=== PATIENT | male | born 1945 | race Caucasian/White ===

== ENCOUNTER → 2017-09-25 17:45 | Inpatient (IN) | END | disposition home or self-care (01) | DRG 640 ==

== ENCOUNTER 2017-10-02 17:15 | Emergency (ER) | END 2017-10-02 20:09 | disposition left against medical advice (07) ==

== ENCOUNTER 2017-10-18 05:31 | Emergency (ER) | END 2017-10-18 07:44 | disposition home or self-care (01) ==

== ENCOUNTER 2017-11-28 15:01 | Inpatient (IN) | END 2018-01-04 16:00 | disposition home health service (06) | DRG 981 ==

== ENCOUNTER 2018-03-07 10:22 | Inpatient (IN) | payer OTHER ==
[~2018-03-07] VITALS: Ht 162.6 cm; Wt 69.3 kg
[2018-03-07] VITALS (7 sets, daily range): BP systolic 152–183; BP diastolic 76–79; PULSE 56–70; RESP 18; Ht 162.6 cm; Wt 69.3 kg
[~2018-03-07 10:22] MED LIST: APIX5TAB PO; ATOR20TA65 PO; CALC500T11 PO; CARV12.579 PO; FOLI-49 PO; HYDR-3672 PO; Insulin Glargine SC; LOSA50TA14 PO; NIFE90TA PO; NOVO3I SC
[2018-03-07] MEDS ORDERED: ONDANSETRON 4 MG INJ IV STA ×2 (11:32→15:35)
--- NOTE | 2018-03-07 12:18 | ERD ---
ER Documentation Chief Complaint Chief Complaint VOMITING,PALPITATIONS,SOB.LLEG PAIN HPI This is a 73-year-old male with a past medical history of hypertension, hyperlipidemia, diabetes, CHF, atrial fibrillation, hypothyroidism, end-stage renal disease status post right chest tunneled dialysis catheter on dialysis Monday//Monday, who is presenting with epigastric pain, nausea with a few episodes of nonbilious nonbloody vomiting, exacerbated by eating. The patient has had these symptoms for several days now. Despite this, he been able to finish his dialysis sessions, most recently yesterday. The patient does also endorse a few episodes of loose watery brown nonbloody diarrhea, and he feels generally unwell. He has not had any fever or chills. He denies any black or bloody or tarry stools. The patient reports oliguria related to his kidney disease. He denies any dysuria. The patient also endorses chronic right hip pain. The patient reports having had hip surgery several months ago, and he has had pain since then. He is due to follow-up with his orthopedic doctor. He does not endorse any new pain. He does not endorse any left lower extremity swelling. He does not endorse any recent trauma or injury. The patient also endorses intermittent palpitations with shortness of breath. He does not endorse chest pain or pleuritic pain. The patient has had no headache or vision changes. The patient does not endorse neck or back pain. The patient denies lightheadedness or dizziness. The patient has had no focal deficits. The patient has had no weakness or numbness or tingling to the face or extremities. ROS All systems reviewed and are negative except as per history of present illness. Medications Home Meds Active Scripts Insulin Aspart* (Novolog Insulin Pen*) 100 Unit/Ml Soln, 5 UNIT SC WITH MEALS for 30 Days, #1 BOX 2 Refills Prov:WALLY GOODMAN 01/04/18 [Insulin Glargine] 100 UNITS/ML SOLN No Conflict Check, 20 UNITS SC QAM for 30 Days, #1 BOX 2 Refills Prov:WALLY GOODMAN 01/04/18 Nifedipine (Procardia Xl) 90 Mg Tab.er.24, 90 MG PO DAILY for 30 Days, #30 TAB 1 Refill Prov:WALLY GOODMAN 01/01/18 Carvedilol* (Carvedilol*) 12.5 Mg Tablet, 12.5 MG PO BID for 30 Days, #60 TAB 1 Refill Prov:WALLY GOODMAN J 01/01/18 Atorvastatin Calcium (Atorvastatin Calcium) 20 Mg Tablet, 20 MG PO HS for 30 Days, #30 TAB 1 Refill Prov:WALLY GOODMAN J 01/01/18 Apixaban* (Eliquis*) 5 Mg Tablet, 5 MG PO BID for 30 Days, #60 TAB 1 Refill Prov:WALLY GOODMAN J 01/01/18 Folic Acid* (Folic Acid*) 1 Mg Tablet, 1 MG PO DAILY for 30 Days, #30 TAB 1 Refill Prov:WALLY GOODMAN J 01/01/18 Hydralazine Hcl* (Hydralazine Hcl*) 50 Mg Tab, 50 MG PO Q8 for 30 Days, #90 TAB 1 Refill Prov:WALLY GOODMAN J 01/01/18 Reported Medications Meloxicam* (Mobic*) 15 Mg Tablet, 15 MG PO DAILY, #30 TAB 03/07/18 Hydrocodone/Acetaminophen ([place] 5-325 Tablet) 1 Each Tablet, 1 EACH PO Q6H, TAB 03/07/18 Discontinued Scripts Calcium Carbonate ([place]-500) 500 Mg Tablet, 500 MG PO DAILY for 30 Days, #30 TAB 1 Refill Prov:WALLY GOODMAN J 01/01/18 Losartan Potassium* (Losartan Potassium*) 50 Mg Tablet, 50 MG PO DAILY for 30 Days, #30 TAB 1 Refill Prov:WALLY GOODMAN J 01/01/18 Allergies Allergies: Coded Allergies: No Known Allergy (Unverified , 03/07/18) PMhx/Soc History of Surgery: Yes (R hip replacement. ) Anesthesia Reaction: No Hx Neurological Disorder: No Hx Respiratory Disorders: No Hx Cardiac Disorders: Yes (Hypertension, atrial fibrillation, hyperlipidemia, heart failure, diabetes) Hx Psychiatric Problems: No Hx Miscellaneous Medical Probl: Yes (ESRD on HD, hypothyroidism, anemia) Hx Alcohol Use: No Hx Substance Use: No Hx Tobacco Use: No Smoking Status: Never smoker FmHx Family History: diabetes Physical Exam Vitals Vital Signs Date Temp Pulse Resp B/P (MAP) Pulse Ox O2 O2 Flow FiO2 Time Delivery Rate 03/07/18 68 19 180/76 100 Room Air 14:27 (110) 03/07/18 98.1 56 16 148/64 100 Room Air 11:50 (92) 03/07/18 98.3 64 18 148/65 99 10:25 (92) Physical Exam Const: No apparent distress, well-developed, well-nourished Head: Normocephalic, Atraumatic Eyes: Normal Conjunctiva. Extraocular movements intact. Pupils equal, round and reactive to light ENT: Normal External Ears, Nose and Mouth. Neck: Full range of motion. No meningismus. Resp: Clear to auscultation bilaterally, No wheezes, rales or rhonchi Cardio: Regular rhythm. Bradycardia. No murmurs, rubs or gallops Chest: Right chest tunneled dialysis catheter with no erythema or induration or purulence or fluctuance around the site. Abd: Soft, non tender, non distended. Normal bowel sounds Skin: No petechiae or rashes. Right hip surgical site is clean with a healed surgical scar, no erythema or induration or purulence or fluctuance. Back: No midline tenderness. No CVA tenderness Ext: No cyanosis, or edema. Limited range of motion to the right hip sec ondary to pain, chronic in nature. Neur: Awake and alert, oriented 4. Cranial nerves intact. No facial droop. Normal strength, sensation and coordination. Psych: Normal Mood and Affect Result Diagram: 03/07/18 1148 03/07/18 1148 Results 24 hrs Laboratory Tests Test 03/07/18 11:48 03/07/18 13:10 White Blood Count 8.7 10^3/ul Red Blood Count 4.42 10^6/ul Hemoglobin 13.5 g/dl Hematocrit 41.3 % Mean Corpuscular Volume 93.4 fl Mean Corpuscular Hemoglobin 30.5 pg Mean Corpuscular Hemoglobin Concent 32.7 g/dl Red Cell Distribution Width 14.4 % Platelet Count 180 10^3/UL Mean Platelet Volume 10.0 fl Immature Granulocytes % 0.300 % Neutrophils % 71.3 % Lymphocytes % 12.9 % Monocytes % 9.0 % Eosinophils % 5.8 % Basophils % 0.7 % Nucleated Red Blood Cells % 0.0 /100WBC Immature Granulocytes # 0.030 10^3/ul Neutrophils # 6.2 10^3/ul Lymphocytes # 1.1 10^3/ul Monocytes # 0.8 10^3/ul Eosinophils # 0.5 10^3/ul Basophils # 0.1 10^3/ul Nucleated Red Blood Cells # 0.0 10^3/ul Sodium Level 136 mmol/L Potassium Level 5.9 mmol/L Chloride Level 91 mmol/L Carbon Dioxide Level 28 mmol/L Anion Gap 17 Blood Urea Nitrogen 45 mg/dl Creatinine 6.61 mg/dl Est Glomerular Filtrat Rate mL/min mL/min Glucose Level 79 mg/dl Calcium Level 8.8 mg/dl Total Bilirubin 0.0 mg/dl Direct Bilirubin 0.00 mg/dl Indirect Bilirubin 0.0 mg/dl Aspartate Amino Transf (AST/SGOT) 40 IU/L Alanine Aminotransferase (ALT/SGPT) 47 IU/L Alkaline Phosphatase 231 IU/L Troponin I < 0.012 ng/ml Total Protein 7.6 g/dl Albumin 4.5 g/dl Globulin 3.10 g/dl Albumin/Globulin Ratio 1.45 Lipase 88 U/L Urine Color YELLOW Urine Clarity CLEAR Urine pH 9.0 Urine Specific [place] 1.013 Urine Ketones NEGATIVE mg/dL Urine Nitrite NEGATIVE mg/dL Urine Bilirubin NEGATIVE mg/dL Urine Urobilinogen NEGATIVE mg/dL Urine Leukocyte Esterase NEGATIVE [place]/ul Urine Microscopic RBC 6 /HPF Urine Microscopic WBC 4 /HPF Urine Hemoglobin NEGATIVE mg/dL Urine Glucose 2+ mg/dL Urine Total Protein 3+ mg/dl Current Medications Medications Dose Sig/Dario Start Time Status Last (Trade) Ordered Route PRN Stop Time Admin Dose Reason Admin Ondansetron 4 mg ONCE STAT 03/07/18 DC 03/07/18 HCl (Zofran IV 11:32 11:46 Inj) 03/07/18 11:33 Morphine 4 mg ONCE STAT 03/07/18 DC 03/07/18 Sulfate IV 15:35 15:41 (morphine) 03/07/18 15:39 Ondansetron 4 mg ONCE STAT 03/07/18 DC 03/07/18 HCl (Zofran IV 15:35 15:41 Inj) 03/07/18 15:39 Procedures/MDM MDM The patient's presentation warrants further investigation. Previous medical records, if available, were reviewed. LABS The patient's laboratory testing was obtained and reviewed. No emergent treatment was required unless described below. CBC: No E/o of systemic infection or thrombocytopenia. Mild normocytic anemia, improved from baseline, nonemergent CMP: No E/o severe acidosis or alkalosis or diabetic ketoacidosis. Elevated alkaline phosphatase, potentially reactive. Elevated BUN and creatinine in line with his end-stage renal disease. Hyperkalemia, does not require emergent treatment. Lipase: No E/o pancreatitis Troponin: No E/o acute ischemia Urine: Patient was not able to provide. EKG EKG read by me: Rate/Rhythm: Sinus bradycardia at 57 bpm with an unusual P wave morphology, concerning for possible ectopic atrial bradycardia Intervals: Normal. Incomplete right bundle branch block [place]: Normal Impression: No evidence of acute ischemia or arrhythmia IMAGING Imaging and Radiology interpretation reviewed. CXR FINDINGS: The lungs are clear. There is a tunneled right internal jugular vein dialysis catheter with the tip in the lower superior vena cava. The heart is enlarged. There is calcification in the aorta consistent with atherosclerosis. There is no pleural effusion. There is no pneumothorax. IMPRESSION: Dialysis catheter in satisfactory position. Clear lungs. Cardiomegaly and atherosclerosis. Otherwise unremarkable chest radiograph. Electronically viewed and signed by .Buddy Luu MD, on 03/07/2018 13:37 TREATMENT/DISPOSITION The patient presents primarily for epigastric abdominal pain with nausea, vomiting and diarrhea. This could be related to gastritis or GERD or PUD. The patient was provided treatment for these symptoms. This could also be related to gastroenteritis. That said, the patient does have chronic metabolic derangements associated with his end-stage renal disease. The patient also has hyperkalemia, which is concerning. Also of note, the patient is slightly bradycardic. His EKG shows abnormal P wave morphology, concerning for possible ectopic atrial bradycardia. The patient's troponin is negative, but an anginal equivalent is certainly possible with his current symptoms. Given the overall presentation, I do feel that the patient would benefit from inpatient evaluation and management as needed. There is no evidence of acute ischemia on the EKG. The patient's potassium is elevated but still less than 6.5 and there are no peaked T waves on the EKG. I do not feel the patient requires emergent treatment for his hyperkalemia in the emergency department, but he will require nephrology consultation in the hospital for dialysis tomorrow. The patient's chest xray does not reveal pneumonia or pneumothorax or pleural effusions or pulmonary edema. She does not have a widened mediastinum and does not have signs or symptoms concerning for thoracic aortic aneurysm or dissection. The patient does not have pneumomediastinum or signs concerning for esophageal tear or rupture. The patient has no clinical or radiographic signs of pericardial effusion or tamponade. The patient does not have pneumoperitoneum and I have decreased suspicion of viscus perforation as possible referred pain. The patient does not have a history of heart failure and I have low suspicion for this. The patient does not have a diagnosis of COPD and is not wheezing today. The patient is not tachypneic or hypoxic. The patient is breathing comfortably and without pleuritic pain. The patient is not on hormonal therapy. The patient has no history of clotting or bleeding disorders. The patient has no calf tenderness. The patient has had no hemoptysis. I have decreased suspicion for PE. The patient's troponin and EKG are reassuring. I have low suspicion for acute coronary syndrome. The patient presents with abdominal pain. The patient does not have any ev idence of peritonitis. The patient does not have clinical symptoms concerning for mesenteric ischemia or ischemic colitis. The patient does not have right upper quadrant tenderness, and I have low reis spicion for gallstones, cholecystitis or biliary colic. The patient does not have left upper quadrant tenderness. I have low suspicion for pancreatitis. The patient does not have any right lower quadrant tenderness, or periumbilical tenderness. I have low suspicion for appendicitis. The patient does not have suprapubic tenderness. I have decreased suspicion for cystitis. The patient does not have any left lower quadrant tenderness, and I have low suspicion for diverticulosis or diverticulitis. The patient does not have any flank tenderness. The patient does not have gross hematuria. I have decreased suspicion for nephrolithiasis or renal colic. The patient does not have any palpable pulsatile mass or severe abdominal pain radiating to the back. I have low suspicion for aortic aneurysm, dissection or rupture. Lastly, the patient endorses ambulatory dysfunction related to chronic right hip pain. The patient had a recent total hip arthroplasty several months ago and he has had pain since then. There is no evidence of soft tissue infection. I have low suspicion for a septic joint. The patient's symptoms are chronic and unchanged today. I do not feel that further workup for this is warranted in the emergency department. The patient was given a dose of morphine for pain control. At this time, I feel that the patient requires admission for further evaluation and management. The patient will be admitted to Panel in accordance with the patient's insurance. The patient was accepted by Dr. Carlisle at 4:10 PM on January 05, 2019. Disclaimer: Inadvertent spelling and grammatical errors are likely due to EHR/dictation software use and do not reflect on the overall quality of patient care. Note that the electronic time recorded on this note does not necessarily reflect the actual time of the patient encounter. Departure Diagnosis: Primary Impression: Epigastric pain Additional Impressions: Nausea & vomiting Vomiting type: unspecified Vomiting Intractability: non-intractable Qualified Codes: R11.2 - Nausea with vomiting, unspecified Diarrhea Diarrhea type: unspecified type Qualified Codes: R19.7 - Diarrhea, unspecified Palpitations Bradycardia Shortness of breath Hyperkalemia End stage renal disease Elevated alkaline phosphatase level Normocytic anemia Multiple complaints Chronic right hip pain Ambulatory dysfunction Condition: CLARE Pimentel MD Mar 07, 2018 12:18
[2018-03-07] MEDS ORDERED: MELO15TA30 PO (14:51)
[2018-03-07] MEDS ORDERED: HYDR-4011 PO (14:51)
[2018-03-07] MEDS ORDERED: morphine 4 MG/ML VIAL IV STA (15:35)
[2018-03-07] MEDS ORDERED: LIDOCAINE/MYLANTA 40 ML BTL PO STA (16:25)
[2018-03-07] MEDS ORDERED: FAMOTIDINE 20 MG TAB PO STA (16:25)
[2018-03-07] MEDS ORDERED: BELLADONNA/PHENOBARBITAL TAB PO STA (16:25)
[2018-03-07] MEDS ORDERED: ACETAMINOPHEN 325 MG TAB PO PRN (17:00)
[2018-03-07] MEDS ORDERED: ONDANSETRON 4 MG INJ IV PRN (17:00)
[2018-03-07] MEDS ORDERED: NACL 0.9% 3 ML SYG IV SCH ×2 (17:30)
--- NOTE | 2018-03-07 17:32 | HP ---
Date/Time of Note Date/Time of Note DATE: 03/07/18 TIME: 17:18 Assessment/Plan VTE Prophylaxis Pharmacological prophylaxis: heparin Lines/Catheters IV Catheter Type (from Nrsg): Saline Lock Assessment/Plan Hospital Course 73 yo male with h/o ESRD on HD, DMII, A Fib, OA s/p R EMILY 3 mo ago presents with ongoing hip pain, also having nasuea and vomiting Hip/knee pain: - Has been present since surgery. Will obtain XR hip and knee - Pain control N/V: - Sypmtomatic care. unlikely bacterial infection. benign abdominal exam ESRD: - HD per Dr javier Regalado Fib: - stable Result Diagram: 03/07/18 1148 03/07/18 1148 Results 24hrs Laboratory Tests Test 03/07/18 11:48 03/07/18 13:10 White Blood Count 8.7 Red Blood Count 4.42 #L Hemoglobin 13.5 #L Hematocrit 41.3 #L Mean Corpuscular Volume 93.4 Mean Corpuscular Hemoglobin 30.5 Mean Corpuscular Hemoglobin Concent 32.7 Red Cell Distribution Width 14.4 Platelet Count 180 # Mean Platelet Volume 10.0 Immature Granulocytes % 0.300 Neutrophils % 71.3 Lymphocytes % 12.9 L Monocytes % 9.0 Eosinophils % 5.8 Basophils % 0.7 Nucleated Red Blood Cells % 0.0 Immature Granulocytes # 0.030 Neutrophils # 6.2 Lymphocytes # 1.1 Monocytes # 0.8 Eosinophils # 0.5 Basophils # 0.1 Nucleated Red Blood Cells # 0.0 Sodium Level 136 Potassium Level 5.9 H Chloride Level 91 L Carbon Dioxide Level 28 Anion Gap 17 H Blood Urea Nitrogen 45 H Creatinine 6.61 H Est Glomerular Filtrat Rate mL/min Glucose Level 79 Calcium Level 8.8 Total Bilirubin 0.0 L Direct Bilirubin 0.00 Indirect Bilirubin 0.0 Aspartate Amino Transf (AST/SGOT) 40 Alanine Aminotransferase (ALT/SGPT) 47 Alkaline Phosphatase 231 H Troponin I < 0.012 Total Protein 7.6 Albumin 4.5 Globulin 3.10 Albumin/Globulin Ratio 1.45 Lipase 88 Urine Color YELLOW Urine Clarity CLEAR Urine pH 9.0 Urine Specific [place] 1.013 Urine Ketones NEGATIVE Urine Nitrite NEGATIVE Urine Bilirubin NEGATIVE Urine Urobilinogen NEGATIVE Urine Leukocyte Esterase NEGATIVE Urine Microscopic RBC 6 H Urine Microscopic WBC 4 Urine Hemoglobin NEGATIVE Urine Glucose 2+ H Urine Total Protein 3+ H HPI/ROS Admit Date/Time Admit Date/Time Mar 07, 2018 at 16:36 Hx of Present Illness 73 yo male with ESRD on HD, DMII, hypertension, OA s/p EMILY who presents with R hip pain and vomiting Had hip replaced 3 mo ago. Has had pain in R hip and knee since that time. has been seen by Dr Thomason his orthopedist and there have been no identified complications of surgery He presents for evaluation of pain Also complaints of nausea and vomiting with mild abdominal pain. No diarrhea. No fevers/chills. Received pain injection in ED and symptoms now resolved PMH/Family/Social Past Medical History Medical History: renal disease Medications Current Medications Ondansetron HCl (Zofran Inj) 4 mg ER BRIDGE PRN IV nausea; Start 03/07/18 at 17:00; Stop 03/08/18 at 16:59 Acetaminophen (Tylenol Tab) 650 mg ER BRIDGE PRN PO pain; Start 03/07/18 at 17:00; Stop 03/08/18 at 16:59 Coded Allergies: No Known Allergy (Unverified , 03/07/18) Past Surgical History EMILY Past Surgical Hx: other Family History Significant Family History: no pertinent family hx Social History Alcohol Use: none Smoking Status: Never smoker Drug Use: none Exam/Review of Systems Vital Signs Vitals Vital Signs Date Temp Pulse Resp B/P (MAP) Pulse Ox O2 O2 Flow FiO2 Time Delivery Rate 03/07/18 69 18 152/60 99 Room Air 16:58 (90) 03/07/18 98.1 11:50 Exam Exam Well appearing no distress Aox3 RRR Clear b/l Permacath in chest Abdomen soft nt nd RLE with normal appearing hip s/p arthroplasty No edema BRUNO ALAN MD Mar 07, 2018 17:32
[2018-03-07] MEDS: INSULIN ASPART [NOVOLOG] 3 ML PEN SC SCH ×3 (18:00→20:06)
[2018-03-07] MEDS ORDERED: GLUCAGON 1 MG INJ IM PRN (18:00)
[2018-03-07] MEDS ORDERED: DEXTROSE 50% 50 ML SYRINGE IV PRN ×2 (18:00)
[2018-03-07] MEDS ORDERED: GLUCOSE GEL 15 GRAM TUBE PO PRN ×2 (18:00)
[2018-03-07] MEDS ORDERED: GLUCOSE GEL 15 GRAM TUBE BUCCAL PRN (18:00)
--- NOTE | 2018-03-07 18:31 | NUR ---
pt transfer from er at 1730 with pt, pt nonenglish speaking, mauritian only pt alert and oriented, bp elevated, pt had c\o right hip pain, med prior to transfer in er at this time declines pain med bs checked, and diet ordered for pt
[2018-03-07] MEDS: HYDROCODONE/APAP (5/325) TAB PO PRN (20:00)
[2018-03-07] MEDS: INSULIN GLARGINE [LANTus] (100 UNITS/ML) SYG SC SCH (20:05)
--- NOTE | 2018-03-07 20:55 | CONS ---
Date/Time of Note Date/Time of Note DATE: 03/07/18 TIME: 20:55 Assessment/Plan Assessment/Plan Assessment/Plan 1. acute hyperkalemia 2. ESRD on HD TTS schedule at [facility] [place] 3. right hip pain 4. H/o HTN 5/ H/o HL 6. h/o atrial fibrillation Plan: Seen in ED< S/p Treatment for hyperkalemia in ED, Kayexalate given, Bp stable in ED Admissin to floor will plan for HD tomorrow first in AM pt follows at [facility] for scheduled HD on TTS Thanks for consultaiton, I will continue to follow up Result Diagram: 03/07/18 1148 03/07/18 1148 Results 24hrs Laboratory Tests Test 03/07/18 11:48 03/07/18 13:10 03/07/18 18:03 03/07/18 19:51 White Blood Count 8.7 Red Blood Count 4.42 #L Hemoglobin 13.5 #L Hematocrit 41.3 #L Mean Corpuscular 93.4 Volume Mean Corpuscular 30.5 Hemoglobin Mean Corpuscular 32.7 Hemoglobin Concent Red Cell 14.4 Distribution Width Platelet Count 180 # Mean Platelet Volume 10.0 Immature 0.300 Granulocytes % Neutrophils % 71.3 Lymphocytes % 12.9 L Monocytes % 9.0 Eosinophils % 5.8 Basophils % 0.7 Nucleated Red Blood 0.0 Cells % Immature 0.030 Granulocytes # Neutrophils # 6.2 Lymphocytes # 1.1 Monocytes # 0.8 Eosinophils # 0.5 Basophils # 0.1 Nucleated Red Blood 0.0 Cells # Sodium Level 136 Potassium Level 5.9 H Chloride Level 91 L Carbon Dioxide Level 28 Anion Gap 17 H Blood Urea Nitrogen 45 H Creatinine 6.61 H Est Glomerular Filtrat Rate mL/min Glucose Level 79 Calcium Level 8.8 Total Bilirubin 0.0 L Direct Bilirubin 0.00 Indirect Bilirubin 0.0 Aspartate Amino 40 Transf (AST/SGOT) Alanine 47 Aminotransferase (AL T/SGPT) Alkaline Phosphatase 231 H Troponin I < 0.012 Total Protein 7.6 Albumin 4.5 Globulin 3.10 Albumin/Globulin 1.45 Ratio Lipase 88 Urine Color YELLOW Urine Clarity CLEAR Urine pH 9.0 Urine Specific 1.013 [place] Urine Ketones NEGATIVE Urine Nitrite NEGATIVE Urine Bilirubin NEGATIVE Urine Urobilinogen NEGATIVE Urine Leukocyte NEGATIVE Esterase Urine Microscopic 6 H RBC Urine Microscopic 4 WBC Urine Hemoglobin NEGATIVE Urine Glucose 2+ H Urine Total Protein 3+ H Bedside Glucose 86 131 Consultation Date/Type/Reason Admit Date/Time Mar 07, 2018 at 16:36 Date of Consultation: Mar 07, 2018 Type of Consult NEPHROLOGY Reason for Consultation ESRD on HD with bradycardia, Hyperkalemia, Hypotension Requesting Provider: BRUNO ALAN MD Hx of Present Illness 73 yo male with h/o ESRD on HD, DMII, A Fib, OA s/p R EMILY 3 mo ago presents with ongoing hip pain, also having nasuea and vomiting- pt had his last HD yesteday, he was noted ot have hyperkalemia with K 5.9- pt follows at [facility] [place] for scheduled HD on TTS.Renal has been consulted for acute hyperkalemia and need of HD. Constitutional: no complaints Eyes: no complaints ENT: no complaints Respiratory: no complaints Cardiovascular: lightheadedness Gastrointestinal: decreased appetite, nausea, vomiting Genitourinary: no complaints Musculoskeletal: no complaints Skin: no complaints Neurologic: no complaints Endocrine: no complaints Lymphatic: no complaints Psychological: no complaints Immunologic: no complaints Past Medical History Medical History: hypertension, renal disease, other (ESRD on HD, Atrial fibrillation ) Medications Current Medications Carvedilol (Coreg) 12.5 mg BID PO Last administered on 03/07/18at 20:06; Admin Dose 12.5 MG; Start 03/07/18 at 21:00 Hydralazine HCl (Apresoline) 50 mg Q8 PO ; Start 03/07/18 at 22:00 IV Flush (NS 3 ml) 3 ml PER PROTOCOL IV ; Start 03/07/18 at 17:30 Acetaminophen/ Hydrocodone Bitart (Cornell (5/325)) 2 tab Q6H PRN PO PAIN LEVEL 6-10; Start 03/07/18 at 17:30 Heparin Sodium (Porcine) (Heparin (5000 Units/1ml)) 5,000 unit Q12 SC ; Start 03/07/18 at 21:00 Insulin Glargine (Lantus) 10 units DAILY@2000 SC Last administered on 03/07/18at 20:05; Admin Dose 10 UNITS; Start 03/07/18 at 20:00 Insulin Aspart (Novolog Insulin Pen) 3 unit WITH MEALS SC ; Start 03/07/18 at 18:00 Insulin Aspart (Novolog Insulin Pen) NOVOLOG *MILD* ALGORITHM WITH MEALS BEDTIME SC ; Start 03/07/18 at 18:00 IV Flush (NS 3 ml) 3 ml PER PROTOCOL IV ; Start 03/07/18 at 17:30 Miscellaneous Information 1 ea NOTE XX ; Start 03/07/18 at 18:00 Glucose (Glutose) 15 gm Q15M PRN PO DECREASED GLUCOSE; Start 03/07/18 at 18:00 Glucose (Glutose) 22.5 gm Q15M PRN PO DECREASED GLUCOSE; Start 03/07/18 at 18:00 Dextrose (D50w Syringe) 25 ml Q15M PRN IV DECREASED GLUCOSE; Start 03/07/18 at 18:00 Dextrose (D50w Syringe) 50 ml Q15M PRN IV DECREASED GLUCOSE; Start 03/07/18 at 18:00 Glucagon (Glucagen) 1 mg Q15M PRN IM DECREASED GLUCOSE; Start 03/07/18 at 18:00 Glucose (Glutose) 15 gm Q15M PRN BUCCAL DECREASED GLUCOSE; Start 03/07/18 at 18:00 Allergies: Coded Allergies: No Known Allergy (Unverified , 03/07/18) Past Surgical History Past Surgical Hx: other (R THR , H/o permacath placemen t) Family History Significant Family History: no pertinent family hx Social History Alcohol Use: none Smoking Status: Never smoker Drug Use: none Exam/Review of Systems Vital Signs Vitals Vital Signs Date Temp Pulse Resp B/P (MAP) Pulse Ox O2 O2 Flow FiO2 Time Delivery Rate 03/07/18 62 20:00 03/07/18 98.8 18 183/78 98 19:34 (113) 03/07/18 Room Air 18:20 Exam Constitutional: alert Head: normocephalic Eyes: nl conjunctiva ENMT: nl external ears & nose Neck: supple, non-tender Respiratory: crackles/rales, diminished breath sounds Cardiovascular: regular rate and rhythm, nl pulses Gastrointestinal: soft, non-tender Musculoskeletal: muscle weakness, range of motion (limited due to hip pain ), spine non-tender, swelling Extremities: normal pulses Neurological: TRIM MASTER OPERATOR II-XII intact, nl mental status, nl speech, nl strength Skin: nl turgor Lymph: nl lymph nodes Medications Medications Current Medications Carvedilol (Coreg) 12.5 mg BID PO Last administered on 03/07/18at 20:06; Admin Dose 12.5 MG; Start 03/07/18 at 21:00 Hydralazine HCl (Apresoline) 50 mg Q8 PO ; Start 03/07/18 at 22:00 IV Flush (NS 3 ml) 3 ml PER PROTOCOL IV ; Start 03/07/18 at 17:30 Acetaminophen/ Hydrocodone Bitart (Cornell (5/325)) 2 tab Q6H PRN PO PAIN LEVEL 6-10; Start 03/07/18 at 17:30 Heparin Sodium (Porcine) (Heparin (5000 Units/1ml)) 5,000 unit Q12 SC ; Start 03/07/18 at 21:00 Insulin Glargine (Lantus) 10 units DAILY@2000 SC Last administered on 03/07/18at 20:05; Admin Dose 10 UNITS; Start 03/07/18 at 20:00 Insulin Aspart (Novolog Insulin Pen) 3 unit WITH MEALS SC ; Start 03/07/18 at 18:00 Insulin Aspart (Novolog Insulin Pen) NOVOLOG *MILD* ALGORITHM WITH MEALS BEDTIME SC ; Start 03/07/18 at 18:00 IV Flush (NS 3 ml) 3 ml PER PROTOCOL IV ; Start 03/07/18 at 17:30 Miscellaneous Information 1 ea NOTE XX ; Start 03/07/18 at 18:00 Glucose (Glutose) 15 gm Q15M PRN PO DECREASED GLUCOSE; Start 03/07/18 at 18:00 Glucose (Glutose) 22.5 gm Q15M PRN PO DECREASED GLUCOSE; Start 03/07/18 at 18:00 Dextrose (D50w Syringe) 25 ml Q15M PRN IV DECREASED GLUCOSE; Start 03/07/18 at 18:00 Dextrose (D50w Syringe) 50 ml Q15M PRN IV DECREASED GLUCOSE; Start 03/07/18 at 18:00 Glucagon (Glucagen) 1 mg Q15M PRN IM DECREASED GLUCOSE; Start 03/07/18 at 18:00 Glucose (Glutose) 15 gm Q15M PRN BUCCAL DECREASED GLUCOSE; Start 03/07/18 at 18:00 LILLY QUILES MD Mar 07, 2018 20:55
[2018-03-07] MEDS ORDERED: SODIUM CHLORIDE 0.9% 1L BAG IV PRN (21:00)
[2018-03-07] MEDS ORDERED: ALBUMIN HUMAN 25% 50 ML IV PRN (21:00)
[2018-03-07] MEDS ORDERED: HEPARIN 1000 UNITS/ML 10 ML INJ CATHETER SCH (21:00)
[2018-03-07] MEDS: HEPARIN 5,000 UNIT/1 ML VIAL SC SCH (21:33)
--- NOTE | 2018-03-07 21:33 | NUR ---
Nurse Note Dialysis confirmation # for 03/08: [id number] Consent signed by at bedside, request from patient.
[2018-03-07] MEDS ORDERED: morphine SULFATE/PF (2 MG/2 ML) SYG IV PRN (22:00)
[2018-03-07] MEDS ORDERED: traZODone 50 MG TAB PO ONE (22:00)
[2018-03-07] MEDS: morphine 4 MG/ML VIAL IV PRN (22:35)
[2018-03-07] MEDS: hydrALAzine 20 MG INJ IV PRN (23:30)
[2018-03-08] VITALS (26 sets, daily range): BP systolic 119–192; BP diastolic 60–81; PULSE 49–90; RESP 16–20
[2018-03-08] MEDS: morphine 4 MG/ML VIAL IV PRN ×2 (05:21→14:30)
[2018-03-08] MEDS ORDERED: ALBUTEROL/IPRATROPIUM (NEB) 3 ML AMP HHN ONE (06:52)
[2018-03-08] MEDS ORDERED: INSULIN ASPART [NOVOLOG] 3 ML PEN SC ONE (07:00)
[2018-03-08] MEDS ORDERED: CALCIUM GLUCONATE 10% 1 GM in DEXTROSE 5% 100 ML IVPB ONE (07:00)
--- NOTE | 2018-03-08 07:42 | NUR ---
E[facility] Pt AM labs show potassium of 7.1 Dr Ferguson notified. Order for 10 units novolog and half amp D50. Pt BG checked-75. Dr Ferguson notified of BG, order changed to 50ml D50 along with novolog. Order carried out. Dr Ferguson also ordered nebulizer and calcium gluconate. Orders placed. This RN called [facility] to inquire about time of HD treatment today d/t high K, [facility] rep unsure of time, states will call back with time for HD today. Above notes endorsed to oncoming RNJeremy.
[2018-03-08] MEDS: INSULIN ASPART [NOVOLOG] 3 ML PEN SC SCH ×7 (08:00→21:37)
[2018-03-08] MEDS: HEPARIN 5,000 UNIT/1 ML VIAL SC SCH ×2 (08:28→21:36)
--- NOTE | 2018-03-08 10:00 | NUR ---
Patient currently undergoing HD. Calcium gluconate ordered for this patient. Per Dr. Carlisle, ordered to not administer unless ordered by road roller engineer. Order DC'd.
[2018-03-08] MEDS ORDERED: HEPARIN 1000 UNITS/ML 10 ML INJ CATHETER SCH (11:30)
--- NOTE | 2018-03-08 11:47 | CONS ---
Assessment/Plan Assessment/Plan Assessment/Plan (Daily) 1. acute hyperkalemia with K 7.1 2[place] [facility] [place] pain 4. H/o HTN 5/ H/o HL 6. h/o atrial fibrillation Plan: K 7.1- will do Hd today with 1 K bath, post HD K improved to 4.7 pt follows at [facility] for scheduled HD on TTS- after today next HD will be on Monday will continue to follow up Consultation Date/Type/Reason Admit Date/Time Mar 07, 2018 at 16:36 Initial Consult Date 03/07/18 Type of Consult NEPHROLOGY Requesting Provider: BRUNO ALAN MD Date/Time of Note DATE: 03/08/18 TIME: 11:47 24 HR Interval Summary Free Text/Dictation K was 7.1- s/p HD today with 1 k Bath, follow up K 4.7, BP stable Exam/Review of Systems Vital Signs Vitals Vital Signs Date Temp Pulse Resp B/P (MAP) Pulse Ox O2 O2 Flow FiO2 Time Delivery Rate 03/08/18 66 11:25 03/08/18 97.9 19 155/68 95 11:12 (97) 03/08/18 Room Air 10:20 Intake and Output 03/07/18 03/07/18 03/08/18 1515:00 23:00 07:00 IntakeIntake Total 300 ml BalanceBalance 300 ml Exam Constitutional: alert, awake, no acute distress Respiratory: crackles/rales, diminished breath sounds Cardiovascular: regular rate and rhythm, nl pulses Gastrointestinal: soft, non-tender Musculoskeletal: muscle weakness, range of motion (limited due to hip pain ), spine non-tender, swelling Extremities: normal pulses Neurological: IT INFRASTRUCTURE ARCHITECT II-XII intact, nl mental status, nl speech, nl strength Results Result Diagram: 03/08/18 0509 03/08/18 0509 Results 24hrs Laboratory Tests Test 03/07/18 11:48 03/07/18 13:10 03/07/18 18:03 03/07/18 19:51 White Blood Count 8.7 Red Blood Count 4.42 #L Hemoglobin 13.5 #L Hematocrit 41.3 #L Mean Corpuscular 93.4 Volume Mean Corpuscular 30.5 Hemoglobin Mean Corpuscular 32.7 Hemoglobin Concent Red Cell 14.4 Distribution Width Platelet Count 180 # Mean Platelet Volume 10.0 Immature 0.300 Granulocytes % Neutrophils % 71.3 Lymphocytes % 12.9 L Monocytes % 9.0 Eosinophils % 5.8 Basophils % 0.7 Nucleated Red Blood 0.0 Cells % Immature 0.030 Granulocytes # Neutrophils # 6.2 Lymphocytes # 1.1 Monocytes # 0.8 Eosinophils # 0.5 Basophils # 0.1 Nucleated Red Blood 0.0 Cells # Sodium Level 136 Potassium Level 5.9 H Chloride Level 91 L Carbon Dioxide Level 28 Anion Gap 17 H Blood Urea Nitrogen 45 H Creatinine 6.61 H Est Glomerular Filtrat Rate mL/min Glucose Level 79 Calcium Level 8.8 Total Bilirubin 0.0 L Direct Bilirubin 0.00 Indirect Bilirubin 0.0 Aspartate Amino 40 Transf (AST/SGOT) Alanine 47 Aminotransferase (AL T/SGPT) Alkaline Phosphatase 231 H Troponin I < 0.012 Total Protein 7.6 Albumin 4.5 Globulin 3.10 Albumin/Globulin 1.45 Ratio Lipase 88 Urine Color YELLOW Urine Clarity CLEAR Urine pH 9.0 Urine Specific 1.013 [place] Urine Ketones NEGATIVE Urine Nitrite NEGATIVE Urine Bilirubin NEGATIVE Urine Urobilinogen NEGATIVE Urine Leukocyte NEGATIVE Esterase Urine Microscopic 6 H RBC Urine Microscopic 4 WBC Urine Hemoglobin NEGATIVE Urine Glucose 2+ H Urine Total Protein 3+ H Bedside Glucose 86 131 Test 03/08/18 05:09 03/08/18 06:57 03/08/18 08:08 White Blood Count 8.0 Red Blood Count 3.69 L Hemoglobin 11.0 L Hematocrit 34.6 L Mean Corpuscular 93.8 Volume Mean Corpuscular 29.8 Hemoglobin Mean Corpuscular 31.8 L Hemoglobin Concent Red Cell 14.7 H Distribution Width Platelet Count 166 Mean Platelet Volume 11.2 H Immature 0.200 Granulocytes % Neutrophils % 59.4 Lymphocytes % 20.9 Monocytes % 11.0 Eosinophils % 7.4 H Basophils % 1.1 Nucleated Red Blood 0.0 Cells % Immature 0.020 Granulocytes # Neutrophils # 4.8 Lymphocytes # 1.7 Monocytes # 0.9 Eosinophils # 0.6 H Basophils # 0.1 Nucleated Red Blood 0.0 Cells # Sodium Level 136 Potassium Level 7.1 *H Chloride Level 93 L Carbon Dioxide Level 26 Anion Gap 17 H Blood Urea Nitrogen 55 H Creatinine 8.17 H Est Glomerular Filtrat Rate mL/min Glucose Level 87 Hemoglobin A1c 5.4 Calcium Level 8.6 Total Bilirubin 0.0 L Direct Bilirubin 0.00 Indirect Bilirubin 0.0 Aspartate Amino 21 Transf (AST/SGOT) Alanine 28 Aminotransferase (AL T/SGPT) Alkaline Phosphatase 182 H Total Protein 6.2 # Albumin 3.8 Globulin 2.40 Albumin/Globulin 1.58 Ratio Hepatitis B Surface NEGATIVE Antigen Bedside Glucose 75 129 LILLY QUILES MD Mar 08, 2018 11:47
--- NOTE | 2018-03-08 12:28 | DS ---
Date/Time of Note Date/Time of Note DATE: 03/08/18 TIME: 12:27 Discharge Summary Admission/Discharge Info Admit Date/Time Mar 07, 2018 at 16:36 Discharge Date/Time Discharge Diagnosis ESRD Patient Condition: Stable Hx of Present Illness 73 yo male with ESRD on HD, DMII, hypertension, OA s/p EMILY who presents with R hip pain and vomiting Had hip replaced 3 mo ago. Has had pain in R hip and knee since that time. has been seen by Dr Thomason his orthopedist and there have been no identified complications of surgery He presents for evaluation of pain Also complaints of nausea and vomiting with mild abdominal pain. No diarrhea. No fevers/chills. Received pain injection in ED and symptoms now resolved Hospital Course 73 yo male with h/o ESRD on HD, DMII, A Fib, OA s/p R EMILY 3 mo ago presents with ongoing hip pain, also having nasuea and vomiting Nausea and vomiting resolved spontaneously XR of hip and knee were taken which were without acute pathology He underwent scheduled HD per Dr Segura Discharged to further care as an outpatient Home Meds Active Scripts Insulin Aspart* (Novolog Insulin Pen*) 100 Unit/Ml Soln, 5 UNIT SC WITH MEALS for 30 Days, #1 BOX 2 Refills Prov:WALLY GOODMAN 01/04/18 [Insulin Glargine] 100 UNITS/ML SOLN No Conflict Check, 20 UNITS SC QAM for 30 Days, #1 BOX 2 Refills Prov:WALLY GOODMAN 01/04/18 Nifedipine (Procardia Xl) 90 Mg Tab.er.24, 90 MG PO DAILY for 30 Days, #30 TAB 1 Refill Prov:WALLY GOODMAN 01/01/18 Carvedilol* (Carvedilol*) 12.5 Mg Tablet, 12.5 MG PO BID for 30 Days, #60 TAB 1 Refill Prov:WALLY GOODMAN 01/01/18 Atorvastatin Calcium (Atorvastatin Calcium) 20 Mg Tablet, 20 MG PO HS for 30 Days, #30 TAB 1 Refill Prov:WALLY GOODMAN 01/01/18 Apixaban* (Eliquis*) 5 Mg Tablet, 5 MG PO BID for 30 Days, #60 TAB 1 Refill Prov:WALLY GOODMAN 01/01/18 Folic Acid* (Folic Acid*) 1 Mg Tablet, 1 MG PO DAILY for 30 Days, #30 TAB 1 Refill Prov:WALLY GOODMAN 01/01/18 Hydralazine Hcl* (Hydralazine Hcl*) 50 Mg Tab, 50 MG PO Q8 for 30 Days, #90 TAB 1 Refill Prov:WALLY GOODMAN 01/01/18 Reported Medications Meloxicam* (Mobic*) 15 Mg Tablet, 15 MG PO DAILY, #30 TAB 03/07/18 Hydrocodone/Acetaminophen (Rogers 5-325 Tablet) 1 Each Tablet, 1 EACH PO Q6H, TAB 03/07/18 Discontinued Scripts Calcium Carbonate (Oysco-500) 500 Mg Tablet, 500 MG PO DAILY for 30 Days, #30 TAB 1 Refill Prov:WALLY GOODMAN 01/01/18 Losartan Potassium* (Losartan Potassium*) 50 Mg Tablet, 50 MG PO DAILY for 30 Days, #30 TAB 1 Refill Prov:WALLY GOODMAN 01/01/18 Primary Care Provider Not On Staff Doctor Pending Labs Laboratory Tests Test 03/07/18 13:10 03/07/18 18:03 03/07/18 19:51 03/08/18 05:09 Urine Color YELLOW (YELLOW) Urine Clarity CLEAR (CLEAR) Urine pH 9.0 (5.0-9.0) Urine Specific 1.013 (1.003-1. Rice 030) Urine Ketones NEGATIVE mg/dL (NEGATIVE ) Urine Nitrite NEGATIVE mg/dL (NEGATIVE ) Urine NEGATIVE Bilirubin mg/dL (NEGATIVE ) Urine NEGATIVE Urobilinogen mg/dL (NEGATIVE ) Urine Leukocyte NEGATIVE Linus/ul Esterase Urine 6 /HPF (0-5) Microscopic RBC Urine 4 /HPF (0-5) Microscopic WBC Urine NEGATIVE Hemoglobin mg/dL (NEGATIVE ) Urine Glucose 2+ mg/dL (NEGATIVE ) Urine Total 3+ Protein mg/dl (NEGATIVE ) Bedside 86 131 Glucose mg/dL (70-220) mg/dL (70-220) White Blood 8.0 Count 10^3/ul (4.8-1 0.8) Red Blood 3.69 Count 10^6/ul (4.70- 6.10) Hemoglobin 11.0 g/dl (14.0-18. 0) Hematocrit 34.6 % (42.0-52.0) Mean 93.8 Corpuscular fl (82.0-101.0 Volume ) Mean 29.8 Corpuscular pg (29.0-33.0) Hemoglobin Mean 31.8 Corpuscular g/dl (32.0-37. Hemoglobin Conc 0) ent Red Cell 14.7 Distribution % (11.5-14.5) Width Platelet Count 166 10^3/UL (140-4 15) Mean Platelet 11.2 Volume fl (7.4-10.4) Immature 0.200 Granulocytes % % (0.001-0.429 ) Neutrophils % 59.4 % (39.0-77.0) Lymphocytes % 20.9 % (15.0-51.0) Monocytes % 11.0 % (0.0-11.0) Eosinophils % 7.4 % (0.0-7.0) Basophils % 1.1 % (0.0-2.0) Nucleated Red 0.0 Blood Cells % /100WBC (0.0-0 .0) Immature 0.020 Granulocytes # 10^3/ul (0.0-0 .031) Neutrophils # 4.8 10^3/ul (1.6-7 .5) Lymphocytes # 1.7 10^3/ul (0.8-2 .9) Monocytes # 0.9 10^3/ul (0.3-0 .9) Eosinophils # 0.6 10^3/ul (0.0-0 .5) Basophils # 0.1 10^3/ul (0.0-0 .1) Nucleated Red 0.0 Blood Cells # 10^3/ul (0.0-0 .0) Sodium Level 136 mmol/L (135-14 4) Potassium 7.1 Level mmol/L (3.5-5. 1) Chloride Level 93 mmol/L (97-110 ) Carbon Dioxide 26 Level mmol/L (21-31) Anion Gap 17 (5-13) Blood Urea 55 Nitrogen mg/dl (7-20) Creatinine 8.17 mg/dl (0.61-1. 24) Est Glomerular mL/min (>60) Filtrat Rate mL/min Glucose Level 87 mg/dl (70-220) Hemoglobin A1c 5.4 % (0-5.9) Calcium Level 8.6 mg/dl (8.4-10. 2) Total 0.0 Bilirubin mg/dl (0.2-1.3 ) Direct 0.00 Bilirubin mg/dl (0.00-0. 20) Indirect 0.0 Bilirubin mg/dl (0-1.1) Aspartate Amino 21 Transf (AST/SGO IU/L (15-46) T) Alanine 28 Aminotransferas IU/L (13-69) e (ALT/SGPT) Alkaline 182 Phosphatase IU/L (42-121) Total Protein 6.2 g/dl (6.1-8.1) Albumin 3.8 g/dl (3.3-4.9) Globulin 2.40 g/dl (1.3-3.2) Albumin/Globuli 1.58 n Ratio Hepatitis B NEGATIVE (NEGA Surface TIVE) Antigen Test 03/08/18 06:57 03/08/18 08:08 Bedside 75 129 Glucose mg/dL (70-220) mg/dL (70-220) BRUNO ALAN MD Mar 08, 2018 12:28
[2018-03-08] MEDS: hydrALAzine 20 MG INJ IV PRN (15:41)
--- NOTE | 2018-03-08 15:43 | NUR ---
1425: Patient's BP 195/84. patient Scheduled 50 mg hydralazine given
--- NOTE | 2018-03-08 15:44 | NUR ---
1430: patient complained of headache /10. 1 mg of morphine IV given. 1530: BP 192/81, HR 75, O2 SAT 95% on room air. AAOx4. Notified Dr. Carlisle, per , may hold discharge. 1540: 10 mg IV hydralazine PRN given. will reassess
[2018-03-08] MEDS: HYDROCODONE/APAP (5/325) TAB PO PRN (18:05)
--- NOTE | 2018-03-08 18:15 | NUR ---
patient's BP 172/74, still has headache 8/10 on right side. Gave patient PRN Bethany for pain. Notified Dr. Carlisle again. MD came to bedside. Per MD, ordered to give 2 mg of morphine IV x1. Will carry out orders and continue to monitor.
[2018-03-08] MEDS ORDERED: morphine 4 MG/ML VIAL IV STA (18:18)
--- NOTE | 2018-03-08 18:37 | NUR ---
The patient refused the 2 mg of morphine at this time, stating he wants to sleep and see if [place] helps him. Stated he wants to wait before the morphine. aware.
[2018-03-08] MEDS: INSULIN GLARGINE [LANTus] (100 UNITS/ML) SYG SC SCH (21:53)
[2018-03-09] VITALS (15 sets, daily range): BP systolic 146–201; BP diastolic 65–86; PULSE 51–70; RESP 18–19
[2018-03-09] MEDS: hydrALAzine 20 MG INJ IV PRN ×2 (00:01→08:08)
[2018-03-09] MEDS: HYDROCODONE/APAP (5/325) TAB PO PRN (00:02)
--- NOTE | 2018-03-09 06:10 | NUR ---
PT REMAIN IN STABLE CONDITION OVERNIGHT. NO SIGN OF ACUTE DISTRESS NOTED. BLOOD PRESSURE TRENDING DOWN. D/C PLAN IN EFFECT. AT BEDSIDE. WILL ENDORSE TO DAY SHIFT FOR CONTINUITY OF CARE.
[2018-03-09] MEDS: INSULIN ASPART [NOVOLOG] 3 ML PEN SC SCH ×7 (07:43→20:42)
[2018-03-09] MEDS: HEPARIN 5,000 UNIT/1 ML VIAL SC SCH ×2 (08:46→20:47)
--- NOTE | 2018-03-09 09:11 | NUR ---
BP this am 195/86. Patient denied pain and was calmly laying in bed. Scheduled 12.5 mg coreg and 10 mg PRN hydralazine IV given at approximately 0810. Notified Dr. Carlisle. Per , reassess BP in 1 hour and if elevated give 0.1 mg clonidine PO x1. BP reassessed at 0910, BP 201/82. Will administer clonidine and reassess.
--- NOTE | 2018-03-09 09:22 | CONS ---
Assessment/Plan Assessment/Plan Assessment/Plan (Daily) 1. acute hyperkalemia with K 7.1- now resolved 2. [place] [facility] [place] pain 4. H/o HTN 5/ H/o HL 6. h/o atrial fibrillation 7. accelerated HTN Plan: Hyperkalemia resolved, BP saab sbeen running high, will icnrease coreg to 25 mg BID, Add niedipine 60mg PO BID and Hydralazine 100mg pO TID will paln for HD on monday if pt stays here pt follows at [facility] [place] for scheduled HD on TTS will continue to follow up Consultation Date/Type/Reason Admit Date/Time Mar 07, 2018 at 16:36 Initial Consult Date 03/07/18 Type of Consult NEPHROLOGY Requesting Provider: BRUNO ALAN MD Date/Time of Note DATE: 03/09/18 TIME: 09:21 24 HR Interval Summary Free Text/Dictation pt alert, no SOB< BP runing very high Exam/Review of Systems Exam Vitals Vital Signs Date Temp Pulse Resp B/P (MAP) Pulse Ox O2 O2 Flow FiO2 Time Delivery Rate 03/09/18 99.2 70 19 195/86 97 07:18 (122) 03/08/18 Room Air 12:12 Intake and Output 03/08/18 03/08/18 03/09/18 1515:00 23:00 07:00 IntakeIntake Total 400 ml 450 ml OutputOutput Total 2400 ml BalanceBalance -2400 ml 400 ml 450 ml PHYSICAL EXAM: Constitutional: alert, awake, no acute distress Respiratory: crackles/rales, diminished breath sounds Cardiovascular: regular rate and rhythm, nl pulses Gastrointestinal: soft, non-tender Musculoskeletal: muscle weakness, range of motion (limited due to hip pain ), spine non-tender, swelling Extremities: normal pulses Neurological: SHUTTLE CAR OPERATOR II-XII intact, nl mental status, nl speech, nl strength Results Result Diagram: 03/08/18 0509 03/08/18 1411 Results 24hrs Laboratory Tests Test 03/08/18 13:06 03/08/18 14:11 03/08/18 17:25 03/08/18 21:29 Bedside Glucose 72 161 221 H Sodium Level 136 Potassium Level 4.7 # Chloride Level 96 L Carbon Dioxide Level 26 Anion Gap 14 H Blood Urea Nitrogen 22 #H Creatinine 3.90 #H Est Glomerular Filtrat Rate mL/min Glucose Level 110 Calcium Level 8.6 Test 03/09/18 04:40 03/09/18 07:42 Bedside Glucose 74 80 LILLY QUILES MD Mar 09, 2018 09:22
--- NOTE | 2018-03-09 09:22 | PDOCDIS ---
Discharge Instructions DIAGNOSIS Discharge Diagnosis ESRD CONDITION [id number] Patient Condition: [id number] Stable FOLLOW UP/APPOINTMENTS Follow-up Plan Continue dialysis treatments as regularly scheduled Make an appointment to see Dr Thomason (orthopedic surgeon) if you continue to have pain in your hip and knee BRUNO ALAN MD Mar 09, 2018 09:22
[2018-03-09] MEDS ORDERED: NIFEdipine (XL) 60 MG TAB PO STA (10:29)
--- NOTE | 2018-03-09 10:42 | NUR ---
Blood pressure reassessed s/p 0.1 mg of clonidine. BP 201/84. Dr. Segura came at the bedside, ordered 60 mg Procardia x1 PO now stat. Per MD, patient may be discharged if SBP <160. Medication given. Will continue to monitor.
--- NOTE | 2018-03-09 13:17 | PN ---
Date/Time of Note Date/Time of Note DATE: 03/09/18 TIME: 13:17 Assessment/Plan VTE Prophylaxis Risk score (from Nsg)>0 risk: 8 SCD applied (from Nsg): Yes Pharmacological prophylaxis: heparin Lines/Catheters IV Catheter Type (from Nrsg): Peripheral IV Assessment/Plan Hospital Course 73 yo male with h/o ESRD on HD, DMII, A Fib, OA s/p R EMILY 3 mo ago presents with ongoing hip pain, also having nasuea and vomiting Nausea and vomiting resolved spontaneously XR of hip and knee were taken which were without acute pathology He underwent scheduled HD per Dr Segura Discharged to further care as an outpatient Result Diagram: 03/08/18 0509 03/08/18 1411 Results 24hrs Laboratory Tests Test 03/08/18 14:11 03/08/18 17:25 03/08/18 21:29 03/09/18 04:40 Sodium Level 136 Potassium Level 4.7 # Chloride Level 96 L Carbon Dioxide Level 26 Anion Gap 14 H Blood Urea Nitrogen 22 #H Creatinine 3.90 #H Est Glomerular Filtrat Rate mL/min Glucose Level 110 Calcium Level 8.6 Bedside Glucose 161 221 H 74 Test 03/09/18 07:42 03/09/18 11:44 Bedside Glucose 80 245 H Subjective 24 Hr Interval Summary Free Text/Dictation Patient stayed in house overnight as had headache and BP elevation. Resolved today. Ready for Dc Exam/Review of Systems Exam Vitals Vital Signs Date Temp Pulse Resp B/P (MAP) Pulse Ox O2 O2 Flow FiO2 Time Delivery Rate 03/09/18 146/65 11:50 (92) 03/09/18 98.2 58 19 96 11:31 03/08/18 Room Air 12:12 Intake and Output 03/08/18 03/08/18 03/09/18 1515:00 23:00 07:00 IntakeIntake Total 400 ml 450 ml OutputOutput Total 2400 ml BalanceBalance -2400 ml 400 ml 450 ml Results Results 24hrs Laboratory Tests Test 03/08/18 14:11 03/08/18 17:25 03/08/18 21:29 03/09/18 04:40 Sodium Level 136 Potassium Level 4.7 # Chloride Level 96 L Carbon Dioxide Level 26 Anion Gap 14 H Blood Urea Nitrogen 22 #H Creatinine 3.90 #H Est Glomerular Filtrat Rate mL/min Glucose Level 110 Calcium Level 8.6 Bedside Glucose 161 221 H 74 Test 03/09/18 07:42 03/09/18 11:44 Bedside Glucose 80 245 H BRUNO ALAN MD Mar 09, 2018 13:17
--- NOTE | 2018-03-09 15:13 | NUR ---
1330 - BP 188/81, scheduled 50 mg hydralazine given. Notified Dr. Segura as requested by . MD stated to have another RN to verify BP. 1340 - Charge Nurse Hai checked BP. L arm 166/77, R arm 190/82. Called back Dr. Segura. Per MD, instructed to confirm with family of any other home medications that patient is on. Spoke to family and patient, medication reconciliation is accurate. However, patient has stopped Losartan 50 mg as he was instructed by his dialysis clinic, pt stated he had "chest pain and inflammation". Called back to Dr Segura and informed. ordered hydralazine PO to be increased to 100 mg TID and first dose given now. Also ordered to switch Procardia from 60 mg daily to 60 mg PO BID. Per MD, if patient BP stable by evening, patient may be DC home.
--- NOTE | 2018-03-09 15:51 | NUR ---
PT NOTE Received MD orders for PT evaluation. Charts reviewed. Attempted to evaluate pt in pm. Assessed pt's BP at 202/89. Unsafe to evaluate patient at this time. Communicated with RN. Will follow up tomorrow.
--- NOTE | 2018-03-09 19:30 | NUR ---
EOSS Patient had active discharge order, however, BP was still not under control (see previous notes). At approximately 1740, patient's vitals were stable. BP 138/65, HR 52, temp 98.7, O2 sat 94%. Informed the patient he will be being discharged. The patient stated he does not feel ready to go home yet, stating he felt weak and cold. Patient and his who was at the bedside insisted to stay the night and asked to go home after dialysis tomorrow. Notified Dr. Carlisle, who is aware and stated patient may stay overnight. Patient now has new orders for HD tomorrow. Report given and endorsed to arrange HD to [facility].
[2018-03-09] MEDS: NIFEdipine (XL) 30 MG TAB PO SCH (20:40)
[2018-03-09] MEDS ORDERED: NIFEdipine (XL) 60 MG TAB PO SCH (21:00)
[2018-03-09] MEDS: INSULIN GLARGINE [LANTus] (100 UNITS/ML) SYG SC SCH (21:24)
[2018-03-10] VITALS (20 sets, daily range): BP systolic 123–164; BP diastolic 57–78; PULSE 49–61; RESP 19–20
--- NOTE | 2018-03-10 07:01 | NUR ---
Pt a/a/ox4, VS stable , afebrile. denied pain. No distress or sob noted. at bedside through out shift. Continue monitor.
--- NOTE | 2018-03-10 07:27 | NUR ---
[facility] was called for HD today with confirmation [id number]
[2018-03-10] MEDS: INSULIN ASPART [NOVOLOG] 3 ML PEN SC SCH ×4 (08:00→13:09)
[2018-03-10] MEDS: NIFEdipine (XL) 30 MG TAB PO SCH (08:38)
[2018-03-10] MEDS: HEPARIN 5,000 UNIT/1 ML VIAL SC SCH (08:51)
[2018-03-10] MEDS ORDERED: NIFEdipine (XL) 60 MG TAB PO SCH (09:00)
--- NOTE | 2018-03-10 11:45 | NUR ---
PT Evaluation attempted, however pt currently on dialysis (//mon). Will re-attempt PT later today as PT schedule allows.
--- NOTE | 2018-03-10 13:38 | CONS ---
Assessment/Plan Assessment/Plan Assessment/Plan (Daily) 1. acute hyperkalemia with K 7.1- now resolved 2. ESRD on HD TTS schedule at [facility] 3. right hip pain 4. H/o HTN 5/ H/o HL 6. h/o atrial fibrillation 7. accelerated HTN Plan: Hyperkalemia resolved, BP saab sbeen running high, will icnrease coreg to 25 mg BID, Add niedipine 60mg PO BID and Hydralazine 100mg pO TID plan for HD today, ok to d/c after HD today [place] [facility] [place] will continue to follow up Consultation Date/Type/Reason Admit Date/Time Mar 07, 2018 at 16:36 Initial Consult Date 03/07/18 Type of Consult NEPHROLOGY Requesting Provider: BRUNO ALAN MD Date/Time of Note DATE: 03/10/18 TIME: 13:38 Exam/Review of Systems Exam Vitals Vital Signs Date Temp Pulse Resp B/P (MAP) Pulse Ox O2 O2 Flow FiO2 Time Delivery Rate 03/10/18 61 12:55 03/10/18 98.2 19 151/75 98 11:30 (100) 03/10/18 Room Air 09:40 Intake and Output 03/09/18 03/09/18 03/10/18 1414:59 22:59 06:59 IntakeIntake Total 500 ml BalanceBalance 500 ml Results Result Diagram: 03/08/18 0509 03/08/18 1411 Results 24hrs Laboratory Tests Test 03/09/18 17:14 03/09/18 20:38 03/10/18 08:01 03/10/18 08:44 Bedside Glucose 146 144 73 116 Test 03/10/18 11:26 03/10/18 13:03 Bedside Glucose 105 96 Medications Medication Current Medications Acetaminophen/ Hydrocodone Bitart ([place] (5/325)) 2 tab Q6H PRN PO PAIN LEVEL 6-10 Last administered on 03/09/18at 00:02; Admin Dose 2 TAB; Start 03/07/18 at 17:30 Heparin Sodium (Porcine) (Heparin (5000 Units/1ml)) 5,000 unit Q12 SC Last administered on 03/10/18at 08:51; Admin Dose 5,000 UNIT; Start 03/07/18 at 21:00 Insulin Glargine (Lantus) 10 units DAILY@2000 SC Last administered on 03/09/18at 21:24; Admin Dose 10 UNITS; Start 03/07/18 at 20:00 Insulin Aspart (Novolog Insulin Pen) 3 unit WITH MEALS SC Last administered on 03/10/18at 13:09; Admin Dose 3 UNIT; Start 03/07/18 at 18:00 Insulin Aspart (Novolog Insulin Pen) NOVOLOG *MILD* ALGORITHM WITH MEALS BEDTIME SC Last administered on 03/09/18at 11:54; Admin Dose 3 UNIT; Start 03/07/18 at 18:00 IV Flush (NS 3 ml) 3 ml PER PROTOCOL IV ; Start 03/07/18 at 17:30 Miscellaneous Information 1 ea NOTE XX ; Start 03/07/18 at 18:00 Glucose (Glutose) 15 gm Q15M PRN PO DECREASED GLUCOSE; Start 03/07/18 at 18:00 Glucose (Glutose) 22.5 gm Q15M PRN PO DECREASED GLUCOSE; Start 03/07/18 at 18:00 Dextrose (D50w Syringe) 25 ml Q15M PRN IV DECREASED GLUCOSE; Start 03/07/18 at 18:00 Dextrose (D50w Syringe) 50 ml Q15M PRN IV DECREASED GLUCOSE Last administered on 03/08/18at 07:06; Admin Dose 50 ML; Start 03/07/18 at 18:00 Glucagon (Glucagen) 1 mg Q15M PRN IM DECREASED GLUCOSE; Start 03/07/18 at 18:00 Glucose (Glutose) 15 gm Q15M PRN BUCCAL DECREASED GLUCOSE; Start 03/07/18 at 18:00 Albumin Human 50 ml @ 100 mls/hr WITH DIALYSIS PRN IV SBP < 90 DURING DIALYSIS; Start 03/07/18 at 21:00 Sodium Chloride (NS) -To prime the dialy... DIRECTED FOR HD PRN IV HD; Start 03/07/18 at 21:00 Hydralazine HCl (Apresoline) 10 mg Q4H PRN IV ELEVATED BLOOD PRESSURE Last administered on 03/09/18at 08:08; Admin Dose 10 MG; Start 03/07/18 at 22:00 Morphine Sulfate (morphine) 1 mg Q4H PRN IV SEVERE PAIN LEVEL 7-10 Last administered on 03/08/18at 14:30; Admin Dose 1 MG; Start 03/07/18 at 22:30 Heparin Sodium (Porcine) (Heparin (1000 Units/ml)) 4,500 unit AFTER DIALYSIS CATHETER Last administered on 03/10/18at 12:58; Admin Dose 4,500 UNIT; Start 03/08/18 at 11:30 Hydralazine HCl (Apresoline) 100 mg TID PO Last administered on 03/10/18 13:06; Admin Dose 100 MG; Start 03/09/18 at 15:30 Carvedilol (Coreg) 12.5 mg BID PO Last administered on 03/10/18at 08:39; Admin Dose 12.5 MG; Start 03/09/18 at 21:00 Nifedipine (Procardia Xl) 30 mg BID PO Last administered on 03/10/18at 08:38; Admin Dose 30 MG; Start 03/09/18 at 21:00 LILLY QUILES MD Mar 10, 2018 13:38
--- NOTE | 2018-03-10 13:50 | NUR ---
PT Evaluation Therapy day number 1 Evaluation Start Time 13:50 Evaluation End Time 14:50 Evaluation Total Time 60 min Subjective Current complaint of pain Pain Scale NUMERIC Pain Intensity 8 (0-10) Patient Stated Goal for Pain Relief 0 (0-10) Pain Level Comment pain in the L eye, 5/10 chronic pain in R hip Pre Treatment Vital Signs Stable Yes Supine to Sit Minimum Assist Transfer Sit to Stand Ability Contact Guard Assist Bed Mobility Sit to Supine Supervised Bed Transfer Ability Contact Guard Assist Chair Transfer Ability Contact Guard Assist Additional Mobility Comments with chair armrest for transfers Gait Assist Levels Contact Guard Assist Assistive Devices Front Wheel Walker Ambulation Distance 8 feet Additional Gait Comments 8'x3 Weight Bearing Assessment Label Right Lower Extremity Weight Bearing Status Weight Bearing as Kayden Static Sitting Balance Good Dynamic Sitting Balance Good Standing Static Balance Fair plus Dynamic Standing Balance Fair plus Safety Judgement Good Activity Tolerance Fair Post Treatment Pain Intensity 8 0-10 Total Minutes 60 Total Units 4 PT Technical Record Comment 73 yo male presents with epigastric pain, nausea, vomiting, palpitations with SOB, chronic R hip pain. Was found to have acute hyperkalemia. Hip x ray shows chronic fragmentation of R greater trochanter, (-) acute and intact hardware. Knee xray (-). PMHx: HTN, hyperlipidemia, DM, CHF, atrial fibrillation, hypothyroidism, end-stage renal disease status post right chest tunneled dialysis catheter on dialysis Monday//Monday Surgery Hx: R hip hemiarthroplasty 3 mos ago. Precautions: monitor BP PLOF: Per pt's daughter, pt lives in a 2 story home with no steps to enter, pt stays on the 1st floor. Pt lives with his and adult children who are available day and night to assist. Pt has been been WC bound since a fall 9 months ago, and reports bedrest since R hip surgery 3 months ago. Pt Maryjane bed mobility and transfer to . FWW and WC available at home. Prior to 9 months ago, pt I with all mobility. S: Pt found supine in bed with family at bedside, pt is agreeable to PT. RN cleared pt for activity. Pt's daughter translated throughout treatment (GERMAN). O: PT evaluation complete, pt assisted back to bed with call light nearby, bed alarm on, all needs met. No reports of increased pain, dizziness, nausea with activity. Pt c/o pain in his L eye and chronic pain in his R hip. BP at start of treatment: 153/73, BP after ambulation 147/66, HR 57 and O2 sat of 96%. Pt's daughter does not report receiving hip precautions after surgery; hip precautions were reviewed. Pt performed all mobility with Maryjane-CGA, able to ambulate 8'x3 CGA with FWW and VCs to maintain upright posture, slower steps. Pt demonstrated short step length, reciprocal gait, mild-mod BUE support, with fair+ balance and no LOB. Pt's family encouraged to assist pt with ambulation with FWW at home. RN informed of pt response to activity. A: Pt demonstrates fair mobility, balance, strength and coordination throughout, with good tolerance for activity considering dialysis this am and extended bedrest. Pt is limited by pain, reduced strength and endurance secondary to extended bedrest following hip surgery. However pt has good potential for improvement and is motivated to participate in PT. Pt would benefit from continued skilled inpatient PT to improve strength, endurance, independence and tolerance for OOB activities. P: Continue POC 5x/week. Pt would benefit from HHPT when medically cleared by . No DME needed at this time.
[2018-03-10] MEDS ORDERED: morphine LIQ (10 MG/5 ML) CUP PO PRN (14:30)
[2018-03-10] MEDS ORDERED: ONDA4TAB13 PO (15:04)
[2018-03-10] MEDS ORDERED: APIX2.5T PO (15:04)
--- NOTE | 2018-03-10 15:04 | DS ---
Date/Time of Note Date/Time of Note DATE: 03/10/18 TIME: 15:04 Discharge Summary Admission/Discharge Info Admit Date/Time Mar 07, 2018 at 16:36 Discharge Date/Time Discharge Diagnosis ESRD Patient Condition: Stable Hx of Present Illness 73 yo male with ESRD on HD, DMII, hypertension, OA s/p EMILY who presents with R hip pain and vomiting Had hip replaced 3 mo ago. Has had pain in R hip and knee since that time. has been seen by Dr Thomason his orthopedist and there have been no identified complications of surgery He presents for evaluation of pain Also complaints of nausea and vomiting with mild abdominal pain. No diarrhea. No fevers/chills. Received pain injection in ED and symptoms now resolved Hospital Course 73 yo male with h/o ESRD on HD, DMII, A Fib, OA s/p R EMILY 3 mo ago presents with ongoing hip pain, also having nasuea and vomiting Nausea and vomiting resolved spontaneously XR of hip and knee were taken which were without acute pathology He underwent scheduled HD per Dr Segura Discharged to further care as an outpatient Home Meds Active Scripts Apixaban* (Eliquis*) 2.5 Mg Tablet, 2.5 MG PO BID for 60 Days, #120 TAB Prov:BRUNO ALAN MD 03/10/18 Ondansetron Hcl* (Zofran*) 4 Mg Tab, 4 MG PO Q4H PRN for NAUSEA AND OR VOMITING, #30 TAB Prov:BRUNO ALAN MD 03/10/18 Insulin Aspart* (Novolog Insulin Pen*) 100 Unit/Ml Soln, 5 UNIT SC WITH MEALS for 30 Days, #1 BOX 2 Refills Prov:WALLY GOODMAN 01/04/18 [Insulin Glargine] 100 UNITS/ML SOLN No Conflict Check, 20 UNITS SC QAM for 30 D ays, #1 BOX 2 Refills Prov:WALLY GOODMAN 01/04/18 Nifedipine (Procardia Xl) 90 Mg Tab.er.24, 90 MG PO DAILY for 30 Days, #30 TAB 1 Refill Prov:WALLY GOODMAN 01/01/18 Carvedilol* (Carvedilol*) 12.5 Mg Tablet, 12.5 MG PO BID for 30 Days, #60 TAB 1 Refill Prov:WALLY GOODMAN 01/01/18 Atorvastatin Calcium (Atorvastatin Calcium) 20 Mg Tablet, 20 MG PO HS for 30 Days, #30 TAB 1 Refill Prov:WALLY GOODMAN J 01/01/18 Folic Acid* (Folic Acid*) 1 Mg Tablet, 1 MG PO DAILY for 30 Days, #30 TAB 1 Refill Prov:MAXINEWALLY Elizondo 01/01/18 Hydralazine Hcl* (Hydralazine Hcl*) 50 Mg Tab, 50 MG PO Q8 for 30 Days, #90 TAB 1 Refill Prov:MAXINEWALLY Elizondo 01/01/18 Reported Medications Meloxicam* (Mobic*) 15 Mg Tablet, 15 MG PO DAILY, #30 TAB 03/07/18 Hydrocodone/Acetaminophen ([place] 5-325 Tablet) 1 Each Tablet, 1 EACH PO Q6H, TAB 03/07/18 Discontinued Scripts Apixaban* (Eliquis*) 5 Mg Tablet, 5 MG PO BID for 30 Days, #60 TAB 1 Refill Prov:WALLY GOODMAN 01/01/18 Calcium Carbonate ([place]-500) 500 Mg Tablet, 500 MG PO DAILY for 30 Days, #30 TAB 1 Refill Prov:MAXINEWALLY 01/01/18 Losartan Potassium* (Losartan Potassium*) 50 Mg Tablet, 50 MG PO DAILY for 30 Days, #30 TAB 1 Refill Prov:MAXINEWALLY Elizondo 01/01/18 Follow-up Plan Continue dialysis treatments as regularly scheduled Make an appointment to see Dr Thomason (orthopedic surgeon) if you continue to have pain in your hip and knee Primary Care Provider Not On Staff Doctor Pending Labs Laboratory Tests Test 03/09/18 17:14 03/09/18 20:38 03/10/18 08:01 03/10/18 08:44 Bedside 146 144 73 116 Glucose mg/dL (70-220) mg/dL (70-220) mg/dL (70-220) mg/dL (70-220) Test 03/10/18 11:26 03/10/18 13:03 Bedside 105 96 Glucose mg/dL (70-220) mg/dL (70-220) BRUNO ALAN MD Mar 10, 2018 15:04
--- NOTE | 2018-03-10 15:04 | NUR ---
S/P Hemodialysis with 2 L output, VSS, afebrile. Seen by Dr. Carlisle with discharge to home order post dialysis. DC home instructions provided to pt, family at bedside. F/U with PCP in a week and orthopedic in 1-2 weeks. Condition stable. DC'd home accompanied by family.
== END 2018-03-10 15:05 | disposition home or self-care (01) | DRG 640 ==
LOC: E/R 10:22 → 6WM 16:36
PROVIDERS: ADMIT Internal Medicine; ATTEND Internal Medicine
PROC: 5A1D70Z Performance of Urinary Filtration, Intermittent, Less than 6 Hours Per Day (ICD-10-PCS; 2018-03-07)
PROC: 5A1D70Z Performance of Urinary Filtration, Intermittent, Less than 6 Hours Per Day (ICD-10-PCS; principal; 2018-03-09)
DX: E87.5 Hyperkalemia (principal); N18.6 End stage renal disease; I13.2 Hypertensive heart and chronic kidney disease with heart failure and with stage 5 chronic kidney disease, or end stage renal disease; E11.22 Type 2 diabetes mellitus with diabetic chronic kidney disease; I48.2 Chronic atrial fibrillation; I50.9 Heart failure, unspecified; R00.1 Bradycardia, unspecified; E78.5 Hyperlipidemia, unspecified; E03.9 Hypothyroidism, unspecified; G89.29 Other chronic pain; M25.551 Pain in right hip; Z96.641 Presence of right artificial hip joint; R11.2 Nausea with vomiting, unspecified; Z99.2 Dependence on renal dialysis; Z79.4 Long term (current) use of insulin; Z79.01 Long term (current) use of anticoagulants
CPT/HCPCS: 36415; 71045; 73510; 73562; 80048; 80053; 81001; 82962; 83036; 83690; 84484; 85025; 87340; 90935; 93005; 96374; 96375; 96376; 97162; J0360; J0610; J1644; J1815; J2270; J2405

== ENCOUNTER 2018-08-14 05:23 | Inpatient (IN) | payer OTHER ==
[~2018-08-14] VITALS: Ht 172.7 cm; Wt 74.6 kg
[2018-08-14] VITALS (18 sets, daily range): BP systolic 150–215; BP diastolic 62–110; PULSE 56–73; RESP 12–18; Ht 172.7 cm; Wt 74.6 kg
[~2018-08-14 05:23] MED LIST changes: +APIX2.5T PO; -APIX5TAB PO; -CALC500T11 PO; +HYDR-4011 PO; -LOSA50TA14 PO; +MELO15TA30 PO; +ONDA4TAB13 PO
[2018-08-14] MEDS ORDERED: INSULIN REGULAR, HUMAN 100 UNIT/1 ML 3ML VIAL IVP STA (06:50)
[2018-08-14] MEDS ORDERED: NA BICARBONATE 8.4% 50 ML SYG IV STA (06:50)
[2018-08-14] MEDS ORDERED: SODIUM POLYSTYRENE 15 GM KIT (POWDER + SORBITOL) PO STA (06:50)
[2018-08-14] MEDS ORDERED: CALCIUM GLUCONATE 10% 2 GM in DEXTROSE 5% 100 ML IVPB ONE (07:00)
[2018-08-14] MEDS ORDERED: DEXTROSE 50% 50 ML SYRINGE IV PRN ×3 (07:00→16:30)
--- NOTE | 2018-08-14 07:08 | ERD ---
ER Documentation Chief Complaint Chief Complaint C/O WORSENING SOB SINCE LAST NIGHT, SENT FOR DIALYSIS FROM DIALYSIS CENTER HPI Translation services were utilized during this patient's encounter Language: Azeri Source: Video 73-year-old gentleman history of end-stage renal disease on dialysis Monday, , Monday. Last dialysis was Monday, 3 days ago. Patient states that he has a generalized feeling of doom. The patient states that he feels a little short of breath. He went to dialysis this morning but they did not have an appointment until 1 PM. The patient arrives in the emergency room around 5:30 AM. They told him to come to the emergency room for further evaluation and possible emergent dialysis. Patient denies any chest pain or fevers or chills or cough. Only mild shortness of breath. He denies any headache. No vision changes. ROS All systems reviewed and are negative except as per history of present illness. Medications Home Meds Active Scripts Apixaban* (Eliquis*) 2.5 Mg Tablet, 2.5 MG PO BID for 60 Days, #120 TAB Prov:BRUNO ALAN MD 03/10/18 Ondansetron Hcl* (Zofran*) 4 Mg Tab, 4 MG PO Q4H PRN for NAUSEA AND OR VOMITING, #30 TAB Prov:BRUNO ALAN MD 03/10/18 Insulin Aspart* (Novolog Insulin Pen*) 100 Unit/Ml Soln, 5 UNIT SC WITH MEALS for 30 Days, #1 BOX 2 Refills Prov:WALLY GOODMAN 01/04/18 [Insulin Glargine] 100 UNITS/ML SOLN No Conflict Check, 20 UNITS SC QAM for 30 Days, #1 BOX 2 Refills Prov:WALLY GOODMAN 01/04/18 Nifedipine (Procardia Xl) 90 Mg Tab.er.24, 90 MG PO DAILY for 30 Days, #30 TAB 1 Refill Prov:WALLY GOODMAN 01/01/18 Carvedilol* (Carvedilol*) 12.5 Mg Tablet, 12.5 MG PO BID for 30 Days, #60 TAB 1 Refill Prov:WALLY GOODMAN 01/01/18 Atorvastatin Calcium (Atorvastatin Calcium) 20 Mg Tablet, 20 MG PO HS for 30 Days, #30 TAB 1 Refill Prov:WALLY GOODMAN 01/01/18 Folic Acid* (Folic Acid*) 1 Mg Tablet, 1 MG PO DAILY for 30 Days, #30 TAB 1 R efill Prov:WALLY GOODMAN 01/01/18 Hydralazine Hcl* (Hydralazine Hcl*) 50 Mg Tab, 50 MG PO Q8 for 30 Days, #90 TAB 1 Refill Prov:WALLY GOODMAN 01/01/18 Reported Medications Meloxicam* (Mobic*) 15 Mg Tablet, 15 MG PO DAILY, #30 TAB 03/07/18 Hydrocodone/Acetaminophen ([place] 5-325 Tablet) 1 Each Tablet, 1 EACH PO Q6H, TAB 03/07/18 Allergies Allergies: Coded Allergies: No Known Allergy (Unverified , 03/07/18) PMhx/Soc History of Surgery: Yes Anesthesia Reaction: No Hx Neurological Disorder: No Hx Respiratory Disorders: Yes Hx Cardiac Disorders: Yes (HTN, HYPERLIPIDEMIA, CHF) Hx Psychiatric Problems: No Hx Miscellaneous Medical Probl: Yes (atrial fibrillation, hypothyroidism, ESRD) Hx Alcohol Use: No Hx Substance Use: No Hx Tobacco Use: No Smoking Status: Never smoker FmHx Family History: No diabetes Physical Exam Vitals Vital Signs Date Temp Pulse Resp B/P (MAP) Pulse Ox O2 O2 Flow FiO2 Time Delivery Rate 08/14/18 98.2 70 12 155/66 100 Room Air 07:00 (95) 08/14/18 98.4 81 16 139/70 97 Room Air 06:25 (93) 08/14/18 97.3 49 21 124/64 95 05:28 (84) Physical Exam General: Well developed, well nourished, no acute distress Head: Normocephalic, atraumatic Eyes: Pupils equally reactive, EOM intact ENT: Moist mucous membranes Neck: Supple, no lymphadenopathy Respiratory: Scant rales at the bases but no distress Cardiovascular: irregular bradycardia, no murmurs, rubs, or gallops Abdominal: Soft, non-tender, non-distended, no peritoneal signs : Deferred MSK: No edema, no unilateral swelling, 5/5 strength Neurologic: Alert and oriented, moving all extremities, normal speech, no focal weakness, no cerebellar signs Skin: No rash, right chest tunneled Vas-Cath in good position Psych: Normal mood Result Diagram: 08/14/18 0541 08/14/18 0541 Results 24 hrs Laboratory Tests Test 08/14/18 05:41 08/14/18 06:59 08/14/18 08:04 White Blood Count 11.4 10^3/ul Red Blood Count 4.58 10^6/ul Hemoglobin 14.1 g/dl Hematocrit 42.2 % Mean Corpuscular Volume 92.1 fl Mean Corpuscular Hemoglobin 30.8 pg Mean Corpuscular Hemoglobin Concent 33.4 g/dl Red Cell Distribution Width 14.9 % Platelet Count 132 10^3/UL Mean Platelet Volume 11.9 fl Immature Granulocytes % 0.400 % Neutrophils % 78.5 % Lymphocytes % 13.8 % Monocytes % 4.6 % Eosinophils % 2.0 % Basophils % 0.7 % Nucleated Red Blood Cells % 0.0 /100WBC Immature Granulocytes # 0.040 10^3/ul Neutrophils # 9.0 10^3/ul Lymphocytes # 1.6 10^3/ul Monocytes # 0.5 10^3/ul Eosinophils # 0.2 10^3/ul Basophils # 0.1 10^3/ul Nucleated Red Blood Cells # 0.0 10^3/ul Sodium Level 139 mmol/L Potassium Level 8.0 mmol/L Chloride Level 96 mmol/L Carbon Dioxide Level 27 mmol/L Anion Gap 16 Blood Urea Nitrogen 95 mg/dl Creatinine 9.45 mg/dl Est Glomerular Filtrat Rate mL/min mL/min Glucose Level 212 mg/dl Calcium Level 9.0 mg/dl Troponin I < 0.012 ng/ml Bedside Glucose 182 mg/dL 220 mg/dL Current Medications Medications Dose Sig/Dario Start Time Status Last (Trade) Ordered Route PRN Stop Time Admin Dose Reason Admin Calcium 120 ml @ ONCE ONCE 08/14/18 08/14/18 Gluconate 2 60 mls/hr IVPB 07:00 08/14/18 07:06 gm/Dextrose 08:59 Sodium 30 gm ONCE STAT 08/14/18 DC 08/14/18 Polystyrene PO 06:50 08/14/18 07:06 Sulfonate 06:53 (Kayexelate 15 Gm Kit (Powder+Sorbi jeanne)) Sodium 50 ml ONCE STAT 08/14/18 DC 08/14/18 Bicarbonate IV 06:50 08/14/18 07:00 (Na Bicarb 06:53 8.4% Syg) Insulin 10 unit ONCE STAT 08/14/18 DC 08/14/18 Human IVP 06:50 08/14/18 07:05 Regular 06:53 (Humulin R) Dextrose ONCE PRN 08/14/18 08/14/18 (D50w IV DECREASED 07:00 07:02 Syringe) GLUCOSE Heparin 4,000 unit AFTER 08/14/18 Sodium DIALYSIS 08:00 (Porcine) CATHETER (Heparin (1000 Units/ml)) Albumin 100 ml @ WITH 08/14/18 Human 100 mls/hr DIALYSIS 08:00 PRN IV SBP <90 DURING DIALYSIS Sodium -To prime DIRECTED 08/14/18 Chloride the dialy... FOR HD PRN 08:00 (NS) IV HD Procedures/MDM EKG, MONITORS, & DIAGNOSTIC IMAGING: EKG: I reviewed and interpreted a 12-lead EKG. Rhythm: Bradycardia ST Changes: No contiguous ST segment elevations T waves: No contiguous T wave inversions Impression: Irregular bradycardia in a bigeminy type fashion Chest x-ray: I reviewed and interpreted a 1 view of the chest Mediastinum: No enlargement Cardiac silhouette: No cardiomegaly Airspace: Clear lung mccain bilaterally without evidence of pneumothorax Bones: No evidence of fracture LAB INTERPRETATION: I reviewed the laboratory testing and it shows hyperkalemia MEDICAL DECISION MAKING: The patient presents with a generalized sense of doom, due for his dialysis today. The patient has an irregular bradycardia on his EKG and rhythm monitor raising the concern for possible hyperkalemia. Patient exhibits no signs or symptoms concerning for volume overload or impending respiratory failure. The patient will need a work-up including to rule out acute coronary syndrome. Likely requiring dialysis today. ER COURSE: * The patient was placed in the room and placed on the monitor. His potassium resulted at 8. The patient was given hyperkalemia cocktail including 2 A of calcium gluconate to stabilize the myocardium. He was then given Kayexalate, insulin, bicarbonate. He makes no urine. Emergent phone call was placed to Dr. Diomedes Segura to arrange for emergent dialysis. * Patient remains him dynamically stable. Despite his bradycardia he has a normal blood pressure. Continue to monitor closely. * Dr. Diomedes Segura and I spoke just before 8 AM. He is arranging emergent dialysis in the emergency room setting. * Patient's bigeminy has resolved but remains bradycardic. Hemodynamically stable. Pads placed on the patient * dialysis nurse in route At 8:15 AM CONSULTATION: Nephrology: Dr. Diomedes Segura paged around 6:57am DISPOSITION PLAN: ICU Accepting care team and consultations: I discussed the current laboratory data, diagnostic imaging and emergency care provided. Admitting team: Dr. Greenberg Admitting team indication: Insurance directed Critical Care Note: Total time: 40 minutes Indication/Organ System Threat: Hyperkalemia I spent the above amount of critical care time with the patient, not including billable procedures. This included chart review, consultations, repeat bedside evaluations, and titration of appropriate medications to prevent cardiopulmonary or respiratory collapse. Departure Diagnosis: Primary Impression: Acute hyperkalemia Additional Impressions: End stage renal disease on dialysis Bradycardia Condition: Serious LESLYE JOHNSON MD Aug 14, 2018 07:08
[2018-08-14] MEDS ORDERED: HEPARIN 1000 UNITS/ML 10 ML INJ CATHETER SCH (08:00)
[2018-08-14] MEDS ORDERED: ALBUMIN HUMAN 25% 100 ML IV PRN (08:00)
[2018-08-14] MEDS ORDERED: SODIUM CHLORIDE 0.9% 1L BAG IV PRN (08:00)
--- NOTE | 2018-08-14 08:02 | CONS ---
Assessment/Plan Assessment/Plan Assessment/Plan (Daily) 1. Acute hyperkalemia 2. acute Fluid overload 3. ESRD on HD 4. h/o HTN 5. h/o HL 6. H/o atrial fibrillation 7 . h/o CHF Plan: Plan for emergent HD with 2 K bath, will plan for another HD tomorrow Continue other Home meds will follow up . Thanks for consultation Consultation Date/Type/Reason Admit Date/Time 08/14/2018 Date of Consultation: Aug 14, 2018 Type of Consult NEPHROLOGY Reason for Consultation Acute hyperkalemia, Cardiac arrythmia, ESRD on HD Requesting Provider: LESLYE JOHNSON MD Date/Time of Note DATE: 08/14/18 TIME: 08:01 Hx of Present Illness 73-year-old male with history of end-stage renal disease on dialysis, Monday and Monday, diabetes, hypertension, OA status post EMILY. Patient was at dialysis center earlier today when he complained of shortness of breath was told to go to the ER. In pt had a K 8.0 on admission , CXR showed no acute findins, Renal has been consulted for emegent HD need due to acute hyperkalemia. no chest pain, no palpitation no SOB, no nausea no vomiting, no abdominal pain Constitutional: no complaints Eyes: no complaints ENT: no complaints Respiratory: shortness of breath Cardiovascular: no complaints Gastrointestinal: no complaints Genitourinary: no complaints Musculoskeletal: no complaints Skin: no complaints Neurologic: no complaints Endocrine: no complaints Lymphatic: no complaints Psychological: no complaints Immunologic: no complaints Past Medical History Medical History: high cholesterol, hypertension, other (ESRd on HD ) Home Meds Reported Medications Hydralazine Hcl* (Hydralazine Hcl*) 50 Mg Tab, 50 MG PO TID, #90 TAB LAST FILLED 03/0308/14/18 Apixaban* (Eliquis*) 5 Mg Tablet, 5 MG PO BID, TAB PT ISNT COMPLIANT LAST FILLED 03-03 FOR 30 DAYS PT STILL HAS PILLS IN BOTTLE 08/14/18 Atorvastatin Calcium* (Atorvastatin Calcium*) 20 Mg Tablet, 20 MG PO QHS, #30 TAB 08/14/18 Carvedilol* (Carvedilol*) 12.5 Mg Tablet, 12.5 MG PO BID, #60 TAB 08/14/18 Nifedipine* (Nifedipine ER*) 90 Mg Tablet.sa, 90 MG PO DAILY, TAB.SA 08/14/18 Folic Acid* (Folic Acid*) 1 Mg Tablet, 1 MG PO DAILY, TAB 08/14/18 Insulin Lispro (Humalog Kwikpen U-100) 100 Unit/1 Ml Insuln.pen, 7 UNIT SQ AC A, EA ADMELOG 08/14/18 Discontinued Reported Medications Apixaban* (Eliquis*) 2.5 Mg Tablet, 2.5 MG PO BID, TAB PT ISNT COMPLIANT 08/14/18 Calcium Acetate* (Calcium Acetate*) 667 Mg Capsule, 667 MG PO WITH MEALS, #30 CAP 08/14/18 Insulin Glargine,Hum.rec.anlog (Basaglar Kwikpen U-100) 100 Unit/1 Ml Insuln.pen, 10 UNIT SC QHS, EA 08/14/18 Gabapentin* (Gabapentin*) 300 Mg Capsule, 300 MG PO QHS, #60 CAP 08/14/18 Megestrol Acetate* (Megestrol Acetate*) 400 Mg/10 Ml Susp, 400 MG PO DAILY, ML 08/14/18 Meloxicam* (Mobic*) 15 Mg Tablet, 15 MG PO DAILY, #30 TAB 03/07/18 Hydrocodone/Acetaminophen ([place] 5-325 Tablet) 1 Each Tablet, 1 EACH PO Q6H, TAB 03/07/18 Discontinued Scripts Apixaban* (Eliquis*) 2.5 Mg Tablet, 2.5 MG PO BID for 60 Days, #120 TAB Prov:BRUNO ALAN MD 03/10/18 Ondansetron Hcl* (Zofran*) 4 Mg Tab, 4 MG PO Q4H PRN for NAUSEA AND OR VOMITING, #30 TAB Prov:BRUNO ALAN MD 03/10/18 Insulin Aspart* (Novolog Insulin Pen*) 100 Unit/Ml Soln, 5 UNIT SC WITH MEALS for 30 Days, #1 BOX 2 Refills Prov:WALLY GOODMAN 01/04/18 [Insulin Glargine] 100 UNITS/ML SOLN No Conflict Check, 20 UNITS SC QAM for 30 Days, #1 BOX 2 Refills Prov:WALLY GOODMAN 01/04/18 Nifedipine (Procardia Xl) 90 Mg Tab.er.24, 90 MG PO DAILY for 30 Days, #30 TAB 1 Refill Prov:WALLY GOODMAN 01/01/18 Carvedilol* (Carvedilol*) 12.5 Mg Tablet, 12.5 MG PO BID for 30 Days, #60 TAB 1 Refill Prov:WALLY GOODMAN 01/01/18 Atorvastatin Calcium (Atorvastatin Calcium) 20 Mg Tablet, 20 MG PO HS for 30 Days, #30 TAB 1 Refill Prov:WALLY GOODMAN 01/01/18 Folic Acid* (Folic Acid*) 1 Mg Tablet, 1 MG PO DAILY for 30 Days, #30 TAB 1 Refill Prov:WALLY GOODMAN 01/01/18 Hydralazine Hcl* (Hydralazine Hcl*) 50 Mg Tab, 50 MG PO Q8 for 30 Days, #90 TAB 1 Refill Prov:WALLY GOODMAN 01/01/18 Medications Current Medications Calcium Gluconate 2 gm/Dextrose 120 ml @ 60 mls/hr ONCE ONCE IVPB Last administered on 08/14/18at 07:06; Admin Dose 60 MLS/HR; Start 08/14/18 at 07:00; Stop 08/14/18 at 08:59 Dextrose (D50w Syringe) ONCE PRN IV DECREASED GLUCOSE Last administered on 08/14/18at 07:02; Admin Dose 50 ML; Start 08/14/18 at 07:00 Allergies: Coded Allergies: No Known Allergy (Unverified , 08/14/18) Past Surgical History Past Surgical Hx: other (Dialysis catheter, Hip arthroplasty ) Family History Significant Family History: no pertinent family hx Social History Alcohol Use: none Smoking Status: Never smoker Drug Use: none Exam/Review of Systems Exam Vitals Vital Signs Date Temp Pulse Resp B/P (MAP) Pulse Ox O2 O2 Flow FiO2 Time Delivery Rate 08/14/18 98.2 70 12 155/66 100 Room Air 07:00 (95) Constitutional: alert, distress Psych: no complaints Head: normocephalic Eyes: nl conjunctiva ENMT: nl external ears & nose Neck: supple, non-tender Respiratory: clear to auscultation, diminished breath sounds Cardiovascular: regular rate and rhythm Gastrointestinal: soft, non-tender Musculoskeletal: nl extremities to inspection Extremities: normal pulses 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, nl mental status, nl speech, nl strength Skin: nl turgor Lymph: nl lymph nodes Results Result Diagram: 08/14/18 0541 08/14/18 0541 Results 24hrs Laboratory Tests Test 08/14/18 05:41 08/14/18 06:59 White Blood Count 11.4 #H Red Blood Count 4.58 #L Hemoglobin 14.1 # Hematocrit 42.2 # Mean Corpuscular Volume 92.1 Mean Corpuscular Hemoglobin 30.8 Mean Corpuscular Hemoglobin Concent 33.4 Red Cell Distribution Width 14.9 H Platelet Count 132 #L Mean Platelet Volume 11.9 H Immature Granulocytes % 0.400 Neutrophils % 78.5 H Lymphocytes % 13.8 L Monocytes % 4.6 Eosinophils % 2.0 Basophils % 0.7 Nucleated Red Blood Cells % 0.0 Immature Granulocytes # 0.040 H Neutrophils # 9.0 H Lymphocytes # 1.6 Monocytes # 0.5 Eosinophils # 0.2 Basophils # 0.1 Nucleated Red Blood Cells # 0.0 Sodium Level 139 Potassium Level 8.0 *H Chloride Level 96 L Carbon Dioxide Level 27 Anion Gap 16 H Blood Urea Nitrogen 95 H Creatinine 9.45 H Est Glomerular Filtrat Rate mL/min Glucose Level 212 Calcium Level 9.0 Troponin I < 0.012 Bedside Glucose 182 Medications Medication Current Medications Calcium Gluconate 2 gm/Dextrose 120 ml @ 60 mls/hr ONCE ONCE IVPB Last administered on 08/14/18at 07:06; Admin Dose 60 MLS/HR; Start 08/14/18 at 07:00; Stop 08/14/18 at 08:59 Dextrose (D50w Syringe) ONCE PRN IV DECREASED GLUCOSE Last administered on 08/14/18at 07:02; Admin Dose 50 ML; Start 08/14/18 at 07:00 LILLY QUILES MD Aug 14, 2018 08:02
[2018-08-14] MEDS ORDERED: INSU100I12 SQ (08:51)
[2018-08-14] MEDS ORDERED: MEG40/1 PO (08:52)
[2018-08-14] MEDS ORDERED: GABA300C16 PO (08:53)
[2018-08-14] MEDS ORDERED: INSU100I33 SC (08:54)
[2018-08-14] MEDS ORDERED: FOLI-49 PO (08:55)
[2018-08-14] MEDS ORDERED: NIFE90TA21 PO (08:56)
[2018-08-14] MEDS ORDERED: CARV12.579 PO (08:56)
[2018-08-14] MEDS ORDERED: ATOR20TA38 PO (08:57)
[2018-08-14] MEDS ORDERED: CALC667C PO (08:58)
[2018-08-14] MEDS ORDERED: APIX2.5T PO (09:00)
[2018-08-14] MEDS ORDERED: APIX5TAB PO (10:06)
[2018-08-14] MEDS ORDERED: HYDR-3672 PO (10:07)
[2018-08-14] MEDS: HEPARIN 1000 UNITS/ML 10 ML INJ CATHETER SCH (12:07)
--- NOTE | 2018-08-14 16:07 | HP ---
Date/Time of Note Date/Time of Note DATE: 08/14/18 TIME: 16:03 Assessment/Plan VTE Prophylaxis Pharmacological prophylaxis: heparin Lines/Catheters IV Catheter Type (from Nrs): [place] Assessment/Plan Hospital Course 1. Acute respiratory distress likely secondary to volume overload Patient is status post dialysis with 3 L removed 2. Leukocytosis-likely reactive Monitor 3. End-stage renal disease Dialysis per renal 4. Diabetes Continue insulin regimen Prophylaxis: Heparin Result Diagram: 08/14/18 0541 08/14/18 1501 Results 24hrs Laboratory Tests Test 08/14/18 05:41 08/14/18 06:00 08/14/18 06:59 08/14/18 08:04 White Blood Count 11.4 #H Red Blood Count 4.58 #L Hemoglobin 14.1 # Hematocrit 42.2 # Mean Corpuscular Volume 92.1 Mean Corpuscular 30.8 Hemoglobin Mean Corpuscular 33.4 Hemoglobin Concent Red Cell Distribution 14.9 H Width Platelet Count 132 #L Mean Platelet Volume 11.9 H Immature Granulocytes % 0.400 Neutrophils % 78.5 H Lymphocytes % 13.8 L Monocytes % 4.6 Eosinophils % 2.0 Basophils % 0.7 Nucleated Red Blood 0.0 Cells % Immature Granulocytes # 0.040 H Neutrophils # 9.0 H Lymphocytes # 1.6 Monocytes # 0.5 Eosinophils # 0.2 Basophils # 0.1 Nucleated Red Blood 0.0 Cells # Sodium Level 139 Potassium Level 8.0 *H Chloride Level 96 L Carbon Dioxide Level 27 Anion Gap 16 H Blood Urea Nitrogen 95 H Creatinine 9.45 H Est Glomerular Filtrat Rate mL/min Glucose Level 212 Calcium Level 9.0 Troponin I < 0.012 Hepatitis B Surface NEGATIVE Antigen Bedside Glucose 182 220 Test 08/14/18 13:45 08/14/18 14:01 08/14/18 15:01 Sodium Level 140 140 Potassium Level 5.0 # 5.2 H Chloride Level 98 97 Carbon Dioxide Level 31 29 Anion Gap 11 14 H Blood Urea Nitrogen 41 #H 41 H Creatinine 5.16 #H 5.25 H Est Glomerular Filtrat Rate mL/min Glucose Level 115 # 114 Calcium Level 9.4 9.4 Bedside Glucose 105 HPI/ROS Admit Date/Time Admit Date/Time 08/14/2018 Hx of Present Illness Patient is a 3-year-old male with history of end-stage renal disease on dialysis, Monday and Monday, diabetes, hypertension, OH status post EMILY. Patient was at dialysis center earlier today when he complained of shortness of breath was told to go to the ER. In ER chest x-ray showed no significant findings, nephrology was consulted and dialysis has been performed received 3 L removed. Patient currently states that he is feeling better and shortness of breath has improved. Patient has no other complaints at this time and denies chest pain. ROS Constitutional: no complaints, improved Eyes: no complaints ENT: no complaints Respiratory: no complaints Cardiovascular: no complaints Gastrointestinal: no complaints Genitourinary: no complaints Musculoskeletal: no complaints Skin: no complaints Neurologic: no complaints Endocrine: no complaints Lymphatic: no complaints Psychological: no complaints, nl mood/affect Immunologic: no complaints PMH/Family/Social Past Medical History As per HPI Medications Current Medications Dextrose (D50w Syringe) ONCE PRN IV DECREASED GLUCOSE Last administered on 08/14/18at 07:02; Admin Dose 50 ML; Start 08/14/18 at 07:00 Albumin Human 100 ml @ 100 mls/hr WITH DIALYSIS PRN IV SBP <90 DURING DIALYSIS; Start 08/14/18 at 08:00 Sodium Chloride (NS) -To prime the dialy... DIRECTED FOR HD PRN IV HD; Start 08/14/18 at 08:00 Heparin Sodium (Porcine) (Heparin (1000 Units/ml)) 4,500 unit AFTER DIALYSIS CATHETER Last administered on 08/14/18at 12:07; Admin Dose 4,500 UNIT; Start 08/14/18 at 10:00 Coded Allergies: No Known Allergy (Unverified , 08/14/18) Past Surgical History Past Surgical Hx: other Family History Significant Family History: no pertinent family hx Social History Alcohol Use: rarely Smoking Status: Never smoker Drug Use: none Exam/Review of Systems Vital Signs Vitals Vital Signs Date Temp Pulse Resp B/P (MAP) Pulse Ox O2 O2 Flow FiO2 Time Delivery Rate 08/14/18 69 16 176/89 100 Nasal 2.0 13:00 (118) Cannula 08/14/18 98.2 07:00 Exam Constitutional: alert, oriented Respiratory: clear to auscultation Cardiovascular: regular rate and rhythm Gastrointestinal: soft; No distended Musculoskeletal: nl extremities to inspection LEONA ARNOLD Aug 14, 2018 16:07
[2018-08-14] MEDS ORDERED: GLUCOSE GEL 15 GRAM TUBE PO PRN ×2 (16:30)
[2018-08-14] MEDS ORDERED: GLUCOSE GEL 15 GRAM TUBE BUCCAL PRN (16:30)
[2018-08-14] MEDS ORDERED: NACL 0.9% 3 ML SYG IV SCH (16:30)
[2018-08-14] MEDS ORDERED: GLUCAGON 1 MG INJ IM PRN (16:30)
[2018-08-14] MEDS ORDERED: ACETAMINOPHEN 325 MG TAB PO PRN (16:30)
[2018-08-14] MEDS ORDERED: DOCUSATE SODIUM 100 MG CAP PO PRN (16:30)
[2018-08-14] MEDS ORDERED: ONDANSETRON 4 MG INJ IV PRN (16:30)
[2018-08-14] MEDS ORDERED: HYDROCODONE/APAP (5/325) TAB PO PRN (16:30)
[2018-08-14] MEDS ORDERED: ZOLPIDEM 5 MG TAB PO PRN (16:30)
[2018-08-14] MEDS: INSULIN ASPART [NOVOLOG] 3 ML PEN SC SCH ×2 (18:00→20:48)
[2018-08-14] MEDS: hydrALAzine 20 MG INJ IV PRN (18:48)
[2018-08-14] MEDS: APIXABAN 5 MG TABLET PO SCH (20:38)
[2018-08-14] MEDS: morphine 2 MG INJ IV PRN (20:52)
[2018-08-14] MEDS ORDERED: HEPARIN 5,000 UNIT/1 ML VIAL SC SCH (21:00)
[2018-08-14] MEDS ORDERED: ATORVASTATIN 20 MG TAB PO SCH (21:00)
[2018-08-14] MEDS ORDERED: APIXABAN 5 MG TABLET PO SCH (21:00)
[2018-08-15] VITALS (19 sets, daily range): BP systolic 117–200; BP diastolic 57–86; PULSE 20–86; RESP 18–20
[2018-08-15] MEDS: hydrALAzine 20 MG INJ IV PRN (00:54)
[2018-08-15] MEDS ORDERED: GABAPENTIN 300 MG CAP PO SCH (01:25)
[2018-08-15] MEDS ORDERED: ACCU-CHEK XX SCH (02:00)
[2018-08-15] MEDS: morphine 2 MG INJ IV PRN (02:18)
[2018-08-15] MEDS ORDERED: hydrALAzine 20 MG INJ IV ONE (04:30)
[2018-08-15] MEDS: INSULIN ASPART [NOVOLOG] 3 ML PEN SC SCH ×2 (07:55→12:16)
[2018-08-15] MEDS ORDERED: INSULIN GLARGINE [LANTus] (100 UNITS/ML) SYG SC SCH (08:00)
[2018-08-15] MEDS ORDERED: NIFEdipine (XL) 90 MG TAB PO SCH (09:00)
[2018-08-15] MEDS ORDERED: FOLIC ACID 1 MG TAB PO SCH (09:00)
[2018-08-15] MEDS: HEPARIN 1000 UNITS/ML 10 ML INJ CATHETER SCH (11:13)
--- NOTE | 2018-08-15 11:23 | CONS ---
Assessment/Plan Assessment/Plan Assessment/Plan (Daily) 1. Acute hyperkalemia 2. acute Fluid overload 3. ESRD on HD 4. h/o HTN 5. h/o HL 6. H/o atrial fibrillation 7 . h/o CHF Plan: HD today then we will conitnue HD on TTS Continue other Home meds will follow up . Thanks for consultation Consultation Date/Type/Reason Admit Date/Time Aug 14, 2018 at 07:46 Initial Consult Date 08/14/18 Type of Consult NEPHROLOGY Requesting Provider: LESLYE JOHNSON MD Date/Time of Note DATE: 08/15/18 TIME: 11:23 Exam/Review of Systems Exam Vitals Vital Signs Date Temp Pulse Resp B/P (MAP) Pulse Ox O2 O2 Flow FiO2 Time Delivery Rate 08/15/18 99.1 57 20 184/78 94 08:20 (113) 08/15/18 Room Air 08:00 08/14/18 2.0 15:00 Intake and Output 08/14/18 08/14/18 08/15/18 1515:00 23:00 07:00 IntakeIntake Total 120 ml OutputOutput Total 3600 ml BalanceBalance -3480 ml Results Result Diagram: 08/15/18 0542 08/15/18 0542 Results 24hrs Laboratory Tests Test 08/14/18 13:45 08/14/18 14:01 08/14/18 15:01 08/14/18 18:47 Sodium Level 140 140 Potassium Level 5.0 # 5.2 H Chloride Level 98 97 Carbon Dioxide Level 31 29 Anion Gap 11 14 H Blood Urea Nitrogen 41 #H 41 H Creatinine 5.16 #H 5.25 H Est Glomerular Filtrat Rate mL/min Glucose Level 115 # 114 Calcium Level 9.4 9.4 Bedside Glucose 105 198 Test 08/14/18 20:42 08/15/18 02:09 08/15/18 05:42 08/15/18 08:42 Bedside Glucose 219 165 125 White Blood Count 10.1 Red Blood Count 4.53 L Hemoglobin 14.0 Hematocrit 41.0 L Mean Corpuscular Volume 90.5 Mean Corpuscular 30.9 Hemoglobin Mean Corpuscular 34.1 Hemoglobin Concent Red Cell Distribution 14.7 H Width Platelet Count 135 L Mean Platelet Volume 11.4 H Immature Granulocytes % 0.200 Neutrophils % 73.1 Lymphocytes % 15.8 Monocytes % 6.3 Eosinophils % 3.7 Basophils % 0.9 Nucleated Red Blood 0.0 Cells % Immature Granulocytes # 0.020 Neutrophils # 7.4 Lymphocytes # 1.6 Monocytes # 0.6 Eosinophils # 0.4 Basophils # 0.1 Nucleated Red Blood 0.0 Cells # Sodium Level 139 Potassium Level 6.9 *H Chloride Level 98 Carbon Dioxide Level 29 Anion Gap 12 Blood Urea Nitrogen 64 H Creatinine 7.26 #H Est Glomerular Filtrat Rate mL/min Glucose Level 163 Hemoglobin A1c 6.3 H Calcium Level 8.9 Phosphorus Level 5.5 H Magnesium Level 2.2 Medications Medication Current Medications Dextrose (D50w Syringe) ONCE PRN IV DECREASED GLUCOSE Last administered on 08/14/18at 07:02; Admin Dose 50 ML; Start 08/14/18 at 07:00 Albumin Human 100 ml @ 100 mls/hr WITH DIALYSIS PRN IV SBP <90 DURING DIALYSIS; Start 08/14/18 at 08:00 Sodium Chloride (NS) -To prime the dialy... DIRECTED FOR HD PRN IV HD; Start 08/14/18 at 08:00 Heparin Sodium (Porcine) (Heparin (1000 Units/ml)) 4,500 unit AFTER DIALYSIS CATHETER Last administered on 08/15/18at 11:13; Admin Dose 4,500 UNIT; Start 08/14/18 at 10:00 IV Flush (NS 3 ml) 3 ml PER PROTOCOL IV ; Start 08/14/18 at 16:30 Ondansetron HCl (Zofran Inj) 4 mg Q6H PRN IV NAUSEA/VOMITING; Start 08/14/18 at 16:30 Acetaminophen (Tylenol Tab) 650 mg Q6H PRN PO .PAIN 1-3 OR TEMP; Start 08/14/18 at 16:30 Acetaminophen/ Hydrocodone Bitart ([place] (5/325)) 1 tab Q6H PRN PO .MOD PAIN 4- 6; Start 08/14/18 at 16:30 Morphine Sulfate (morphine) 2 mg Q4H PRN IV .SEVERE PAIN 7-10 Last administered on 08/15/18at 02:18; Admin Dose 2 MG; Start 08/14/18 at 16:30 Docusate Sodium (Colace) 100 mg Q12H PRN PO .CONSTIPATION; Start 08/14/18 at 16:30 Zolpidem Tartrate (Ambien) 5 mg QHS PRN PO .INSOMNIA; Start 08/14/18 at 16:30 Atorvastatin Calcium (Lipitor) 20 mg QHS PO Last administered on 08/14/18at 20:37; Admin Dose 20 MG; Start 08/14/18 at 21:00 Carvedilol (Coreg) 12.5 mg BID PO Last administered on 08/14/18at 20:39; Admin Dose 12.5 MG; Start 08/14/18 at 21:00 Folic Acid (Folic Acid) 1 mg DAILY PO ; Start 08/15/18 at 09:00 Hydralazine HCl (Apresoline) 50 mg TID PO Last administered on 08/14/18at 20:37; Admin Dose 50 MG; Start 08/14/18 at 21:00 Nifedipine (Procardia Xl) 90 mg DAILY PO ; Start 08/15/18 at 09:00 Diagnostic Test (Pha) (Accu-Chek) 1 ea 02 XX Last administered on 08/15/18at 02:11; Admin Dose 1 EA; Start 08/15/18 at 02:00 Insulin Glargine (Lantus) 8 units DAILY@0800 SC Last administered on 08/15/18at 08:47; Admin Dose 8 UNITS; Start 08/15/18 at 08:00 Insulin Aspart (Novolog Insulin Pen) NOVOLOG *MILD* ALGORITHM WITH MEALS BEDTIME SC Last administered on 08/14/18at 20:48; Admin Dose 2 UNIT; Start 08/14/18 at 18:00 Miscellaneous Information 1 ea NOTE XX ; Start 08/14/18 at 16:30 Glucose (Glutose) 15 gm Q15M PRN PO DECREASED GLUCOSE; Start 08/14/18 at 16:30 Glucose (Glutose) 22.5 gm Q15M PRN PO DECREASED GLUCOSE; Start 08/14/18 at 16:30 Dextrose (D50w Syringe) 25 ml Q15M PRN IV DECREASED GLUCOSE; Start 08/14/18 at 16:30 Dextrose (D50w Syringe) 50 ml Q15M PRN IV DECREASED GLUCOSE; Start 08/14/18 at 16:30 Glucagon (Glucagen) 1 mg Q15M PRN IM DECREASED GLUCOSE; Start 08/14/18 at 16:30 Glucose (Glutose) 15 gm Q15M PRN BUCCAL DECREASED GLUCOSE; Start 08/14/18 at 16:30 Apixaban (Eliquis) 2.5 mg BID PO Last administered on 08/14/18at 20:38; Admin Dose 2.5 MG; Start 08/14/18 at 21:00 Hydralazine HCl (Apresoline) 10 mg Q4H PRN IV SBP >170 Last administered on 08/15/18at 00:54; Admin Dose 10 MG; Start 08/14/18 at 19:00 Gabapentin (Neurontin) 300 mg HS PO Last administered on 08/15/18at 02:06; Admin Dose 300 MG; Start 08/15/18 at 01:25 LILLY QUILES MD Aug 15, 2018 11:23
[2018-08-15] MEDS: APIXABAN 5 MG TABLET PO SCH (12:08)
--- NOTE | 2018-08-15 14:59 | PDOCDIS ---
Discharge Instructions CONDITION [id number] Patient Condition: [id number] Good HOME CARE INSTRUCTIONS: [id number] Special Diet: [id number] Renal ACTIVITY: [id number] Activity Restrictions: [id number] No Restrictions FOLLOW UP/APPOINTMENTS Follow-up Plan FOLLOW UP WITH YOUR PRIMARY CARE PHYSICIAN IN 1-2 WEEKS, follow-up with your dialysis center as scheduled LEONA ARNOLD Aug 15, 2018 14:59
--- NOTE | 2018-08-15 19:27 | DS ---
Date/Time of Note Date/Time of Note DATE: 08/15/18 TIME: 19:24 Discharge Summary Admission/Discharge Info Admit Date/Time Aug 14, 2018 at 07:46 Discharge Date/Time Aug 15, 2018 at 17:06 Discharge Diagnosis 1. Acute respiratory distress likely secondary to volume overload-resolved Patient is status post dialysis 2. Leukocytosis-reactive Resolved 3. End-stage renal disease Continue outpatient dialysis 4. Diabetes Continue home insulin regimen Patient Condition: Good Hospital Course Patient is a 73-year-old male with history of end-stage renal disease on dialysis, Monday and Monday, diabetes, hypertension, [place] status post EMILY. Patient was at dialysis center when he complained of shortness of breath was told to go to the ER. In ER chest x-ray showed no significant findings, nephrology was consulted and dialysis was performed the patient's shortness of breath did resolve. Patient did receive dialysis once again for hyperkalemia which did resolve. Patient was stable for DC, on the day of discharge patient's vitals, labs and physical exam are stable. Home Meds Reported Medications Hydralazine Hcl* (Hydralazine Hcl*) 50 Mg Tab, 50 MG PO TID, #90 TAB LAST FILLED 03/0308/14/18 Apixaban* (Eliquis*) 5 Mg Tablet, 5 MG PO BID, TAB PT ISNT COMPLIANT LAST FILLED 03-03 FOR 30 DAYS PT STILL HAS PILLS IN BOTTLE 08/14/18 Atorvastatin Calcium* (Atorvastatin Calcium*) 20 Mg Tablet, 20 MG PO QHS, #30 TAB 08/14/18 Carvedilol* (Carvedilol*) 12.5 Mg Tablet, 12.5 MG PO BID, #60 TAB 08/14/18 Nifedipine* (Nifedipine ER*) 90 Mg Tablet.sa, 90 MG PO DAILY, TAB.SA 08/14/18 Folic Acid* (Folic Acid*) 1 Mg Tablet, 1 MG PO DAILY, TAB 08/14/18 Insulin Lispro (Humalog Kwikpen U-100) 100 Unit/1 Ml Insuln.pen, 7 UNIT SQ AC A, EA ADMELOG 08/14/18 Discontinued Reported Medications Apixaban* (Eliquis*) 2.5 Mg Tablet, 2.5 MG PO BID, TAB PT ISNT COMPLIANT 08/14/18 Calcium Acetate* (Calcium Acetate*) 667 Mg Capsule, 667 MG PO WITH MEALS, #30 CAP 08/14/18 Insulin Glargine,Hum.rec.anlog (Basaglar Kwikpen U-100) 100 Unit/1 Ml Insuln.pen, 10 UNIT SC QHS, EA 08/14/18 Gabapentin* (Gabapentin*) 300 Mg Capsule, 300 MG PO QHS, #60 CAP 08/14/18 Megestrol Acetate* (Megestrol Acetate*) 400 Mg/10 Ml Susp, 400 MG PO DAILY, ML 08/14/18 Meloxicam* (Mobic*) 15 Mg Tablet, 15 MG PO DAILY, #30 TAB 03/07/18 Hydrocodone/Acetaminophen ([place] 5-325 Tablet) 1 Each Tablet, 1 EACH PO Q6H, TAB 03/07/18 Discontinued Scripts Apixaban* (Eliquis*) 2.5 Mg Tablet, 2.5 MG PO BID for 60 Days, #120 TAB Prov:BRUNO ALAN MD 03/10/18 Ondansetron Hcl* (Zofran*) 4 Mg Tab, 4 MG PO Q4H PRN for NAUSEA AND OR VOMITING, #30 TAB Prov:BRUNO ALAN MD 03/10/18 Insulin Aspart* (Novolog Insulin Pen*) 100 Unit/Ml Soln, 5 UNIT SC WITH MEALS for 30 Days, #1 BOX 2 Refills Prov:WALLY GOODMAN 01/04/18 [Insulin Glargine] 100 UNITS/ML SOLN No Conflict Check, 20 UNITS SC QAM for 30 Days, #1 BOX 2 Refills Prov:WALLY GOODMAN 01/04/18 Nifedipine (Procardia Xl) 90 Mg Tab.er.24, 90 MG PO DAILY for 30 Days, #30 TAB 1 Refill Prov:WALLY GOODMAN 01/01/18 Carvedilol* (Carvedilol*) 12.5 Mg Tablet, 12.5 MG PO BID for 30 Days, #60 TAB 1 Refill Prov:WALLY GOODMAN 01/01/18 Atorvastatin Calcium (Atorvastatin Calcium) 20 Mg Tablet, 20 MG PO HS for 30 Days, #30 TAB 1 Refill Prov:WALLY GOODMAN 01/01/18 Folic Acid* (Folic Acid*) 1 Mg Tablet, 1 MG PO DAILY for 30 Days, #30 TAB 1 Refill Prov:WALLY GOODMAN 01/01/18 Hydralazine Hcl* (Hydralazine Hcl*) 50 Mg Tab, 50 MG PO Q8 for 30 Days, #90 TAB 1 Refill Prov:WALLY GOODMAN 01/01/18 Follow-up Plan FOLLOW UP WITH YOUR PRIMARY CARE PHYSICIAN IN 1-2 WEEKS, follow-up with your dialysis center as scheduled Primary Care Provider Jefe Millan MD Time spent on discharge: > 30 minutes LEONA ARNOLD Aug 15, 2018 19:26
== END 2018-08-15 17:06 | disposition home or self-care (01) | DRG 682 ==
LOC: E/R 05:23 → TEL 07:46 → UNDOADMIN 09:38 → ICU 09:38
PROVIDERS: ADMIT Internal Medicine; ATTEND Internal Medicine
PROC: 5A1D70Z Performance of Urinary Filtration, Intermittent, Less than 6 Hours Per Day (ICD-10-PCS; principal; 2018-08-14)
DX: I12.0 Hypertensive chronic kidney disease with stage 5 chronic kidney disease or end stage renal disease (principal); N18.6 End stage renal disease; E11.22 Type 2 diabetes mellitus with diabetic chronic kidney disease; Z99.2 Dependence on renal dialysis; D72.829 Elevated white blood cell count, unspecified; E87.5 Hyperkalemia
CPT/HCPCS: 36415; 71045; 80048; 82962; 83036; 83735; 84100; 84484; 85025; 87340; 90935; 93005; 96365; 96375; J0360; J0610; J1644; J1815; J2270

== ENCOUNTER 2018-08-22 07:06 | Day surgery (SDC) | payer OTHER ==
[2018-08-22] VITALS (7 sets, daily range): BP systolic 164–216; BP diastolic 54–89; PULSE 54–65; RESP 18–20; Ht 156.2 cm; Wt 71.7 kg
[~2018-08-22] VITALS: Ht 156.2 cm; Wt 71.7 kg
[~2018-08-22 07:06] MED LIST changes: -APIX2.5T PO; +APIX5TAB PO; +ATOR20TA38 PO; -ATOR20TA65 PO; -HYDR-4011 PO; +INSU100I12 SQ; -Insulin Glargine SC; -MELO15TA30 PO; -NIFE90TA PO; +NIFE90TA21 PO; -NOVO3I SC; -ONDA4TAB13 PO
[2018-08-22] MEDS ORDERED: LIDOCAINE 1% (MDV) 20 ML INJ ONE (09:00)
[2018-08-22] MEDS ORDERED: HEPARIN 1000 UNITS/NS (A-LINE) 1,000 ML ONE (09:00)
[2018-08-22] MEDS ORDERED: IODIXANOL LOCM 100 ML BTL ONE (09:01)
[2018-08-22] MEDS ORDERED: DIAZEPAM 5 MG TAB PO ONE (09:30)
[2018-08-22] MEDS ORDERED: FAMOTIDINE 20 MG TAB PO ONE (09:30)
[2018-08-22] MEDS ORDERED: DIPHENHYDRAMINE 50 MG CAP PO ONE (09:30)
[2018-08-22] MEDS ORDERED: NIFEdipine (XL) 60 MG TAB PO STA (09:53)
[2018-08-22] MEDS ORDERED: SOD CHLORIDE 0.45% 1,000 ML IV SCH (10:00)
[2018-08-22] MEDS ORDERED: NA POLYST SULFON 15 GM/60 ML BTL PO STA (11:31)
--- NOTE | 2018-08-22 16:32 | RADRPT ---
Vent Rate: 63 bpm RR Interval: 948 msec [place] Interval: 161 msec QRS Duration: 128 msec QT Interval: 468 msec QTC Interval: 481 msec P-R-T [place]: 44 - -105 - 39 degrees Sinus rhythm...normal P axis, V-rate 50- 99 RBBB and LAFB...QRSd >120mS, axis(-40,240) Electronically Signed By: Travis Olivera
== END 2018-08-22 14:55 | disposition home or self-care (01) ==
LOC: SDS 07:06
PROVIDERS: ATTEND Internal Medicine
DX: R94.39 Abnormal result of other cardiovascular function study (principal); Z53.09 Procedure and treatment not carried out because of other contraindication; I10 Essential (primary) hypertension
CPT/HCPCS: 71045; 80053; 80061; 82962; 85025; 85610; 85730; 93005; J1644; Q9967; Z7610

== ENCOUNTER 2018-08-31 06:57 | Day surgery (SDC) | payer OTHER ==
[~2018-08-31] VITALS: Ht 160 cm; Wt 71.5 kg
[2018-08-31] MEDS ORDERED: DIAZEPAM 5 MG TAB PO ONE ×2 (07:00→07:30)
[2018-08-31] MEDS ORDERED: SOD CHLORIDE 0.45% 1,000 ML IV SCH ×2 (07:00→07:30)
[2018-08-31] MEDS ORDERED: FAMOTIDINE 20 MG TAB PO ONE ×2 (07:00→07:30)
[2018-08-31] MEDS ORDERED: DIPHENHYDRAMINE 50 MG CAP PO ONE ×2 (07:00→07:30)
[2018-08-31 07:42] VITALS: Ht 160 cm; Wt 71.5 kg
[2018-08-31 07:47] VITALS: BP 135/73; PULSE 56; RESP 16
[2018-08-31] MEDS ORDERED: GABA300C PO (07:59)
[2018-08-31] MEDS ORDERED: CALC667C PO (07:59)
[2018-08-31] MEDS ORDERED: NA POLYST SULFON 15 GM/60 ML BTL PO STA (09:47)
--- NOTE | 2018-09-01 15:59 | RADRPT ---
Vent Rate: 56 bpm RR Interval: 1076 msec RI Interval: 122 msec QRS Duration: 128 msec QT Interval: 467 msec QTC Interval: 450 msec P-R-T [place]: -80 - -131 - 60 degrees Sinus or ectopic atrial rhythm...P axis (-45,135) Right bundle branch block...QRSd>120, terminal axis(90,270) Electronically Signed By: Brandyn Patel
== END 2018-08-31 10:31 | disposition home or self-care (01) ==
LOC: SDS 06:57
PROVIDERS: ATTEND Internal Medicine
DX: R94.39 Abnormal result of other cardiovascular function study (principal); Z53.8 Procedure and treatment not carried out for other reasons; I10 Essential (primary) hypertension
CPT/HCPCS: 71045; 80053; 80061; 82962; 85025; 85610; 85730; 93005; Z7610

== ENCOUNTER 2018-08-31 10:43 | Emergency (ER) | payer OTHER ==
[~2018-08-31] VITALS: Ht 157.5 cm; Wt 63.6 kg
[~2018-08-31 10:43] MED LIST changes: +CALC667C PO; +GABA300C PO
[2018-08-31 10:49] VITALS: Ht 157.5 cm; Wt 63.6 kg
[2018-08-31] MEDS ORDERED: SOD CHLORIDE 0.9% 500 ML IV ONE (11:00)
[2018-08-31] MEDS ORDERED: SODIUM POLYSTYRENE 15 GM KIT (POWDER + SORBITOL) PO STA (11:11)
[2018-08-31] MEDS ORDERED: INSULIN REGULAR, HUMAN 100 UNIT/1 ML 3ML VIAL IVP STA (11:11)
[2018-08-31] MEDS ORDERED: ALBUTEROL 0.5% (NEB) 2.5 MG/0.5 ML AMP INH STA (11:11)
[2018-08-31] MEDS ORDERED: CA CHLORIDE 10% 10 ML SYRINGE IV STA (11:11)
[2018-08-31] MEDS ORDERED: NA BICARBONATE 8.4% 50 ML SYG IV STA (11:11)
[2018-08-31] MEDS ORDERED: DEXTROSE 50% 50 ML SYRINGE IV PRN (11:30)
[2018-08-31] MEDS ORDERED: NA POLYST SULFON 15 GM/60 ML BTL PO ONE (12:00)
[2018-08-31 12:37] VITALS: BP 141/64; PULSE 70; RESP 18
--- NOTE | 2018-08-31 13:21 | ERD ---
ER Documentation Chief Complaint Chief Complaint same day surgery case postponed elevated potassium. pt denies symptoms HPI This is a 73-year-old male with a past medical history of hypertension, diabetes, heart failure, end-stage renal disease on dialysis Monday//Monday who is presenting for hyperkalemia. The patient was scheduled to have an outpatient heart catheterization today, but his blood work was checked and his potassium was found to be elevated at 6.6. His catheterization was canceled and the patient was transferred down here for further assessment. Prior to transfer, the patient's small business banking officer, Dr. Segura, was called. He had ordered Kayexalate to be given to the patient, but it was not completed prior to transfer to the emergency department. The patient feels generally fatigued, but this is chronic for him. He feels that his baseline at this time. The patient does not endorse any alleviating or exacerbating factors. The patient denies feeling sick recently. The patient denies fever or chills. The patient has had no headache or vision changes. The patient does not endorse neck or back pain. The patient denies lightheadedness or dizziness. The patient has had no chest pain or trouble breathing. The patient denies nausea or vomiting. The patient denies abdominal pain. The patient denies changes to bowel movements or urination. The patient has had no focal deficits. The patient has had no weakness or numbness or tingling to the face or extremities. ROS All systems reviewed and are negative except as per history of present illness. Medications Home Meds Reported Medications Calcium Acetate* (Calcium Acetate*) 667 Mg Capsule, 1334 MG PO WITH MEALS, #60 CAP 08/31/18 Gabapentin* (Neurontin*) 300 Mg Capsule, 300 MG PO DAILY, #60 CAP 08/31/18 Hydralazine Hcl* (Hydralazine Hcl*) 50 Mg Tab, 50 MG PO BID, #90 TAB LAST FILLED 03/0308/14/18 Apixaban* (Eliquis*) 5 Mg Tablet, 2.5 MG PO BID, TAB PT ISNT COMPLIANT LAST FILLED 03-03 FOR 30 DAYS PT STILL HAS PILLS IN BOTTLE 08/14/18 Atorvastatin Calcium* (Atorvastatin Calcium*) 20 Mg Tablet, 20 MG PO QHS, #30 TAB 08/14/18 Carvedilol* (Carvedilol*) 12.5 Mg Tablet, 6.25 MG PO BID, #60 TAB 08/14/18 Nifedipine* (Nifedipine ER*) 90 Mg Tablet.sa, 90 MG PO BID, TAB.SA 08/14/18 Folic Acid* (Folic Acid*) 1 Mg Tablet, 1 MG PO DAILY, TAB 08/14/18 Insulin Lispro (Humalog Kwikpen U-100) 100 Unit/1 Ml Insuln.pen, 7 UNIT SQ AC A, EA ADMELOG 08/14/18 Allergies Allergies: Coded Allergies: No Known Allergy (Unverified , 08/31/18) PMhx/Soc History of Surgery: Yes (I&D BUTT ULCER,R. PERMACATH. L. EYE SX, ) Anesthesia Reaction: No Hx Neurological Disorder: Yes (NEUROPATHY) Hx Respiratory Disorders: No Hx Cardiac Disorders: Yes (Hypertension, hyperlipidemia, diabetes) Hx Psychiatric Problems: No Hx Miscellaneous Medical Probl: Yes (End-stage renal disease) Hx Alcohol Use: No Hx Substance Use: No Hx Tobacco Use: No Smoking Status: Never smoker FmHx Family History: diabetes Physical Exam Vitals Vital Signs Date Temp Pulse Resp B/P (MAP) Pulse Ox O2 O2 Flow FiO2 Time Delivery Rate 08/31/18 70 18 141/64 96 Room Air 12:37 (89) 08/31/18 64 18 99 21 11:32 08/31/18 99.2 59 16 144/63 97 10:49 (90) Physical Exam Const: No apparent distress, well-developed, well-nourished Head: Normocephalic, Atraumatic Eyes: Normal Conjunctiva. Extraocular movements intact. Pupils equal, round and reactive to light ENT: Normal External Ears, Nose. Dry mucous membranes. Neck: Full range of motion. No meningismus. Resp: Clear to auscultation bilaterally, No wheezes, rales or rhonchi Cardio: Regular rate and rhythm. No murmurs, rubs or gallops Chest: Right chest tunneled dialysis catheter present. Abd: Soft, non tender, non distended. Normal bowel sounds Skin: No petechiae or rashes Back: No midline tenderness. No CVA tenderness Ext: No cyanosis, or edema Neur: Awake and alert, oriented 4. Cranial nerves intact. No facial droop. Normal strength, sensation and coordination. Psych: Normal Mood and Affect Result Diagram: 08/31/18 1102 08/31/18 1102 Results 24 hrs Laboratory Tests Test 08/31/18 11:02 08/31/18 11:29 White Blood Count 10.9 10^3/ul Red Blood Count 4.27 10^6/ul Hemoglobin 13.0 g/dl Hematocrit 39.3 % Mean Corpuscular Volume 92.0 fl Mean Corpuscular Hemoglobin 30.4 pg Mean Corpuscular Hemoglobin Concent 33.1 g/dl Red Cell Distribution Width 13.4 % Platelet Count 112 10^3/UL Mean Platelet Volume 11.7 fl Immature Granulocytes % 0.300 % Neutrophils % 68.4 % Lymphocytes % 18.6 % Monocytes % 5.0 % Eosinophils % 7.0 % Basophils % 0.7 % Nucleated Red Blood Cells % 0.0 /100WBC Immature Granulocytes # 0.030 10^3/ul Neutrophils # 7.4 10^3/ul Lymphocytes # 2.0 10^3/ul Monocytes # 0.5 10^3/ul Eosinophils # 0.8 10^3/ul Basophils # 0.1 10^3/ul Nucleated Red Blood Cells # 0.0 10^3/ul Sodium Level 141 mmol/L Potassium Level 5.9 mmol/L Chloride Level 99 mmol/L Carbon Dioxide Level 30 mmol/L Anion Gap 12 Blood Urea Nitrogen 57 mg/dl Creatinine 7.38 mg/dl Est Glomerular Filtrat Rate mL/min mL/min Glucose Level 179 mg/dl Calcium Level 9.4 mg/dl Bedside Glucose 189 mg/dL Current Medications Medications Dose Sig/Dario Start Time Status Last (Trade) Ordered Route PRN Stop Time Admin Dose Reason Admin Sodium 500 ml @ Q1H ONCE 08/31/18 DC 08/31/18 Chloride 500 mls/hr IV 11:00 11:28 08/31/18 11:59 Sodium 30 gm ONCE STAT 08/31/18 Cancel Polystyrene PO 11:11 Sulfonate 08/31/18 11:12 (Kayexelate 15 Gm Kit (Powder+Sorbi jeanne)) Albuterol 15 mg ONCE STAT 08/31/18 DC 08/31/18 (Proventil INH 11:11 11:31 0.5% (Neb)) 08/31/18 11:12 Sodium 50 ml ONCE STAT 08/31/18 DC 08/31/18 Bicarbonate IV 11:11 11:30 (Na Bicarb 08/31/18 11:12 8.4% Syg) Calcium 1,000 mg ONCE STAT 08/31/18 DC 08/31/18 Chloride IV 11:11 11:28 (Ca Chloride 08/31/18 11:12 10% Syg) Insulin 10 unit ONCE STAT 08/31/18 DC 08/31/18 Human IVP 11:11 11:32 Regular 08/31/18 11:12 (Humulin R) Dextrose ONCE PRN 08/31/18 08/31/18 (D50w IV DECREASED 11:30 11:32 Syringe) GLUCOSE Sodium 30 gm ONCE ONCE 08/31/18 DC 08/31/18 Polystyrene PO 12:00 12:35 Sulfonate 08/31/18 12:01 (Kayexalate) Procedures/MDM MDM The patient's presentation warrants further investigation. Previous medical records, if available, were reviewed. LABS The patient's laboratory testing was obtained and reviewed. No emergent treatm ent was required unless described below. CBC: No E/o systemic infection or severe anemia or thrombocytopenia Chemistry: Elevated BUN and creatinine in line with his known end-stage renal disease. Mild hyperkalemia that can be treated but it is not emergent. No E/o severe acidosis or alkalosis or renal failure or liver disease or diabetic ketoacidosis EKG EKG read by me: Rate/Rhythm: Regular rate and rhythm at a rate of 72 bpm Intervals: Normal OK interval and QTc. Wide QRS in the setting of a right bundle branch block [place]: Indeterminate Impression: No evidence of acute ischemia or arrhythmia TREATMENT/DISPOSITION The patient was treated for hyperkalemia with IV insulin and dextrose as needed, IV sodium bicarbonate, IV calcium, albuterol nebulized, and Kayexalate orally. The patient's exam remained reassuring. I do not feel the patient requires admission for hyperkalemia. I discussed the case with the patient's small business banking officer, Dr. Segura, who recommended that the patient get an extra session of dialysis today and then can resume his normal schedule tomorrow. He called t he patient's dialysis center and schedule the appointment for 3:45 PM. I discussed the findings with the patient and his family who expressed understanding and will drive the patient to the center. DISCHARGE Upon reevaluation of the patient, symptoms have improved. No emergent diagnoses were identified. At this time, I feel that the patient stable for discharge. The patient was instructed to follow-up with a primary care physician in 1-3 days. The patient will be given strict precautions with which to return to the emergency department. Prescriptions: None The patient's blood pressure was elevated at greater than 120/80 while in the emergency department. The patient was otherwise stable with no evidence of hypertensive urgency or emergency. The patient does not require admission for blood pressure control. I have discussed with the patient the risks of hypertension. I have instructed the patient to return to the ER for any new or worsening symptoms including chest pain, shortness of breath, headache, blurred vision, confusion, nausea, vomiting or LOC. I have advised the patient to follow up with the primary care physician for outpatient monitoring and treatment for hypertension in 1-3 days. Disclaimer: Inadvertent spelling and grammatical errors are likely due to EHR/di ctation software use and do not reflect on the overall quality of patient care. Note that the electronic time recorded on this note does not necessarily reflect the actual time of the patient encounter. Departure Diagnosis: Primary Impression: Hyperkalemia Additional Impressions: Encounter for laboratory test End stage renal disease Normocytic anemia Fatigue Fatigue type: unspecified Qualified Codes: R53.83 - Other fatigue Condition: Stable Patient Instructions: Chronic Renal Failure, Generalized Weakness, Hyperkalemia Additional Instructions: Thank you for for coming to [facility] for your care today. Please ask your nurse or provider if you have questions about your care today and do not leave until all your questions have been answered. Please use any medications given as directed and follow-up with your doctor (or the doctor you were referred to) in the next 1-3 days. If you do not have a primary care doctor you may follow up at the [facility] or [facility] (listed below). You may also use motrin and tylenol as needed for fever and/or pain unless i nstructed otherwise by your provider or nurse. Indications for more urgent follow-up have been discussed, but you may return to the Emergency Department at ANY time for any worrisome or worsening symptoms. If you have abdominal pain, please know that no test or exam you received is perfect and you should follow up within 8 hours for continued pain. If you had any imaging studies today, such as an X-Ray or CT Scan, these studies will be reviewed later by a radiologist. You will be called if there are important findings that were not identified today, so make sure the contact information you provided at registration is correct. If you received any narcotic pain control medicine today, such as Vicodin, Morphine or Dilaudid, your coordination and judgment may be affected for a number of hours. Please do not drive or operate heavy machinery, and you may want someone to assist you at home. If you were given a prescription for narcotic medication, be aware that it is very addictive- use sparingly and only if necessary. PLEASE SEEK FURTHER EVALUATION AND MANAGEMENT AT YOUR DOCTORS OFFICE WITHIN THE NEXT 1-3 DAYS. IT IS YOUR RESPONSIBILITY TO MAKE AN APPOINTMENT FOR FOLOW-UP CARE. IF YOU HAVE A PRIMARY DOCTOR, PLEASE CALL THEIR OFFICE TO SCHEDULE AN APPOINTMENT FOR FOLLOW UP. IF YOU DO NOT HAVE A PRIMARY DOCTOR YOU CAN CALL OUR PHYSICIAN REFERRAL HOTLINE AT IF YOU CAN NOT AFFORD TO SEE A PHYSICIAN YOU CAN CHOSE FROM THE FOLLOWING CRITICAL ACCESS HOSPITAL CLINICS: [facility] [address] [facility] [facility]. [facility] [address] [facility] [address] [facility] [facility] [address] [facility] [facility] [address] [facility]. [facility] [address] [facility]. [facility]. [address] CLARE MARTINEZ MD Aug 31, 2018 13:21
== END 2018-08-31 16:10 | disposition home or self-care (01) ==
LOC: E/R 10:43
DX: E87.5 Hyperkalemia (principal); D64.9 Anemia, unspecified; R53.83 Other fatigue; I13.2 Hypertensive heart and chronic kidney disease with heart failure and with stage 5 chronic kidney disease, or end stage renal disease; I50.9 Heart failure, unspecified; N18.6 End stage renal disease; E11.22 Type 2 diabetes mellitus with diabetic chronic kidney disease; Z99.2 Dependence on renal dialysis; Z79.4 Long term (current) use of insulin; Z79.01 Long term (current) use of anticoagulants
CPT/HCPCS: 80048; 82962; 85025; 93005; 94664; 96374; 96375; J1815; J7040; Z7502; Z7610

== ENCOUNTER 2018-09-18 09:17 | Inpatient (IN) | payer OTHER ==
[2018-09-17 17:58] VITALS: BMI 27.5
[~2018-09-18] VITALS: Ht 156.2 cm; Wt 72.6 kg
[2018-09-18] VITALS (15 sets, daily range): BP systolic 129–166; BP diastolic 51–133; PULSE 66–98; RESP 10–20; Ht 156.2 cm; Wt 72.6 kg
[~2018-09-18 09:17] MED LIST changes: +ASPI-1044 PO; +CLOP75TA28 PO; +HYDR-3601 PO; +INSU100I33 SC; +NIFE90TA PO
[2018-09-18] MEDS ORDERED: SOD CHLORIDE 0.45% 1,000 ML IV SCH (11:30)
[2018-09-18] MEDS ORDERED: FAMOTIDINE 20 MG TAB PO ONE (11:30)
[2018-09-18] MEDS ORDERED: DIPHENHYDRAMINE 50 MG CAP PO ONE (11:30)
[2018-09-18] MEDS ORDERED: DIAZEPAM 5 MG TAB PO ONE (11:30)
[2018-09-18] MEDS ORDERED: IODIXANOL LOCM 100 ML BTL ONE (12:10)
[2018-09-18] MEDS ORDERED: LIDOCAINE 1% (MDV) 20 ML INJ ONE (12:10)
[2018-09-18] MEDS ORDERED: FENTAnyl 50 MCG/ML VIAL ONE (12:10)
[2018-09-18] MEDS ORDERED: HEPARIN 1000 UNITS/ML 10 ML INJ ONE (12:10)
[2018-09-18] MEDS ORDERED: MIDAZOLAM 1 MG/ML 2 ML INJ ONE (12:11)
[2018-09-18] MEDS ORDERED: VERAPAMIL 5 MG INJ ONE (12:11)
[2018-09-18] MEDS ORDERED: NITROGLYCERIN (IC) 100 MCG/ML INJ ONE (12:11)
[2018-09-18] MEDS ORDERED: SOD CHLORIDE 0.9% 500 ML ONE (13:58)
[2018-09-18] MEDS ORDERED: ASPIRIN 325 MG TAB ONE (14:03)
[2018-09-18] MEDS ORDERED: CLOPIDOGREL 300 MG TAB ONE (14:03)
[2018-09-18] MEDS ORDERED: ATROPINE 1 MG/10 ML SYRINGE ONE (14:03)
[2018-09-18] MEDS ORDERED: DOPamine-D5W 1.6 MG/ML 250 ML ONE (14:03)
[2018-09-18] MEDS ORDERED: SOD CHLORIDE 0.9% 1,000 ML IV SCH (14:38)
--- NOTE | 2018-09-18 14:48 | SIPON ---
Date/Time of Note Date/Time of Note DATE: 09/18/18 TIME: 14:45 Operative Report Preoperative Diagnosis 1.Chest pain 2.cardiac arrest 2.abnl MPI Postoperative Diagnosis 1.obstructive cad s/p stent x 1 to LCX 2.Development of CHB with ventricular escape in 30's Operation/Procedure Performed 1.LHC 2.PTCA/stent x 1 to LCX 3.Transvenous temporary pacing wire Surgeon see signature line speech pathologist assistant 1.Min Anesthesia: moderate sedation Estimated blood loss: minimal Transfusion Required none Specimen none Grafts/Implants none Complications none SNOW BECKER Sep 18, 2018 14:48
[2018-09-18] MEDS ORDERED: OXYCODONE/ACETAMINOPHEN (5/325) TAB PO PRN (15:00)
[2018-09-18] MEDS ORDERED: ONDANSETRON 4 MG INJ IV PRN (15:00)
[2018-09-18] MEDS ORDERED: AL HYDROX/MG HYDROX/SIMETH 30 ML CUP PO PRN (15:00)
[2018-09-18] MEDS ORDERED: ACETAMINOPHEN 325 MG TAB PO PRN (15:00)
--- NOTE | 2018-09-18 15:07 | RADRPT ---
Vent Rate: 71 bpm RR Interval: 852 msec [place] Interval: 108 msec QRS Duration: 132 msec QT Interval: 481 msec QTC Interval: 521 msec P-R-T [place]: -67 - -79 - 57 degrees Sinus rhythm Right bundle branch block...QRSd>120, terminal axis(90,270) Electronically Signed By: Saravanan Chavez
--- NOTE | 2018-09-18 15:09 | RADRPT ---
Vent Rate: 33 bpm RR Interval: 1816 msec [place] Interval: [id number] msec QRS Duration: 132 msec QT Interval: 572 msec QTC Interval: 424 msec P-R-T [place]: -6 - -42 - 96 degrees AV block, complete (third degree)...V-rate< 50, AV dissociation Ventricular premature complex...V complex w/ short R-R interval Right bundle branch block...QRSd>120, terminal axis(90,270) Abnrm T, consider ischemia, anterolateral lds...T <-0.20mV, I aVL V2-V6 Electronically Signed By: Saravanan Chavez
[2018-09-18] MEDS ORDERED: hydrALAzine 20 MG INJ IV PRN (16:00)
--- NOTE | 2018-09-18 16:07 | HP ---
Date/Time of Note Date/Time of Note DATE: 09/18/18 TIME: 16:07 Assessment/Plan VTE Prophylaxis Pharmacological prophylaxis: NA/contraindicated Pharm contraindication: other Lines/Catheters IV Catheter Type [facility]from [facility]): TRANSVENOUS Assessment/Plan Hospital Course 73-year-old male with type II DM, HTN, A. fib, hyperlipidemia, hypothyroidism, and ESRD with abnormal stress test brought in for elective LHC w/ PTCA/stent to LCx who went into complete heart block with placement of a transvenous pacing wire, who is being admitted to inpatient intensive care unit for further management. 1. Abnormal stress test, CAD. Status post PTCA and stent to left circumflex. Continue dual antiplatelet therapy. Continue statins. 2. Complete heart block. Status post transvenous pacemaker placement. Avoid AV mikayla blocking agents. Continue intensive care unit monitoring. EP to evaluate the patient. 3. Hypertension. Resume antihypertensives. Avoid AV mikayla blocking agents. 4. Diabetes mellitus type 2. Start the patient on sliding scale insulin and basal insulin. Hemoglobin A1c to evaluate the blood glucose control over the past few weeks. 5. ESRD on hemodialysis. [employer] consult. Needs HD because of IV dye use during left heart catheterization. 6. Dyslipidemia. Continue statins. 7. Anemia chronic disease. Monitor H&H closely. 8. History of hypothyroidism. Obtain thyroid panel. 9. History of atrial fibrillation. Currently in sinus rhythm. Plan: The patient will be admitted to inpatient intensive care unit floor. The patient will be started on a low-cholesterol, renal, carbohydrate controlled diet. The patient will be started on DVT prophylaxis and gastrointestinal prophylaxis. The patient will remain a full code. Activities will be bedrest. The rest of the patient's management will be based on the clinical course, inputs from consultants, and the results of diagnostic studies. Based on the patient's clinical presentation, he most probably requires at least 2 midnights' stay for further management and evaluation of his clinical presentation. The patient was seen in collaboration with Dr. Huston. Result Diagram: 09/18/18 1008 09/18/18 1008 Results 24hrs Laboratory Tests Test 09/18/18 10:07 09/18/18 10:08 Bedside Glucose 214 White Blood Count 9.1 Red Blood Count 3.85 L Hemoglobin 11.7 L Hematocrit 34.5 L Mean Corpuscular Volume 89.6 Mean Corpuscular Hemoglobin 30.4 Mean Corpuscular Hemoglobin Concent 33.9 Red Cell Distribution Width 13.2 Platelet Count 128 L Mean Platelet Volume 10.5 H Immature Granulocytes % 0.400 Neutrophils % 73.7 Lymphocytes % 12.4 L Monocytes % 8.0 Eosinophils % 4.8 Basophils % 0.7 Nucleated Red Blood Cells % 0.0 Immature Granulocytes # 0.040 H Neutrophils # 6.7 Lymphocytes # 1.1 Monocytes # 0.7 Eosinophils # 0.4 Basophils # 0.1 Nucleated Red Blood Cells # 0.0 Prothrombin Time 12.8 Prothrombin Time Ratio 1.0 INR International Normalized Ratio 0.95 Activated Partial Thromboplast Time 28.1 Sodium Level 141 Potassium Level 4.4 Chloride Level 98 Carbon Dioxide Level 32 H Anion Gap 11 Blood Urea Nitrogen 33 H Creatinine 4.79 H Est Glomerular Filtrat Rate mL/min Glucose Level 222 H Calcium Level 9.2 Triglycerides Level 264 H Cholesterol Level 132 LDL Cholesterol, Calculated 42 HDL Cholesterol 37 Cholesterol/HDL Ratio 3.5 HPI/ROS Admit Date/Time Admit Date/Time Sep 18, 2018 at 14:44 Hx of Present Illness This is a 73-year-old male with past medical history of diabetes mellitus type 2, hypertension, atrial fibrillation, hyperlipidemia, hypothyroidism, and ESRD on hemodialysis Monday//Monday. The patient had an abnormal cardiac stress test. The patient also has a history of cardiac arrest. The patient was brought to [facility] for elective left heart catheterization. The patient underwent a left heart catheterization with placement of a stent to left circumflex. During the procedure, the patient developed a complete heart block with ventricular escape in the 30s. Therefore, the patient had a transvenous pacemaker inserted. The patient was transferred to intensive care unit following the procedure for close monitoring. At the time of initial evaluation, the patient was somnolent. The patient was waking up to call. He denied any chest pain. He was in sinus rhythm on the monitor. ROS Constitutional: no complaints Eyes: no complaints ENT: no complaints Respiratory: no complaints Cardiovascular: chest pain Gastrointestinal: no complaints Genitourinary: no complaints Musculoskeletal: no complaints Skin: no complaints Neurologic: no complaints Endocrine: no complaints Lymphatic: no complaints Psychological: no complaints Immunologic: no complaints PMH/Family/Social Past Medical History 1. Diabetes mellitus type 2. 2. Hypertension. 3. Atrial fibrillation. 4. Hyperlipidemia. 5. Hypothyroidism. 6. End-stage renal disease on hemodialysis Monday//Monday. 7. Osteoarthritis. Medications Current Medications Sodium Chloride 1,000 ml @ 0 mls/hr Q0M IV ; Start 09/18/18 at 11:30 Aspirin (Halfprin) 81 mg DAILY PO ; Start 09/19/18 at 09:00 Clopidogrel Bisulfate (plaVIX) 75 mg DAILY PO ; Start 09/19/18 at 09:00 Acetaminophen (Tylenol Tab) 650 mg Q4H PRN PO PAIN; Start 09/18/18 at 15:00 Oxycodone/ Acetaminophen (Percocet (5/ 325)) 1 tab Q4H PRN PO PAIN; Start 09/18/18 at 15:00 Al Hydrox/Mg Hydrox/Simethicone (Mag-Al Plus) 30 ml Q4H PRN PO GASTROINTESTINAL UPSET; Start 09/18/18 at 15:00 Ondansetron HCl (Zofran Inj) 4 mg Q4H PRN IV NAUSEA AND/OR VOMITING; Start 09/18/18 at 15:00 Hydralazine HCl (Apresoline) 50 mg BID PO ; Start 09/18/18 at 21:00 Nifedipine (Procardia Xl) 90 mg BID PO ; Start 09/18/18 at 21:00 Hydralazine HCl (Apresoline) 10 mg Q4H PRN IV SBP>170; Start 09/18/18 at 16:00 Coded Allergies: No Known Allergy (Unverified , 09/17/18) Past Surgical History 1. Right total hip arthroplasty. Past Surgical Hx: other Family History Significant Family History: no pertinent family hx Social History Alcohol Use: none Smoking Status: Never smoker Drug Use: none Exam/Review of Systems Vital Signs Vitals Vital Signs Date Temp Pulse Resp B/P (MAP) Pulse Ox O2 O2 Flow FiO2 Time Delivery Rate 09/18/18 74 15 154/69 98 Room Air 15:45 (97) 09/18/18 98.5 15:00 Exam Exam General: Adequately build 73 year-old male lying in bed in no apparent distress. HEENT: Normocephalic, atraumatic. Eyes: Anicteric sclerae, conjunctivae clear. ENT: Nasal septum midline, oral mucosa moist. Neck supple, no JVD noticed. Respiratory: Bilaterally diminished breath sounds. No use of accessory muscles of respiration. No adventitious breath sounds. Cardiovascular: S1, S2 heard. Regular rate and rhythm. Abdomen: Soft, nontender, and nondistended. Bowel sounds positive in all 4 quadrants. Genitourinary: Deferred. Extremities: No cyanosis, no clubbing, no edema. Peripheral pulses palpable. Neurologic: The patient is awake, alert, and oriented to place and person. Skin: Normal skin turgor. No skin rashes. Additional Comments CXR IMPRESSION: No acute cardiopulmonary disease. Stable mild atherosclerotic aortic calcification Right chest Perma-Cath JOSE ABAD NP Sep 18, 2018 16:07
[2018-09-18] MEDS ORDERED: GLUCOSE GEL 15 GRAM TUBE PO PRN ×2 (16:30)
[2018-09-18] MEDS ORDERED: GLUCOSE GEL 15 GRAM TUBE BUCCAL PRN (16:30)
[2018-09-18] MEDS ORDERED: GLUCAGON 1 MG INJ IM PRN (16:30)
[2018-09-18] MEDS ORDERED: DEXTROSE 50% 50 ML SYRINGE IV PRN ×2 (16:30)
[2018-09-18] MEDS: INSULIN ASPART [NOVOLOG] 3 ML PEN SC SCH ×2 (17:37→20:43)
--- NOTE | 2018-09-18 18:35 | CARRPT ---
DATE OF PROCEDURE: 09/18/2018 TYPE OF PROCEDURES: 1. Left heart catheterization. 2. Coronary angiography. 3. Percutaneous transluminal coronary angioplasty with placement of drug-eluting stent x1 to circumf hallie, 3.5 x 16 mm. 4. Measurement of left ventricular end diastolic pressure. 5. Placement of transvenous temporary pacing wire through right femoral venous approach. 6. Moderate conscious sedation. ATTENDING PHYSICIAN: Snow Olivera MD REFERRING PHYSICIAN: Dr. Millan. INDICATION: Cardiac arrest during the surgery with positive stress test for anterior and inferior is chemia. TYPE OF ANESTHESIA: Conscious local. BRIEF HISTORY: Mr. Turner is a 73-year-old male with history of hypertension, dyslipidemia, end-stag e renal disease on hemodialysis, recurrent bouts of hyperkalemia, who had suffered a cardiac arrest d uring a surgery when he had blood loss and was medically managed and was discharged to outpatient [facility] with cardiac stress test for anterior and inferior ischemia and has been brought to the [facility] now as third time in order to undergo left heart catheterization with the first 2 being canceled due to patient having hyperkalemia after having hemodialysis today for. DESCRIPTION OF PROCEDURE: After informed consent was obtained, the patient was brought to the [facility] cardiac catheterization lab where his right radial area was prepped and draped in usual sterile fashion. A 2% lidocaine was infiltrated to his right radial area in order to achie ve adequate anesthesia. Using modified Seldinger technique, the right radial artery was cannulated a nd a 6-Romanian arterial sheath JL3.5 catheter was used to cannulate the left main coronary ostium. Wi contrast injection, multiple views of the left coronary system were obtained. A JL3.5 was removed a guidewire and a JR4 was used to cannulate the right coronary arterial ostium. With contrast injec tion, multiple views the right coronary arterial system were obtained. JL4 was removed over guidewir e and a 6-Romanian pigtail was passed down the ascending artery and placed in LV. LVEDP was measured a nd then pulled back across the aortic valve to assess for significant gradient, which there was not a nd removed. Subsequently at this time, we moved into an interventional procedure. The patient had A CLS 3 guide used to cannulate the left main coronary ostium. A 0.014 balanced guidewire was passed d istal to the lesion in the circumflex and it was pretreated with a 3.0 x 12 mm balloon inflated to 12 to 14 atmospheres. This was removed and lesion has been stented with a drug-eluting stent 3.5 x 16 mm deployed at 14 atmospheres, post-dilated with the stent delivery system up to 16 atmospheres. Hiro nt delivery system was removed. . Followup angiogram was obtained revealing excellent result deploy ment of stent, CHANDRIKA flow throughout the vessel, no signs of complication including perforation or dis section. Subsequently at this time, the patient's interventional guide and guidewires were removed a nd attention was returned to the patient's right coronary artery and the JR was introduced into the p atient's body and was just coming down to the aortic root when the patient had a change in rhythm and went into complete heart block with a rate in the 30s. As the patient's guide was not been used to cannulate the right coronary to ostium, this was subsequently removed. The patient's blood pressure remained stable. The patient underwent a 12-lead EKG confirming complete heart block with a junction al escape. Subsequently given this involvement, it was decided not to intervene upon the patient's r ight coronary artery lesions as the patient may develop some instability due to low heart rate and in stead catheter was removed. Using modified Seldinger technique again the right femoral venous access and through this placed a balloon tipped pacing wire into the right atrium and was able to confer th e capture down to 0.25 milliamps and therefore was set at a rate of 60 with an output of 5 with a sta ble heart rate and blood pressure. This was sutured in place. This completed the procedure. There were no noted complications. FINDINGS: Coronary angiography: Left main is 5 mm, no significant focal stenosis. Circumflex proxi sabine is a 3.5 mm vessel and has a 90% stenosis in its proximal portion. There are 2 proximal branch ing obtuse marginals with the more superior branch being a sub 2 mm vessel and has an ostial 60% sten osis and the mid branch being approximately 2 mm having mid body 50% stenosis and then there is a dis jes branching obtuse marginal sub 2 mm vessel with no significant focal stenoses. Continuation AV gr oove is free from significant focal stenoses. There is a distal branching obtuse marginal, 2.5 mm wi th a mid body 20% to 30% stenosis. LAD proximally is a 3.5 mm vessel and in its mid portion just at the bifurcation with a diagonal and there is approximately 40% stenosis. Remainder of the LAD therea fter is free from significant focal stenoses and goes around the apex. There are 3 proximal branchin g diagonals, all approximately 2 mm with the middle one having 30% to 40% stenosis. The right mallory ry artery proximally is a 3.5 mm vessel and in its midportion has a stenosis up to approximately 30% to 40%. It is dominant vessel and therefore gives off a PDA which is 2.5 mm vessel and in its midpor tion has a very tight 90% to 95% stenosis. Posterolateral branch is a 2 mm vessel and in its midport ion has a 70% stenosis. Measurement of LVEDP 14 to 16. No significant aortic stenosis by gradient. Placement of temporary transvenous pacing catheter. This was placed to a femoral approach. It was p laced in the inferior portion of patient's right ventricle and capture was obtained down to 0.25 mill iamps, was set at a rate of 60 with an output of 5. TOTAL FLUOROSCOPY TIME: 14.4 minutes. TOTAL CONTRAST: 30 mL. IMPRESSION: 1. Two-vessel obstructive coronary artery disease involving high-grade lesions in the patient's circ umflex as well as lesions status post successful PTCA and stent placement as well as a high-grade les ion in the patient's PDA and a smaller posterolateral branch with the PDA and posterolateral branch n ot intervened upon due to development of heart block. 2. High normal left heart filling pressures. 3. No significant aortic stenosis by gradient. 4. Complete heart block, status post placement of successful temporary transvenous pacing wire from a femoral approach. RECOMMENDATIONS: In light of procedure findings at this time, we would: 1. Maintain patient on aspirin 81 mg 1 tab p.o. daily indefinitely after being loaded with 325 post- stent in the company laborer and Plavix 75 mg 1 tab p.o. daily after being loaded with 600 mg p.o. x1 in the company laborer. 2. Maximal medical management. 3. Aggressive risk factor reduction. 4. The patient will be counseled by electrophysiology colleagues for consideration for placement of permanent pacemaker due to development of heart block. 5. The patient will undergo 2D echo analysis and cardiac enzyme analysis. Dictated By: SNOW FLORES/ROBERTO Conf#: [id number] DID#: [id number] CC: SNOW KOHLI MD;*End*
--- NOTE | 2018-09-18 19:16 | CONS ---
Assessment/Plan Assessment/Plan Assessment/Plan (Daily) 1. Complete heart block- s/p Transcutaneous pacer in place 2. Obstructive CAD s/p PCI and EDWIN To Circumflex by Dr. Olivera on 09/18/18 3. ESRD on HD MWF 4. H/o HTN 5. h/o HL 6. Anemia of ESRD 7. H/o Atrial fibrillation Plan: Seen in recovery Room, pt is getting admitted to ICU plan for HD tomorrow first in AM,- pt regular schedule is MWF, he follows at [facility] Pt has transcutenous pacer in place, will need Permanent pacemaker, Dr. Milton mason has been consulted on the case Conitnue HOme BP meds, IV hydralazine prn Thanks for consultation , I will continue to follow up Consultation Date/Type/Reason Admit Date/Time Sep 18, 2018 at 14:44 Date of Consultation: Sep 18, 2018 Type of Consult NEPHROLOGY Reason for Consultation ESRD on HD with third degree heart block, HTN Requesting Provider: JOSE ABAD NP Date/Time of Note DATE: 09/18/18 TIME: 19:16 Hx of Present Illness 73-year-old male with a v type II DM, HTN, A. fib, hyperlipidemia, hypothyroidism, and ESRD with abnormal stress test and brought in for elective LHC w/ PTCA/stent to LCx who went into complete heart block with placement of a transvenous pacing wire, who is being admitted to inpatient intensive care unit for further management. pt is ESRD on HD MWF schedule at [facility]. REnal has been consulted for HD need pt K was normal today, BP stable Constitutional: no complaints Eyes: no complaints ENT: no complaints Respiratory: no complaints Cardiovascular: chest pain Gastrointestinal: no complaints Genitourinary: no complaints Musculoskeletal: no complaints Skin: no complaints Neurologic: no complaints Endocrine: no complaints Lymphatic: no complaints Psychological: no complaints Immunologic: no complaints Past Medical History Medical History: high cholesterol, hypertension, other (ESRD on HD MWF ) Home Meds Reported Medications Calcium Acetate* (Calcium Acetate*) 667 Mg Capsule, 1334 MG PO WITH MEALS, #60 CAP 08/31/18 Gabapentin* (Neurontin*) 300 Mg Capsule, 300 MG PO DAILY, #60 CAP 08/31/18 Hydralazine Hcl* (Hydralazine Hcl*) 50 Mg Tab, 50 MG PO BID, #90 TAB LAST FILLED 03/0308/14/18 Apixaban* (Eliquis*) 5 Mg Tablet, 2.5 MG PO BID, TAB PT ISNT COMPLIANT LAST FILLED 03-03 FOR 30 DAYS PT STILL HAS PILLS IN BOTTLE 08/14/18 Atorvastatin Calcium* (Atorvastatin Calcium*) 20 Mg Tablet, 20 MG PO QHS, #30 TAB 08/14/18 Carvedilol* (Carvedilol*) 12.5 Mg Tablet, 6.25 MG PO BID, #60 TAB 08/14/18 Nifedipine* (Nifedipine ER*) 90 Mg Tablet.sa, 90 MG PO BID, TAB.SA 08/14/18 Folic Acid* (Folic Acid*) 1 Mg Tablet, 1 MG PO DAILY, TAB 08/14/18 Insulin Lispro (Humalog Kwikpen U-100) 100 Unit/1 Ml Insuln.pen, 7 UNIT SQ AC A, EA ADMELOG 08/14/18 Medications Current Medications Sodium Chloride 1,000 ml @ 0 mls/hr Q0M IV Last administered on 09/18/18at 16:45; Admin Dose 10 MLS/HR; Start 09/18/18 at 11:30 Aspirin (Halfprin) 81 mg DAILY PO ; Start 09/19/18 at 09:00 Clopidogrel Bisulfate (plaVIX) 75 mg DAILY PO ; Start 09/19/18 at 09:00 Acetaminophen (Tylenol Tab) 650 mg Q4H PRN PO PAIN; Start 09/18/18 at 15:00 Oxycodone/ Acetaminophen (Percocet (5/ 325)) 1 tab Q4H PRN PO PAIN; Start 09/18/18 at 15:00 Al Hydrox/Mg Hydrox/Simethicone (Mag-Al Plus) 30 ml Q4H PRN PO GASTROINTESTINAL UPSET; Start 09/18/18 at 15:00 Ondansetron HCl (Zofran Inj) 4 mg Q4H PRN IV NAUSEA AND/OR VOMITING; Start 09/18/18 at 15:00 Hydralazine HCl (Apresoline) 50 mg BID PO ; Start 09/18/18 at 21:00 Nifedipine (Procardia Xl) 90 mg BID PO ; Start 09/18/18 at 21:00 Hydralazine HCl (Apresoline) 10 mg Q4H PRN IV SBP>170; Start 09/18/18 at 16:00 Insulin Glargine (Lantus) 11 units DAILY@2000 SC ; Start 09/18/18 at 20:00 Insulin Aspart (Novolog Insulin Pen) NOVOLOG *MILD* ALGORITHM WITH MEALS BEDTIME SC Last administered on 09/18/18at 17:37; Admin Dose 1 UNIT; Start 09/18/18 at 17:35 Miscellaneous Information 1 ea NOTE XX ; Start 09/18/18 at 16:30 Glucose (Glutose) 15 gm Q15M PRN PO DECREASED GLUCOSE; Start 09/18/18 at 16:30 Glucose (Glutose) 22.5 gm Q15M PRN PO DECREASED GLUCOSE; Start 09/18/18 at 16:30 Dextrose (D50w Syringe) 25 ml Q15M PRN IV DECREASED GLUCOSE; Start 09/18/18 at 16:30 Dextrose (D50w Syringe) 50 ml Q15M PRN IV DECREASED GLUCOSE; Start 09/18/18 at 16:30 Glucagon (Glucagen) 1 mg Q15M PRN IM DECREASED GLUCOSE; Start 09/18/18 at 16:30 Glucose (Glutose) 15 gm Q15M PRN BUCCAL DECREASED GLUCOSE; Start 09/18/18 at 16:30 Allergies: Coded Allergies: No Known Allergy (Unverified , 09/17/18) Past Surgical History Past Surgical Hx: other (Permacath placement ) Family History Significant Family History: no pertinent family hx Social History Alcohol Use: none Smoking Status: Never smoker Drug Use: none Exam/Review of Systems Exam Vitals Vital Signs Date Temp Pulse Resp B/P (MAP) Pulse Ox O2 O2 Flow FiO2 Time Delivery Rate 09/18/18 69 15 139/117 100 Room Air 18:00 (124) 09/18/18 98.5 15:00 Constitutional: alert Psych: no complaints Head: normocephalic Eyes: nl conjunctiva ENMT: nl external ears & nose Neck: supple, non-tender Respiratory: clear to auscultation Cardiovascular: regular rate and rhythm, nl pulses Gastrointestinal: soft, non-tender Musculoskeletal: nl extremities to inspection Neurological: CORRECTIVE THERAPIST II-XII intact, nl mental status, nl speech, nl strength Lymph: nl lymph nodes Results Result Diagram: 09/18/18 1008 09/18/18 1008 Results 24hrs Laboratory Tests Test 09/18/18 10:07 09/18/18 10:08 09/18/18 17:33 Bedside Glucose 214 154 White Blood Count 9.1 Red Blood Count 3.85 L Hemoglobin 11.7 L Hematocrit 34.5 L Mean Corpuscular Volume 89.6 Mean Corpuscular Hemoglobin 30.4 Mean Corpuscular Hemoglobin Concent 33.9 Red Cell Distribution Width 13.2 Platelet Count 128 L Mean Platelet Volume 10.5 H Immature Granulocytes % 0.400 Neutrophils % 73.7 Lymphocytes % 12.4 L Monocytes % 8.0 Eosinophils % 4.8 Basophils % 0.7 Nucleated Red Blood Cells % 0.0 Immature Granulocytes # 0.040 H Neutrophils # 6.7 Lymphocytes # 1.1 Monocytes # 0.7 Eosinophils # 0.4 Basophils # 0.1 Nucleated Red Blood Cells # 0.0 Prothrombin Time 12.8 Prothrombin Time Ratio 1.0 INR International Normalized Ratio 0.95 Activated Partial Thromboplast Time 28.1 Sodium Level 141 Potassium Level 4.4 Chloride Level 98 Carbon Dioxide Level 32 H Anion Gap 11 Blood Urea Nitrogen 33 H Creatinine 4.79 H Est Glomerular Filtrat Rate mL/min Glucose Level 222 H Hemoglobin A1c 8.1 H Calcium Level 9.2 Triglycerides Level 264 H Cholesterol Level 132 LDL Cholesterol, Calculated 42 HDL Cholesterol 37 Cholesterol/HDL Ratio 3.5 Medications Medication Current Medications Sodium Chloride 1,000 ml @ 0 mls/hr Q0M IV Last administered on 09/18/18at 16:45; Admin Dose 10 MLS/HR; Start 09/18/18 at 11:30 Aspirin (Halfprin) 81 mg DAILY PO ; Start 09/19/18 at 09:00 Clopidogrel Bisulfate (plaVIX) 75 mg DAILY PO ; Start 09/19/18 at 09:00 Acetaminophen (Tylenol Tab) 650 mg Q4H PRN PO PAIN; Start 09/18/18 at 15:00 Oxycodone/ Acetaminophen (Percocet (5/ 325)) 1 tab Q4H PRN PO PAIN; Start 09/18/18 at 15:00 Al Hydrox/Mg Hydrox/Simethicone (Mag-Al Plus) 30 ml Q4H PRN PO GASTROINTESTINAL UPSET; Start 09/18/18 at 15:00 Ondansetron HCl (Zofran Inj) 4 mg Q4H PRN IV NAUSEA AND/OR VOMITING; Start 09/18/18 at 15:00 Hydralazine HCl (Apresoline) 50 mg BID PO ; Start 09/18/18 at 21:00 Nifedipine (Procardia Xl) 90 mg BID PO ; Start 09/18/18 at 21:00 Hydralazine HCl (Apresoline) 10 mg Q4H PRN IV SBP>170; Start 09/18/18 at 16:00 Insulin Glargine (Lantus) 11 units DAILY@2000 SC ; Start 09/18/18 at 20:00 Insulin Aspart (Novolog Insulin Pen) NOVOLOG *MILD* ALGORITHM WITH MEALS BEDTIME SC Last administered on 09/18/18at 17:37; Admin Dose 1 UNIT; Start 09/18/18 at 17:35 Miscellaneous Information 1 ea NOTE XX ; Start 09/18/18 at 16:30 Glucose (Glutose) 15 gm Q15M PRN PO DECREASED GLUCOSE; Start 09/18/18 at 16:30 Glucose (Glutose) 22.5 gm Q15M PRN PO DECREASED GLUCOSE; Start 09/18/18 at 16:30 Dextrose (D50w Syringe) 25 ml Q15M PRN IV DECREASED GLUCOSE; Start 09/18/18 at 16:30 Dextrose (D50w Syringe) 50 ml Q15M PRN IV DECREASED GLUCOSE; Start 09/18/18 at 16:30 Glucagon (Glucagen) 1 mg Q15M PRN IM DECREASED GLUCOSE; Start 09/18/18 at 16:30 Glucose (Glutose) 15 gm Q15M PRN BUCCAL DECREASED GLUCOSE; Start 09/18/18 at 16:30 LILLY QUILSE MD Sep 18, 2018 19:16
[2018-09-18] MEDS ORDERED: SODIUM CHLORIDE 0.9% 1L BAG IV PRN (19:30)
[2018-09-18] MEDS ORDERED: ALBUMIN HUMAN 25% 100 ML IV PRN (19:30)
[2018-09-18] MEDS ORDERED: HEPARIN 1000 UNITS/ML 10 ML INJ CATHETER SCH (19:30)
[2018-09-18] MEDS: NIFEdipine (XL) 90 MG TAB PO SCH (20:39)
[2018-09-18] MEDS: INSULIN GLARGINE [LANTus] (100 UNITS/ML) SYG SC SCH (20:41)
[2018-09-19] VITALS (37 sets, daily range): BP systolic 82–167; BP diastolic 49–90; PULSE 68–86; RESP 10–27
[2018-09-19] MEDS: INSULIN ASPART [NOVOLOG] 3 ML PEN SC SCH ×4 (07:40→20:13)
[2018-09-19] MEDS: CLOPIDOGREL 75 MG TAB PO SCH (08:20)
[2018-09-19] MEDS: ASPIRIN (EC) 81 MG TAB PO SCH (08:21)
[2018-09-19] MEDS: NIFEdipine (XL) 90 MG TAB PO SCH ×2 (08:21→20:11)
--- NOTE | 2018-09-19 08:37 | PN ---
Date/Time of Note Date/Time of Note DATE: 09/19/18 TIME: 08:33 Assessment/Plan VTE Prophylaxis Risk score (from Ns)>0 risk: 10 SCD applied (from Ns): Yes Pharmacological prophylaxis: NA/contraindicated Pharm contraindication: other Lines/Catheters IV Catheter Type (from Nrsg): TRANSVENOUS Urinary Cath still in place: No Assessment/Plan Hospital Course SUBJECTIVE: Denies any chest pain. OBJECTIVE: Physical Exam General: Adequately build 73 year-old male lying in bed in no apparent distress. HEENT: Normocephalic, atraumatic. Eyes: Anicteric sclerae, conjunctivae clear. ENT: Nasal septum midline, oral mucosa moist. Neck supple, no JVD noticed. Respiratory: Bilaterally diminished breath sounds. No use of accessory muscles of respiration. No adventitious breath sounds. Cardiovascular: S1, S2 heard. Regular rate and rhythm. Abdomen: Soft, nontender, and nondistended. Bowel sounds positive in all 4 quadrants. Genitourinary: Deferred. Extremities: No cyanosis, no clubbing, no edema. Peripheral pulses palpable. Neurologic: The patient is awake, alert, and oriented to place and person. Skin: Normal skin turgor. No skin rashes. Labs & Vitals per chart ASSESSMENT & PLAN 73-year-old male with type II DM, HTN, A. fib, hyperlipidemia, hypothyroidism, and ESRD with abnormal stress test brought in for elective LHC w/ PTCA/stent to LCx who went into complete heart block with placement of a transvenous pacing w rudi, who was admitted to inpatient intensive care unit for further management. 1. Abnormal stress test, CAD. Status post PTCA and stent to left circumflex. Continue dual antiplatelet therapy. Continue statins. 2. Complete heart block. Status post transvenous pacemaker placement. Avoid AV mikayla blocking agents. Continue intensive care unit monitoring. EP to evaluate the patient. 3. Hypertension. Continue antihypertensives. Avoid AV mikayla blocking agents. 4. Diabetes mellitus type 2. Continue the patient on sliding scale insulin and basal insulin. Hemoglobin A1c 8.1. 5. ESRD on hemodialysis. Nephrology following. S/P HD after LHC. 6. Dyslipidemia. Continue statins. 7. Anemia chronic disease. Monitor H&H closely. 8. History of hypothyroidism. Thyroid panel within normal limits. 9. Fluids, electrolytes, and nutrition. Carbohydrate controlled, low-cholesterol, renal diet. 10. DVT prophylaxis. Resuming factor Xa inhibitors will be deferred to cardiology. 11. Plan. Continue dual antiplatelet therapy. Continue cardiology recommendations. The patient was seen in collaboration with Dr. Huston. Critical care time: 35 minutes. Result Diagram: 09/19/18 0435 09/19/18 0435 Results 24hrs Laboratory Tests Test 09/18/18 10:07 09/18/18 10:08 09/18/18 17:33 09/18/18 18:38 Bedside Glucose 214 154 White Blood Count 9.1 Red Blood Count 3.85 L Hemoglobin 11.7 L Hematocrit 34.5 L Mean Corpuscular Volume 89.6 Mean Corpuscular 30.4 Hemoglobin Mean Corpuscular 33.9 Hemoglobin Concent Red Cell Distribution 13.2 Width Platelet Count 128 L Mean Platelet Volume 10.5 H Immature Granulocytes % 0.400 Neutrophils % 73.7 Lymphocytes % 12.4 L Monocytes % 8.0 Eosinophils % 4.8 Basophils % 0.7 Nucleated Red Blood 0.0 Cells % Immature Granulocytes # 0.040 H Neutrophils # 6.7 Lymphocytes # 1.1 Monocytes # 0.7 Eosinophils # 0.4 Basophils # 0.1 Nucleated Red Blood 0.0 Cells # Prothrombin Time 12.8 Prothrombin Time Ratio 1.0 INR International 0.95 Normalized Ratio Activated 28.1 Partial Thromboplast Time Sodium Level 141 Potassium Level 4.4 Chloride Level 98 Carbon Dioxide Level 32 H Anion Gap 11 Blood Urea Nitrogen 33 H Creatinine 4.79 H Est Glomerular Filtrat Rate mL/min Glucose Level 222 H Hemoglobin A1c 8.1 H Calcium Level 9.2 Triglycerides Level 264 H Cholesterol Level 132 LDL Cholesterol, 42 Calculated HDL Cholesterol 37 Cholesterol/HDL Ratio 3.5 Troponin I 0.126 *H Test 09/18/18 20:39 09/19/18 04:35 09/19/18 06:59 09/19/18 07:38 Bedside Glucose 253 H 146 White Blood Count 9.2 Red Blood Count 3.53 L Hemoglobin 10.7 L Hematocrit 32.1 L Mean Corpuscular Volume 90.9 Mean Corpuscular 30.3 Hemoglobin Mean Corpuscular 33.3 Hemoglobin Concent Red Cell Distribution 13.1 Width Platelet Count 121 L Mean Platelet Volume 11.2 H Immature Granulocytes % 0.300 Neutrophils % 70.1 Lymphocytes % 16.7 Monocytes % 7.1 Eosinophils % 5.0 Basophils % 0.8 Nucleated Red Blood 0.0 Cells % Immature Granulocytes # 0.030 Neutrophils # 6.4 Lymphocytes # 1.5 Monocytes # 0.7 Eosinophils # 0.5 Basophils # 0.1 Nucleated Red Blood 0.0 Cells # Sodium Level 142 Potassium Level 5.0 Chloride Level 98 Carbon Dioxide Level 31 Anion Gap 13 Blood Urea Nitrogen 48 #H Creatinine 6.92 #H Est Glomerular Filtrat Rate mL/min Glucose Level 110 # Calcium Level 9.2 Phosphorus Level 4.6 Magnesium Level 2.2 Thyroid Stimulating 2.630 Hormone (TSH) Free Thyroxine 1.33 Troponin I 1.420 *H Exam/Review of Systems Exam Vitals Vital Signs Date Temp Pulse Resp B/P (MAP) Pulse Ox O2 O2 Flow FiO2 Time Delivery Rate 09/19/18 75 12 97/71 (80) 98 Room Air 08:00 09/19/18 98.7 07:00 Intake and Output 09/18/18 09/18/18 09/19/18 1515:00 23:00 07:00 IntakeIntake Total 20 ml 0 ml BalanceBalance 20 ml 0 ml Results Results 24hrs Laboratory Tests Test 09/18/18 10:07 09/18/18 10:08 09/18/18 17:33 09/18/18 18:38 Bedside Glucose 214 154 White Blood Count 9.1 Red Blood Count 3.85 L Hemoglobin 11.7 L Hematocrit 34.5 L Mean Corpuscular Volume 89.6 Mean Corpuscular 30.4 Hemoglobin Mean Corpuscular 33.9 Hemoglobin Concent Red Cell Distribution 13.2 Width Platelet Count 128 L Mean Platelet Volume 10.5 H Immature Granulocytes % 0.400 Neutrophils % 73.7 Lymphocytes % 12.4 L Monocytes % 8.0 Eosinophils % 4.8 Basophils % 0.7 Nucleated Red Blood 0.0 Cells % Immature Granulocytes # 0.040 H Neutrophils # 6.7 Lymphocytes # 1.1 Monocytes # 0.7 Eosinophils # 0.4 Basophils # 0.1 Nucleated Red Blood 0.0 Cells # Prothrombin Time 12.8 Prothrombin Time Ratio 1.0 INR International 0.95 Normalized Ratio Activated 28.1 Partial Thromboplast Time Sodium Level 141 Potassium Level 4.4 Chloride Level 98 Carbon Dioxide Level 32 H Anion Gap 11 Blood Urea Nitrogen 33 H Creatinine 4.79 H Est Glomerular Filtrat Rate mL/min Glucose Level 222 H Hemoglobin A1c 8.1 H Calcium Level 9.2 Triglycerides Level 264 H Cholesterol Level 132 LDL Cholesterol, 42 Calculated HDL Cholesterol 37 Cholesterol/HDL Ratio 3.5 Troponin I 0.126 *H Test 09/18/18 20:39 09/19/18 04:35 09/19/18 06:59 09/19/18 07:38 Bedside Glucose 253 H 146 White Blood Count 9.2 Red Blood Count 3.53 L Hemoglobin 10.7 L Hematocrit 32.1 L Mean Corpuscular Volume 90.9 Mean Corpuscular 30.3 Hemoglobin Mean Corpuscular 33.3 Hemoglobin Concent Red Cell Distribution 13.1 Width Platelet Count 121 L Mean Platelet Volume 11.2 H Immature Granulocytes % 0.300 Neutrophils % 70.1 Lymphocytes % 16.7 Monocytes % 7.1 Eosinophils % 5.0 Basophils % 0.8 Nucleated Red Blood 0.0 Cells % Immature Granulocytes # 0.030 Neutrophils # 6.4 Lymphocytes # 1.5 Monocytes # 0.7 Eosinophils # 0.5 Basophils # 0.1 Nucleated Red Blood 0.0 Cells # Sodium Level 142 Potassium Level 5.0 Chloride Level 98 Carbon Dioxide Level 31 Anion Gap 13 Blood Urea Nitrogen 48 #H Creatinine 6.92 #H Est Glomerular Filtrat Rate mL/min Glucose Level 110 # Calcium Level 9.2 Phosphorus Level 4.6 Magnesium Level 2.2 Thyroid Stimulating 2.630 Hormone (TSH) Free Thyroxine 1.33 Troponin I 1.420 *H Medications Medication Current Medications Sodium Chloride 1,000 ml @ 0 mls/hr Q0M IV Last administered on 09/18/18at 16:45; Admin Dose 10 MLS/HR; Start 09/18/18 at 11:30 Aspirin (Halfprin) 81 mg DAILY PO Last administered on 09/19/18at 08:21; Admin Dose 81 MG; Start 09/19/18 at 09:00 Clopidogrel Bisulfate (plaVIX) 75 mg DAILY PO Last administered on 09/19/18at 08:20; Admin Dose 75 MG; Start 09/19/18 at 09:00 Acetaminophen (Tylenol Tab) 650 mg Q4H PRN PO PAIN; Start 09/18/18 at 15:00 Oxycodone/ Acetaminophen (Percocet (5/ 325)) 1 tab Q4H PRN PO PAIN; Start 09/18/18 at 15:00 Al Hydrox/Mg Hydrox/Simethicone (Mag-Al Plus) 30 ml Q4H PRN PO GASTROINTESTINAL UPSET; Start 09/18/18 at 15:00 Ondansetron HCl (Zofran Inj) 4 mg Q4H PRN IV NAUSEA AND/OR VOMITING; Start 09/18/18 at 15:00 Hydralazine HCl (Apresoline) 50 mg BID PO Last administered on 09/18/18at 20:40; Admin Dose 50 MG; Start 09/18/18 at 21:00 Nifedipine (Procardia Xl) 90 mg BID PO Last administered on 09/19/18at 08:21; Admin Dose 90 MG; Start 09/18/18 at 21:00 Hydralazine HCl (Apresoline) 10 mg Q4H PRN IV SBP>170; Start 09/18/18 at 16:00 Insulin Glargine (Lantus) 11 units DAILY@2000 SC Last administered on 09/18/18at 20:41; Admin Dose 11 UNITS; Start 09/18/18 at 20:00 Insulin Aspart (Novolog Insulin Pen) NOVOLOG *MILD* ALGORITHM WITH MEALS BEDTIME SC Last administered on 09/19/18at 07:40; Admin Dose 1 UNIT; Start 09/18/18 at 17:35 Miscellaneous Information 1 ea NOTE XX ; Start 09/18/18 at 16:30 Glucose (Glutose) 15 gm Q15M PRN PO DECREASED GLUCOSE; Start 09/18/18 at 16:30 Glucose (Glutose) 22.5 gm Q15M PRN PO DECREASED GLUCOSE; Start 09/18/18 at 16:30 Dextrose (D50w Syringe) 25 ml Q15M PRN IV DECREASED GLUCOSE; Start 09/18/18 at 16:30 Dextrose (D50w Syringe) 50 ml Q15M PRN IV DECREASED GLUCOSE; Start 09/18/18 at 16:30 Glucagon (Glucagen) 1 mg Q15M PRN IM DECREASED GLUCOSE; Start 09/18/18 at 16:30 Glucose (Glutose) 15 gm Q15M PRN BUCCAL DECREASED GLUCOSE; Start 09/18/18 at 16:30 Heparin Sodium (Porcine) (Heparin (1000 Units/ml)) 4,000 unit AFTER DIALYSIS CATHETER ; Start 09/18/18 at 19:30 Albumin Human 100 ml @ 100 mls/hr WITH DIALYSIS PRN IV SBP <90 DURING DIALYSIS; Start 09/18/18 at 19:30 Sodium Chloride (NS) -To prime the dialy... DIRECTED FOR HD PRN IV HD; Start 09/18/18 at 19:30 JOSE ABAD NP Sep 19, 2018 08:37
[2018-09-19] MEDS: FAMOTIDINE 20 MG TAB PO SCH (09:00)
--- NOTE | 2018-09-19 11:20 | CONS ---
Assessment/Plan Assessment/Plan Hospital Course (Demo Recall) IMP: 1.POD#1 s/p stent x 1 to LCX for high grade stenosis 2.CHB requiring placement of temp paciine-currently resolved 3.HTN 4.ESRD on HD 5. Positive troponin-after stenting in setting of esrd. No chest pain Recc: -ICU -maintain temp pacing wire in place on demand setting 60/5 ma output -Continue asa/plavix/statin -contineu baseline antihypertensives -for PPM tomorrow -trend cardiac enzymes Consultation Date/Type/Reason Admit Date/Time Sep 18, 2018 at 14:44 Initial Consult Date 09/18/18 Type of Consult Cardiology Reason for Consultation s/p stent to LCX/heart block Requesting Provider: JOSE ABAD NP Date/Time of Note DATE: 09/19/18 TIME: 11:12 Exam/Review of Systems Vital Signs Vitals Vital Signs Date Temp Pulse Resp B/P (MAP) Pulse Ox O2 O2 Flow FiO2 Time Delivery Rate 09/19/18 74 13 138/60 98 Room Air 10:00 (86) 09/19/18 98.7 07:00 Intake and Output 09/18/18 09/18/18 09/19/18 1515:00 23:00 07:00 IntakeIntake Total 20 ml 0 ml BalanceBalance 20 ml 0 ml Exam Exam Review of Systems: CONSTITUTIONAL: No fevers, chills. PULMONARY: No sob CARDIOVASCULAR: No chest pain/palpitations GASTROINTESTINAL: No nausea/vomiting. GENITOURINARY: No hematuria/dysuria. MUSCULOSKELETAL: No myagias/arthalgias. PSYCHIATRIC: The patient denies depression. NEUROLOGIC: No weakness Constitutional: alert Psych: no complaints Head: normocephalic ENMT: mucosa pink and moist Neck: supple, jvd (9 cm water) Respiratory: diminished breath sounds (at bases/B) Cardiovascular: regular rate and rhythm Gastrointestinal: soft, non-tender Musculoskeletal: muscle weakness (mild generalized) Extremities: edema (no focal deficits) Labs Result Diagram: 09/19/18 0435 09/19/18 0435 Results 24hrs Laboratory Tests Test 09/18/18 17:33 09/18/18 18:38 09/18/18 20:39 09/19/18 04:35 Bedside Glucose 154 253 H Troponin I 0.126 *H White Blood Count 9.2 Red Blood Count 3.53 L Hemoglobin 10.7 L Hematocrit 32.1 L Mean Corpuscular Volume 90.9 Mean Corpuscular 30.3 Hemoglobin Mean Corpuscular 33.3 Hemoglobin Concent Red Cell Distribution 13.1 Width Platelet Count 121 L Mean Platelet Volume 11.2 H Immature Granulocytes % 0.300 Neutrophils % 70.1 Lymphocytes % 16.7 Monocytes % 7.1 Eosinophils % 5.0 Basophils % 0.8 Nucleated Red Blood 0.0 Cells % Immature Granulocytes # 0.030 Neutrophils # 6.4 Lymphocytes # 1.5 Monocytes # 0.7 Eosinophils # 0.5 Basophils # 0.1 Nucleated Red Blood 0.0 Cells # Sodium Level 142 Potassium Level 5.0 Chloride Level 98 Carbon Dioxide Level 31 Anion Gap 13 Blood Urea Nitrogen 48 #H Creatinine 6.92 #H Est Glomerular Filtrat Rate mL/min Glucose Level 110 # Calcium Level 9.2 Phosphorus Level 4.6 Magnesium Level 2.2 Thyroid Stimulating 2.630 Hormone (TSH) Free Thyroxine 1.33 Test 09/19/18 06:59 09/19/18 07:38 09/19/18 11:04 Troponin I 1.420 *H Bedside Glucose 146 191 Medications Medications Current Medications Sodium Chloride 1,000 ml @ 0 mls/hr Q0M IV Last administered on 09/18/18at 16:45; Admin Dose 10 MLS/HR; Start 09/18/18 at 11:30 Aspirin (Halfprin) 81 mg DAILY PO Last administered on 09/19/18at 08:21; Admin Dose 81 MG; Start 09/19/18 at 09:00 Clopidogrel Bisulfate (plaVIX) 75 mg DAILY PO Last administered on 09/19/18at 08:20; Admin Dose 75 MG; Start 09/19/18 at 09:00 Acetaminophen (Tylenol Tab) 650 mg Q4H PRN PO PAIN; Start 09/18/18 at 15:00 Oxycodone/ Acetaminophen (Percocet (5/ 325)) 1 tab Q4H PRN PO PAIN; Start 09/18/18 at 15:00 Al Hydrox/Mg Hydrox/Simethicone (Mag-Al Plus) 30 ml Q4H PRN PO GASTROINTESTINAL UPSET; Start 09/18/18 at 15:00 Ondansetron HCl (Zofran Inj) 4 mg Q4H PRN IV NAUSEA AND/OR VOMITING; Start 09/18/18 at 15:00 Hydralazine HCl (Apresoline) 50 mg BID PO Last administered on 09/18/18at 20:40; Admin Dose 50 MG; Start 09/18/18 at 21:00 Nifedipine (Procardia Xl) 90 mg BID PO Last administered on 09/19/18at 08:21; Admin Dose 90 MG; Start 09/18/18 at 21:00 Hydralazine HCl (Apresoline) 10 mg Q4H PRN IV SBP>170; Start 09/18/18 at 16:00 Insulin Glargine (Lantus) 11 units DAILY@2000 SC Last administered on 09/18/18at 20:41; Admin Dose 11 UNITS; Start 09/18/18 at 20:00 Insulin Aspart (Novolog Insulin Pen) NOVOLOG *MILD* ALGORITHM WITH MEALS BEDTIME SC Last administered on 09/19/18at 11:06; Admin Dose 2 UNIT; Start 09/18/18 at 17:35 Miscellaneous Information 1 ea NOTE XX ; Start 09/18/18 at 16:30 Glucose (Glutose) 15 gm Q15M PRN PO DECREASED GLUCOSE; Start 09/18/18 at 16:30 Glucose (Glutose) 22.5 gm Q15M PRN PO DECREASED GLUCOSE; Start 09/18/18 at 16:30 Dextrose (D50w Syringe) 25 ml Q15M PRN IV DECREASED GLUCOSE; Start 09/18/18 at 16:30 Dextrose (D50w Syringe) 50 ml Q15M PRN IV DECREASED GLUCOSE; Start 09/18/18 at 16:30 Glucagon (Glucagen) 1 mg Q15M PRN IM DECREASED GLUCOSE; Start 09/18/18 at 16:30 Glucose (Glutose) 15 gm Q15M PRN BUCCAL DECREASED GLUCOSE; Start 09/18/18 at 16:30 Heparin Sodium (Porcine) (Heparin (1000 Units/ml)) 4,000 unit AFTER DIALYSIS CATHETER ; Start 09/18/18 at 19:30 Albumin Human 100 ml @ 100 mls/hr WITH DIALYSIS PRN IV SBP <90 DURING DIALYSIS; Start 09/18/18 at 19:30 Sodium Chloride (NS) -To prime the dialy... DIRECTED FOR HD PRN IV HD; Start 09/18/18 at 19:30 Famotidine (Pepcid) 20 mg DAILY PO ; Start 09/19/18 at 09:00 SNOW BECKER Sep 19, 2018 11:20
--- NOTE | 2018-09-19 12:07 | CONS ---
Assessment/Plan Assessment/Plan Assessment/Plan (Daily) 1. Complete heart block- s/p Transcutaneous pacer in place 2. Obstructive CAD s/p PCI and EDWIN To Circumflex by Dr. Olivera on 09/18/18 3. ESRD on HD MWF 4. H/o HTN 5. h/o HL 6. Anemia of ESRD 7. H/o Atrial fibrillation Plan: s/p HD today 3 L removed, EP consulted for permanent pacemaker placement pt regular schedule is MWF, he follows at [facility] , HD ordered for Monday morning Conitnue HOme BP meds, IV hydralazine prn will follow up Consultation Date/Type/Reason Admit Date/Time Sep 18, 2018 at 14:44 Initial Consult Date 09/18/18 Type of Consult NEPHROLOGY Requesting Provider: JOSE ABAD NP Date/Time of Note DATE: 09/19/18 TIME: 12:06 Exam/Review of Systems Exam Vitals Vital Signs Date Temp Pulse Resp B/P (MAP) Pulse Ox O2 O2 Flow FiO2 Time Delivery Rate 09/19/18 79 11:40 09/19/18 12 122/59 98 Room Air 11:00 (80) 09/19/18 98.7 07:00 Intake and Output 09/18/18 09/18/18 09/19/18 1515:00 23:00 07:00 IntakeIntake Total 20 ml 0 ml BalanceBalance 20 ml 0 ml Exam Constitutional: alert Neck: supple, non-tender Respiratory: clear to auscultation, transcutaenous pacer pads on , + right chest permacath in place Cardiovascular: regular rate and rhythm, nl pulses Gastrointestinal: soft, non-tender Musculoskeletal: nl extremities to inspection Neurological: non focal Lymph: nl lymph nodes Results Result Diagram: 09/19/18 0435 09/19/18 0435 Results 24hrs Laboratory Tests Test 09/18/18 17:33 09/18/18 18:38 09/18/18 20:39 09/19/18 04:35 Bedside Glucose 154 253 H Troponin I 0.126 *H White Blood Count 9.2 Red Blood Count 3.53 L Hemoglobin 10.7 L Hematocrit 32.1 L Mean Corpuscular Volume 90.9 Mean Corpuscular 30.3 Hemoglobin Mean Corpuscular 33.3 Hemoglobin Concent Red Cell Distribution 13.1 Width Platelet Count 121 L Mean Platelet Volume 11.2 H Immature Granulocytes % 0.300 Neutrophils % 70.1 Lymphocytes % 16.7 Monocytes % 7.1 Eosinophils % 5.0 Basophils % 0.8 Nucleated Red Blood 0.0 Cells % Immature Granulocytes # 0.030 Neutrophils # 6.4 Lymphocytes # 1.5 Monocytes # 0.7 Eosinophils # 0.5 Basophils # 0.1 Nucleated Red Blood 0.0 Cells # Sodium Level 142 Potassium Level 5.0 Chloride Level 98 Carbon Dioxide Level 31 Anion Gap 13 Blood Urea Nitrogen 48 #H Creatinine 6.92 #H Est Glomerular Filtrat Rate mL/min Glucose Level 110 # Calcium Level 9.2 Phosphorus Level 4.6 Magnesium Level 2.2 Thyroid Stimulating 2.630 Hormone (TSH) Free Thyroxine 1.33 Test 09/19/18 06:59 09/19/18 07:38 09/19/18 11:04 Troponin I 1.420 *H Bedside Glucose 146 191 Medications Medication Current Medications Sodium Chloride 1,000 ml @ 0 mls/hr Q0M IV Last administered on 09/18/18at 16:45; Admin Dose 10 MLS/HR; Start 09/18/18 at 11:30 Aspirin (Halfprin) 81 mg DAILY PO Last administered on 09/19/18at 08:21; Admin Dose 81 MG; Start 09/19/18 at 09:00 Clopidogrel Bisulfate (plaVIX) 75 mg DAILY PO Last administered on 09/19/18at 08:20; Admin Dose 75 MG; Start 09/19/18 at 09:00 Acetaminophen (Tylenol Tab) 650 mg Q4H PRN PO PAIN; Start 09/18/18 at 15:00 Oxycodone/ Acetaminophen (Percocet (5/ 325)) 1 tab Q4H PRN PO PAIN; Start 09/18/18 at 15:00 Al Hydrox/Mg Hydrox/Simethicone (Mag-Al Plus) 30 ml Q4H PRN PO GASTROINTESTINAL UPSET; Start 09/18/18 at 15:00 Ondansetron HCl (Zofran Inj) 4 mg Q4H PRN IV NAUSEA AND/OR VOMITING; Start 09/18/18 at 15:00 Hydralazine HCl (Apresoline) 50 mg BID PO Last administered on 09/18/18at 20:40; Admin Dose 50 MG; Start 09/18/18 at 21:00 Nifedipine (Procardia Xl) 90 mg BID PO Last administered on 09/19/18at 08:21; Admin Dose 90 MG; Start 09/18/18 at 21:00 Hydralazine HCl (Apresoline) 10 mg Q4H PRN IV SBP>170; Start 09/18/18 at 16:00 Insulin Glargine (Lantus) 11 units DAILY@2000 SC Last administered on 09/18/18at 20:41; Admin Dose 11 UNITS; Start 09/18/18 at 20:00 Insulin Aspart (Novolog Insulin Pen) NOVOLOG *MILD* ALGORITHM WITH MEALS BEDTIME SC Last administered on 09/19/18at 11:06; Admin Dose 2 UNIT; Start 09/18/18 at 17:35 Miscellaneous Information 1 ea NOTE XX ; Start 09/18/18 at 16:30 Glucose (Glutose) 15 gm Q15M PRN PO DECREASED GLUCOSE; Start 09/18/18 at 16:30 Glucose (Glutose) 22.5 gm Q15M PRN PO DECREASED GLUCOSE; Start 09/18/18 at 16:30 Dextrose (D50w Syringe) 25 ml Q15M PRN IV DECREASED GLUCOSE; Start 09/18/18 at 16:30 Dextrose (D50w Syringe) 50 ml Q15M PRN IV DECREASED GLUCOSE; Start 09/18/18 at 16:30 Glucagon (Glucagen) 1 mg Q15M PRN IM DECREASED GLUCOSE; Start 09/18/18 at 16:30 Glucose (Glutose) 15 gm Q15M PRN BUCCAL DECREASED GLUCOSE; Start 09/18/18 at 16:30 Heparin Sodium (Porcine) (Heparin (1000 Units/ml)) 4,000 unit AFTER DIALYSIS CATHETER ; Start 09/18/18 at 19:30 Albumin Human 100 ml @ 100 mls/hr WITH DIALYSIS PRN IV SBP <90 DURING DIALYSIS; Start 09/18/18 at 19:30 Sodium Chloride (NS) -To prime the dialy... DIRECTED FOR HD PRN IV HD; Start 09/18/18 at 19:30 Famotidine (Pepcid) 20 mg DAILY PO ; Start 09/19/18 at 09:00 Atorvastatin Calcium (Lipitor) 20 mg HS PO ; Start 09/19/18 at 21:00 Cefazolin Sodium 50 ml @ 100 mls/hr OC IVPB ; Start 09/20/18 at 07:00; Stop 09/20/18 at 12:00 LILLY QUILES MD Sep 19, 2018 12:06
--- NOTE | 2018-09-19 12:20 | RADRPT ---
Vent Rate: 68 bpm RR Interval: 880 msec VT Interval: 126 msec QRS Duration: 133 msec QT Interval: 475 msec QTC Interval: 506 msec P-R-T [place]: -83 - 109 - 44 degrees Ectopic atrial rhythm...abnormal P axis, normal rate RBBB and LPFB...QRSd >120mS, axis(90,210) Electronically Signed By: Saravanan Chavez
[2018-09-19] MEDS: HEPARIN 1000 UNITS/ML 10 ML INJ CATHETER SCH (13:49)
--- NOTE | 2018-09-19 15:06 | RADRPT ---
Echocardiogram Report Patient Name: VARSHA MIRANDAPatient ID: [id number] : 1945 (73y 8m)Study Date: 09/19/2018 7:51:34 AM Gender: MAccession #: [id number] Tech: Sea Liu [facility] Location: 115 Ref.Physician: SNOW OLIVERA Height(Cm): BSA: Weight(Kg): Quality: AdequateOrder Physician: SNOW OLIVERA Account #: Procedures: Echocardiographic Report: Transthoracic echocardiogram with complete 2D, M-Mode, and doppler examination. Indications: Coronary Artery Disease. Measurements: 2D/M Mode Doppler Measurement Value Normal Range Measurement Value Normal Range LVIDd 2D 4.0 [ 4.2 - 5.8 ] cm AV Peak Leopoldo 1.4 [ 100.0 - 170.0 ] cm/sec LVIDs 2D 2.1 [ 2.5 - 4.0 ] cm AV Peak PG 8.0 [ 2.0 - 9.0 ] mmHg LVPWd 2D 1.1 [ 0.6 - 1.0 ] cm LVOT Peak Leopoldo 1.3 [ 70.0 - 110.0 ] cm/sec IVSd 2D 1.2 [ 0.6 - 1.0 ] cm LVOT Peak PG 7.0 [ 2.0 - 6.0 ] mmHg AoR Diam 2D 3.3 [ 2.6 - 3.4 ] cm MV E Peak Leopoldo 0.8 [ 60.0 - 130.0 ] cm/sec EDV 2D 70.0 [ 62.0 - 150.0 ] ml MV A Peak Leopoldo 1.0 [ 100.0 - 120.0 ] cm/sec ESV 2D 14.9 [ 21.0 - 61.0 ] ml MV E/A 0.8 [ 0.8 - 1.5 ] ratio EF 2D 78.7 [ 52.0 - 72.0 ] percent MV Decel Time 197 [ 104 - 258 ] msec LA Dimen 2D 3.6 [ 3.0 - 4.0 ] cm Lat E` Leopoldo 0.1 [ 10.0 - 15.0 ] cm/sec Lateral E/E` 12.7 [ 1.0 - 2.0 ] ratio Med E` Leopoldo 0.1 cm/sec MV E/A 0.8 [ 0.8 - 1.5 ] ratio TR Peak Leopoldo 2.5 [ 100.0 - 280.0 ] cm/sec TR Peak PG 25.0 mmHg RVSP 28.0 [ 10.0 - 36.0 ] mmHg RA Pressure 3.0 mmHg Findings: Left Ventricle: Normal left ventricular systolic function. Normal left ventricular cavity size. Mild concentric left ventricular hypertrophy. Ejection fraction is visually estimated at 60 %. Tissue Doppler/Mitral Doppler indices are consistent with impaired relaxation (Stage I diastolic dysfunction). Right Ventricle: Normal right ventricular size. Normal right ventricular systolic function. Left Atrium: The left atrium is normal in size. Right Atrium: The right atrium is normal in size. Mitral Valve: Normal appearance and function of the mitral valve with trace physiologic regurgitation. Aortic Valve: No significant aortic stenosis or insufficiency. Aortic cusps appear mildly calcified. Tricuspid Valve: Normal appearance of the tricuspid valve. The estimated Peak RVSP is 28 mmHg. There is trace tricuspid regurgitation. Pulmonic Valve: Normal pulmonic valve appearance. Pericardium: Normal pericardium with no significant pericardial effusion. Aorta: Normal aortic root. IVC: Normal size and normal respiratory collapse consistent with normal right atrial pressure. Conclusions: Normal left ventricular systolic function. Normal left ventricular cavity size. Mild concentric left ventricular hypertrophy. Ejection fraction is visually estimated at 60 %. Tissue Doppler/Mitral Doppler indices are consistent with impaired relaxation (Stage I diastolic dysfunction). Normal appearance and function of the mitral valve with trace physiologic regurgitation. Normal appearance of the tricuspid valve. The estimated Peak RVSP is 28 mmHg. There is trace tricuspid regurgitation. Electronically Signed By: Snow Olivera 2018-09-19 15:05:48 PDT
[2018-09-19] MEDS: DIPHENHYDRAMINE 50 MG INJ IV PRN (17:32)
[2018-09-19] MEDS: morphine 2 MG INJ IV PRN (18:42)
[2018-09-19] MEDS: ATORVASTATIN 20 MG TAB PO SCH (20:11)
[2018-09-19] MEDS: INSULIN GLARGINE [LANTus] (100 UNITS/ML) SYG SC SCH (20:15)
[2018-09-20] VITALS (23 sets, daily range): BP systolic 124–171; BP diastolic 51–104; PULSE 78–95; RESP 8–26
[2018-09-20] MEDS: DIPHENHYDRAMINE 50 MG INJ IV PRN (00:08)
[2018-09-20] MEDS ORDERED: LORAZEPAM 2 MG INJ IV PRN (02:30)
[2018-09-20] MEDS ORDERED: CEFAZOLIN 1 GM/50 ML (PMX) 50 ML IVPB SCH (07:00)
[2018-09-20] MEDS: INSULIN ASPART [NOVOLOG] 3 ML PEN SC SCH ×4 (07:31→21:00)
[2018-09-20] MEDS: CLOPIDOGREL 75 MG TAB PO SCH (08:13)
[2018-09-20] MEDS: ASPIRIN (EC) 81 MG TAB PO SCH (08:13)
[2018-09-20] MEDS: FAMOTIDINE 20 MG TAB PO SCH (08:13)
[2018-09-20] MEDS: NIFEdipine (XL) 90 MG TAB PO SCH ×3 (08:13→23:30)
--- NOTE | 2018-09-20 09:13 | CONS ---
Consultation Date/Type/Reason Admit Date/Time Sep 18, 2018 at 14:44 Type of Consult Cardiology Date/Time of Note DATE: 09/20/18 TIME: 09:11 Hx of Present Illness Pt brought for pacer placement - he is very confused, not at baseline - I think best to relay vs reconsider procedure given ESRD and anticipated access difficulty - will monitor pt and if needed, consider pacer next week vs conservative f/up. Full note dictated - I spoke with Dr. Olivera - he agrees. Past Medical History Home Meds Reported Medications Calcium Acetate* (Calcium Acetate*) 667 Mg Capsule, 1334 MG PO WITH MEALS, #60 CAP 08/31/18 Gabapentin* (Neurontin*) 300 Mg Capsule, 300 MG PO DAILY, #60 CAP 08/31/18 Hydralazine Hcl* (Hydralazine Hcl*) 50 Mg Tab, 50 MG PO BID, #90 TAB LAST FILLED 03/0308/14/18 Apixaban* (Eliquis*) 5 Mg Tablet, 2.5 MG PO BID, TAB PT ISNT COMPLIANT LAST FILLED 03-03 FOR 30 DAYS PT STILL HAS PILLS IN BOTTLE 08/14/18 Atorvastatin Calcium* (Atorvastatin Calcium*) 20 Mg Tablet, 20 MG PO QHS, #30 TAB 08/14/18 Carvedilol* (Carvedilol*) 12.5 Mg Tablet, 6.25 MG PO BID, #60 TAB 08/14/18 Nifedipine* (Nifedipine ER*) 90 Mg Tablet.sa, 90 MG PO BID, TAB.SA 08/14/18 Folic Acid* (Folic Acid*) 1 Mg Tablet, 1 MG PO DAILY, TAB 08/14/18 Insulin Lispro (Humalog Kwikpen U-100) 100 Unit/1 Ml Insuln.pen, 7 UNIT SQ AC A, EA ADMELOG 08/14/18 Medications Current Medications Sodium Chloride 1,000 ml @ 0 mls/hr Q0M IV Last administered on 09/18/18at 16:45; Admin Dose 10 MLS/HR; Start 09/18/18 at 11:30 Aspirin (Halfprin) 81 mg DAILY PO Last administered on 09/20/18at 08:13; Admin Dose 81 MG; Start 09/19/18 at 09:00 Clopidogrel Bisulfate (plaVIX) 75 mg DAILY PO Last administered on 09/20/18at 08:13; Admin Dose 75 MG; Start 09/19/18 at 09:00 Acetaminophen (Tylenol Tab) 650 mg Q4H PRN PO PAIN; Start 09/18/18 at 15:00 Oxycodone/ Acetaminophen (Percocet (5/ 325)) 1 tab Q4H PRN PO PAIN Last administered on 09/19/18 15:19; Admin Dose 1 TAB; Start 09/18/18 at 15:00 Al Hydrox/Mg Hydrox/Simethicone (Mag-Al Plus) 30 ml Q4H PRN PO GASTROINTESTINAL UPSET; Start 09/18/18 at 15:00 Ondansetron HCl (Zofran Inj) 4 mg Q4H PRN IV NAUSEA AND/OR VOMITING; Start 09/18/18 at 15:00 Hydralazine HCl (Apresoline) 50 mg BID PO Last administered on 09/20/18 08:13; Admin Dose 50 MG; Start 09/18/18 at 21:00 Nifedipine (Procardia Xl) 90 mg BID PO Last administered on 09/20/18 08:13; Admin Dose 90 MG; Start 09/18/18 at 21:00 Hydralazine HCl (Apresoline) 10 mg Q4H PRN IV SBP>170; Start 09/18/18 at 16:00 Insulin Glargine (Lantus) 11 units DAILY@2000 SC Last administered on 09/19/18at 20:15; Admin Dose 11 UNITS; Start 09/18/18 at 20:00 Insulin Aspart (Novolog Insulin Pen) NOVOLOG *MILD* ALGORITHM WITH MEALS BEDTIME SC Last administered on 09/19/18at 17:05; Admin Dose 3 UNIT; Start 09/18/18 at 17:35 Miscellaneous Information 1 ea NOTE XX ; Start 09/18/18 at 16:30 Glucose (Glutose) 15 gm Q15M PRN PO DECREASED GLUCOSE; Start 09/18/18 at 16:30 Glucose (Glutose) 22.5 gm Q15M PRN PO DECREASED GLUCOSE; Start 09/18/18 at 16:30 Dextrose (D50w Syringe) 25 ml Q15M PRN IV DECREASED GLUCOSE; Start 09/18/18 at 16:30 Dextrose (D50w Syringe) 50 ml Q15M PRN IV DECREASED GLUCOSE; Start 09/18/18 at 16:30 Glucagon (Glucagen) 1 mg Q15M PRN IM DECREASED GLUCOSE; Start 09/18/18 at 16:30 Glucose (Glutose) 15 gm Q15M PRN BUCCAL DECREASED GLUCOSE; Start 09/18/18 at 16:30 Albumin Human 100 ml @ 100 mls/hr WITH DIALYSIS PRN IV SBP <90 DURING DIALYSIS; Start 09/18/18 at 19:30 Sodium Chloride (NS) -To prime the dialy... DIRECTED FOR HD PRN IV HD; Start 09/18/18 at 19:30 Famotidine (Pepcid) 20 mg DAILY PO Last administered on 09/20/18 08:13; Admin Dose 20 MG; Start 09/19/18 at 09:00 Atorvastatin Calcium (Lipitor) 20 mg HS PO Last administered on 09/19/18at 20:11; Admin Dose 20 MG; Start 09/19/18 at 21:00 Cefazolin Sodium 50 ml @ 100 mls/hr OC IVPB Last administered on 09/20/18 06:18; Admin Dose 100 MLS/HR; Start 09/20/18 at 07:00; Stop 09/20/18 at 12:00 Heparin Sodium (Porcine) (Heparin (1000 Units/ml)) 4,500 unit AFTER DIALYSIS CATHETER Last administered on 09/19/18 13:49; Admin Dose 4,500 UNIT; Start 09/19/18 at 12:30 Morphine Sulfate (morphine) 2 mg Q6H PRN IV SEVERE PAIN LEVEL 7-10 Last adminis tered on 09/19/18 18:42; Admin Dose 2 MG; Start 09/19/18 at 17:30 Diphenhydramine HCl (Benadryl) 25 mg Q6H PRN IV itchiness Last administered on 09/20/18 00:08; Admin Dose 25 MG; Start 09/19/18 at 17:30 Lorazepam (Ativan) 1 mg Q4 PRN IV AGITATION Last administered on 09/20/18 02:22; Admin Dose 1 MG; Start 09/20/18 at 02:30 Allergies: Coded Allergies: No Known Allergy (Unverified , 09/17/18) Past Surgical History Past Surgical Hx: other (Permacath placement ) Social History Alcohol Use: none Smoking Status: Never smoker Drug Use: none Exam/Review of Systems Vital Signs Vitals Vital Signs Date Temp Pulse Resp B/P (MAP) Pulse Ox O2 O2 Flow FiO2 Time Delivery Rate 09/20/18 91 15 162/83 100 Room Air 08:00 (109) 09/20/18 99.8 07:00 Intake and Output 09/19/18 09/19/18 09/20/18 1515:00 23:00 07:00 IntakeIntake Total 100 ml 200 ml 0 ml OutputOutput Total 3400 ml BalanceBalance -3300 ml 200 ml 0 ml Labs Result Diagram: 09/20/18 0437 09/20/18 0437 Results 24hrs Laboratory Tests Test 09/19/18 11:04 09/19/18 11:41 09/19/18 17:04 09/19/18 18:02 Bedside Glucose 191 224 H Creatine Kinase 180 168 Creatine Kinase Index 2.2 1.8 Creatinine Kinase MB 4.02 H 3.10 H (Mass) Troponin I 1.340 *H 1.350 *H Test 09/19/18 20:13 09/20/18 04:37 09/20/18 07:31 Bedside Glucose 159 138 White Blood Count 10.1 Red Blood Count 3.72 L Hemoglobin 11.2 L Hematocrit 33.5 L Mean Corpuscular Volume 90.1 Mean Corpuscular 30.1 Hemoglobin Mean Corpuscular 33.4 Hemoglobin Concent Red Cell Distribution 13.1 Width Platelet Count 125 L Mean Platelet Volume 11.6 H Immature Granulocytes % 0.200 Neutrophils % 69.0 Lymphocytes % 15.5 Monocytes % 7.9 Eosinophils % 6.8 Basophils % 0.6 Nucleated Red Blood 0.0 Cells % Immature Granulocytes # 0.020 Neutrophils # 7.0 Lymphocytes # 1.6 Monocytes # 0.8 Eosinophils # 0.7 H Basophils # 0.1 Nucleated Red Blood 0.0 Cells # Sodium Level 140 Potassium Level 4.5 Chloride Level 99 Carbon Dioxide Level 31 Anion Gap 10 Blood Urea Nitrogen 36 #H Creatinine 5.80 H Est Glomerular Filtrat Rate mL/min Glucose Level 145 Calcium Level 9.7 Phosphorus Level 4.9 Magnesium Level 2.0 Medications Medications Current Medications Sodium Chloride 1,000 ml @ 0 mls/hr Q0M IV Last administered on 09/18/18at 16:45; Admin Dose 10 MLS/HR; Start 09/18/18 at 11:30 Aspirin (Halfprin) 81 mg DAILY PO Last administered on 09/20/18 08:13; Admin Dose 81 MG; Start 09/19/18 at 09:00 Clopidogrel Bisulfate (plaVIX) 75 mg DAILY PO Last administered on 09/20/18 08:13; Admin Dose 75 MG; Start 09/19/18 at 09:00 Acetaminophen (Tylenol Tab) 650 mg Q4H PRN PO PAIN; Start 09/18/18 at 15:00 Oxycodone/ Acetaminophen (Percocet (5/ 325)) 1 tab Q4H PRN PO PAIN Last administered on 09/19/18 15:19; Admin Dose 1 TAB; Start 09/18/18 at 15:00 Al Hydrox/Mg Hydrox/Simethicone (Mag-Al Plus) 30 ml Q4H PRN PO GASTROINTESTINAL UPSET; Start 09/18/18 at 15:00 Ondansetron HCl (Zofran Inj) 4 mg Q4H PRN IV NAUSEA AND/OR VOMITING; Start 09/18/18 at 15:00 Hydralazine HCl (Apresoline) 50 mg BID PO Last administered on 09/20/18 08:13; Admin Dose 50 MG; Start 09/18/18 at 21:00 Nifedipine (Procardia Xl) 90 mg BID PO Last administered on 09/20/18 08:13; Admin Dose 90 MG; Start 09/18/18 at 21:00 Hydralazine HCl (Apresoline) 10 mg Q4H PRN IV SBP>170; Start 09/18/18 at 16:00 Insulin Glargine (Lantus) 11 units DAILY@2000 SC Last administered on 09/19/18at 20:15; Admin Dose 11 UNITS; Start 09/18/18 at 20:00 Insulin Aspart (Novolog Insulin Pen) NOVOLOG *MILD* ALGORITHM WITH MEALS BEDTIME SC Last administered on 09/19/18 17:05; Admin Dose 3 UNIT; Start 09/18/18 at 17:35 Miscellaneous Information 1 ea NOTE XX ; Start 09/18/18 at 16:30 Glucose (Glutose) 15 gm Q15M PRN PO DECREASED GLUCOSE; Start 09/18/18 at 16:30 Glucose (Glutose) 22.5 gm Q15M PRN PO DECREASED GLUCOSE; Start 09/18/18 at 16:30 Dextrose (D50w Syringe) 25 ml Q15M PRN IV DECREASED GLUCOSE; Start 09/18/18 at 16:30 Dextrose (D50w Syringe) 50 ml Q15M PRN IV DECREASED GLUCOSE; Start 09/18/18 at 16:30 Glucagon (Glucagen) 1 mg Q15M PRN IM DECREASED GLUCOSE; Start 09/18/18 at 16:30 Glucose (Glutose) 15 gm Q15M PRN BUCCAL DECREASED GLUCOSE; Start 09/18/18 at 16:30 Albumin Human 100 ml @ 100 mls/hr WITH DIALYSIS PRN IV SBP <90 DURING DIALYSIS; Start 09/18/18 at 19:30 Sodium Chloride (NS) -To prime the dialy... DIRECTED FOR HD PRN IV HD; Start 09/18/18 at 19:30 Famotidine (Pepcid) 20 mg DAILY PO Last administered on 09/20/18 08:13; Admin Dose 20 MG; Start 09/19/18 at 09:00 Atorvastatin Calcium (Lipitor) 20 mg HS PO Last administered on 09/19/18at 20:11; Admin Dose 20 MG; Start 09/19/18 at 21:00 Cefazolin Sodium 50 ml @ 100 mls/hr OC IVPB Last administered on 09/20/18 06:18; Admin Dose 100 MLS/HR; Start 09/20/18 at 07:00; Stop 09/20/18 at 12:00 Heparin Sodium (Porcine) (Heparin (1000 Units/ml)) 4,500 unit AFTER DIALYSIS CATHETER Last administered on 09/19/18 13:49; Admin Dose 4,500 UNIT; Start 09/19/18 at 12:30 Morphine Sulfate (morphine) 2 mg Q6H PRN IV SEVERE PAIN LEVEL 7-10 Last administered on 09/19/18 18:42; Admin Dose 2 MG; Start 09/19/18 at 17:30 Diphenhydramine HCl (Benadryl) 25 mg Q6H PRN IV itchiness Last administered on 09/20/18 00:08; Admin Dose 25 MG; Start 09/19/18 at 17:30 Lorazepam (Ativan) 1 mg Q4 PRN IV AGITATION Last administered on 09/20/18 02:22; Admin Dose 1 MG; Start 09/20/18 at 02:30 PRESTON CONTRERAS MD Sep 20, 2018 09:13
--- NOTE | 2018-09-20 09:45 | CONS ---
DATE OF ADMISSION: 09/18/2018 DATE OF CONSULTATION: 09/20/2018 TYPE OF CONSULTATION: Pulmonary. REFERRING PHYSICIAN: Dr. Olivera. REASON FOR EVALUATION: Complete heart block during stent placement. HISTORY OF PRESENT ILLNESS: Mr. Turner is a 73-year-old gentleman with history of dyslipidemia, hist ory of coronary artery disease, endstage renal disease on hemodialysis, who comes to the hospital now for evaluation of coronary artery disease. Patient had a stent placement with Dr. Olivera 2 days ag o and during the procedure, he went into complete heart block. I have been asked by Dr. Olivera to s ee the patient for pacemaker placement. Patient came into the lab systems analyst for preprocedure, where I met him. Patient is very confused and not at baseline. I spoke with his and asked her if patient is usually confused like this and the said that he is not confused. Usually he is very clear, a lert and oriented. The patient has not been paced overnight, his heart rate is in 90s, now in sinus. I do not believe the procedure to be an emergency. It is my recommendation at this point to hold o ff on the procedure while the source of confusion is being evaluated. PAST MEDICAL HISTORY: Hypertension, dyslipidemia, history of endstage renal disease, hemodialysis, h istory of hypertension, history of complete heart block. ALLERGIES: NO KNOWN DRUG ALLERGIES. SOCIAL HISTORY: The patient does not smoke, does not drink. Has history of drug use this in the pas t. MEDICATIONS: Chart reviewed. There are no AV mikayla agents now. REVIEW OF SYSTEMS: He is not able to provide because of the confusion. PHYSICAL EXAMINATION: VITAL SIGNS: Temperature is 98.9, heart rate 91, blood pressure 162/83. GENERAL: He is a well-nourished gentleman in no acute distress, alert x0, not aware of his condition . Agitated. HEAD: Normocephalic, atraumatic. Eyes anicteric. NECK: Supple. JVD 6-7 cm. No lymphadenopathy. HEART: Regular with soft I/ murmur. PMI is minimally displaced. There is no S3, S4. ABDOMEN: Distended, bowel sounds are present. There is no hepatosplenomegaly. GENITOURINARY: No changes. EXTREMITIES: Show cyanosis. Trace edema. ECG: Reviewed by me now is in sinus rhythm. LABORATORY DATA: White blood cell count 10.8, hemoglobin 8.2, platelets 125. INR is 1.0. Sodium 14 0, potassium 4.4 with a BUN 36, creatinine 5.8, troponin peaked at 1.35. ASSESSMENT AND PLAN: 1. Complete heart block. The patient with complete heart block during procedure. I have been asked to see him for pacemaker by Dr. Olivera. I think it is a reasonable thing to do. However, the jennifer ent is currently very confused and not at baseline. He has not been bradycardic overnight. He did n ot require any pacing. I think it would be my recommendation for now to hold off on the procedure as subjecting the patient to another procedure with anesthesia can compromise his mental status even fu rther. I will discuss the case with Dr. Olivera, but it is my strong recommendation to reconsider ti gissel of the case. 2. Hypertension. Continue to adjust medications as needed. 3. Endstage renal disease. The patient is on hemodialysis now. Defer to primary team for monitorin g. 4. Anemia. Hemoglobin is fairly stable now. I would like to thank Dr. Olivera for referring this patient for my evaluation. Dictated By: PRESTON CONTRERAS MD ML/NTS Conf#: [id number] DID#: [id number] CC: SNOW OLIVERA MD; SNOW KOHLI MD;*End*
--- NOTE | 2018-09-20 10:15 | CONS ---
Assessment/Plan Assessment/Plan Hospital Course (Demo Recall) IMP: 1.POD#2 s/p stent x 1 to LCX for high grade stenosis 2.CHB requiring placement of temp paciine-currently resolved. Patient self d/c'd temp pacing wire this am when confused 3.HTN 4.ESRD on HD 5. Positive troponin-after stenting in setting of esrd. No chest pain. NO sig uptrend. only slow downtrend in the setting of ESRD Recc: -ICU -patient agitated and consfused this am and self d/c'd temp pacing wire. PPM cancelled due to patient agitation and confusion. Rescheduled for later date per EP when patient has improved MS -Continue asa/plavix/statin -continue baseline antihypertensives with slight increase to improve BP control -Follow rhythm closely for any recurrent bradycardia/heart block -trend cardiac enzymes -W/U etiology of confusion Consultation Date/Type/Reason Admit Date/Time Sep 18, 2018 at 14:44 Initial Consult Date 09/18/18 Type of Consult Cardiology Reason for Consultation cad, heart block Requesting Provider: JOSE ABAD NP Date/Time of Note DATE: 09/20/18 TIME: 10:09 Exam/Review of Systems Vital Signs Vitals Vital Signs Date Temp Pulse Resp B/P (MAP) Pulse Ox O2 O2 Flow FiO2 Time Delivery Rate 09/20/18 88 19 161/81 100 Room Air 10:00 (107) 09/20/18 99.8 07:00 Intake and Output 09/19/18 09/19/18 09/20/18 1515:00 23:00 07:00 IntakeIntake Total 100 ml 200 ml 50 ml OutputOutput Total 3400 ml BalanceBalance -3300 ml 200 ml 50 ml Exam Exam Review of Systems: CONSTITUTIONAL: No fevers, chills. PULMONARY: No sob CARDIOVASCULAR: No chest pain/palpitations GASTROINTESTINAL: No nausea/vomiting. GENITOURINARY: No hematuria/dysuria. MUSCULOSKELETAL: No myagias/arthalgias. PSYCHIATRIC: The patient denies depression. NEUROLOGIC: encephalopathic Constitutional: alert Psych: confusion Head: normocephalic ENMT: mucosa pink and moist Neck: supple, jvd (9 cm water) Respiratory: clear to auscultation Cardiovascular: regular rate and rhythm Gastrointestinal: soft, non-tender Musculoskeletal: muscle weakness (mild generalized) Extremities: edema (none) Neurological: other (No focal deficits) Labs Result Diagram: 09/20/187 09/20/187 Results 24hrs Laboratory Tests Test 09/19/18 11:04 09/19/18 11:41 09/19/18 17:04 09/19/18 18:02 Bedside Glucose 191 224 H Creatine Kinase 180 168 Creatine Kinase Index 2.2 1.8 Creatinine Kinase MB 4.02 H 3.10 H (Mass) Troponin I 1.340 *H 1.350 *H Test 09/19/18 20:13 09/20/18 04:37 09/20/18 07:31 Bedside Glucose 159 138 White Blood Count 10.1 Red Blood Count 3.72 L Hemoglobin 11.2 L Hematocrit 33.5 L Mean Corpuscular Volume 90.1 Mean Corpuscular 30.1 Hemoglobin Mean Corpuscular 33.4 Hemoglobin Concent Red Cell Distribution 13.1 Width Platelet Count 125 L Mean Platelet Volume 11.6 H Immature Granulocytes % 0.200 Neutrophils % 69.0 Lymphocytes % 15.5 Monocytes % 7.9 Eosinophils % 6.8 Basophils % 0.6 Nucleated Red Blood 0.0 Cells % Immature Granulocytes # 0.020 Neutrophils # 7.0 Lymphocytes # 1.6 Monocytes # 0.8 Eosinophils # 0.7 H Basophils # 0.1 Nucleated Red Blood 0.0 Cells # Sodium Level 140 Potassium Level 4.5 Chloride Level 99 Carbon Dioxide Level 31 Anion Gap 10 Blood Urea Nitrogen 36 #H Creatinine 5.80 H Est Glomerular Filtrat Rate mL/min Glucose Level 145 Calcium Level 9.7 Phosphorus Level 4.9 Magnesium Level 2.0 Medications Medications Current Medications Sodium Chloride 1,000 ml @ 0 mls/hr Q0M IV Last administered on 09/18/18at 16:45; Admin Dose 10 MLS/HR; Start 09/18/18 at 11:30 Aspirin (Halfprin) 81 mg DAILY PO Last administered on 09/20/18at 08:13; Admin Dose 81 MG; Start 09/19/18 at 09:00 Clopidogrel Bisulfate (plaVIX) 75 mg DAILY PO Last administered on 09/20/18at 08:13; Admin Dose 75 MG; Start 09/19/18 at 09:00 Acetaminophen (Tylenol Tab) 650 mg Q4H PRN PO PAIN; Start 09/18/18 at 15:00 Oxycodone/ Acetaminophen (Percocet (5/ 325)) 1 tab Q4H PRN PO PAIN Last administered on 09/19/18at 15:19; Admin Dose 1 TAB; Start 09/18/18 at 15:00 Al Hydrox/Mg Hydrox/Simethicone (Mag-Al Plus) 30 ml Q4H PRN PO GASTROINTESTINAL UPSET; Start 09/18/18 at 15:00 Ondansetron HCl (Zofran Inj) 4 mg Q4H PRN IV NAUSEA AND/OR VOMITING; Start 09/18/18 at 15:00 Hydralazine HCl (Apresoline) 50 mg BID PO Last administered on 09/20/18at 08:13; Admin Dose 50 MG; Start 09/18/18 at 21:00 Nifedipine (Procardia Xl) 90 mg BID PO Last administered on 09/20/18at 08:13; Admin Dose 90 MG; Start 09/18/18 at 21:00 Hydralazine HCl (Apresoline) 10 mg Q4H PRN IV SBP>170; Start 09/18/18 at 16:00 Insulin Glargine (Lantus) 11 units DAILY@2000 SC Last administered on 09/19/18at 20:15; Admin Dose 11 UNITS; Start 09/18/18 at 20:00 Insulin Aspart (Novolog Insulin Pen) NOVOLOG *MILD* ALGORITHM WITH MEALS BEDTIME SC Last administered on 09/19/18at 17:05; Admin Dose 3 UNIT; Start 09/18/18 at 17:35 Miscellaneous Information 1 ea NOTE XX ; Start 09/18/18 at 16:30 Glucose (Glutose) 15 gm Q15M PRN PO DECREASED GLUCOSE; Start 09/18/18 at 16:30 Glucose (Glutose) 22.5 gm Q15M PRN PO DECREASED GLUCOSE; Start 09/18/18 at 16:30 Dextrose (D50w Syringe) 25 ml Q15M PRN IV DECREASED GLUCOSE; Start 09/18/18 at 16:30 Dextrose (D50w Syringe) 50 ml Q15M PRN IV DECREASED GLUCOSE; Start 09/18/18 at 16:30 Glucagon (Glucagen) 1 mg Q15M PRN IM DECREASED GLUCOSE; Start 09/18/18 at 16:30 Glucose (Glutose) 15 gm Q15M PRN BUCCAL DECREASED GLUCOSE; Start 09/18/18 at 16:30 Albumin Human 100 ml @ 100 mls/hr WITH DIALYSIS PRN IV SBP <90 DURING DIALYSIS; Start 09/18/18 at 19:30 Sodium Chloride (NS) -To prime the dialy... DIRECTED FOR HD PRN IV HD; Start 09/18/18 at 19:30 Famotidine (Pepcid) 20 mg DAILY PO Last administered on 09/20/18 08:13; Admin Dose 20 MG; Start 09/19/18 at 09:00 Atorvastatin Calcium (Lipitor) 20 mg HS PO Last administered on 09/19/18 20:11; Admin Dose 20 MG; Start 09/19/18 at 21:00 Cefazolin Sodium 50 ml @ 100 mls/hr OC IVPB Last administered on 09/20/18 06:18; Admin Dose 100 MLS/HR; Start 09/20/18 at 07:00; Stop 09/20/18 at 12:00 Heparin Sodium (Porcine) (Heparin (1000 Units/ml)) 4,500 unit AFTER DIALYSIS CATHETER Last administered on 09/19/18at 13:49; Admin Dose 4,500 UNIT; Start 09/19/18 at 12:30 Morphine Sulfate (morphine) 2 mg Q6H PRN IV SEVERE PAIN LEVEL 7-10 Last administered on 09/19/18 18:42; Admin Dose 2 MG; Start 09/19/18 at 17:30 Diphenhydramine HCl (Benadryl) 25 mg Q6H PRN IV itchiness Last administered on 09/20/18 00:08; Admin Dose 25 MG; Start 09/19/18 at 17:30 Lorazepam (Ativan) 1 mg Q4 PRN IV AGITATION Last administered on 09/20/18 02:22; Admin Dose 1 MG; Start 09/20/18 at 02:30 SNOW BECKER Sep 20, 2018 10:15
--- NOTE | 2018-09-20 11:06 | CONS ---
Assessment/Plan Assessment/Plan Assessment/Plan (Daily) 1. Complete heart block- s/p Transcutaneous pacer in place 2. Obstructive CAD s/p PCI and EDWIN To Circumflex by Dr. Olivera on 09/18/18 3. ESRD on HD MWF 4. H/o HTN 5. h/o HL 6. Anemia of ESRD 7. H/o Atrial fibrillation 8. agitation confusion ,possibly delirium acute Plan: s/p HD yesterday 3 L removed patient agitated and consfused this am and self d/c'd temp pacing wire. PPM cancelled due to patient agitation and confusion. Rescheduled for later date per EP when patient has improved MS- pt received morphine and ativan overnight for agitation pt regular schedule is [facility], he follows at [facility] [place] , HD ordered for Monday morning [facility] Home BP meds, IV hydralazine prn will follow up Consultation Date/Type/Reason Admit Date/Time Sep 18, 2018 at 14:44 Initial Consult Date 09/18/18 Type of Consult NEPHROLOGY Requesting Provider: JOSE ABAD NP Date/Time of Note DATE: 09/20/18 TIME: 11:04 24 HR Interval Summary Free Text/Dictation s/p HD yesterday 3 L removed patient agitated and consfused this am and self d/c'd temp pacing wire. PPM cancelled due to patient agitation and confusion. Rescheduled for later date per EP when patient has improved MS- pt received morphine and ativan overnight for agitation Exam/Review of Systems Exam Vitals Vital Signs Date Temp Pulse Resp B/P (MAP) Pulse Ox O2 O2 Flow FiO2 Time Delivery Rate 09/20/18 88 19 161/81 100 Room Air 10:00 (107) 09/20/18 99.8 07:00 Intake and Output 09/19/18 09/19/18 09/20/18 1515:00 23:00 07:00 IntakeIntake Total 100 ml 200 ml 50 ml OutputOutput Total 3400 ml BalanceBalance -3300 ml 200 ml 50 ml Exam Constitutional: agitated, confused, Neck: supple, non-tender Respiratory: clear to auscultation, transcutaenous pacer pads on , + right chest permacath in place Cardiovascular: regular rate and rhythm, nl pulses Gastrointestinal: soft, non-tender Musculoskeletal: nl extremities to inspection Neurological: non focal Lymph: nl lymph nodes Results Result Diagram: 09/20/18 0437 09/20/18 0437 Results 24hrs Laboratory Tests Test 09/19/18 11:41 09/19/18 17:04 09/19/18 18:02 09/19/18 20:13 Creatine Kinase 180 168 Creatine Kinase Index 2.2 1.8 Creatinine Kinase MB 4.02 H 3.10 H (Mass) Troponin I 1.340 *H 1.350 *H Bedside Glucose 224 H 159 Test 09/20/18 04:37 09/20/18 07:31 09/20/18 09:49 White Blood Count 10.1 Red Blood Count 3.72 L Hemoglobin 11.2 L Hematocrit 33.5 L Mean Corpuscular Volume 90.1 Mean Corpuscular 30.1 Hemoglobin Mean Corpuscular 33.4 Hemoglobin Concent Red Cell Distribution 13.1 Width Platelet Count 125 L Mean Platelet Volume 11.6 H Immature Granulocytes % 0.200 Neutrophils % 69.0 Lymphocytes % 15.5 Monocytes % 7.9 Eosinophils % 6.8 Basophils % 0.6 Nucleated Red Blood 0.0 Cells % Immature Granulocytes # 0.020 Neutrophils # 7.0 Lymphocytes # 1.6 Monocytes # 0.8 Eosinophils # 0.7 H Basophils # 0.1 Nucleated Red Blood 0.0 Cells # Sodium Level 140 Potassium Level 4.5 Chloride Level 99 Carbon Dioxide Level 31 Anion Gap 10 Blood Urea Nitrogen 36 #H Creatinine 5.80 H Est Glomerular Filtrat Rate mL/min Glucose Level 145 Calcium Level 9.7 Phosphorus Level 4.9 Magnesium Level 2.0 Bedside Glucose 138 Prothrombin Time 13.4 Prothrombin Time Ratio 1.0 INR International 1.01 Normalized Ratio Medications Medication Current Medications Sodium Chloride 1,000 ml @ 0 mls/hr Q0M IV Last administered on 09/18/18at 16:45; Admin Dose 10 MLS/HR; Start 09/18/18 at 11:30 Aspirin (Halfprin) 81 mg DAILY PO Last administered on 09/20/18at 08:13; Admin Dose 81 MG; Start 09/19/18 at 09:00 Clopidogrel Bisulfate (plaVIX) 75 mg DAILY PO Last administered on 09/20/18at 08:13; Admin Dose 75 MG; Start 09/19/18 at 09:00 Acetaminophen (Tylenol Tab) 650 mg Q4H PRN PO PAIN; Start 09/18/18 at 15:00 Oxycodone/ Acetaminophen (Percocet (5/ 325)) 1 tab Q4H PRN PO PAIN Last administered on 09/19/18at 15:19; Admin Dose 1 TAB; Start 09/18/18 at 15:00 Al Hydrox/Mg Hydrox/Simethicone (Mag-Al Plus) 30 ml Q4H PRN PO GASTROINTESTINAL UPSET; Start 09/18/18 at 15:00 Ondansetron HCl (Zofran Inj) 4 mg Q4H PRN IV NAUSEA AND/OR VOMITING; Start 09/18/18 at 15:00 Nifedipine (Procardia Xl) 90 mg BID PO Last administered on 09/20/18at 08:13; Admin Dose 90 MG; Start 09/18/18 at 21:00 Hydralazine HCl (Apresoline) 10 mg Q4H PRN IV SBP>170; Start 09/18/18 at 16:00 Insulin Glargine (Lantus) 11 units DAILY@2000 SC Last administered on 09/19/18at 20:15; Admin Dose 11 UNITS; Start 09/18/18 at 20:00 Insulin Aspart (Novolog Insulin Pen) NOVOLOG *MILD* ALGORITHM WITH MEALS BEDTIME SC Last administered on 09/19/18at 17:05; Admin Dose 3 UNIT; Start 09/18/18 at 17:35 Miscellaneous Information 1 ea NOTE XX ; Start 09/18/18 at 16:30 Glucose (Glutose) 15 gm Q15M PRN PO DECREASED GLUCOSE; Start 09/18/18 at 16:30 Glucose (Glutose) 22.5 gm Q15M PRN PO DECREASED GLUCOSE; Start 09/18/18 at 16:30 Dextrose (D50w Syringe) 25 ml Q15M PRN IV DECREASED GLUCOSE; Start 09/18/18 at 16:30 Dextrose (D50w Syringe) 50 ml Q15M PRN IV DECREASED GLUCOSE; Start 09/18/18 at 16:30 Glucagon (Glucagen) 1 mg Q15M PRN IM DECREASED GLUCOSE; Start 09/18/18 at 16:30 Glucose (Glutose) 15 gm Q15M PRN BUCCAL DECREASED GLUCOSE; Start 09/18/18 at 16:30 Albumin Human 100 ml @ 100 mls/hr WITH DIALYSIS PRN IV SBP <90 DURING DIALYSIS; Start 09/18/18 at 19:30 Sodium Chloride (NS) -To prime the dialy... DIRECTED FOR HD PRN IV HD; Start 09/18/18 at 19:30 Famotidine (Pepcid) 20 mg DAILY PO Last administered on 09/20/18 08:13; Admin Dose 20 MG; Start 09/19/18 at 09:00 Atorvastatin Calcium (Lipitor) 20 mg HS PO Last administered on 09/19/18 20:11; Admin Dose 20 MG; Start 09/19/18 at 21:00 Cefazolin Sodium 50 ml @ 100 mls/hr OC IVPB Last administered on 09/20/18 06:18; Admin Dose 100 MLS/HR; Start 09/20/18 at 07:00; Stop 09/20/18 at 12:00 Heparin Sodium (Porcine) (Heparin (1000 Units/ml)) 4,500 unit AFTER DIALYSIS CATHETER Last administered on 09/19/18 13:49; Admin Dose 4,500 UNIT; Start 09/19/18 at 12:30 Morphine Sulfate (morphine) 2 mg Q6H PRN IV SEVERE PAIN LEVEL 7-10 Last administered on 09/19/18 18:42; Admin Dose 2 MG; Start 09/19/18 at 17:30 Diphenhydramine HCl (Benadryl) 25 mg Q6H PRN IV itchiness Last administered on 09/20/18 00:08; Admin Dose 25 MG; Start 09/19/18 at 17:30 Lorazepam (Ativan) 1 mg Q4 PRN IV AGITATION Last administered on 09/20/18 02:22; Admin Dose 1 MG; Start 09/20/18 at 02:30 Hydralazine HCl (Apresoline) 50 mg TID PO ; Start 09/20/18 at 13:00 LILLY QUILES MD Sep 20, 2018 11:05
--- NOTE | 2018-09-20 11:13 | PN ---
Date/Time of Note Date/Time of Note DATE: 09/20/18 TIME: 11:10 Assessment/Plan VTE Prophylaxis Risk score (from Ns)>0 risk: 10 SCD applied (from Ns): Yes Pharmacological prophylaxis: NA/contraindicated Pharm contraindication: other Lines/Catheters IV Catheter Type (from [facility]): PERMA CATH Urinary Cath still in place: No Assessment/Plan Hospital Course SUBJECTIVE: The patient remains confused and is on bilateral soft wrist restraints. The patient pulled out his right femoral transvenous pacer line last night. The patient was taken to the EP lab today for PPM insertion. However, this PPM insertion was aborted because the patient was confused. OBJECTIVE: Physical Exam General: Adequately build 73 year-old male lying in bed in no apparent distress. HEENT: Normocephalic, atraumatic. Eyes: Anicteric sclerae, conjunctivae clear. ENT: Nasal septum midline, oral mucosa moist. Neck supple, no JVD noticed. Respiratory: Bilaterally diminished breath sounds. No use of accessory muscles of respiration. No adventitious breath sounds. Cardiovascular: S1, S2 heard. Regular rate and rhythm. Abdomen: Soft, nontender, and nondistended. Bowel sounds positive in all 4 quadrants. Genitourinary: Deferred. Extremities: No cyanosis, no clubbing, no edema. Peripheral pulses palpable. Neurologic: The patient is awake. Confused. Skin: Normal skin turgor. No skin rashes. Labs & Vitals per chart ASSESSMENT & PLAN 73-year-old male with type II DM, HTN, A. fib, hyperlipidemia, hypothyroidism, and ESRD with abnormal stress test brought in for elective LHC w/ PTCA/stent to LCx who went into complete heart block with placement of a transvenous pacing wire, who was admitted to inpatient intensive care unit for further management. 1. Abnormal stress test, CAD. Status post PTCA and stent to left circumflex. Continue dual antiplatelet therapy. Continue statins. 2. Complete heart block. Status post transvenous pacemaker placement (pulled out by the patient). Avoid AV mikayla blocking agents. Continue intensive care unit monitoring. PPM insertion aborted because of episode of confusion. 3. Hypertension. Continue antihypertensives. Avoid AV mikayla blocking agents. 4. Diabetes mellitus type 2. Continue the patient on sliding scale insulin and basal insulin. Hemoglobin A1c 8.1. 5. ESRD on hemodialysis. Nephrology following. S/P HD after [facility]. 6. Dyslipidemia. Continue statins. 7. Anemia chronic disease. Monitor H&H closely. 8. History of hypothyroidism. Thyroid panel within normal limits. 9. Acute encephalopathy. Etiology unclear. Possibly toxic metabolic in origin. 9. Fluids, electrolytes, and nutrition. Carbohydrate controlled, low-cholesterol, renal diet. 10. DVT prophylaxis. Resuming factor Xa inhibitors will be deferred to cardiology. 11. Plan. Continue dual antiplatelet therapy. Continue cardiology recommendations. The patient was seen in collaboration with Dr. Huston. Critical care time: 35 minutes. Result Diagram: 09/20/187 09/20/18 0437 Results 24hrs Laboratory Tests Test 09/19/18 11:41 09/19/18 17:04 09/19/18 18:02 09/19/18 20:13 Creatine Kinase 180 168 Creatine Kinase Index 2.2 1.8 Creatinine Kinase MB 4.02 H 3.10 H (Mass) Troponin I 1.340 *H 1.350 *H Bedside Glucose 224 H 159 Test 09/20/18 04:37 09/20/18 07:31 09/20/18 09:49 White Blood Count 10.1 Red Blood Count 3.72 L Hemoglobin 11.2 L Hematocrit 33.5 L Mean Corpuscular Volume 90.1 Mean Corpuscular 30.1 Hemoglobin Mean Corpuscular 33.4 Hemoglobin Concent Red Cell Distribution 13.1 Width Platelet Count 125 L Mean Platelet Volume 11.6 H Immature Granulocytes % 0.200 Neutrophils % 69.0 Lymphocytes % 15.5 Monocytes % 7.9 Eosinophils % 6.8 Basophils % 0.6 Nucleated Red Blood 0.0 Cells % Immature Granulocytes # 0.020 Neutrophils # 7.0 Lymphocytes # 1.6 Monocytes # 0.8 Eosinophils # 0.7 H Basophils # 0.1 Nucleated Red Blood 0.0 Cells # Sodium Level 140 Potassium Level 4.5 Chloride Level 99 Carbon Dioxide Level 31 Anion Gap 10 Blood Urea Nitrogen 36 #H Creatinine 5.80 H Est Glomerular Filtrat Rate mL/min Glucose Level 145 Calcium Level 9.7 Phosphorus Level 4.9 Magnesium Level 2.0 Bedside Glucose 138 Prothrombin Time 13.4 Prothrombin Time Ratio 1.0 INR International 1.01 Normalized Ratio Exam/Review of Systems Exam Vitals Vital Signs Date Temp Pulse Resp B/P (MAP) Pulse Ox O2 O2 Flow FiO2 Time Delivery Rate 09/20/18 88 19 161/81 100 Room Air 10:00 (107) 09/20/18 99.8 07:00 Intake and Output 09/19/18 09/19/18 09/20/18 1515:00 23:00 07:00 IntakeIntake Total 100 ml 200 ml 50 ml OutputOutput Total 3400 ml BalanceBalance -3300 ml 200 ml 50 ml Results Results 24hrs Laboratory Tests Test 09/19/18 11:41 09/19/18 17:04 09/19/18 18:02 09/19/18 20:13 Creatine Kinase 180 168 Creatine Kinase Index 2.2 1.8 Creatinine Kinase MB 4.02 H 3.10 H (Mass) Troponin I 1.340 *H 1.350 *H Bedside Glucose 224 H 159 Test 09/20/18 04:37 09/20/18 07:31 09/20/18 09:49 White Blood Count 10.1 Red Blood Count 3.72 L Hemoglobin 11.2 L Hematocrit 33.5 L Mean Corpuscular Volume 90.1 Mean Corpuscular 30.1 Hemoglobin Mean Corpuscular 33.4 Hemoglobin Concent Red Cell Distribution 13.1 Width Platelet Count 125 L Mean Platelet Volume 11.6 H Immature Granulocytes % 0.200 Neutrophils % 69.0 Lymphocytes % 15.5 Monocytes % 7.9 Eosinophils % 6.8 Basophils % 0.6 Nucleated Red Blood 0.0 Cells % Immature Granulocytes # 0.020 Neutrophils # 7.0 Lymphocytes # 1.6 Monocytes # 0.8 Eosinophils # 0.7 H Basophils # 0.1 Nucleated Red Blood 0.0 Cells # Sodium Level 140 Potassium Level 4.5 Chloride Level 99 Carbon Dioxide Level 31 Anion Gap 10 Blood Urea Nitrogen 36 #H Creatinine 5.80 H Est Glomerular Filtrat Rate mL/min Glucose Level 145 Calcium Level 9.7 Phosphorus Level 4.9 Magnesium Level 2.0 Bedside Glucose 138 Prothrombin Time 13.4 Prothrombin Time Ratio 1.0 INR International 1.01 Normalized Ratio Medications Medication Current Medications Sodium Chloride 1,000 ml @ 0 mls/hr Q0M IV Last administered on 09/18/18at 16:45; Admin Dose 10 MLS/HR; Start 09/18/18 at 11:30 Aspirin (Halfprin) 81 mg DAILY PO Last administered on 09/20/18at 08:13; Admin Dose 81 MG; Start 09/19/18 at 09:00 Clopidogrel Bisulfate (plaVIX) 75 mg DAILY PO Last administered on 09/20/18at 08:13; Admin Dose 75 MG; Start 09/19/18 at 09:00 Acetaminophen (Tylenol Tab) 650 mg Q4H PRN PO PAIN; Start 09/18/18 at 15:00 Oxycodone/ Acetaminophen (Percocet (5/ 325)) 1 tab Q4H PRN PO PAIN Last administered on 09/19/18at 15:19; Admin Dose 1 TAB; Start 09/18/18 at 15:00 Al Hydrox/Mg Hydrox/Simethicone (Mag-Al Plus) 30 ml Q4H PRN PO GASTROINTESTINAL UPSET; Start 09/18/18 at 15:00 Ondansetron HCl (Zofran Inj) 4 mg Q4H PRN IV NAUSEA AND/OR VOMITING; Start 09/18/18 at 15:00 Nifedipine (Procardia Xl) 90 mg BID PO Last administered on 09/20/18at 08:13; Admin Dose 90 MG; Start 09/18/18 at 21:00 Hydralazine HCl (Apresoline) 10 mg Q4H PRN IV SBP>170; Start 09/18/18 at 16:00 Insulin Glargine (Lantus) 11 units DAILY@2000 SC Last administered on 09/19/18at 20:15; Admin Dose 11 UNITS; Start 09/18/18 at 20:00 Insulin Aspart (Novolog Insulin Pen) NOVOLOG *MILD* ALGORITHM WITH MEALS BEDTIME SC Last administered on 09/19/18at 17:05; Admin Dose 3 UNIT; Start 09/18/18 at 17:35 Miscellaneous Information 1 ea NOTE XX ; Start 09/18/18 at 16:30 Glucose (Glutose) 15 gm Q15M PRN PO DECREASED GLUCOSE; Start 09/18/18 at 16:30 Glucose (Glutose) 22.5 gm Q15M PRN PO DECREASED GLUCOSE; Start 09/18/18 at 16:30 Dextrose (D50w Syringe) 25 ml Q15M PRN IV DECREASED GLUCOSE; Start 09/18/18 at 16:30 Dextrose (D50w Syringe) 50 ml Q15M PRN IV DECREASED GLUCOSE; Start 09/18/18 at 16:30 Glucagon (Glucagen) 1 mg Q15M PRN IM DECREASED GLUCOSE; Start 09/18/18 at 16:30 Glucose (Glutose) 15 gm Q15M PRN BUCCAL DECREASED GLUCOSE; Start 09/18/18 at 16:30 Albumin Human 100 ml @ 100 mls/hr WITH DIALYSIS PRN IV SBP <90 DURING DIALYSIS; Start 09/18/18 at 19:30 Sodium Chloride (NS) -To prime the dialy... DIRECTED FOR HD PRN IV HD; Start 09/18/18 at 19:30 Famotidine (Pepcid) 20 mg DAILY PO Last administered on 09/20/18 08:13; Admin Dose 20 MG; Start 09/19/18 at 09:00 Atorvastatin Calcium (Lipitor) 20 mg HS PO Last administered on 09/19/18at 20:11; Admin Dose 20 MG; Start 09/19/18 at 21:00 Cefazolin Sodium 50 ml @ 100 mls/hr OC IVPB Last administered on 09/20/18 06:18; Admin Dose 100 MLS/HR; Start 09/20/18 at 07:00; Stop 09/20/18 at 12:00 Heparin Sodium (Porcine) (Heparin (1000 Units/ml)) 4,500 unit AFTER DIALYSIS CATHETER Last administered on 09/19/18 13:49; Admin Dose 4,500 UNIT; Start 09/19/18 at 12:30 Morphine Sulfate (morphine) 2 mg Q6H PRN IV SEVERE PAIN LEVEL 7-10 Last administered on 09/19/18 18:42; Admin Dose 2 MG; Start 09/19/18 at 17:30 Diphenhydramine HCl (Benadryl) 25 mg Q6H PRN IV itchiness Last administered on 09/20/18at 00:08; Admin Dose 25 MG; Start 09/19/18 at 17:30 Lorazepam (Ativan) 1 mg Q4 PRN IV AGITATION Last administered on 09/20/18 02:22; Admin Dose 1 MG; Start 09/20/18 at 02:30 Hydralazine HCl (Apresoline) 50 mg TID PO ; Start 09/20/18 at 13:00 JOSE ABAD NP Sep 20, 2018 11:13
--- NOTE | 2018-09-20 11:17 | RADRPT ---
Vent Rate: 93 bpm RR Interval: 652 msec IN Interval: 149 msec QRS Duration: 127 msec QT Interval: 426 msec QTC Interval: 528 msec P-R-T [place]: 37 - -141 - 33 degrees Sinus rhythm...normal P axis, V-rate 50- 99 Atrial premature complex...SV complex w/ short R-R interval Right bundle branch block...QRSd>120, terminal axis(90,270) Electronically Signed By: Saravanan Chavez
[2018-09-20] MEDS: ATORVASTATIN 20 MG TAB PO SCH ×2 (21:00→23:29)
[2018-09-20] MEDS: INSULIN GLARGINE [LANTus] (100 UNITS/ML) SYG SC SCH (21:11)
[2018-09-21] VITALS (33 sets, daily range): BP systolic 97–158; BP diastolic 62–113; PULSE 77–106; RESP 11–25
[2018-09-21] MEDS: morphine 2 MG INJ IV PRN (06:55)
[2018-09-21] MEDS: INSULIN ASPART [NOVOLOG] 3 ML PEN SC SCH ×4 (08:32→20:43)
--- NOTE | 2018-09-21 08:40 | PN ---
Date/Time of Note Date/Time of Note DATE: 09/21/18 TIME: 08:39 Assessment/Plan VTE Prophylaxis Risk score (from Ns)>0 risk: 10 SCD applied (from Ns): Yes Pharmacological prophylaxis: NA/contraindicated Pharm contraindication: other Lines/Catheters IV Catheter Type (from [facility] Perma cath Urinary Cath still in place: No Assessment/Plan Hospital Course SUBJECTIVE: The patient is off restraints. No more confused. OBJECTIVE: Physical Exam General: Adequately build 73 year-old male lying in bed in no apparent distress. HEENT: Normocephalic, atraumatic. Eyes: Anicteric sclerae, conjunctivae clear. ENT: Nasal septum midline, oral mucosa moist. Neck supple, no JVD noticed. Respiratory: Bilaterally diminished breath sounds. No use of accessory muscles of respiration. No adventitious breath sounds. Cardiovascular: S1, S2 heard. Regular rate and rhythm. Abdomen: Soft, nontender, and nondistended. Bowel sounds positive in all 4 quadrants. Genitourinary: Deferred. Extremities: No cyanosis, no clubbing, no edema. Peripheral pulses palpable. Neurologic: The patient is awake. Confused. Skin: Normal skin turgor. No skin rashes. Labs & Vitals per chart ASSESSMENT & PLAN 73-year-old male with type II DM, HTN, A. fib, hyperlipidemia, hypothyroidism, and ESRD with abnormal stress test brought in for elective LHC w/ PTCA/stent to LCx who went into complete heart block with placement of a transvenous pacing wire, who was admitted to inpatient intensive care unit for further management. 1. Abnormal stress test, CAD. Status post PTCA and stent to left circumflex. Continue dual antiplatelet therapy. Continue statins. 2. Complete heart block. Status post transvenous pacemaker placement (pulled out by the patient). Avoid AV mikayla blocking agents. Continue intensive care unit monitoring. PPM insertion aborted because of episode of confusion. 3. Hypertension. Continue antihypertensives. Avoid AV mikayla blocking agents. 4. Diabetes mellitus type 2. Continue the patient on sliding scale insulin and basal insulin. Hemoglobin A1c 8.1. 5. ESRD on hemodialysis. Nephrology following. S/P HD after LHC. 6. Dyslipidemia. Continue statins. 7. Anemia chronic disease. Monitor H&H closely. 8. History of hypothyroidism. Thyroid panel within normal limits. 9. Acute encephalopathy. Etiology unclear. Possibly toxic metabolic in origin. 9. Fluids, electrolytes, and nutrition. Carbohydrate controlled, low-cholesterol, renal diet. 10. DVT prophylaxis. Resuming factor Xa inhibitors will be deferred to cardiology. 11. Plan. Continue dual antiplatelet therapy. Continue cardiology recommendations. The patient was seen in collaboration with Dr. Huston. Critical care time: 35 minutes. Result Diagram: 09/21/18 0427 09/21/18 0427 Results 24hrs Laboratory Tests Test 09/20/18 09:49 09/20/18 11:02 09/20/18 16:53 09/20/18 21:06 Prothrombin Time 13.4 Prothrombin Time Ratio 1.0 INR International 1.01 Normalized Ratio Bedside Glucose 192 182 137 Test 09/21/18 04:27 09/21/18 08:17 White Blood Count 9.6 Red Blood Count 3.70 L Hemoglobin 11.1 L Hematocrit 33.1 L Mean Corpuscular Volume 89.5 Mean Corpuscular 30.0 Hemoglobin Mean Corpuscular 33.5 Hemoglobin Concent Red Cell Distribution 13.2 Width Platelet Count 123 L Mean Platelet Volume 11.3 H Immature Granulocytes % 0.400 Neutrophils % 71.4 Lymphocytes % 13.8 L Monocytes % 7.1 Eosinophils % 6.7 Basophils % 0.6 Nucleated Red Blood 0.0 Cells % Immature Granulocytes # 0.040 H Neutrophils # 6.8 Lymphocytes # 1.3 Monocytes # 0.7 Eosinophils # 0.6 H Basophils # 0.1 Nucleated Red Blood 0.0 Cells # Sodium Level 137 Potassium Level 5.2 H Chloride Level 99 Carbon Dioxide Level 28 Anion Gap 10 Blood Urea Nitrogen 55 H Creatinine 7.97 #H Est Glomerular Filtrat Rate mL/min Glucose Level 142 Calcium Level 9.3 Phosphorus Level 6.0 H Magnesium Level 2.1 Bedside Glucose 208 Exam/Review of Systems Exam Vitals Vital Signs Date Temp Pulse Resp B/P (MAP) Pulse Ox O2 O2 Flow FiO2 Time Delivery Rate 09/21/18 77 13 142/67 95 07:00 (92) 09/21/18 Room Air 06:00 09/21/18 98.2 04:00 Intake and Output 09/20/18 09/20/18 09/21/18 1515:00 23:00 07:00 IntakeIntake Total 0 ml 0 ml 120 ml BalanceBalance 0 ml 0 ml 120 ml Results Results 24hrs Laboratory Tests Test 09/20/18 09:49 09/20/18 11:02 09/20/18 16:53 09/20/18 21:06 Prothrombin Time 13.4 Prothrombin Time Ratio 1.0 INR International 1.01 Normalized Ratio Bedside Glucose 192 182 137 Test 09/21/18 04:27 09/21/18 08:17 White Blood Count 9.6 Red Blood Count 3.70 L Hemoglobin 11.1 L Hematocrit 33.1 L Mean Corpuscular Volume 89.5 Mean Corpuscular 30.0 Hemoglobin Mean Corpuscular 33.5 Hemoglobin Concent Red Cell Distribution 13.2 Width Platelet Count 123 L Mean Platelet Volume 11.3 H Immature Granulocytes % 0.400 Neutrophils % 71.4 Lymphocytes % 13.8 L Monocytes % 7.1 Eosinophils % 6.7 Basophils % 0.6 Nucleated Red Blood 0.0 Cells % Immature Granulocytes # 0.040 H Neutrophils # 6.8 Lymphocytes # 1.3 Monocytes # 0.7 Eosinophils # 0.6 H Basophils # 0.1 Nucleated Red Blood 0.0 Cells # Sodium Level 137 Potassium Level 5.2 H Chloride Level 99 Carbon Dioxide Level 28 Anion Gap 10 Blood Urea Nitrogen 55 H Creatinine 7.97 #H Est Glomerular Filtrat Rate mL/min Glucose Level 142 Calcium Level 9.3 Phosphorus Level 6.0 H Magnesium Level 2.1 Bedside Glucose 208 Medications Medication Current Medications Sodium Chloride 1,000 ml @ 0 mls/hr Q0M IV Last administered on 09/18/18at 16:45; Admin Dose 10 MLS/HR; Start 09/18/18 at 11:30 Aspirin (Halfprin) 81 mg DAILY PO Last administered on 09/20/18at 08:13; Admin Dose 81 MG; Start 09/19/18 at 09:00 Clopidogrel Bisulfate (plaVIX) 75 mg DAILY PO Last administered on 09/20/18at 08:13; Admin Dose 75 MG; Start 09/19/18 at 09:00 Acetaminophen (Tylenol Tab) 650 mg Q4H PRN PO PAIN; Start 09/18/18 at 15:00 Oxycodone/ Acetaminophen (Percocet (5/ 325)) 1 tab Q4H PRN PO PAIN Last administered on 09/19/18at 15:19; Admin Dose 1 TAB; Start 09/18/18 at 15:00 Al Hydrox/Mg Hydrox/Simethicone (Mag-Al Plus) 30 ml Q4H PRN PO GASTROINTESTINAL UPSET; Start 09/18/18 at 15:00 Ondansetron HCl (Zofran Inj) 4 mg Q4H PRN IV NAUSEA AND/OR VOMITING; Start 09/18/18 at 15:00 Nifedipine (Procardia Xl) 90 mg BID PO Last administered on 09/20/18at 23:30; Admin Dose 90 MG; Start 09/18/18 at 21:00 Hydralazine HCl (Apresoline) 10 mg Q4H PRN IV SBP>170 Last administered on 09/20/18at 15:30; Admin Dose 10 MG; Start 09/18/18 at 16:00 Insulin Glargine (Lantus) 11 units DAILY@2000 SC Last administered on 09/20/18at 21:11; Admin Dose 11 UNITS; Start 09/18/18 at 20:00 Insulin Aspart (Novolog Insulin Pen) NOVOLOG *MILD* ALGORITHM WITH MEALS BEDTIME SC Last administered on 09/21/18at 08:32; Admin Dose 2 UNIT; Start 09/18/18 at 17:35 Miscellaneous Information 1 ea NOTE XX ; Start 09/18/18 at 16:30 Glucose (Glutose) 15 gm Q15M PRN PO DECREASED GLUCOSE; Start 09/18/18 at 16:30 Glucose (Glutose) 22.5 gm Q15M PRN PO DECREASED GLUCOSE; Start 09/18/18 at 16:30 Dextrose (D50w Syringe) 25 ml Q15M PRN IV DECREASED GLUCOSE; Start 09/18/18 at 16:30 Dextrose (D50w Syringe) 50 ml Q15M PRN IV DECREASED GLUCOSE; Start 09/18/18 at 16:30 Glucagon (Glucagen) 1 mg Q15M PRN IM DECREASED GLUCOSE; Start 09/18/18 at 16:30 Glucose (Glutose) 15 gm Q15M PRN BUCCAL DECREASED GLUCOSE; Start 09/18/18 at 16:30 Albumin Human 100 ml @ 100 mls/hr WITH DIALYSIS PRN IV SBP <90 DURING DIALYSIS; Start 09/18/18 at 19:30 Sodium Chloride (NS) -To prime the dialy... DIRECTED FOR HD PRN IV HD; Start 09/18/18 at 19:30 Famotidine (Pepcid) 20 mg DAILY PO Last administered on 09/20/18 08:13; Admin Dose 20 MG; Start 09/19/18 at 09:00 Atorvastatin Calcium (Lipitor) 20 mg HS PO Last administered on 09/20/18 23:29; Admin Dose 20 MG; Start 09/19/18 at 21:00 Heparin Sodium (Porcine) (Heparin (1000 Units/ml)) 4,500 unit AFTER DIALYSIS CATHETER Last administered on 09/19/18 13:49; Admin Dose 4,500 UNIT; Start 09/19/18 at 12:30 Morphine Sulfate (morphine) 2 mg Q6H PRN IV SEVERE PAIN LEVEL 7-10 Last administered on 09/21/18 06:55; Admin Dose 2 MG; Start 09/19/18 at 17:30 Diphenhydramine HCl (Benadryl) 25 mg Q6H PRN IV itchiness Last administered on 09/20/18 00:08; Admin Dose 25 MG; Start 09/19/18 at 17:30 Lorazepam (Ativan) 1 mg Q4 PRN IV AGITATION Last administered on 09/20/18 02:22; Admin Dose 1 MG; Start 09/20/18 at 02:30 Hydralazine HCl (Apresoline) 50 mg TID PO Last administered on 09/20/18 23:30; Admin Dose 50 MG; Start 09/20/18 at 13:00 JOSE ABAD NP Sep 21, 2018 08:40
[2018-09-21] MEDS ORDERED: BISACODYL (EC) 5 MG TAB PO PRN (09:00)
[2018-09-21] MEDS: NIFEdipine (XL) 90 MG TAB PO SCH ×2 (09:00→20:37)
[2018-09-21] MEDS: FAMOTIDINE 20 MG TAB PO SCH (09:52)
[2018-09-21] MEDS: POLYETHYLENE GLYCOL 17 GM PACKET PO SCH ×2 (09:52→21:00)
[2018-09-21] MEDS: CLOPIDOGREL 75 MG TAB PO SCH (09:52)
[2018-09-21] MEDS: ASPIRIN (EC) 81 MG TAB PO SCH (09:52)
--- NOTE | 2018-09-21 12:21 | CONS ---
Assessment/Plan Assessment/Plan Hospital Course (Demo Recall) IMP: 1.POD#3 s/p stent x 1 to LCX for high grade stenosis 2.CHB requiring placement of temp paciine-currently resolved. Patient self d/c'd temp pacing wire 09/20 when confused and was unable to have PPM placed 09/20 due to acute change in MS which is now back to baseline 3.HTN 4.ESRD on HD 5. Positive troponin-after stenting in setting of esrd. No chest pain. NO sig uptrend. only slow downtrend in the setting of ESRD Recc: -ICU but ok for transfer to tele -patient agitated and consfused this am and self d/c'd temp pacing wire. PPM cancelled due to patient agitation and confusion. Rescheduled for later date per EP when patient has improved MS -Continue asa/plavix/statin -continue baseline antihypertensives with slight increase to improve BP control -Follow rhythm closely for any recurrent bradycardia/heart block. Patient placed on schedule for PPM monday as necessary. -trend cardiac enzymes and thus will check a set today Consultation Date/Type/Reason Admit Date/Time Sep 18, 2018 at 14:44 Initial Consult Date 09/18/18 Type of Consult Cardiology Reason for Consultation s/p stent/heart block Requesting Provider: JOSE ABAD NP Date/Time of Note DATE: 09/21/18 TIME: 12:15 Exam/Review of Systems Vital Signs Vitals Vital Signs Date Temp Pulse Resp B/P (MAP) Pulse Ox O2 O2 Flow FiO2 Time Delivery Rate 09/21/18 90 12:00 09/21/18 16 158/72 100 Room Air 10:45 (100) 09/21/18 98.2 04:00 Intake and Output 09/20/18 09/20/18 09/21/18 1515:00 23:00 07:00 IntakeIntake Total 0 ml 0 ml 120 ml BalanceBalance 0 ml 0 ml 120 ml Exam Exam Review of Systems: CONSTITUTIONAL: No fevers, chills. PULMONARY: No sob CARDIOVASCULAR: No chest pain/palpitations GASTROINTESTINAL: No nausea/vomiting. GENITOURINARY: No hematuria/dysuria. MUSCULOSKELETAL: No myagias/arthalgias. PSYCHIATRIC: The patient denies depression. NEUROLOGIC: No weakness Constitutional: alert Psych: no complaints Head: normocephalic ENMT: mucosa pink and moist Neck: supple, jvd (9 cm water) Respiratory: diminished breath sounds (at bases/B) Cardiovascular: regular rate and rhythm Gastrointestinal: soft, non-tender Musculoskeletal: muscle weakness (mild generalized) Extremities: edema (trace/B) Neurological: lethargic (somewhat) Labs Result Diagram: 09/21/18 0427 09/21/18 0427 Results 24hrs Laboratory Tests Test 09/20/18 16:53 09/20/18 21:06 09/21/18 04:27 09/21/18 08:17 Bedside Glucose 182 137 208 White Blood Count 9.6 Red Blood Count 3.70 L Hemoglobin 11.1 L Hematocrit 33.1 L Mean Corpuscular Volume 89.5 Mean Corpuscular 30.0 Hemoglobin Mean Corpuscular 33.5 Hemoglobin Concent Red Cell Distribution 13.2 Width Platelet Count 123 L Mean Platelet Volume 11.3 H Immature Granulocytes % 0.400 Neutrophils % 71.4 Lymphocytes % 13.8 L Monocytes % 7.1 Eosinophils % 6.7 Basophils % 0.6 Nucleated Red Blood 0.0 Cells % Immature Granulocytes # 0.040 H Neutrophils # 6.8 Lymphocytes # 1.3 Monocytes # 0.7 Eosinophils # 0.6 H Basophils # 0.1 Nucleated Red Blood 0.0 Cells # Sodium Level 137 Potassium Level 5.2 H Chloride Level 99 Carbon Dioxide Level 28 Anion Gap 10 Blood Urea Nitrogen 55 H Creatinine 7.97 #H Est Glomerular Filtrat Rate mL/min Glucose Level 142 Calcium Level 9.3 Phosphorus Level 6.0 H Magnesium Level 2.1 Medications Medications Current Medications Aspirin (Halfprin) 81 mg DAILY PO Last administered on 09/21/18at 09:52; Admin Dose 81 MG; Start 09/19/18 at 09:00 Clopidogrel Bisulfate (plaVIX) 75 mg DAILY PO Last administered on 09/21/18at 09:52; Admin Dose 75 MG; Start 09/19/18 at 09:00 Acetaminophen (Tylenol Tab) 650 mg Q4H PRN PO PAIN; Start 09/18/18 at 15:00 Oxycodone/ Acetaminophen (Percocet (5/ 325)) 1 tab Q4H PRN PO PAIN Last administered on 09/19/18at 15:19; Admin Dose 1 TAB; Start 09/18/18 at 15:00 Al Hydrox/Mg Hydrox/Simethicone (Mag-Al Plus) 30 ml Q4H PRN PO GASTROINTESTINAL UPSET; Start 09/18/18 at 15:00 Ondansetron HCl (Zofran Inj) 4 mg Q4H PRN IV NAUSEA AND/OR VOMITING; Start at 15:00 Nifedipine (Procardia Xl) 90 mg BID PO Last administered on 09/20/18at 23:30; Admin Dose 90 MG; Start 09/18/18 at 21:00 Hydralazine HCl (Apresoline) 10 mg Q4H PRN IV SBP>170 Last administered on 09/20/18at 15:30; Admin Dose 10 MG; Start 09/18/18 at 16:00 Insulin Glargine (Lantus) 11 units DAILY@2000 SC Last administered on 09/20/18at 21:11; Admin Dose 11 UNITS; Start 09/18/18 at 20:00 Insulin Aspart (Novolog Insulin Pen) NOVOLOG *MILD* ALGORITHM WITH MEALS BEDTIME SC Last administered on 09/21/18at 08:32; Admin Dose 2 UNIT; Start 09/18/18 at 17:35 Miscellaneous Information 1 ea NOTE XX ; Start 09/18/18 at 16:30 Glucose (Glutose) 15 gm Q15M PRN PO DECREASED GLUCOSE; Start 09/18/18 at 16:30 Glucose (Glutose) 22.5 gm Q15M PRN PO DECREASED GLUCOSE; Start 09/18/18 at 16:30 Dextrose (D50w Syringe) 25 ml Q15M PRN IV DECREASED GLUCOSE; Start 09/18/18 at 16:30 Dextrose (D50w Syringe) 50 ml Q15M PRN IV DECREASED GLUCOSE; Start 09/18/18 at 16:30 Glucagon (Glucagen) 1 mg Q15M PRN IM DECREASED GLUCOSE; Start 09/18/18 at 16:30 Glucose (Glutose) 15 gm Q15M PRN BUCCAL DECREASED GLUCOSE; Start 09/18/18 at 16:30 Albumin Human 100 ml @ 100 mls/hr WITH DIALYSIS PRN IV SBP <90 DURING DIALYSIS; Start 09/18/18 at 19:30 Sodium Chloride (NS) -To prime the dialy... DIRECTED FOR HD PRN IV HD; Start 09/18/18 at 19:30 Famotidine (Pepcid) 20 mg DAILY PO Last administered on 09/21/18 09:52; Admin Dose 20 MG; Start 09/19/18 at 09:00 Atorvastatin Calcium (Lipitor) 20 mg HS PO Last administered on 09/20/18 23:29; Admin Dose 20 MG; Start 09/19/18 at 21:00 Heparin Sodium (Porcine) (Heparin (1000 Units/ml)) 4,500 unit AFTER DIALYSIS CATHETER Last administered on 09/19/18 13:49; Admin Dose 4,500 UNIT; Start 09/19/18 at 12:30 Morphine Sulfate (morphine) 2 mg Q6H PRN IV SEVERE PAIN LEVEL 7-10 Last administered on 09/21/18 06:55; Admin Dose 2 MG; Start 09/19/18 at 17:30 Diphenhydramine HCl (Benadryl) 25 mg Q6H PRN IV itchiness Last administered on 09/20/18 00:08; Admin Dose 25 MG; Start 09/19/18 at 17:30 Lorazepam (Ativan) 1 mg Q4 PRN IV AGITATION Last administered on 09/20/18 02:22; Admin Dose 1 MG; Start 09/20/18 at 02:30 Hydralazine HCl (Apresoline) 50 mg TID PO Last administered on 09/20/18 23:30; Admin Dose 50 MG; Start 09/20/18 at 13:00 Polyethylene Glycol (Miralax) 17 gm BID PO Last administered on 09/21/18 09:52; Admin Dose 17 GM; Start 09/21/18 at 09:00 Bisacodyl (Dulcolax) 10 mg DAILY PRN PO CONSTIPATION; Start 09/21/18 at 09:00 SNOW BECKER Sep 21, 2018 12:21
--- NOTE | 2018-09-21 12:55 | CONS ---
Assessment/Plan Assessment/Plan Assessment/Plan (Daily) 1. Complete heart block- s/p Transcutaneous pacer in place- awaiting permanent pacemaker placement 2. Obstructive CAD s/p PCI and EDWIN To Circumflex by Dr. Olivera on 09/18/18 3. ESRD on HD MWF 4. H/o HTN 5. h/o HL 6. Anemia of ESRD 7. H/o Atrial fibrillation 8. agitation confusion ,possibly delirium acute Plan: s/p HD today 2 L removed, pt regular schedule is TTS, he follows at [facility] , HD ordered for monday also awaiting pacemaker placement Conitnue Home BP meds, IV hydralazine prn will follow up Consultation Date/Type/Reason Admit Date/Time Sep 18, 2018 at 14:44 Initial Consult Date 09/18/18 Type of Consult NEPHROLOGY Requesting Provider: JOSE ABAD NP Date/Time of Note DATE: 09/21/18 TIME: 12:55 24 HR Interval Summary Free Text/Dictation s/p HD today 2 L removed, BP stable Exam/Review of Systems Exam Vitals Vital Signs Date Temp Pulse Resp B/P (MAP) Pulse Ox O2 O2 Flow FiO2 Time Delivery Rate 09/21/18 102 12:45 09/21/18 16 158/72 100 Room Air 10:45 (100) 09/21/18 98.2 04:00 Intake and Output 09/20/18 09/20/18 09/21/18 1515:00 23:00 07:00 IntakeIntake Total 0 ml 0 ml 120 ml BalanceBalance 0 ml 0 ml 120 ml Exam Constitutional: alert , more alert today Neck: supple, non-tender Respiratory: clear to auscultation, transcutaenous pacer pads on , + right chest permacath in place Cardiovascular: regular rate and rhythm, nl pulses Gastrointestinal: soft, non-tender Musculoskeletal: nl extremities to inspection Neurological: non focal Lymph: nl lymph nodes Results Result Diagram: 09/21/18 0427 09/21/187 Results 24hrs Laboratory Tests Test 09/20/18 16:53 09/20/18 21:06 09/21/18 04:27 09/21/18 08:17 Bedside Glucose 182 137 208 White Blood Count 9.6 Red Blood Count 3.70 L Hemoglobin 11.1 L Hematocrit 33.1 L Mean Corpuscular Volume 89.5 Mean Corpuscular 30.0 Hemoglobin Mean Corpuscular 33.5 Hemoglobin Concent Red Cell Distribution 13.2 Width Platelet Count 123 L Mean Platelet Volume 11.3 H Immature Granulocytes % 0.400 Neutrophils % 71.4 Lymphocytes % 13.8 L Monocytes % 7.1 Eosinophils % 6.7 Basophils % 0.6 Nucleated Red Blood 0.0 Cells % Immature Granulocytes # 0.040 H Neutrophils # 6.8 Lymphocytes # 1.3 Monocytes # 0.7 Eosinophils # 0.6 H Basophils # 0.1 Nucleated Red Blood 0.0 Cells # Sodium Level 137 Potassium Level 5.2 H Chloride Level 99 Carbon Dioxide Level 28 Anion Gap 10 Blood Urea Nitrogen 55 H Creatinine 7.97 #H Est Glomerular Filtrat Rate mL/min Glucose Level 142 Calcium Level 9.3 Phosphorus Level 6.0 H Magnesium Level 2.1 Test 09/21/18 12:22 Bedside Glucose 178 Medications Medication Current Medications Aspirin (Halfprin) 81 mg DAILY PO Last administered on 09/21/18 09:52; Admin Dose 81 MG; Start 09/19/18 at 09:00 Clopidogrel Bisulfate (plaVIX) 75 mg DAILY PO Last administered on 09/21/18 09:52; Admin Dose 75 MG; Start 09/19/18 at 09:00 Acetaminophen (Tylenol Tab) 650 mg Q4H PRN PO PAIN; Start 09/18/18 at 15:00 Oxycodone/ Acetaminophen (Percocet (5/ 325)) 1 tab Q4H PRN PO PAIN Last administered on 09/19/18 15:19; Admin Dose 1 TAB; Start 09/18/18 at 15:00 Al Hydrox/Mg Hydrox/Simethicone (Mag-Al Plus) 30 ml Q4H PRN PO GASTROINTESTINAL UPSET; Start 09/18/18 at 15:00 Ondansetron HCl (Zofran Inj) 4 mg Q4H PRN IV NAUSEA AND/OR VOMITING; Start 09/18 at 15:00 Nifedipine (Procardia Xl) 90 mg BID PO Last administered on 09/20/18 23:30; Admin Dose 90 MG; Start 09/18/18 at 21:00 Hydralazine HCl (Apresoline) 10 mg Q4H PRN IV SBP>170 Last administered on 09/20/18 15:30; Admin Dose 10 MG; Start 09/18/18 at 16:00 Insulin Glargine (Lantus) 11 units DAILY@2000 SC Last administered on 09/20/18 21:11; Admin Dose 11 UNITS; Start 09/18/18 at 20:00 Insulin Aspart (Novolog Insulin Pen) NOVOLOG *MILD* ALGORITHM WITH MEALS BEDTIME SC Last administered on 09/21/18 12:26; Admin Dose 1 UNIT; Start 09/18/18 at 17:35 Miscellaneous Information 1 ea NOTE XX ; Start 09/18/18 at 16:30 Glucose (Glutose) 15 gm Q15M PRN PO DECREASED GLUCOSE; Start 09/18/18 at 16:30 Glucose (Glutose) 22.5 gm Q15M PRN PO DECREASED GLUCOSE; Start 09/18/18 at 16:30 Dextrose (D50w Syringe) 25 ml Q15M PRN IV DECREASED GLUCOSE; Start 09/18/18 at 16:30 Dextrose (D50w Syringe) 50 ml Q15M PRN IV DECREASED GLUCOSE; Start 09/18/18 at 16:30 Glucagon (Glucagen) 1 mg Q15M PRN IM DECREASED GLUCOSE; Start 09/18/18 at 16:30 Glucose (Glutose) 15 gm Q15M PRN BUCCAL DECREASED GLUCOSE; Start 09/18/18 at 16:30 Albumin Human 100 ml @ 100 mls/hr WITH DIALYSIS PRN IV SBP <90 DURING DIALYSIS; Start 09/18/18 at 19:30 Sodium Chloride (NS) -To prime the dialy... DIRECTED FOR HD PRN IV HD; Start 09/18/18 at 19:30 Famotidine (Pepcid) 20 mg DAILY PO Last administered on 09/21/18 09:52; Admin Dose 20 MG; Start 09/19/18 at 09:00 Atorvastatin Calcium (Lipitor) 20 mg HS PO Last administered on 09/20/18at 23:29; Admin Dose 20 MG; Start 09/19/18 at 21:00 Heparin Sodium (Porcine) (Heparin (1000 Units/ml)) 4,500 unit AFTER DIALYSIS CATHETER Last administered on 09/19/18at 13:49; Admin Dose 4,500 UNIT; Start 09/19/18 at 12:30 Morphine Sulfate (morphine) 2 mg Q6H PRN IV SEVERE PAIN LEVEL 7-10 Last a dministered on 09/21/18 06:55; Admin Dose 2 MG; Start 09/19/18 at 17:30 Diphenhydramine HCl (Benadryl) 25 mg Q6H PRN IV itchiness Last administered on 09/20/18 00:08; Admin Dose 25 MG; Start 09/19/18 at 17:30 Lorazepam (Ativan) 1 mg Q4 PRN IV AGITATION Last administered on 09/20/18 02:22; Admin Dose 1 MG; Start 09/20/18 at 02:30 Hydralazine HCl (Apresoline) 50 mg TID PO Last administered on 09/20/18 23:30; Admin Dose 50 MG; Start 09/20/18 at 13:00 Polyethylene Glycol (Miralax) 17 gm BID PO Last administered on 09/21/18 09:52; Admin Dose 17 GM; Start 09/21/18 at 09:00 Bisacodyl (Dulcolax) 10 mg DAILY PRN PO CONSTIPATION; Start 09/21/18 at 09:00 LILLY QUILES MD Sep 21, 2018 12:55
[2018-09-21] MEDS: HEPARIN 1000 UNITS/ML 10 ML INJ CATHETER SCH (13:39)
[2018-09-21] MEDS: DIPHENHYDRAMINE 50 MG INJ IV PRN ×2 (14:43→20:47)
[2018-09-21] MEDS: ATORVASTATIN 20 MG TAB PO SCH (20:37)
[2018-09-21] MEDS: INSULIN GLARGINE [LANTus] (100 UNITS/ML) SYG SC SCH (20:43)
[2018-09-21] MEDS ORDERED: LIDOCAINE 1% (MPF) 5 ML VIAL SC ONE (23:30)
[2018-09-22] VITALS (33 sets, daily range): BP systolic 92–157; BP diastolic 57–85; PULSE 77–99; RESP 10–22
[2018-09-22] MEDS: INSULIN ASPART [NOVOLOG] 3 ML PEN SC SCH ×4 (08:03→20:48)
[2018-09-22] MEDS: FAMOTIDINE 20 MG TAB PO SCH (08:08)
[2018-09-22] MEDS: CLOPIDOGREL 75 MG TAB PO SCH (08:08)
[2018-09-22] MEDS: POLYETHYLENE GLYCOL 17 GM PACKET PO SCH ×2 (08:08→20:39)
[2018-09-22] MEDS: ASPIRIN (EC) 81 MG TAB PO SCH (08:08)
[2018-09-22] MEDS: NIFEdipine (XL) 90 MG TAB PO SCH ×2 (08:09→20:39)
--- NOTE | 2018-09-22 10:15 | CONS ---
Assessment/Plan Assessment/Plan Hospital Course (Demo Recall) No acute events c/o pruritis, no CV complaints Tele: Ectopic atrial rhythm, HR 70-80s, no AVB or pauses since in the ICU IMP: 1.POD#3 s/p stent x 1 to LCX for high grade stenosis 2.CHB requiring placement of temp pacing-currently resolved. Patient self d/c'd temp pacing wire 09/20 when confused and was unable to have PPM placed 09/20 due to acute change in MS which is now back to baseline 3.HTN, well controlled 4.ESRD on HD 5. Positive troponin-after stenting in setting of esrd. No chest pain. NO sig uptrend. only slow downtrend in the setting of ESRD Recc: - ok for transfer to tele - continue to monitor on tele - Continue asa/plavix/statin - continue current BP meds - Follow rhythm closely for any recurrent bradycardia/heart block. Patient placed on schedule for PPM monday as necessary. Consultation Date/Type/Reason Admit Date/Time Sep 18, 2018 at 14:44 Initial Consult Date 09/18/18 Type of Consult Cardiology Requesting Provider: JOSE ABAD NP Date/Time of Note DATE: 09/22/18 TIME: 10:11 Exam/Review of Systems Vital Signs Vitals Vital Signs Date Temp Pulse Resp B/P (MAP) Pulse Ox O2 O2 Flow FiO2 Time Delivery Rate 09/22/18 85 17 109/62 99 Room Air 09:00 (78) 09/22/18 98.8 08:00 Intake and Output 09/21/18 09/21/18 09/22/18 1515:00 23:00 07:00 IntakeIntake Total 480 ml 270 ml 0 ml OutputOutput Total 4400 ml BalanceBalance -3920 ml 270 ml 0 ml Labs Result Diagram: 09/22/18 0449 09/22/18 0449 Results 24hrs Laboratory Tests Test 09/21/18 12:22 09/21/18 17:47 09/21/18 20:36 09/22/18 04:49 Bedside Glucose 178 218 214 White Blood Count 8.7 Red Blood Count 3.63 L Hemoglobin 10.9 L Hematocrit 33.1 L Mean Corpuscular 91.2 Volume Mean Corpuscular 30.0 Hemoglobin Mean Corpuscular 32.9 Hemoglobin Concent Red Cell Distribution 13.2 Width Platelet Count 152 # Mean Platelet Volume 11.4 H Immature Granulocytes 0.500 H % Neutrophils % 67.1 Lymphocytes % 15.4 Monocytes % 8.9 Eosinophils % 7.5 H Basophils % 0.6 Nucleated Red Blood 0.0 Cells % Immature Granulocytes 0.040 H # Neutrophils # 5.8 Lymphocytes # 1.3 Monocytes # 0.8 Eosinophils # 0.7 H Basophils # 0.1 Nucleated Red Blood 0.0 Cells # Sodium Level 140 Potassium Level 4.8 Chloride Level 100 Carbon Dioxide Level 27 Anion Gap 13 Blood Urea Nitrogen 43 #H Creatinine 7.07 H Est Glomerular Filtrat Rate mL/min Glucose Level 154 Calcium Level 9.2 Phosphorus Level 5.0 H Magnesium Level 2.2 Test 09/22/18 08:00 Bedside Glucose 173 Medications Medications Current Medications Aspirin (Halfprin) 81 mg DAILY PO Last administered on 09/22/18 08:08; Admin Dose 81 MG; Start 09/19/18 at 09:00 Clopidogrel Bisulfate (plaVIX) 75 mg DAILY PO Last administered on 09/22/18 08:08; Admin Dose 75 MG; Start 09/19/18 at 09:00 Acetaminophen (Tylenol Tab) 650 mg Q4H PRN PO PAIN; Start 09/18/18 at 15:00 Oxycodone/ Acetaminophen (Percocet (5/ 325)) 1 tab Q4H PRN PO PAIN Last administered on 09/19/18 15:19; Admin Dose 1 TAB; Start 09/18/18 at 15:00 Al Hydrox/Mg Hydrox/Simethicone (Mag-Al Plus) 30 ml Q4H PRN PO GASTROINTESTINAL UPSET Last administered on 09/21/18at 14:43; Admin Dose 30 ML; Start 09/18/18 at 15:00 Ondansetron HCl (Zofran Inj) 4 mg Q4H PRN IV NAUSEA AND/OR VOMITING; Start 09/18/18 at 15:00 Nifedipine (Procardia Xl) 90 mg BID PO Last administered on 09/22/18 08:09; Admin Dose 90 MG; Start 09/18/18 at 21:00 Hydralazine HCl (Apresoline) 10 mg Q4H PRN IV SBP>170 Last administered on 09/20/18 15:30; Admin Dose 10 MG; Start 09/18/18 at 16:00 Insulin Glargine (Lantus) 11 units DAILY@2000 SC Last administered on 09/21/18at 20:43; Admin Dose 11 UNITS; Start 09/18/18 at 20:00 Insulin Aspart (Novolog Insulin Pen) NOVOLOG *MILD* ALGORITHM WITH MEALS BEDTIME SC Last administered on 09/22/18 08:03; Admin Dose 1 UNIT; Start 09/18/18 at 17:35 Miscellaneous Information 1 ea NOTE XX ; Start 09/18/18 at 16:30 Glucose (Glutose) 15 gm Q15M PRN PO DECREASED GLUCOSE; Start 09/18/18 at 16:30 Glucose (Glutose) 22.5 gm Q15M PRN PO DECREASED GLUCOSE; Start 09/18/18 at 16:30 Dextrose (D50w Syringe) 25 ml Q15M PRN IV DECREASED GLUCOSE; Start 09/18/18 at 16:30 Dextrose (D50w Syringe) 50 ml Q15M PRN IV DECREASED GLUCOSE; Start 09/18/18 at 16:30 Glucagon (Glucagen) 1 mg Q15M PRN IM DECREASED GLUCOSE; Start 09/18/18 at 16:30 Glucose (Glutose) 15 gm Q15M PRN BUCCAL DECREASED GLUCOSE; Start 09/18/18 at 16:30 Albumin Human 100 ml @ 100 mls/hr WITH DIALYSIS PRN IV SBP <90 DURING DIALYSIS; Start 09/18/18 at 19:30 Famotidine (Pepcid) 20 mg DAILY PO Last administered on 09/22/18 08:08; Admin Dose 20 MG; Start 09/19/18 at 09:00 Atorvastatin Calcium (Lipitor) 20 mg HS PO Last administered on 09/21/18at 20:37; Admin Dose 20 MG; Start 09/19/18 at 21:00 Heparin Sodium (Porcine) (Heparin (1000 Units/ml)) 4,500 unit AFTER DIALYSIS CATHETER Last administered on 09/21/18at 13:39; Admin Dose 4,500 UNIT; Start 09/19/18 at 12:30 Morphine Sulfate (morphine) 2 mg Q6H PRN IV SEVERE PAIN LEVEL 7-10 Last administered on 09/21/18at 06:55; Admin Dose 2 MG; Start 09/19/18 at 17:30 Diphenhydramine HCl (Benadryl) 25 mg Q6H PRN IV itchiness Last administered on 09/21/18 20:47; Admin Dose 25 MG; Start 09/19/18 at 17:30 Lorazepam (Ativan) 1 mg Q4 PRN IV AGITATION Last administered on 09/20/18 02:22; Admin Dose 1 MG; Start 09/20/18 at 02:30 Hydralazine HCl (Apresoline) 50 mg TID PO Last administered on 09/22/18 08:09; Admin Dose 50 MG; Start 09/20/18 at 13:00 Polyethylene Glycol (Miralax) 17 gm BID PO Last administered on 09/22/18 08:08; Admin Dose 17 GM; Start 09/21/18 at 09:00 Bisacodyl (Dulcolax) 10 mg DAILY PRN PO CONSTIPATION Last administered on 09/21/18 18:03; Admin Dose 10 MG; Start 09/21/18 at 09:00 TIFFANIE MAURER DO Sep 22, 2018 10:15
--- NOTE | 2018-09-22 10:19 | PN ---
Date/Time of Note Date/Time of Note DATE: 09/22/18 TIME: 10:18 Assessment/Plan VTE Prophylaxis Risk score (from Ns)>0 risk: 10 SCD applied (from Ns): Yes Pharmacological prophylaxis: NA/contraindicated Pharm contraindication: other Lines/Catheters [facility] permacath Urinary Cath still in place: No Assessment/Plan Hospital Course SUBJECTIVE: The patient is off restraints. No more confused. OBJECTIVE: Physical Exam General: Adequately build 73 year-old male lying in bed in no apparent distress. HEENT: Normocephalic, atraumatic. Eyes: Anicteric sclerae, conjunctivae clear. ENT: Nasal septum midline, oral mucosa moist. Neck supple, no JVD noticed. Respiratory: Bilaterally diminished breath sounds. No use of accessory muscles of respiration. No adventitious breath sounds. Cardiovascular: S1, S2 heard. Regular rate and rhythm. Abdomen: Soft, nontender, and nondistended. Bowel sounds positive in all 4 quadrants. Genitourinary: Deferred. Extremities: No cyanosis, no clubbing, no edema. Peripheral pulses palpable. Neurologic: The patient is awake. Confused. Skin: Normal skin turgor. No skin rashes. Labs & Vitals per chart ASSESSMENT & PLAN 73-year-old male with type II DM, HTN, A. fib, hyperlipidemia, hypothyroidism, and ESRD with abnormal stress test brought in for elective LHC w/ PTCA/stent to LCx who went into complete heart block with placement of a transvenous pacing wire, who was admitted to inpatient intensive care unit for further management. 1. Abnormal stress test, CAD. Status post PTCA and stent to left circumflex. Continue dual antiplatelet therapy. Continue statins. 2. Complete heart block. Status post transvenous pacemaker placement (pulled out by the patient). Avoid AV mikayla blocking agents. Continue intensive care unit monitoring. PPM insertion aborted because of episode of confusion. 3. Hypertension. Continue antihypertensives. Avoid AV mikayla blocking agents. 4. Diabetes mellitus type 2. Continue the patient on sliding scale insulin and basal insulin. Hemoglobin A1c 8.1. 5. ESRD on hemodialysis. Nephrology following. S/P HD after LHC. 6. Dyslipidemia. Continue statins. 7. Anemia chronic disease. Monitor H&H closely. 8. History of hypothyroidism. Thyroid panel within normal limits. 9. Acute encephalopathy. Etiology unclear. Possibly toxic metabolic in origin. 9. Fluids, electrolytes, and nutrition. Carbohydrate controlled, low-cholesterol, renal diet. 10. DVT prophylaxis. Resuming factor Xa inhibitors will be deferred to cardiology. 11. Plan. Continue dual antiplatelet therapy. Continue cardiology recommendations. Transfer the patient to [facility]. The patient was seen in collaboration with Dr. Huston. Critical care time: 35 minutes. Result Diagram: 09/22/18 0449 09/22/189 Results 24hrs Laboratory Tests Test 09/21/18 12:22 09/21/18 17:47 09/21/18 20:36 09/22/18 04:49 Bedside Glucose 178 218 214 White Blood Count 8.7 Red Blood Count 3.63 L Hemoglobin 10.9 L Hematocrit 33.1 L Mean Corpuscular 91.2 Volume Mean Corpuscular 30.0 Hemoglobin Mean Corpuscular 32.9 Hemoglobin Concent Red Cell Distribution 13.2 Width Platelet Count 152 # Mean Platelet Volume 11.4 H Immature Granulocytes 0.500 H % Neutrophils % 67.1 Lymphocytes % 15.4 Monocytes % 8.9 Eosinophils % 7.5 H Basophils % 0.6 Nucleated Red Blood 0.0 Cells % Immature Granulocytes 0.040 H # Neutrophils # 5.8 Lymphocytes # 1.3 Monocytes # 0.8 Eosinophils # 0.7 H Basophils # 0.1 Nucleated Red Blood 0.0 Cells # Sodium Level 140 Potassium Level 4.8 Chloride Level 100 Carbon Dioxide Level 27 Anion Gap 13 Blood Urea Nitrogen 43 #H Creatinine 7.07 H Est Glomerular Filtrat Rate mL/min Glucose Level 154 Calcium Level 9.2 Phosphorus Level 5.0 H Magnesium Level 2.2 Test 09/22/18 08:00 Bedside Glucose 173 Exam/Review of Systems Exam Vitals Vital Signs Date Temp Pulse Resp B/P (MAP) Pulse Ox O2 O2 Flow FiO2 Time Delivery Rate 09/22/18 85 17 109/62 99 Room Air 09:00 (78) 09/22/18 98.8 08:00 Intake and Output 09/21/18 09/21/18 09/22/18 1414:59 22:59 06:59 IntakeIntake Total 480 ml 270 ml 0 ml OutputOutput Total 4400 ml BalanceBalance -3920 ml 270 ml 0 ml Results Results 24hrs Laboratory Tests Test 09/21/18 12:22 09/21/18 17:47 09/21/18 20:36 09/22/18 04:49 Bedside Glucose 178 218 214 White Blood Count 8.7 Red Blood Count 3.63 L Hemoglobin 10.9 L Hematocrit 33.1 L Mean Corpuscular 91.2 Volume Mean Corpuscular 30.0 Hemoglobin Mean Corpuscular 32.9 Hemoglobin Concent Red Cell Distribution 13.2 Width Platelet Count 152 # Mean Platelet Volume 11.4 H Immature Granulocytes 0.500 H % Neutrophils % 67.1 Lymphocytes % 15.4 Monocytes % 8.9 Eosinophils % 7.5 H Basophils % 0.6 Nucleated Red Blood 0.0 Cells % Immature Granulocytes 0.040 H # Neutrophils # 5.8 Lymphocytes # 1.3 Monocytes # 0.8 Eosinophils # 0.7 H Basophils # 0.1 Nucleated Red Blood 0.0 Cells # Sodium Level 140 Potassium Level 4.8 Chloride Level 100 Carbon Dioxide Level 27 Anion Gap 13 Blood Urea Nitrogen 43 #H Creatinine 7.07 H Est Glomerular Filtrat Rate mL/min Glucose Level 154 Calcium Level 9.2 Phosphorus Level 5.0 H Magnesium Level 2.2 Test 09/22/18 08:00 Bedside Glucose 173 Medications Medication Current Medications Aspirin (Halfprin) 81 mg DAILY PO Last administered on 09/22/18at 08:08; Admin Dose 81 MG; Start 09/19/18 at 09:00 Clopidogrel Bisulfate (plaVIX) 75 mg DAILY PO Last administered on 09/22/18at 08:08; Admin Dose 75 MG; Start 09/19/18 at 09:00 Acetaminophen (Tylenol Tab) 650 mg Q4H PRN PO PAIN; Start 09/18/18 at 15:00 Oxycodone/ Acetaminophen (Percocet (5/ 325)) 1 tab Q4H PRN PO PAIN Last administered on 09/19/18at 15:19; Admin Dose 1 TAB; Start 09/18/18 at 15:00 Al Hydrox/Mg Hydrox/Simethicone (Mag-Al Plus) 30 ml Q4H PRN PO GASTROINTESTINAL UPSET Last administered on 09/21/18at 14:43; Admin Dose 30 ML; Start 09/18/18 at 15:00 Ondansetron HCl (Zofran Inj) 4 mg Q4H PRN IV NAUSEA AND/OR VOMITING; Start 09/18/18 at 15:00 Nifedipine (Procardia Xl) 90 mg BID PO Last administered on 09/22/18 08:09; Admin Dose 90 MG; Start 09/18/18 at 21:00 Hydralazine HCl (Apresoline) 10 mg Q4H PRN IV SBP>170 Last administered on 09/20/18 15:30; Admin Dose 10 MG; Start 09/18/18 at 16:00 Insulin Glargine (Lantus) 11 units DAILY@2000 SC Last administered on 09/21/18 20:43; Admin Dose 11 UNITS; Start 09/18/18 at 20:00 Insulin Aspart (Novolog Insulin Pen) NOVOLOG *MILD* ALGORITHM WITH MEALS BEDTIME SC Last administered on 09/22/18 08:03; Admin Dose 1 UNIT; Start 09/18/18 at 17:35 Miscellaneous Information 1 ea NOTE XX ; Start 09/18/18 at 16:30 Glucose (Glutose) 15 gm Q15M PRN PO DECREASED GLUCOSE; Start 09/18/18 at 16:30 Glucose (Glutose) 22.5 gm Q15M PRN PO DECREASED GLUCOSE; Start 09/18/18 at 16:30 Dextrose (D50w Syringe) 25 ml Q15M PRN IV DECREASED GLUCOSE; Start 09/18/18 at 16:30 Dextrose (D50w Syringe) 50 ml Q15M PRN IV DECREASED GLUCOSE; Start 09/18/18 at 16:30 Glucagon (Glucagen) 1 mg Q15M PRN IM DECREASED GLUCOSE; Start 09/18/18 at 16:30 Glucose (Glutose) 15 gm Q15M PRN BUCCAL DECREASED GLUCOSE; Start 09/18/18 at 16:30 Albumin Human 100 ml @ 100 mls/hr WITH DIALYSIS PRN IV SBP <90 DURING DIALYSIS; Start 09/18/18 at 19:30 Famotidine (Pepcid) 20 mg DAILY PO Last administered on 09/22/18 08:08; Admin Dose 20 MG; Start 09/19/18 at 09:00 Atorvastatin Calcium (Lipitor) 20 mg HS PO Last administered on 09/21/18 20:37; Admin Dose 20 MG; Start 09/19/18 at 21:00 Heparin Sodium (Porcine) (Heparin (1000 Units/ml)) 4,500 unit AFTER DIALYSIS CATHETER Last administered on 09/21/18 13:39; Admin Dose 4,500 UNIT; Start 09/19/18 at 12:30 Morphine Sulfate (morphine) 2 mg Q6H PRN IV SEVERE PAIN LEVEL 7-10 Last administered on 09/21/18 06:55; Admin Dose 2 MG; Start 09/19/18 at 17:30 Diphenhydramine HCl (Benadryl) 25 mg Q6H PRN IV itchiness Last administered on 09/21/18 20:47; Admin Dose 25 MG; Start 09/19/18 at 17:30 Lorazepam (Ativan) 1 mg Q4 PRN IV AGITATION Last administered on 09/20/18 02:22; Admin Dose 1 MG; Start 09/20/18 at 02:30 Hydralazine HCl (Apresoline) 50 mg TID PO Last administered on 09/22/18 08:09; Admin Dose 50 MG; Start 09/20/18 at 13:00 Polyethylene Glycol (Miralax) 17 gm BID PO Last administered on 09/22/18 08:08; Admin Dose 17 GM; Start 09/21/18 at 09:00 Bisacodyl (Dulcolax) 10 mg DAILY PRN PO CONSTIPATION Last administered on 09/21/18 18:03; Admin Dose 10 MG; Start 09/21/18 at 09:00 JOSE ABAD NP Sep 22, 2018 10:19
--- NOTE | 2018-09-22 14:56 | CONS ---
Assessment/Plan Assessment/Plan Assessment/Plan (Daily) 1. Complete heart block- s/p Transcutaneous pacer in place- awaiting permanent pacemaker placement 2. Obstructive CAD s/p PCI and EDWIN To Circumflex by Dr. Olivera on 09/18/18 3. ESRD on HD MWF 4. H/o HTN 5. h/o HL 6. Anemia of ESRD 7. H/o Atrial fibrillation 8. agitation confusion ,possibly delirium acute Plan: s/p HD 2 L removed on , pt regular schedule is TTS, he follows at [facility] HD [facility] HD today awaiting pacemaker placement Continue Home BP meds, IV hydralazine prn Patient seen in collaboration with Dr Jonh Segura. We will follow up. Consultation Date/Type/Reason Admit Date/Time Sep 18, 2018 at 14:44 Initial Consult Date 09/18/18 Type of Consult NEPHROLOGY Reason for Consultation ESRD on HD Requesting Provider: JOSE ABAD NP Date/Time of Note DATE: 09/22/18 TIME: 14:55 24 HR Interval Summary Free Text/Dictation nad afebrile HD today no events last night Tele transfer per PMD when bed is available Patient and son at bed side- all Qs answered. Patient has Perma cath; hard stick. Needs PICC line. PMD wants to check with Dr Segura regarding PICC line ; just in case there is plan for AVF placement. Dw Dr Segura and he stated its ok- dw staff Constitutional: improved, requiring IVF, requiring O2 Detailed Summary Eyes: no complaints ENT: no complaints Respiratory: no complaints Cardiovascular: no complaints Gastrointestinal: no complaints Genitourinary: no complaints Musculoskeletal: other (feels tired) Skin: no complaints Neurologic: no complaints Endocrine: no complaints Lymphatic: no complaints Psychological: nl mood/affect Immunologic: no complaints Exam/Review of Systems Exam Vitals Vital Signs Date Temp Pulse Resp B/P (MAP) Pulse Ox O2 O2 Flow FiO2 Time Delivery Rate 09/22/18 85 17 109/62 99 Room Air 09:00 (78) 09/22/18 98.8 08:00 Intake and Output 09/21/18 09/21/18 09/22/18 1515:00 23:00 07:00 IntakeIntake Total 480 ml 270 ml 0 ml OutputOutput Total 4400 ml BalanceBalance -3920 ml 270 ml 0 ml Constitutional: alert, well developed Psych: nl mood/affect Head: normocephalic Eyes: nl lids, nl sclera ENMT: nl external ears & nose Neck: non-tender Respiratory: clear to auscultation Cardiovascular: nl pulses, other (s1s2) Gastrointestinal: soft, non-tender Musculoskeletal: muscle weakness Extremities: normal pulses Neurological: nl mental status, nl speech Skin: other (no rash noted) Lymph: nontender Results Result Diagram: 09/22/1844809/22/18448 Results 24hrs Laboratory Tests Test 09/21/18 17:47 09/21/18 20:36 09/22/18 04:49 09/22/18 08:00 Bedside Glucose 218 214 173 White Blood Count 8.7 Red Blood Count 3.63 L Hemoglobin 10.9 L Hematocrit 33.1 L Mean Corpuscular 91.2 Volume Mean Corpuscular 30.0 Hemoglobin Mean Corpuscular 32.9 Hemoglobin Concent Red Cell Distribution 13.2 Width Platelet Count 152 # Mean Platelet Volume 11.4 H Immature Granulocytes 0.500 H % Neutrophils % 67.1 Lymphocytes % 15.4 Monocytes % 8.9 Eosinophils % 7.5 H Basophils % 0.6 Nucleated Red Blood 0.0 Cells % Immature Granulocytes 0.040 H # Neutrophils # 5.8 Lymphocytes # 1.3 Monocytes # 0.8 Eosinophils # 0.7 H Basophils # 0.1 Nucleated Red Blood 0.0 Cells # Sodium Level 140 Potassium Level 4.8 Chloride Level 100 Carbon Dioxide Level 27 Anion Gap 13 Blood Urea Nitrogen 43 #H Creatinine 7.07 H Est Glomerular Filtrat Rate mL/min Glucose Level 154 Calcium Level 9.2 Phosphorus Level 5.0 H Magnesium Level 2.2 Test 09/22/18 11:41 Bedside Glucose 247 H Medications Medication Current Medications Aspirin (Halfprin) 81 mg DAILY PO Last administered on 09/22/18at 08:08; Admin Dose 81 MG; Start 09/19/18 at 09:00 Clopidogrel Bisulfate (plaVIX) 75 mg DAILY PO Last administered on 09/22/18at 08:08; Admin Dose 75 MG; Start 09/19/18 at 09:00 Acetaminophen (Tylenol Tab) 650 mg Q4H PRN PO PAIN; Start 09/18/18 at 15:00 Oxycodone/ Acetaminophen (Percocet (5/ 325)) 1 tab Q4H PRN PO PAIN Last administered on 09/19/18 15:19; Admin Dose 1 TAB; Start 09/18/18 at 15:00 Al Hydrox/Mg Hydrox/Simethicone (Mag-Al Plus) 30 ml Q4H PRN PO GASTROINTESTINAL UPSET Last administered on 09/21/18 14:43; Admin Dose 30 ML; Start 09/18/18 at 15:00 Ondansetron HCl (Zofran Inj) 4 mg Q4H PRN IV NAUSEA AND/OR VOMITING; Start 09/18/18 at 15:00 Nifedipine (Procardia Xl) 90 mg BID PO Last administered on 09/22/18 08:09; Admin Dose 90 MG; Start 09/18/18 at 21:00 Hydralazine HCl (Apresoline) 10 mg Q4H PRN IV SBP>170 Last administered on 09/20/18 15:30; Admin Dose 10 MG; Start 09/18/18 at 16:00 Insulin Glargine (Lantus) 11 units DAILY@2000 SC Last administered on 09/21/18 20:43; Admin Dose 11 UNITS; Start 09/18/18 at 20:00 Insulin Aspart (Novolog Insulin Pen) NOVOLOG *MILD* ALGORITHM WITH MEALS BEDTIME SC Last administered on 09/22/18 12:39; Admin Dose 3 UNIT; Start 09/18/18 at 17:35 Miscellaneous Information 1 ea NOTE XX ; Start 09/18/18 at 16:30 Glucose (Glutose) 15 gm Q15M PRN PO DECREASED GLUCOSE; Start 09/18/18 at 16:30 Glucose (Glutose) 22.5 gm Q15M PRN PO DECREASED GLUCOSE; Start 09/18/18 at 16:30 Dextrose (D50w Syringe) 25 ml Q15M PRN IV DECREASED GLUCOSE; Start 09/18/18 at 16:30 Dextrose (D50w Syringe) 50 ml Q15M PRN IV DECREASED GLUCOSE; Start 09/18/18 at 16:30 Glucagon (Glucagen) 1 mg Q15M PRN IM DECREASED GLUCOSE; Start 09/18/18 at 16:30 Glucose (Glutose) 15 gm Q15M PRN BUCCAL DECREASED GLUCOSE; Start 09/18/18 at 16:30 Albumin Human 100 ml @ 100 mls/hr WITH DIALYSIS PRN IV SBP <90 DURING DIALYSIS; Start 09/18/18 at 19:30 Famotidine (Pepcid) 20 mg DAILY PO Last administered on 09/22/18 08:08; Admin Dose 20 MG; Start 09/19/18 at 09:00 Atorvastatin Calcium (Lipitor) 20 mg HS PO Last administered on 09/21/18 20:37; Admin Dose 20 MG; Start 09/19/18 at 21:00 Heparin Sodium (Porcine) (Heparin (1000 Units/ml)) 4,500 unit AFTER DIALYSIS CATHETER Last administered on 09/21/18 13:39; Admin Dose 4,500 UNIT; Start 09/19/18 at 12:30 Morphine Sulfate (morphine) 2 mg Q6H PRN IV SEVERE PAIN LEVEL 7-10 Last administered on 09/21/18 06:55; Admin Dose 2 MG; Start 09/19/18 at 17:30 Diphenhydramine HCl (Benadryl) 25 mg Q6H PRN IV itchiness Last administered on 09/21/18 20:47; Admin Dose 25 MG; Start 09/19/18 at 17:30 Lorazepam (Ativan) 1 mg Q4 PRN IV AGITATION Last administered on 09/20/18 02:22; Admin Dose 1 MG; Start 09/20/18 at 02:30 Hydralazine HCl (Apresoline) 50 mg TID PO Last administered on 09/22/18 08:09; Admin Dose 50 MG; Start 09/20/18 at 13:00 Polyethylene Glycol (Miralax) 17 gm BID PO Last administered on 09/22/18 08:08; Admin Dose 17 GM; Start 09/21/18 at 09:00 Bisacodyl (Dulcolax) 10 mg DAILY PRN PO CONSTIPATION Last administered on 09/21/18 18:03; Admin Dose 10 MG; Start 09/21/18 at 09:00 SARA EDWARDS Sep 22, 2018 14:55
[2018-09-22] MEDS: DIPHENHYDRAMINE 50 MG INJ IV PRN (18:26)
[2018-09-22] MEDS: morphine 2 MG INJ IV PRN (18:57)
[2018-09-22] MEDS: HEPARIN 1000 UNITS/ML 10 ML INJ CATHETER SCH (19:39)
[2018-09-22] MEDS: ATORVASTATIN 20 MG TAB PO SCH (20:39)
[2018-09-22] MEDS: INSULIN GLARGINE [LANTus] (100 UNITS/ML) SYG SC SCH (20:48)
[2018-09-23] VITALS (11 sets, daily range): BP systolic 101–162; BP diastolic 53–78; PULSE 73–89; RESP 11–22
[2018-09-23] MEDS: INSULIN ASPART [NOVOLOG] 3 ML PEN SC SCH ×4 (07:56→20:32)
[2018-09-23] MEDS: ASPIRIN (EC) 81 MG TAB PO SCH (08:28)
[2018-09-23] MEDS: CLOPIDOGREL 75 MG TAB PO SCH (08:28)
[2018-09-23] MEDS: FAMOTIDINE 20 MG TAB PO SCH (08:28)
[2018-09-23] MEDS: POLYETHYLENE GLYCOL 17 GM PACKET PO SCH ×2 (08:28→20:17)
[2018-09-23] MEDS: NIFEdipine (XL) 90 MG TAB PO SCH ×2 (08:29→20:17)
--- NOTE | 2018-09-23 09:28 | PN ---
Date/Time of Note Date/Time of Note DATE: 09/23/18 TIME: 09:27 Assessment/Plan VTE Prophylaxis Risk score (from Ns)>0 risk: 7 SCD applied (from Ns): Yes Pharmacological prophylaxis: NA/contraindicated Pharm contraindication: other Lines/Catheters IV Catheter Type (from [facility]): Saline Lock Urinary Cath still in place: No Assessment/Plan Hospital Course SUBJECTIVE: The patient is off restraints. No more confused. Complains of feeling cold. OBJECTIVE: Physical Exam General: Adequately build 73 year-old male lying in bed in no apparent distress. HEENT: Normocephalic, atraumatic. Eyes: Anicteric sclerae, conjunctivae clear. ENT: Nasal septum midline, oral mucosa moist. Neck supple, no JVD noticed. Respiratory: Bilaterally diminished breath sounds. No use of accessory muscles of respiration. No adventitious breath sounds. Cardiovascular: S1, S2 heard. Regular rate and rhythm. Abdomen: Soft, nontender, and nondistended. Bowel sounds positive in all 4 quadrants. Genitourinary: Deferred. Extremities: No cyanosis, no clubbing, no edema. Peripheral pulses palpable. Neurologic: The patient is awake. Confused. Skin: Normal skin turgor. No skin rashes. Labs & Vitals per chart ASSESSMENT & PLAN 73-year-old male with type II DM, HTN, A. fib, hyperlipidemia, hypothyroidism, and ESRD with abnormal stress test brought in for elective LHC w/ PTCA/stent to LCx who went into complete heart block with placement of a transvenous pacing wire, who was admitted to inpatient setting for further management. 1. Abnormal stress test, CAD. Status post PTCA and stent to left circumflex. Continue dual antiplatelet therapy. Continue statins. 2. Complete heart block. Status post transvenous pacemaker placement (pulled out by the patient). Avoid AV mikayla blocking agents. Continue intensive care unit monitoring. PPM insertion aborted because of episode of confusion. 3. Hypertension. Continue antihypertensives. Avoid AV mikayla blocking agents. 4. Diabetes mellitus type 2. Continue the patient on sliding scale insulin and basal insulin. Hemoglobin A1c 8.1. 5. ESRD on hemodialysis. Nephrology following. S/P HD after LHC. 6. Dyslipidemia. Continue statins. 7. Anemia chronic disease. Monitor H&H closely. 8. History of hypothyroidism. Thyroid panel within normal limits. 9. Acute encephalopathy. Etiology unclear. Possibly toxic metabolic in origin. Resolved. 10. Fluids, electrolytes, and nutrition. Carbohydrate controlled, low-cholesterol, renal diet. 11. DVT prophylaxis. Resuming factor Xa inhibitors will be deferred to cardiology. 12. Plan. Continue dual antiplatelet therapy. Continue cardiology recommendations. Discharge planning is to discharge the patient home once cardiology clears the patient. The patient was seen in collaboration with Dr. Huston. Result Diagram: 09/23/18 0439 09/23/18 0439 Results 24hrs Laboratory Tests Test 09/22/18 11:41 09/22/18 17:17 09/22/18 20:36 09/23/18 04:39 Bedside Glucose 247 H 202 216 White Blood Count 8.2 Red Blood Count 3.50 L Hemoglobin 10.5 L Hematocrit 32.2 L Mean Corpuscular 92.0 Volume Mean Corpuscular 30.0 Hemoglobin Mean Corpuscular 32.6 Hemoglobin Concent Red Cell 13.2 Distribution Width Platelet Count 152 Mean Platelet Volume 11.0 H Immature 0.400 Granulocytes % Neutrophils % 62.0 Lymphocytes % 18.7 Monocytes % 9.3 Eosinophils % 9.0 H Basophils % 0.6 Nucleated Red Blood 0.0 Cells % Immature 0.030 Granulocytes # Neutrophils # 5.1 Lymphocytes # 1.5 Monocytes # 0.8 Eosinophils # 0.7 H Basophils # 0.1 Nucleated Red Blood 0.0 Cells # Sodium Level 137 Potassium Level 4.8 Chloride Level 102 Carbon Dioxide Level 26 Anion Gap 9 Blood Urea Nitrogen 29 #H Creatinine 5.29 H Est Glomerular Filtrat Rate mL/min Glucose Level 160 Calcium Level 9.3 Phosphorus Level 4.3 Magnesium Level 2.2 Test 09/23/18 07:51 Bedside Glucose 179 Exam/Review of Systems Exam Vitals Vital Signs Date Temp Pulse Resp B/P (MAP) Pulse Ox O2 O2 Flow FiO2 Time Delivery Rate 09/23/18 98.0 74 18 162/78 100 08:09 (106) 09/23/18 Room Air 05:45 Intake and Output 09/22/18 09/22/18 09/23/18 1515:00 23:00 07:00 IntakeIntake Total 350 ml 120 ml 0 ml OutputOutput Total 0 ml 2100 ml BalanceBalance 350 ml -1980 ml 0 ml Results Results 24hrs Laboratory Tests Test 09/22/18 11:41 09/22/18 17:17 09/22/18 20:36 09/23/18 04:39 Bedside Glucose 247 H 202 216 White Blood Count 8.2 Red Blood Count 3.50 L Hemoglobin 10.5 L Hematocrit 32.2 L Mean Corpuscular 92.0 Volume Mean Corpuscular 30.0 Hemoglobin Mean Corpuscular 32.6 Hemoglobin Concent Red Cell 13.2 Distribution Width Platelet Count 152 Mean Platelet Volume 11.0 H Immature 0.400 Granulocytes % Neutrophils % 62.0 Lymphocytes % 18.7 Monocytes % 9.3 Eosinophils % 9.0 H Basophils % 0.6 Nucleated Red Blood 0.0 Cells % Immature 0.030 Granulocytes # Neutrophils # 5.1 Lymphocytes # 1.5 Monocytes # 0.8 Eosinophils # 0.7 H Basophils # 0.1 Nucleated Red Blood 0.0 Cells # Sodium Level 137 Potassium Level 4.8 Chloride Level 102 Carbon Dioxide Level 26 Anion Gap 9 Blood Urea Nitrogen 29 #H Creatinine 5.29 H Est Glomerular Filtrat Rate mL/min Glucose Level 160 Calcium Level 9.3 Phosphorus Level 4.3 Magnesium Level 2.2 Test 09/23/18 07:51 Bedside Glucose 179 Medications Medication Current Medications Aspirin (Halfprin) 81 mg DAILY PO Last administered on 09/23/18at 08:28; Admin Dose 81 MG; Start 09/19/18 at 09:00 Clopidogrel Bisulfate (plaVIX) 75 mg DAILY PO Last administered on 09/23/18at 08:28; Admin Dose 75 MG; Start 09/19/18 at 09:00 Acetaminophen (Tylenol Tab) 650 mg Q4H PRN PO PAIN; Start 09/18/18 at 15:00 Oxycodone/ Acetaminophen (Percocet (5/ 325)) 1 tab Q4H PRN PO PAIN Last administered on 09/19/18at 15:19; Admin Dose 1 TAB; Start 09/18/18 at 15:00 Al Hydrox/Mg Hydrox/Simethicone (Mag-Al Plus) 30 ml Q4H PRN PO GASTROINTESTINAL UPSET Last administered on 09/21/18at 14:43; Admin Dose 30 ML; Start 09/18/18 at 15:00 Ondansetron HCl (Zofran Inj) 4 mg Q4H PRN IV NAUSEA AND/OR VOMITING; Start 09/18/18 at 15:00 Nifedipine (Procardia Xl) 90 mg BID PO Last administered on 09/23/18 08:29; Admin Dose 90 MG; Start 09/18/18 at 21:00 Hydralazine HCl (Apresoline) 10 mg Q4H PRN IV SBP>170 Last administered on 09/20/18 15:30; Admin Dose 10 MG; Start 09/18/18 at 16:00 Insulin Glargine (Lantus) 11 units DAILY@2000 SC Last administered on 09/22/18 20:48; Admin Dose 11 UNITS; Start 09/18/18 at 20:00 Insulin Aspart (Novolog Insulin Pen) NOVOLOG *MILD* ALGORITHM WITH MEALS BEDTIME SC Last administered on 09/23/18 07:56; Admin Dose 1 UNIT; Start 09/18/18 at 17:35 Miscellaneous Information 1 ea NOTE XX ; Start 09/18/18 at 16:30 Glucose (Glutose) 15 gm Q15M PRN PO DECREASED GLUCOSE; Start 09/18/18 at 16:30 Glucose (Glutose) 22.5 gm Q15M PRN PO DECREASED GLUCOSE; Start 09/18/18 at 16:30 Dextrose (D50w Syringe) 25 ml Q15M PRN IV DECREASED GLUCOSE; Start 09/18/18 at 16:30 Dextrose (D50w Syringe) 50 ml Q15M PRN IV DECREASED GLUCOSE; Start 09/18/18 at 16:30 Glucagon (Glucagen) 1 mg Q15M PRN IM DECREASED GLUCOSE; Start 09/18/18 at 16:30 Glucose (Glutose) 15 gm Q15M PRN BUCCAL DECREASED GLUCOSE; Start 09/18/18 at 16:30 Albumin Human 100 ml @ 100 mls/hr WITH DIALYSIS PRN IV SBP <90 DURING DIALYSIS; Start 09/18/18 at 19:30 Famotidine (Pepcid) 20 mg DAILY PO Last administered on 09/23/18 08:28; Admin Dose 20 MG; Start 09/19/18 at 09:00 Atorvastatin Calcium (Lipitor) 20 mg HS PO Last administered on 09/22/18 20:39; Admin Dose 20 MG; Start 09/19/18 at 21:00 Heparin Sodium (Porcine) (Heparin (1000 Units/ml)) 4,500 unit AFTER DIALYSIS CATHETER Last administered on 09/22/18 19:39; Admin Dose 4,500 UNIT; Start 09/19/18 at 12:30 Morphine Sulfate (morphine) 2 mg Q6H PRN IV SEVERE PAIN LEVEL 7-10 Last administered on 09/22/18 18:57; Admin Dose 2 MG; Start 09/19/18 at 17:30 Diphenhydramine HCl (Benadryl) 25 mg Q6H PRN IV itchiness Last administered on 09/22/18 18:26; Admin Dose 25 MG; Start 09/19/18 at 17:30 Lorazepam (Ativan) 1 mg Q4 PRN IV AGITATION Last administered on 09/20/18 02:22; Admin Dose 1 MG; Start 09/20/18 at 02:30 Hydralazine HCl (Apresoline) 50 mg TID PO Last administered on 09/23/18 08:29; Admin Dose 50 MG; Start 09/20/18 at 13:00 Polyethylene Glycol (Miralax) 17 gm BID PO Last administered on 09/23/18 08:28; Admin Dose 17 GM; Start 09/21/18 at 09:00 Bisacodyl (Dulcolax) 10 mg DAILY PRN PO CONSTIPATION Last administered on 09/21/18 18:03; Admin Dose 10 MG; Start 09/21/18 at 09:00 JOSE ABAD NP Sep 23, 2018 09:28
--- NOTE | 2018-09-23 10:43 | CONS ---
Assessment/Plan Assessment/Plan Hospital Course (Demo Recall) No acute events c/o pruritis, no CV complaints Tele: SR vs ectopic atrial rhythm, HR 70-80s, no AVB or pauses since in the ICU IMP: 1.s/p stent x 1 to LCX for high grade stenosis 2.CHB requiring placement of temp pacing-currently resolved. Patient self d/c'd temp pacing wire 09/20 when confused and was unable to have PPM placed 09/20 due to acute change in MS which is now back to baseline 3.HTN, uncontrolled 4.ESRD on HD 5. Positive troponin-after stenting in setting of esrd. No chest pain. NO sig uptrend. only slow downtrend in the setting of ESRD Recc: - order 12 lead EKG - continue to monitor on tele - increase Hydralazine to 75mg po TID - Continue asa/plavix/statin - Follow rhythm closely for any recurrent bradycardia/heart block. Patient placed on schedule for PPM monday as necessary - may not need at this time Consultation Date/Type/Reason Admit Date/Time Sep 18, 2018 at 14:44 Initial Consult Date 09/18/18 Type of Consult Cardiology Requesting Provider: JOSE ABAD NP Date/Time of Note DATE: 09/23/18 TIME: 10:39 Exam/Review of Systems Vital Signs Vitals Vital Signs Date Temp Pulse Resp B/P (MAP) Pulse Ox O2 O2 Flow FiO2 Time Delivery Rate 09/23/18 98.0 74 18 162/78 100 08:09 (106) 09/23/18 Room Air 05:45 Intake and Output 09/22/18 09/22/18 09/23/18 1515:00 23:00 07:00 IntakeIntake Total 350 ml 120 ml 0 ml OutputOutput Total 0 ml 2100 ml BalanceBalance 350 ml -1980 ml 0 ml Labs Result Diagram: 09/23/18 0439 09/23/18 0439 Results 24hrs Laboratory Tests Test 09/22/18 11:41 09/22/18 17:17 09/22/18 20:36 09/23/18 04:39 Bedside Glucose 247 H 202 216 White Blood Count 8.2 Red Blood Count 3.50 L Hemoglobin 10.5 L Hematocrit 32.2 L Mean Corpuscular 92.0 Volume Mean Corpuscular 30.0 Hemoglobin Mean Corpuscular 32.6 Hemoglobin Concent Red Cell 13.2 Distribution Width Platelet Count 152 Mean Platelet Volume 11.0 H Immature 0.400 Granulocytes % Neutrophils % 62.0 Lymphocytes % 18.7 Monocytes % 9.3 Eosinophils % 9.0 H Basophils % 0.6 Nucleated Red Blood 0.0 Cells % Immature 0.030 Granulocytes # Neutrophils # 5.1 Lymphocytes # 1.5 Monocytes # 0.8 Eosinophils # 0.7 H Basophils # 0.1 Nucleated Red Blood 0.0 Cells # Sodium Level 137 Potassium Level 4.8 Chloride Level 102 Carbon Dioxide Level 26 Anion Gap 9 Blood Urea Nitrogen 29 #H Creatinine 5.29 H Est Glomerular Filtrat Rate mL/min Glucose Level 160 Calcium Level 9.3 Phosphorus Level 4.3 Magnesium Level 2.2 Test 09/23/18 07:51 Bedside Glucose 179 Medications Medications Current Medications Aspirin (Halfprin) 81 mg DAILY PO Last administered on 09/23/18 08:28; Admin Dose 81 MG; Start 09/19/18 at 09:00 Clopidogrel Bisulfate (plaVIX) 75 mg DAILY PO Last administered on 09/23/18 08:28; Admin Dose 75 MG; Start 09/19/18 at 09:00 Acetaminophen (Tylenol Tab) 650 mg Q4H PRN PO PAIN; Start 09/18/18 at 15:00 Oxycodone/ Acetaminophen (Percocet (5/ 325)) 1 tab Q4H PRN PO PAIN Last administered on 09/19/18 15:19; Admin Dose 1 TAB; Start 09/18/18 at 15:00 Al Hydrox/Mg Hydrox/Simethicone (Mag-Al Plus) 30 ml Q4H PRN PO GASTROINTESTINAL UPSET Last administered on 09/21/18at 14:43; Admin Dose 30 ML; Start 09/18/18 at 15:00 Ondansetron HCl (Zofran Inj) 4 mg Q4H PRN IV NAUSEA AND/OR VOMITING; Start 09/18/18 at 15:00 Nifedipine (Procardia Xl) 90 mg BID PO Last administered on 09/23/18 08:29; Admin Dose 90 MG; Start 09/18/18 at 21:00 Hydralazine HCl (Apresoline) 10 mg Q4H PRN IV SBP>170 Last administered on 09/20/18 15:30; Admin Dose 10 MG; Start 09/18/18 at 16:00 Insulin Glargine (Lantus) 11 units DAILY@2000 SC Last administered on 09/22/18 20:48; Admin Dose 11 UNITS; Start 09/18/18 at 20:00 Insulin Aspart (Novolog Insulin Pen) NOVOLOG *MILD* ALGORITHM WITH MEALS BEDTIME SC Last administered on 09/23/18at 07:56; Admin Dose 1 UNIT; Start 09/18/18 at 17:35 Miscellaneous Information 1 ea NOTE XX ; Start 09/18/18 at 16:30 Glucose (Glutose) 15 gm Q15M PRN PO DECREASED GLUCOSE; Start 09/18/18 at 16:30 Glucose (Glutose) 22.5 gm Q15M PRN PO DECREASED GLUCOSE; Start 09/18/18 at 16:30 Dextrose (D50w Syringe) 25 ml Q15M PRN IV DECREASED GLUCOSE; Start 09/18/18 at 16:30 Dextrose (D50w Syringe) 50 ml Q15M PRN IV DECREASED GLUCOSE; Start 09/18/18 at 16:30 Glucagon (Glucagen) 1 mg Q15M PRN IM DECREASED GLUCOSE; Start 09/18/18 at 16:30 Glucose (Glutose) 15 gm Q15M PRN BUCCAL DECREASED GLUCOSE; Start 09/18/18 at 16:30 Albumin Human 100 ml @ 100 mls/hr WITH DIALYSIS PRN IV SBP <90 DURING DI ALYSIS; Start 09/18/18 at 19:30 Famotidine (Pepcid) 20 mg DAILY PO Last administered on 09/23/18at 08:28; Admin Dose 20 MG; Start 09/19/18 at 09:00 Atorvastatin Calcium (Lipitor) 20 mg HS PO Last administered on 09/22/18 20:39; Admin Dose 20 MG; Start 09/19/18 at 21:00 Heparin Sodium (Porcine) (Heparin (1000 Units/ml)) 4,500 unit AFTER DIALYSIS CATHETER Last administered on 09/22/18 19:39; Admin Dose 4,500 UNIT; Start 09/19/18 at 12:30 Morphine Sulfate (morphine) 2 mg Q6H PRN IV SEVERE PAIN LEVEL 7-10 Last administered on 09/22/18 18:57; Admin Dose 2 MG; Start 09/19/18 at 17:30 Diphenhydramine HCl (Benadryl) 25 mg Q6H PRN IV itchiness Last administered on 09/22/18 18:26; Admin Dose 25 MG; Start 09/19/18 at 17:30 Lorazepam (Ativan) 1 mg Q4 PRN IV AGITATION Last administered on 09/20/18 02:22; Admin Dose 1 MG; Start 09/20/18 at 02:30 Hydralazine HCl (Apresoline) 50 mg TID PO Last administered on 09/23/18 08:29; Admin Dose 50 MG; Start 09/20/18 at 13:00 Polyethylene Glycol (Miralax) 17 gm BID PO Last administered on 09/23/18 08:28; Admin Dose 17 GM; Start 09/21/18 at 09:00 Bisacodyl (Dulcolax) 10 mg DAILY PRN PO CONSTIPATION Last administered on 09/21/18 18:03; Admin Dose 10 MG; Start 09/21/18 at 09:00 TIFFANIE MAURER DO Sep 23, 2018 10:43
[2018-09-23] MEDS ORDERED: LACTATED RINGER'S 1,000 ML IV ONE (13:30)
--- NOTE | 2018-09-23 14:22 | CONS ---
Assessment/Plan Assessment/Plan Assessment/Plan (Daily) 1. Complete heart block- s/p Transcutaneous pacer in place- awaiting permanent pacemaker placement 2. Obstructive CAD s/p PCI and EDWIN To Circumflex by Dr. Olivera on 09/18/18 3. ESRD on HD MWF 4. H/o HTN 5. h/o HL 6. Anemia of ESRD 7. H/o Atrial fibrillation 8. agitation confusion ,possibly delirium acute Plan: got transferred from ICU to tele yesterday; monitor on tele s/p HD yesterday, pt regular schedule is TTS, he follows at [facility] HD center awaiting pacemaker placement Continue Home BP meds, IV hydralazine prn Patient seen in collaboration with Dr Jonh Segura. We will follow up. Consultation Date/Type/Reason Admit Date/Time Sep 18, 2018 at 14:44 Initial Consult Date 09/18/18 Type of Consult NEPHROLOGY Requesting Provider: JOSE ABAD NP Date/Time of Note DATE: 09/23/18 TIME: 14:21 24 HR Interval Summary Free Text/Dictation nad afebrile got transferred from ICU to tele yesterday no events last night at bed side- all Qs answered Constitutional: improved, requiring O2 Detailed Summary Eyes: no complaints ENT: no complaints Respiratory: no complaints Cardiovascular: no complaints Gastrointestinal: decreased appetite Genitourinary: no complaints Musculoskeletal: other (general weakness) Skin: no complaints Neurologic: no complaints Endocrine: no complaints Lymphatic: no complaints Psychological: nl mood/affect Exam/Review of Systems Exam Vitals Vital Signs Date Temp Pulse Resp B/P (MAP) Pulse Ox O2 O2 Flow FiO2 Time Delivery Rate 09/23/18 98.0 83 18 155/72 98 11:56 (99) 09/23/18 Room Air 05:45 Intake and Output 09/22/18 09/22/18 09/23/18 1515:00 23:00 07:00 IntakeIntake Total 350 ml 120 ml 0 ml OutputOutput Total 0 ml 2100 ml BalanceBalance 350 ml -1980 ml 0 ml Constitutional: alert, well developed Psych: nl mood/affect Head: atraumatic Eyes: nl lids, nl sclera ENMT: nl external ears & nose Neck: non-tender Respiratory: clear to auscultation Cardiovascular: nl pulses, other (s1s2) Gastrointestinal: soft, non-tender Musculoskeletal: muscle weakness Extremities: normal pulses Neurological: nl speech Lymph: nontender Results Result Diagram: 09/23/18 0439 09/23/18 0439 Results 24hrs Laboratory Tests Test 09/22/18 17:17 09/22/18 20:36 09/23/18 04:39 09/23/18 07:51 Bedside Glucose 202 216 179 White Blood Count 8.2 Red Blood Count 3.50 L Hemoglobin 10.5 L Hematocrit 32.2 L Mean Corpuscular 92.0 Volume Mean Corpuscular 30.0 Hemoglobin Mean Corpuscular 32.6 Hemoglobin Concent Red Cell 13.2 Distribution Width Platelet Count 152 Mean Platelet Volume 11.0 H Immature 0.400 Granulocytes % Neutrophils % 62.0 Lymphocytes % 18.7 Monocytes % 9.3 Eosinophils % 9.0 H Basophils % 0.6 Nucleated Red Blood 0.0 Cells % Immature 0.030 Granulocytes # Neutrophils # 5.1 Lymphocytes # 1.5 Monocytes # 0.8 Eosinophils # 0.7 H Basophils # 0.1 Nucleated Red Blood 0.0 Cells # Sodium Level 137 Potassium Level 4.8 Chloride Level 102 Carbon Dioxide Level 26 Anion Gap 9 Blood Urea Nitrogen 29 #H Creatinine 5.29 H Est Glomerular Filtrat Rate mL/min Glucose Level 160 Calcium Level 9.3 Phosphorus Level 4.3 Magnesium Level 2.2 Test 09/23/18 11:45 Bedside Glucose 255 H Medications Medication Current Medications Aspirin (Halfprin) 81 mg DAILY PO Last administered on 09/23/18at 08:28; Admin Dose 81 MG; Start 09/19/18 at 09:00 Clopidogrel Bisulfate (plaVIX) 75 mg DAILY PO Last administered on 09/23/18at 0 8:28; Admin Dose 75 MG; Start 09/19/18 at 09:00 Acetaminophen (Tylenol Tab) 650 mg Q4H PRN PO PAIN; Start 09/18/18 at 15:00 Oxycodone/ Acetaminophen (Percocet (5/ 325)) 1 tab Q4H PRN PO PAIN Last admi nistered on 09/19/18at 15:19; Admin Dose 1 TAB; Start 09/18/18 at 15:00 Al Hydrox/Mg Hydrox/Simethicone (Mag-Al Plus) 30 ml Q4H PRN PO GASTROINTESTINAL UPSET Last administered on 09/21/18at 14:43; Admin Dose 30 ML; Start 09/18/18 at 15:00 Ondansetron HCl (Zofran Inj) 4 mg Q4H PRN IV NAUSEA AND/OR VOMITING; Start 09/18/18 at 15:00 Nifedipine (Procardia Xl) 90 mg BID PO Last administered on 09/23/18 08:29; Admin Dose 90 MG; Start 09/18/18 at 21:00 Hydralazine HCl (Apresoline) 10 mg Q4H PRN IV SBP>170 Last administered on 09/20/18 15:30; Admin Dose 10 MG; Start 09/18/18 at 16:00 Insulin Glargine (Lantus) 11 units DAILY@2000 SC Last administered on 09/22/18 20:48; Admin Dose 11 UNITS; Start 09/18/18 at 20:00 Insulin Aspart (Novolog Insulin Pen) NOVOLOG *MILD* ALGORITHM WITH MEALS BEDTIME SC Last administered on 09/23/18 11:48; Admin Dose 3 UNIT; Start 09/18/18 at 17:35 Miscellaneous Information 1 ea NOTE XX ; Start 09/18/18 at 16:30 Glucose (Glutose) 15 gm Q15M PRN PO DECREASED GLUCOSE; Start 09/18/18 at 16:30 Glucose (Glutose) 22.5 gm Q15M PRN PO DECREASED GLUCOSE; Start 09/18/18 at 16:30 Dextrose (D50w Syringe) 25 ml Q15M PRN IV DECREASED GLUCOSE; Start 09/18/18 at 16:30 Dextrose (D50w Syringe) 50 ml Q15M PRN IV DECREASED GLUCOSE; Start 09/18/18 at 16:30 Glucagon (Glucagen) 1 mg Q15M PRN IM DECREASED GLUCOSE; Start 09/18/18 at 16:30 Glucose (Glutose) 15 gm Q15M PRN BUCCAL DECREASED GLUCOSE; Start 09/18/18 at 16:30 Albumin Human 100 ml @ 100 mls/hr WITH DIALYSIS PRN IV SBP <90 DURING DIALYSIS; Start 09/18/18 at 19:30 Famotidine (Pepcid) 20 mg DAILY PO Last administered on 09/23/18 08:28; Admin Dose 20 MG; Start 09/19/18 at 09:00 Atorvastatin Calcium (Lipitor) 20 mg HS PO Last administered on 09/22/18 20:39; Admin Dose 20 MG; Start 09/19/18 at 21:00 Heparin Sodium (Porcine) (Heparin (1000 Units/ml)) 4,500 unit AFTER DIALYSIS CATHETER Last administered on 09/22/18 19:39; Admin Dose 4,500 UNIT; Start 09/19/18 at 12:30 Morphine Sulfate (morphine) 2 mg Q6H PRN IV SEVERE PAIN LEVEL 7-10 Last administered on 09/22/18 18:57; Admin Dose 2 MG; Start 09/19/18 at 17:30 Diphenhydramine HCl (Benadryl) 25 mg Q6H PRN IV itchiness Last administered on 09/22/18 18:26; Admin Dose 25 MG; Start 09/19/18 at 17:30 Lorazepam (Ativan) 1 mg Q4 PRN IV AGITATION Last administered on 09/20/18 02:22; Admin Dose 1 MG; Start 09/20/18 at 02:30 Polyethylene Glycol (Miralax) 17 gm BID PO Last administered on 09/23/18 08:28; Admin Dose 17 GM; Start 09/21/18 at 09:00 Bisacodyl (Dulcolax) 10 mg DAILY PRN PO CONSTIPATION Last administered on 09/21/18 18:03; Admin Dose 10 MG; Start 09/21/18 at 09:00 Hydralazine HCl (Apresoline) 75 mg TID PO Last administered on 09/23/18 13:27; Admin Dose 75 MG; Start 09/23/18 at 13:00 SARA EDWARDS Sep 23, 2018 14:22
[2018-09-23] MEDS: ATORVASTATIN 20 MG TAB PO SCH (20:17)
[2018-09-23] MEDS: INSULIN GLARGINE [LANTus] (100 UNITS/ML) SYG SC SCH (20:32)
[2018-09-24] VITALS (20 sets, daily range): BP systolic 87–173; BP diastolic 55–78; PULSE 72–105; RESP 16–20
[2018-09-24] MEDS: INSULIN ASPART [NOVOLOG] 3 ML PEN SC SCH ×4 (07:47→21:57)
[2018-09-24] MEDS: NIFEdipine (XL) 90 MG TAB PO SCH ×2 (09:00→21:51)
[2018-09-24] MEDS: CLOPIDOGREL 75 MG TAB PO SCH (09:00)
[2018-09-24] MEDS: FAMOTIDINE 20 MG TAB PO SCH (09:00)
[2018-09-24] MEDS: POLYETHYLENE GLYCOL 17 GM PACKET PO SCH ×2 (09:00→21:51)
[2018-09-24] MEDS: ASPIRIN (EC) 81 MG TAB PO SCH (09:00)
--- NOTE | 2018-09-24 10:43 | CONS ---
Assessment/Plan Assessment/Plan Hospital Course (Demo Recall) IMP: 1.Post-op s/p stent x 1 to LCX for high grade stenosis. NL EF by echo this admit 2.CHB requiring placement of temp paciine-currently resolved. Patient self d/c'd temp pacing wire 09/20 when confused and was unable to have PPM placed 09/20 due to acute change in MS which is now back to baseline 3.HTN 4.ESRD on HD 5. Positive troponin-after stenting in setting of esrd. No chest pain. NO sig u ptrend. only slow downtrend in the setting of ESRD Recc: -Now on tele -Continue asa/plavix/statin -continue baselinehydralazine and follow BP clsoely -Follow rhythm closely for any recurrent bradycardia/heart block. Patient placed on schedule for PPM tomorrow. Will make NPO after MN -HD for volume removal ongoing ow Consultation Date/Type/Reason Admit Date/Time Sep 18, 2018 at 14:44 Initial Consult Date 09/18/18 Type of Consult Cardiology Reason for Consultation cad s/p stent Requesting Provider: JOSE ABAD NP Date/Time of Note DATE: 09/24/18 TIME: 10:40 Exam/Review of Systems Vital Signs Vitals Vital Signs Date Temp Pulse Resp B/P (MAP) Pulse Ox O2 O2 Flow FiO2 Time Delivery Rate 09/24/18 98.0 75 18 137/78 98 07:42 (97) 09/24/18 Room Air 04:10 Intake and Output 09/23/18 09/23/18 09/24/18 1515:00 23:00 07:00 IntakeIntake Total 250 ml 700 ml 100 ml OutputOutput Total 900 ml BalanceBalance 250 ml -200 ml 100 ml Exam Exam Review of Systems: CONSTITUTIONAL: No fevers, chills. PULMONARY: No sob CARDIOVASCULAR: No chest pain/palpitations GASTROINTESTINAL: No nausea/vomiting. GENITOURINARY: No hematuria/dysuria. MUSCULOSKELETAL: No myagias/arthalgias. PSYCHIATRIC: The patient denies depression. NEUROLOGIC: No weakness Constitutional: alert Psych: no complaints Head: normocephalic ENMT: mucosa pink and moist Neck: supple, jvd (9 cm water) Respiratory: diminished breath sounds (at bases/B) Cardiovascular: regular rate and rhythm Gastrointestinal: soft, non-tender Musculoskeletal: muscle weakness (mild generalized) Extremities: edema (trace/B) Neurological: other (No focal deficits) Labs Result Diagram: 09/24/18 0543 09/24/18 0543 Results 24hrs Laboratory Tests Test 09/23/18 11:45 09/23/18 17:39 09/23/18 20:13 09/24/18 05:43 Bedside Glucose 255 H 262 H 255 H White Blood Count 7.9 Red Blood Count 3.41 L Hemoglobin 10.3 L Hematocrit 31.0 L Mean Corpuscular 90.9 Volume Mean Corpuscular 30.2 Hemoglobin Mean Corpuscular 33.2 Hemoglobin Concent Red Cell 13.2 Distribution Width Platelet Count 149 Mean Platelet Volume 11.1 H Immature 0.400 Granulocytes % Neutrophils % 56.2 Lymphocytes % 21.7 Monocytes % 10.9 Eosinophils % 10.0 H Basophils % 0.8 Nucleated Red Blood 0.0 Cells % Immature 0.030 Granulocytes # Neutrophils # 4.4 Lymphocytes # 1.7 Monocytes # 0.9 Eosinophils # 0.8 H Basophils # 0.1 Nucleated Red Blood 0.0 Cells # Sodium Level 135 Potassium Level 5.5 H Chloride Level 99 Carbon Dioxide Level 25 Anion Gap 11 Blood Urea Nitrogen 44 #H Creatinine 8.28 #H Est Glomerular Filtrat Rate mL/min Glucose Level 127 Calcium Level 9.2 Phosphorus Level 5.2 H Magnesium Level 2.4 Test 09/24/18 07:47 Bedside Glucose 131 Medications Medications Current Medications Aspirin (Halfprin) 81 mg DAILY PO Last administered on 09/23/18at 08:28; Admin Dose 81 MG; Start 09/19/18 at 09:00 Clopidogrel Bisulfate (plaVIX) 75 mg DAILY PO Last administered on 09/23/18at 0 8:28; Admin Dose 75 MG; Start 09/19/18 at 09:00 Acetaminophen (Tylenol Tab) 650 mg Q4H PRN PO PAIN; Start 09/18/18 at 15:00 Oxycodone/ Acetaminophen (Percocet (5/ 325)) 1 tab Q4H PRN PO PAIN Last admi nistered on 09/19/18at 15:19; Admin Dose 1 TAB; Start 09/18/18 at 15:00 Al Hydrox/Mg Hydrox/Simethicone (Mag-Al Plus) 30 ml Q4H PRN PO GASTROINTESTINAL UPSET Last administered on 09/21/18at 14:43; Admin Dose 30 ML; Start 09/18/18 at 15:00 Ondansetron HCl (Zofran Inj) 4 mg Q4H PRN IV NAUSEA AND/OR VOMITING; Start 09/18/18 at 15:00 Nifedipine (Procardia Xl) 90 mg BID PO Last administered on 09/23/18 20:17; Admin Dose 90 MG; Start 09/18/18 at 21:00 Hydralazine HCl (Apresoline) 10 mg Q4H PRN IV SBP>170 Last administered on 09/20/18 15:30; Admin Dose 10 MG; Start 09/18/18 at 16:00 Insulin Glargine (Lantus) 11 units DAILY@2000 SC Last administered on 09/23/18 20:32; Admin Dose 11 UNITS; Start 09/18/18 at 20:00 Insulin Aspart (Novolog Insulin Pen) NOVOLOG *MILD* ALGORITHM WITH MEALS BEDTIME SC Last administered on 09/23/18 20:32; Admin Dose 2 UNIT; Start 09/18/18 at 17:35 Miscellaneous Information 1 ea NOTE XX ; Start 09/18/18 at 16:30 Glucose (Glutose) 15 gm Q15M PRN PO DECREASED GLUCOSE; Start 09/18/18 at 16:30 Glucose (Glutose) 22.5 gm Q15M PRN PO DECREASED GLUCOSE; Start 09/18/18 at 16:30 Dextrose (D50w Syringe) 25 ml Q15M PRN IV DECREASED GLUCOSE; Start 09/18/18 at 16:30 Dextrose (D50w Syringe) 50 ml Q15M PRN IV DECREASED GLUCOSE; Start 09/18/18 at 16:30 Glucagon (Glucagen) 1 mg Q15M PRN IM DECREASED GLUCOSE; Start 09/18/18 at 16:30 Glucose (Glutose) 15 gm Q15M PRN BUCCAL DECREASED GLUCOSE; Start 09/18/18 at 16:30 Albumin Human 100 ml @ 100 mls/hr WITH DIALYSIS PRN IV SBP <90 DURING DIALYSIS; Start 09/18/18 at 19:30 Famotidine (Pepcid) 20 mg DAILY PO Last administered on 09/23/18 08:28; Admin Dose 20 MG; Start 09/19/18 at 09:00 Atorvastatin Calcium (Lipitor) 20 mg HS PO Last administered on 09/23/18 20:17; Admin Dose 20 MG; Start 09/19/18 at 21:00 Heparin Sodium (Porcine) (Heparin (1000 Units/ml)) 4,500 unit AFTER DIALYSIS CATHETER Last administered on 09/22/18 19:39; Admin Dose 4,500 UNIT; Start 09/19/18 at 12:30 Morphine Sulfate (morphine) 2 mg Q6H PRN IV SEVERE PAIN LEVEL 7-10 Last administered on 09/22/18 18:57; Admin Dose 2 MG; Start 09/19/18 at 17:30 Diphenhydramine HCl (Benadryl) 25 mg Q6H PRN IV itchiness Last administered on 09/22/18 18:26; Admin Dose 25 MG; Start 09/19/18 at 17:30 Lorazepam (Ativan) 1 mg Q4 PRN IV AGITATION Last administered on 09/20/18 02:22; Admin Dose 1 MG; Start 09/20/18 at 02:30 Polyethylene Glycol (Miralax) 17 gm BID PO Last administered on 09/23/18 20:17; Admin Dose 17 GM; Start 09/21/18 at 09:00 Bisacodyl (Dulcolax) 10 mg DAILY PRN PO CONSTIPATION Last administered on 09/21/18 18:03; Admin Dose 10 MG; Start 09/21/18 at 09:00 Hydralazine HCl (Apresoline) 75 mg TID PO Last administered on 09/23/18 20:17; Admin Dose 75 MG; Start 09/23/18 at 13:00 SNOW BECKER Sep 24, 2018 10:43
[2018-09-24] MEDS: HEPARIN 1000 UNITS/ML 10 ML INJ CATHETER SCH (10:53)
[2018-09-24] MEDS ORDERED: CEFAZOLIN 1 GM/50 ML (PMX) 50 ML IVPB SCH (11:00)
--- NOTE | 2018-09-24 11:15 | CONS ---
Assessment/Plan Assessment/Plan Assessment/Plan (Daily) 1. Complete heart block- s/p Transcutaneous pacer in place- awaiting permanent pacemaker placement 2. Obstructive CAD s/p PCI and EDWIN To Circumflex by Dr. Olivera on 09/18/18 3. ESRD on HD MWF 4. H/o HTN 5. h/o HL 6. Anemia of ESRD 7. H/o Atrial fibrillation 8. agitation confusion ,possibly delirium acute Plan: s/p HD today 2 L removed, pt regular schedule is TTS, he follows at [facility] - will plan for next HD on if pt stays here plan for pacemaker tomorrow Continue Home BP meds, IV hydralazine prn will follow up Consultation Date/Type/Reason Admit Date/Time Sep 18, 2018 at 14:44 Initial Consult Date 09/18/18 Type of Consult NEPHROLOGY Requesting Provider: JOSE ABAD NP Date/Time of Note DATE: 09/24/18 TIME: 11:14 Exam/Review of Systems Exam Vitals Vital Signs Date Temp Pulse Resp B/P (MAP) Pulse Ox O2 O2 Flow FiO2 Time Delivery Rate 09/24/18 98.0 75 18 137/78 98 07:42 (97) 09/24/18 Room Air 04:10 Intake and Output 09/23/18 09/23/18 09/24/18 1515:00 23:00 07:00 IntakeIntake Total 250 ml 700 ml 100 ml OutputOutput Total 900 ml BalanceBalance 250 ml -200 ml 100 ml Results Result Diagram: 09/24/18 0543 09/24/18 0543 Results 24hrs Laboratory Tests Test 09/23/18 11:45 09/23/18 17:39 09/23/18 20:13 09/24/18 05:43 Bedside Glucose 255 H 262 H 255 H White Blood Count 7.9 Red Blood Count 3.41 L Hemoglobin 10.3 L Hematocrit 31.0 L Mean Corpuscular 90.9 Volume Mean Corpuscular 30.2 Hemoglobin Mean Corpuscular 33.2 Hemoglobin Concent Red Cell 13.2 Distribution Width Platelet Count 149 Mean Platelet Volume 11.1 H Immature 0.400 Granulocytes % Neutrophils % 56.2 Lymphocytes % 21.7 Monocytes % 10.9 Eosinophils % 10.0 H Basophils % 0.8 Nucleated Red Blood 0.0 Cells % Immature 0.030 Granulocytes # Neutrophils # 4.4 Lymphocytes # 1.7 Monocytes # 0.9 Eosinophils # 0.8 H Basophils # 0.1 Nucleated Red Blood 0.0 Cells # Sodium Level 135 Potassium Level 5.5 H Chloride Level 99 Carbon Dioxide Level 25 Anion Gap 11 Blood Urea Nitrogen 44 #H Creatinine 8.28 #H Est Glomerular Filtrat Rate mL/min Glucose Level 127 Calcium Level 9.2 Phosphorus Level 5.2 H Magnesium Level 2.4 Test 09/24/18 07:47 Bedside Glucose 131 Medications Medication Current Medications Aspirin (Halfprin) 81 mg DAILY PO Last administered on 09/23/18 08:28; Admin Dose 81 MG; Start 09/19/18 at 09:00 Clopidogrel Bisulfate (plaVIX) 75 mg DAILY PO Last administered on 09/23/18 08:28; Admin Dose 75 MG; Start 09/19/18 at 09:00 Acetaminophen (Tylenol Tab) 650 mg Q4H PRN PO PAIN; Start 09/18/18 at 15:00 Oxycodone/ Acetaminophen (Percocet (5/ 325)) 1 tab Q4H PRN PO PAIN Last administered on 09/19/18 15:19; Admin Dose 1 TAB; Start 09/18/18 at 15:00 Al Hydrox/Mg Hydrox/Simethicone (Mag-Al Plus) 30 ml Q4H PRN PO GASTROINTESTINAL UPSET Last administered on 09/21/18 14:43; Admin Dose 30 ML; Start 09/18/18 at 15:00 Ondansetron HCl (Zofran Inj) 4 mg Q4H PRN IV NAUSEA AND/OR VOMITING; Start 09/18/18 at 15:00 Nifedipine (Procardia Xl) 90 mg BID PO Last administered on 09/23/18 20:17; Admin Dose 90 MG; Start 09/18/18 at 21:00 Hydralazine HCl (Apresoline) 10 mg Q4H PRN IV SBP>170 Last administered on 09/20/18 15:30; Admin Dose 10 MG; Start 09/18/18 at 16:00 Insulin Glargine (Lantus) 11 units DAILY@2000 SC Last administered on 09/23/18 20:32; Admin Dose 11 UNITS; Start 09/18/18 at 20:00 Insulin Aspart (Novolog Insulin Pen) NOVOLOG *MILD* ALGORITHM WITH MEALS BEDTIME SC Last administered on 09/23/18 20:32; Admin Dose 2 UNIT; Start at 17:35 Miscellaneous Information 1 ea NOTE XX ; Start 09/18/18 at 16:30 Glucose (Glutose) 15 gm Q15M PRN PO DECREASED GLUCOSE; Start 09/18/18 at 16:30 Glucose (Glutose) 22.5 gm Q15M PRN PO DECREASED GLUCOSE; Start 09/18/18 at 16:30 Dextrose (D50w Syringe) 25 ml Q15M PRN IV DECREASED GLUCOSE; Start 09/18/18 at 16:30 Dextrose (D50w Syringe) 50 ml Q15M PRN IV DECREASED GLUCOSE; Start 09/18/18 at 16:30 Glucagon (Glucagen) 1 mg Q15M PRN IM DECREASED GLUCOSE; Start 09/18/18 at 16:30 Glucose (Glutose) 15 gm Q15M PRN BUCCAL DECREASED GLUCOSE; Start 09/18/18 at 16:30 Albumin Human 100 ml @ 100 mls/hr WITH DIALYSIS PRN IV SBP <90 DURING DIALYSIS; Start 09/18/18 at 19:30 Famotidine (Pepcid) 20 mg DAILY PO Last administered on 09/23/18 08:28; Admin Dose 20 MG; Start 09/19/18 at 09:00 Atorvastatin Calcium (Lipitor) 20 mg HS PO Last administered on 09/23/18 20:17; Admin Dose 20 MG; Start 09/19/18 at 21:00 Heparin Sodium (Porcine) (Heparin (1000 Units/ml)) 4,500 unit AFTER DIALYSIS CATHETER Last administered on 09/24/18 10:53; Admin Dose 4,500 UNIT; Start 09/19/18 at 12:30 Morphine Sulfate (morphine) 2 mg Q6H PRN IV SEVERE PAIN LEVEL 7-10 Last administered on 09/22/18 18:57; Admin Dose 2 MG; Start 09/19/18 at 17:30 Diphenhydramine HCl (Benadryl) 25 mg Q6H PRN IV itchiness Last administered on 09/22/18 18:26; Admin Dose 25 MG; Start 09/19/18 at 17:30 Lorazepam (Ativan) 1 mg Q4 PRN IV AGITATION Last administered on 09/20/18 02:22; Admin Dose 1 MG; Start 09/20/18 at 02:30 Polyethylene Glycol (Miralax) 17 gm BID PO Last administered on 09/23/18 20:17; Admin Dose 17 GM; Start 09/21/18 at 09:00 Bisacodyl (Dulcolax) 10 mg DAILY PRN PO CONSTIPATION Last administered on 09/21/18 18:03; Admin Dose 10 MG; Start 09/21/18 at 09:00 Hydralazine HCl (Apresoline) 75 mg TID PO Last administered on 09/23/18 20:17; Admin Dose 75 MG; Start 09/23/18 at 13:00 Cefazolin Sodium 50 ml @ 100 mls/hr OC IVPB ; Start 09/24/18 at 11:00; Stop 09/24/18 at 16:00 LILLY QUILES MD Sep 24, 2018 11:15
--- NOTE | 2018-09-24 15:46 | PN ---
Date/Time of Note Date/Time of Note DATE: 09/24/18 TIME: 15:43 Assessment/Plan VTE Prophylaxis Risk score (from Nsg)>0 risk: 7 SCD applied (from Nsg): Yes Pharmacological prophylaxis: heparin Lines/Catheters IV Catheter Type (from Nrsg): Saline Lock Urinary Cath still in place: No Assessment/Plan Hospital Course Assessment and plan #CAD Patient status post PTCA and stent to left circumflex Continue DAPT On statin #Complete her block Patient status post transvenous pacemaker placement (pulled out by patient). Tentative plan for pacemaker placement #Hypertension Continue antihypertensives #Diabetes A1c of 8.1 On insulin regimen #ESRD Follow with summer camp counselor recommendations for HD #Hyperlipidemia Continue statin #Anemia chronic disease Monitor H&H Transfuse blood products as needed #History of hypothyroidism thyroid panel WNL Patient for outpatient follow-up ##Acute encephalopathy Resolved. Reorientation as needed Disposition and plan. Plan for possible pacemaker placement. Monitor on telemetry. Discussed POC with Dr. Dumont Result Diagram: 09/24/18 0543 09/24/18 0543 Results 24hrs Laboratory Tests Test 09/23/18 17:39 09/23/18 20:13 09/24/18 05:43 09/24/18 07:47 Bedside Glucose 262 H 255 H 131 White Blood Count 7.9 Red Blood Count 3.41 L Hemoglobin 10.3 L Hematocrit 31.0 L Mean Corpuscular 90.9 Volume Mean Corpuscular 30.2 Hemoglobin Mean Corpuscular 33.2 Hemoglobin Concent Red Cell 13.2 Distribution Width Platelet Count 149 Mean Platelet Volume 11.1 H Immature 0.400 Granulocytes % Neutrophils % 56.2 Lymphocytes % 21.7 Monocytes % 10.9 Eosinophils % 10.0 H Basophils % 0.8 Nucleated Red Blood 0.0 Cells % Immature 0.030 Granulocytes # Neutrophils # 4.4 Lymphocytes # 1.7 Monocytes # 0.9 Eosinophils # 0.8 H Basophils # 0.1 Nucleated Red Blood 0.0 Cells # Sodium Level 135 Potassium Level 5.5 H Chloride Level 99 Carbon Dioxide Level 25 Anion Gap 11 Blood Urea Nitrogen 44 #H Creatinine 8.28 #H Est Glomerular Filtrat Rate mL/min Glucose Level 127 Calcium Level 9.2 Phosphorus Level 5.2 H Magnesium Level 2.4 Test 09/24/18 12:10 Bedside Glucose 145 Subjective 24 Hr Interval Summary Free Text/Dictation Denies any chest pain at present. No reports of palpitations. No shortness of breath or respiratory distress seen. Exam/Review of Systems Exam Vitals Vital Signs Date Temp Pulse Resp B/P (MAP) Pulse Ox O2 O2 Flow FiO2 Time Delivery Rate 09/24/18 98.0 105 20 112/71 99 11:36 (85) 09/24/18 Room Air 08:35 Intake and Output 09/23/18 09/23/18 09/24/18 1515:00 23:00 07:00 IntakeIntake Total 250 ml 700 ml 100 ml OutputOutput Total 900 ml BalanceBalance 250 ml -200 ml 100 ml Constitutional: alert, oriented Psych: nl mood/affect Head: normocephalic Neck: supple, non-tender Respiratory: clear to auscultation Cardiovascular: other (regular rate ) Gastrointestinal: soft, non-tender Neurological: nl mental status, nl speech Skin: nl turgor Results Results 24hrs Laboratory Tests Test 09/23/18 17:39 09/23/18 20:13 09/24/18 05:43 09/24/18 07:47 Bedside Glucose 262 H 255 H 131 White Blood Count 7.9 Red Blood Count 3.41 L Hemoglobin 10.3 L Hematocrit 31.0 L Mean Corpuscular 90.9 Volume Mean Corpuscular 30.2 Hemoglobin Mean Corpuscular 33.2 Hemoglobin Concent Red Cell 13.2 Distribution Width Platelet Count 149 Mean Platelet Volume 11.1 H Immature 0.400 Granulocytes % Neutrophils % 56.2 Lymphocytes % 21.7 Monocytes % 10.9 Eosinophils % 10.0 H Basophils % 0.8 Nucleated Red Blood 0.0 Cells % Immature 0.030 Granulocytes # Neutrophils # 4.4 Lymphocytes # 1.7 Monocytes # 0.9 Eosinophils # 0.8 H Basophils # 0.1 Nucleated Red Blood 0.0 Cells # Sodium Level 135 Potassium Level 5.5 H Chloride Level 99 Carbon Dioxide Level 25 Anion Gap 11 Blood Urea Nitrogen 44 #H Creatinine 8.28 #H Est Glomerular Filtrat Rate mL/min Glucose Level 127 Calcium Level 9.2 Phosphorus Level 5.2 H Magnesium Level 2.4 Test 09/24/18 12:10 Bedside Glucose 145 Medications Medication Current Medications Aspirin (Halfprin) 81 mg DAILY PO Last administered on 09/23/18at 08:28; Admin Dose 81 MG; Start 09/19/18 at 09:00 Clopidogrel Bisulfate (plaVIX) 75 mg DAILY PO Last administered on 09/23/18 08:28; Admin Dose 75 MG; Start 09/19/18 at 09:00 Acetaminophen (Tylenol Tab) 650 mg Q4H PRN PO PAIN; Start 09/18/18 at 15:00 Oxycodone/ Acetaminophen (Percocet (5/ 325)) 1 tab Q4H PRN PO PAIN Last administered on 09/19/18 15:19; Admin Dose 1 TAB; Start 09/18/18 at 15:00 Al Hydrox/Mg Hydrox/Simethicone (Mag-Al Plus) 30 ml Q4H PRN PO GASTROINTESTINAL UPSET Last administered on 09/21/18 14:43; Admin Dose 30 ML; Start 09/18/18 at 15:00 Ondansetron HCl (Zofran Inj) 4 mg Q4H PRN IV NAUSEA AND/OR VOMITING; Start 09/18/18 at 15:00 Nifedipine (Procardia Xl) 90 mg BID PO Last administered on 09/23/18 20:17; Admin Dose 90 MG; Start 09/18/18 at 21:00 Hydralazine HCl (Apresoline) 10 mg Q4H PRN IV SBP>170 Last administered on 09/20/18 15:30; Admin Dose 10 MG; Start 09/18/18 at 16:00 Insulin Glargine (Lantus) 11 units DAILY@2000 SC Last administered on 09/23/18 20:32; Admin Dose 11 UNITS; Start 09/18/18 at 20:00 Insulin Aspart (Novolog Insulin Pen) NOVOLOG *MILD* ALGORITHM WITH MEALS BEDTIME SC Last administered on 09/23/18 20:32; Admin Dose 2 UNIT; Start 09/18/18 at 17:35 Miscellaneous Information 1 ea NOTE XX ; Start 09/18/18 at 16:30 Glucose (Glutose) 15 gm Q15M PRN PO DECREASED GLUCOSE; Start 09/18/18 at 16:30 Glucose (Glutose) 22.5 gm Q15M PRN PO DECREASED GLUCOSE; Start 09/18/18 at 16:30 Dextrose (D50w Syringe) 25 ml Q15M PRN IV DECREASED GLUCOSE; Start 09/18/18 at 16:30 Dextrose (D50w Syringe) 50 ml Q15M PRN IV DECREASED GLUCOSE; Start 09/18/18 at 16:30 Glucagon (Glucagen) 1 mg Q15M PRN IM DECREASED GLUCOSE; Start 09/18/18 at 16:30 Glucose (Glutose) 15 gm Q15M PRN BUCCAL DECREASED GLUCOSE; Start 09/18/18 at 16:30 Albumin Human 100 ml @ 100 mls/hr WITH DIALYSIS PRN IV SBP <90 DURING DIALYSIS; Start 09/18/18 at 19:30 Famotidine (Pepcid) 20 mg DAILY PO Last administered on 09/23/18 08:28; Admin Dose 20 MG; Start 09/19/18 at 09:00 Atorvastatin Calcium (Lipitor) 20 mg HS PO Last administered on 09/23/18 20:17; Admin Dose 20 MG; Start 09/19/18 at 21:00 Heparin Sodium (Porcine) (Heparin (1000 Units/ml)) 4,500 unit AFTER DIALYSIS CATHETER Last administered on 09/24/18 10:53; Admin Dose 4,500 UNIT; Start 09/19/18 at 12:30 Morphine Sulfate (morphine) 2 mg Q6H PRN IV SEVERE PAIN LEVEL 7-10 Last administered on 09/22/18 18:57; Admin Dose 2 MG; Start 09/19/18 at 17:30 Diphenhydramine HCl (Benadryl) 25 mg Q6H PRN IV itchiness Last administered on 09/22/18 18:26; Admin Dose 25 MG; Start 09/19/18 at 17:30 Lorazepam (Ativan) 1 mg Q4 PRN IV AGITATION Last administered on 09/20/18 02:22; Admin Dose 1 MG; Start 09/20/18 at 02:30 Polyethylene Glycol (Miralax) 17 gm BID PO Last administered on 09/23/18 20:17; Admin Dose 17 GM; Start 09/21/18 at 09:00 Bisacodyl (Dulcolax) 10 mg DAILY PRN PO CONSTIPATION Last administered on 09/21/18 18:03; Admin Dose 10 MG; Start 09/21/18 at 09:00 Hydralazine HCl (Apresoline) 75 mg TID PO Last administered on 09/23/18 20:17; Admin Dose 75 MG; Start 09/23/18 at 13:00 Cefazolin Sodium 50 ml @ 100 mls/hr OC IVPB ; Start 09/24/18 at 11:00; Stop 09/24/18 at 16:00 RANDY MCDERMOTT NP Sep 24, 2018 15:46
[2018-09-24] MEDS: ATORVASTATIN 20 MG TAB PO SCH (21:51)
[2018-09-24] MEDS: INSULIN GLARGINE [LANTus] (100 UNITS/ML) SYG SC SCH (21:58)
[2018-09-25] VITALS (14 sets, daily range): BP systolic 145–181; BP diastolic 67–85; PULSE 65–94; RESP 10–20
[2018-09-25] MEDS: INSULIN ASPART [NOVOLOG] 3 ML PEN SC SCH ×4 (07:49→21:10)
--- NOTE | 2018-09-25 08:59 | CONS ---
Consult Date/Type/Reason Admit Date/Time Sep 18, 2018 at 14:44 Initial Consult Date 09/18/18 Requesting Provider: JOSE ABAD NP Date/Time of Note DATE: 09/25/18 TIME: 08:57 Subjective No acute events - pt more alert - able to carry a conversation - plan for pacer thomas y - family at bed side - questions answered. ROS: No fever, no chills, no nausea, no vomiting, no diarrhea/constipation No recent weight changes No chest pain, no PND, no orthopnea - mid SOB No dizziness, blurred vision No thirst, no heat or cold intolerance Objective Vitals Vital Signs Date Temp Pulse Resp B/P (MAP) Pulse Ox O2 O2 Flow FiO2 Time Delivery Rate 09/25/18 99.0 70 18 161/77 98 07:52 (105) 09/24/18 Room Air 08:35 Intake and Output 09/24/18 09/24/18 09/25/18 1515:00 23:00 07:00 IntakeIntake Total 600 ml OutputOutput Total 2600 ml 150 ml BalanceBalance -2600 ml 450 ml Exam General: WN/WD/NAD, AOx 3 HEENT: Unicetric/atraumatic/EOMI (follow commands) NECK: JVD elevated, no thyromegaly Lymph: no lymphadenopathy HEART: regular with no S3, II/ systolic murmur at apex, R chest Tim LUNGS: Coarse sounds ABD: soft, NT, ND, +BS : Intact Neuro: non focal SKIN: chronic changes EXT: trace edema Results/Medications Result Diagram: 09/25/18 0602 09/25/18 0602 Results 24 hrs Laboratory Tests Test 09/24/18 12:10 09/24/18 17:09 09/24/18 21:45 09/25/18 06:02 Bedside Glucose 145 309 H 288 H White Blood Count 8.3 Red Blood Count 3.55 L Hemoglobin 10.5 L Hematocrit 32.2 L Mean Corpuscular 90.7 Volume Mean Corpuscular 29.6 Hemoglobin Mean Corpuscular 32.6 Hemoglobin Concent Red Cell 13.3 Distribution Width Platelet Count 169 Mean Platelet Volume 10.8 H Immature 0.400 Granulocytes % Neutrophils % 58.6 Lymphocytes % 22.0 Monocytes % 9.7 Eosinophils % 8.6 H Basophils % 0.7 Nucleated Red Blood 0.0 Cells % Immature 0.030 Granulocytes # Neutrophils # 4.9 Lymphocytes # 1.8 Monocytes # 0.8 Eosinophils # 0.7 H Basophils # 0.1 Nucleated Red Blood 0.0 Cells # Sodium Level 136 Potassium Level 5.4 H Chloride Level 99 Carbon Dioxide Level 28 Anion Gap 9 Blood Urea Nitrogen 37 H Creatinine 6.61 H Est Glomerular Filtrat Rate mL/min Glucose Level 136 Calcium Level 9.4 Phosphorus Level 4.7 Magnesium Level 2.3 Test 09/25/18 07:48 Bedside Glucose 141 Home Meds Reported Medications Calcium Acetate* (Calcium Acetate*) 667 Mg Capsule, 1334 MG PO WITH MEALS, #60 CAP 08/31/18 Gabapentin* (Neurontin*) 300 Mg Capsule, 300 MG PO DAILY, #60 CAP 08/31/18 Hydralazine Hcl* (Hydralazine Hcl*) 50 Mg Tab, 50 MG PO BID, #90 TAB LAST FILLED 03/0308/14/18 Apixaban* (Eliquis*) 5 Mg Tablet, 2.5 MG PO BID, TAB PT ISNT COMPLIANT LAST FILLED 03-03 FOR 30 DAYS PT STILL HAS PILLS IN BOTTLE 08/14/18 Atorvastatin Calcium* (Atorvastatin Calcium*) 20 Mg Tablet, 20 MG PO QHS, #30 TAB 08/14/18 Carvedilol* (Carvedilol*) 12.5 Mg Tablet, 6.25 MG PO BID, #60 TAB 08/14/18 Nifedipine* (Nifedipine ER*) 90 Mg Tablet.sa, 90 MG PO BID, TAB.SA 08/14/18 Folic Acid* (Folic Acid*) 1 Mg Tablet, 1 MG PO DAILY, TAB 08/14/18 Insulin Lispro (Humalog Kwikpen U-100) 100 Unit/1 Ml Insuln.pen, 7 UNIT SQ AC A, EA ADMELOG 08/14/18 Medications Current Medications Aspirin (Halfprin) 81 mg DAILY PO Last administered on 09/23/18at 08:28; Admin Dose 81 MG; Start 09/19/18 at 09:00 Clopidogrel Bisulfate (plaVIX) 75 mg DAILY PO Last administered on 09/23/18at 08:28; Admin Dose 75 MG; Start 09/19/18 at 09:00 Acetaminophen (Tylenol Tab) 650 mg Q4H PRN PO PAIN; Start 09/18/18 at 15:00 Oxycodone/ Acetaminophen (Percocet (5/ 325)) 1 tab Q4H PRN PO PAIN Last administered on 09/19/18 15:19; Admin Dose 1 TAB; Start 09/18/18 at 15:00 Al Hydrox/Mg Hydrox/Simethicone (Mag-Al Plus) 30 ml Q4H PRN PO GASTROINTESTINAL UPSET Last administered on 09/21/18at 14:43; Admin Dose 30 ML; Start 09/18/18 at 15:00 Ondansetron HCl (Zofran Inj) 4 mg Q4H PRN IV NAUSEA AND/OR VOMITING; Start 09/18/18 at 15:00 Nifedipine (Procardia Xl) 90 mg BID PO Last administered on 09/24/18 21:51; Admin Dose 90 MG; Start 09/18/18 at 21:00 Hydralazine HCl (Apresoline) 10 mg Q4H PRN IV SBP>170 Last administered on 09/20/18 15:30; Admin Dose 10 MG; Start 09/18/18 at 16:00 Insulin Glargine (Lantus) 11 units DAILY@2000 SC Last administered on 09/24/18 21:58; Admin Dose 11 UNITS; Start 09/18/18 at 20:00 Insulin Aspart (Novolog Insulin Pen) NOVOLOG *MILD* ALGORITHM WITH MEALS BEDTIME SC Last administered on 09/24/18 21:57; Admin Dose 3 UNIT; Start 09/18/18 at 17:35 Miscellaneous Information 1 ea NOTE XX ; Start 09/18/18 at 16:30 Glucose (Glutose) 15 gm Q15M PRN PO DECREASED GLUCOSE; Start 09/18/18 at 16:30 Glucose (Glutose) 22.5 gm Q15M PRN PO DECREASED GLUCOSE; Start 09/18/18 at 16:30 Dextrose (D50w Syringe) 25 ml Q15M PRN IV DECREASED GLUCOSE; Start 09/18/18 at 16:30 Dextrose (D50w Syringe) 50 ml Q15M PRN IV DECREASED GLUCOSE; Start 09/18/18 at 16:30 Glucagon (Glucagen) 1 mg Q15M PRN IM DECREASED GLUCOSE; Start 09/18/18 at 16:30 Glucose (Glutose) 15 gm Q15M PRN BUCCAL DECREASED GLUCOSE; Start 09/18/18 at 16:30 Albumin Human 100 ml @ 100 mls/hr WITH DIALYSIS PRN IV SBP <90 DURING DIALYSIS; Start 09/18/18 at 19:30 Famotidine (Pepcid) 20 mg DAILY PO Last administered on 09/23/18 08:28; Admin Dose 20 MG; Start 09/19/18 at 09:00 Atorvastatin Calcium (Lipitor) 20 mg HS PO Last administered on 09/24/18 21:51; Admin Dose 20 MG; Start 09/19/18 at 21:00 Heparin Sodium (Porcine) (Heparin (1000 Units/ml)) 4,500 unit AFTER DIALYSIS CATHETER Last administered on 09/24/18 10:53; Admin Dose 4,500 UNIT; Start 09/19/18 at 12:30 Morphine Sulfate (morphine) 2 mg Q6H PRN IV SEVERE PAIN LEVEL 7-10 Last administered on 09/22/18 18:57; Admin Dose 2 MG; Start 09/19/18 at 17:30 Diphenhydramine HCl (Benadryl) 25 mg Q6H PRN IV itchiness Last administered on 09/22/18 18:26; Admin Dose 25 MG; Start 09/19/18 at 17:30 Lorazepam (Ativan) 1 mg Q4 PRN IV AGITATION Last administered on 09/20/18 02:22; Admin Dose 1 MG; Start 09/20/18 at 02:30 Polyethylene Glycol (Miralax) 17 gm BID PO Last administered on 09/24/18 21:51; Admin Dose 17 GM; Start 09/21/18 at 09:00 Bisacodyl (Dulcolax) 10 mg DAILY PRN PO CONSTIPATION Last administered on 09/21/18 18:03; Admin Dose 10 MG; Start 09/21/18 at 09:00 Hydralazine HCl (Apresoline) 75 mg TID PO Last administered on 09/24/18 21:51; Admin Dose 75 MG; Start 09/23/18 at 13:00 Bacitracin/ Polymyxin B Sulfate (Pb Solution) 1,000 ml ONCE ONCE IRR ; Start 09/25/18 at 09:00; Stop 09/25/18 at 09:01 Cefazolin Sodium/ Dextrose 50 ml @ 100 mls/hr ONCE ONCE IVPB ; Start 09/25/18 at 09:00; Stop 09/25/18 at 09:29 Assessment/Plan Hospital Course (Demo Recall) 1.Post-op s/p stent x 1 to LCX for high grade stenosis. NL EF by echo this admit - no CPnow. 2.CHB requiring placement of temp paciine-currently resolved. Patient self d/c'd temp pacing wire 09/20 when confused and was unable to have PPM placed 09/20 due to acute change in MS which is now back to baseline - now more awake - at baseline - self aware -OK to proceed yomaira pacer - much better vs last week. 3.HTN 4.ESRD on HD 5. Positive troponin-after stenting in setting of esrd. No chest pain. NO sig uptrend. only slow downtrend in the setting of ESRD - Dr. Olivera follows - no active CP now. PRESTON CONTRERAS MD Sep 25, 2018 08:59
[2018-09-25] MEDS ORDERED: POLYMYXIN/BACITRACIN 1L IRRIG IRR ONE (09:00)
[2018-09-25] MEDS ORDERED: CEFAZOLIN 2 GM/50 ML (PMX) 50 ML IVPB ONE (09:00)
[2018-09-25] MEDS ORDERED: LIDOCAINE 1%/EPI 30 ML INJ ONE (09:08)
[2018-09-25] MEDS ORDERED: IODIXANOL LOCM 50 ML BTL ONE (09:08)
[2018-09-25] MEDS ORDERED: SOD CHLORIDE 0.9% 500 ML ONE (09:09)
--- NOTE | 2018-09-25 09:10 | PREAC ---
Date/Time of Note Date/Time of Note DATE: 09/25/18 TIME: 09:10 Anesthesia Eval and Record Evaluation Time Pre-Procedure Interview DATE: 09/25/18 TIME: 09:10 Age 73 Sex male NPO: 8 hrs Preoperative diagnosis heart block Planned procedure permanent pace maker placement Past Medical History Past Medical History: Includes Cardio: HTN, Dyslipidemia, CAD Endo: Diabetes Renal: ESRD on dialysis Surgery & Anesthesia Issues No known issue Meds Anticoagulation: Yes Beta Lanny within 24 hr: Yes Reported Medications Calcium Acetate* (Calcium Acetate*) 667 Mg Capsule, 1334 MG PO WITH MEALS, #60 CAP 08/31/18 Gabapentin* (Neurontin*) 300 Mg Capsule, 300 MG PO DAILY, #60 CAP 08/31/18 Hydralazine Hcl* (Hydralazine Hcl*) 50 Mg Tab, 50 MG PO BID, #90 TAB LAST FILLED 03/0308/14/18 Apixaban* (Eliquis*) 5 Mg Tablet, 2.5 MG PO BID, TAB PT ISNT COMPLIANT LAST FILLED 03-03 FOR 30 DAYS PT STILL HAS PILLS IN BOTTLE 08/14/18 Atorvastatin Calcium* (Atorvastatin Calcium*) 20 Mg Tablet, 20 MG PO QHS, #30 TAB 08/14/18 Carvedilol* (Carvedilol*) 12.5 Mg Tablet, 6.25 MG PO BID, #60 TAB 08/14/18 Nifedipine* (Nifedipine ER*) 90 Mg Tablet.sa, 90 MG PO BID, TAB.SA 08/14/18 Folic Acid* (Folic Acid*) 1 Mg Tablet, 1 MG PO DAILY, TAB 08/14/18 Insulin Lispro (Humalog Kwikpen U-100) 100 Unit/1 Ml Insuln.pen, 7 UNIT SQ AC A, EA ADMELOG 08/14/18 Current Medications Aspirin (Halfprin) 81 mg DAILY PO Last administered on 09/23/18at 08:28; Admin Dose 81 MG; Start 09/19/18 at 09:00 Clopidogrel Bisulfate (plaVIX) 75 mg DAILY PO Last administered on 09/23/18at 08:28; Admin Dose 75 MG; Start 09/19/18 at 09:00 Acetaminophen (Tylenol Tab) 650 mg Q4H PRN PO PAIN; Start 09/18/18 at 15:00 Oxycodone/ Acetaminophen (Percocet (5/ 325)) 1 tab Q4H PRN PO PAIN Last administered on 09/19/18 15:19; Admin Dose 1 TAB; Start 09/18/18 at 15:00 Al Hydrox/Mg Hydrox/Simethicone (Mag-Al Plus) 30 ml Q4H PRN PO GASTROINTESTINAL UPSET Last administered on 09/21/18 14:43; Admin Dose 30 ML; Start 09/18/18 at 15:00 Ondansetron HCl (Zofran Inj) 4 mg Q4H PRN IV NAUSEA AND/OR VOMITING; Start 09/18/18 at 15:00 Nifedipine (Procardia Xl) 90 mg BID PO Last administered on 09/24/18 21:51; Admin Dose 90 MG; Start 09/18/18 at 21:00 Hydralazine HCl (Apresoline) 10 mg Q4H PRN IV SBP>170 Last administered on 09/20/18 15:30; Admin Dose 10 MG; Start 09/18/18 at 16:00 Insulin Glargine (Lantus) 11 units DAILY@2000 SC Last administered on 09/24/18 21:58; Admin Dose 11 UNITS; Start 09/18/18 at 20:00 Insulin Aspart (Novolog Insulin Pen) NOVOLOG *MILD* ALGORITHM WITH MEALS BED TIME SC Last administered on 09/24/18 21:57; Admin Dose 3 UNIT; Start 09/18/18 at 17:35 Miscellaneous Information 1 ea NOTE XX ; Start 09/18/18 at 16:30 Glucose (Glutose) 15 gm Q15M PRN PO DECREASED GLUCOSE; Start 09/18/18 at 16:30 Glucose (Glutose) 22.5 gm Q15M PRN PO DECREASED GLUCOSE; Start 09/18/18 at 16:30 Dextrose (D50w Syringe) 25 ml Q15M PRN IV DECREASED GLUCOSE; Start 09/18/18 at 16:30 Dextrose (D50w Syringe) 50 ml Q15M PRN IV DECREASED GLUCOSE; Start 09/18/18 at 16:30 Glucagon (Glucagen) 1 mg Q15M PRN IM DECREASED GLUCOSE; Start 09/18/18 at 16:30 Glucose (Glutose) 15 gm Q15M PRN BUCCAL DECREASED GLUCOSE; Start 09/18/18 at 16:30 Albumin Human 100 ml @ 100 mls/hr WITH DIALYSIS PRN IV SBP <90 DURING DIALYSIS; Start 09/18/18 at 19:30 Famotidine (Pepcid) 20 mg DAILY PO Last administered on 09/23/18 08:28; Admin Dose 20 MG; Start 09/19/18 at 09:00 Atorvastatin Calcium (Lipitor) 20 mg HS PO Last administered on 09/24/18 21:51; Admin Dose 20 MG; Start 09/19/18 at 21:00 Heparin Sodium (Porcine) (Heparin (1000 Units/ml)) 4,500 unit AFTER DIALYSIS CATHETER Last administered on 09/24/18 10:53; Admin Dose 4,500 UNIT; Start 09/19/18 at 12:30 Morphine Sulfate (morphine) 2 mg Q6H PRN IV SEVERE PAIN LEVEL 7-10 Last administered on 09/22/18 18:57; Admin Dose 2 MG; Start 09/19/18 at 17:30 Diphenhydramine HCl (Benadryl) 25 mg Q6H PRN IV itchiness Last administered on 09/22/18 18:26; Admin Dose 25 MG; Start 09/19/18 at 17:30 Lorazepam (Ativan) 1 mg Q4 PRN IV AGITATION Last administered on 09/20/18 02:22; Admin Dose 1 MG; Start 09/20/18 at 02:30 Polyethylene Glycol (Miralax) 17 gm BID PO Last administered on 09/24/18 21:51; Admin Dose 17 GM; Start 09/21/18 at 09:00 Bisacodyl (Dulcolax) 10 mg DAILY PRN PO CONSTIPATION Last administered on 09/21/18 18:03; Admin Dose 10 MG; Start 09/21/18 at 09:00 Hydralazine HCl (Apresoline) 75 mg TID PO Last administered on 09/24/18 21:51; Admin Dose 75 MG; Start 09/23/18 at 13:00 Meds reviewed: Yes Allergies Coded Allergies: No Known Allergy (Unverified , 09/17/18) Allergies Reviewed: Yes Labs/Studies Labs Reviewed: Reviewed by anesthesiologist Result Diagram: 09/25/18 0602 09/25/18 0602 Laboratory Tests 09/25/18 06:02 test: N/A Studies: ECG (ectopic atrial rythm), CXR (mild cardiomegally) Pre-procedure Exam Last vitals Vital Signs Date Temp Pulse Resp B/P (MAP) Pulse Ox O2 O2 Flow FiO2 Time Delivery Rate 09/25/18 98.9 74 18 145/67 97 03:09 (93) 09/24/18 Room Air 08:35 Airway: Adequate mouth opening Mallampati: Mallampati I Teeth: Normal Lung: Normal Heart: Normal ASA Physical Status ASA physical status: 3 Emergency: None Planned Anesthetic General/MAC: MAC Planned Pain Management Parenteral pain med Pre-operative Attestations Prior to commencing anesthesia and surgery, the patient was re-evaluated, there was verification of: *The patient's identity *The results of appropriate recent lab work and preoperative vital signs *The above evaluation not changing prior to induction *Anesthetic plan, risk benefits, alternative and complications discussed with patient/family; questions answered; patient/family understands, accepts and wishes to proceed. TEMO CESAR MD Sep 25, 2018 09:10
[2018-09-25] MEDS ORDERED: FENTAnyl 50 MCG/ML VIAL IV PRN ×3 (09:30)
[2018-09-25] MEDS ORDERED: HYDROmorphONE 1 MG/5 ML IV SYRINGE IV PRN ×3 (09:30)
[2018-09-25] MEDS ORDERED: ONDANSETRON 4 MG INJ IV PRN (09:30)
[2018-09-25] MEDS ORDERED: hydrALAzine 20 MG INJ IV ONE (10:30)
[2018-09-25] MEDS ORDERED: morphine 2 MG INJ IV PRN ×2 (10:30)
[2018-09-25] MEDS ORDERED: HYDROCODONE/APAP (5/325) TAB PO PRN ×2 (10:30→11:00)
[2018-09-25] MEDS: CLOPIDOGREL 75 MG TAB PO SCH (11:28)
[2018-09-25] MEDS: ASPIRIN (EC) 81 MG TAB PO SCH (11:29)
[2018-09-25] MEDS: FAMOTIDINE 20 MG TAB PO SCH (11:29)
[2018-09-25] MEDS: POLYETHYLENE GLYCOL 17 GM PACKET PO SCH ×2 (11:30→21:04)
[2018-09-25] MEDS: NIFEdipine (XL) 90 MG TAB PO SCH ×2 (11:30→21:02)
--- NOTE | 2018-09-25 13:14 | SP ---
DATE OF PROCEDURE: 09/25/2018 REFERRING PHYSICIAN: Dr. Huston and Dr. Olivera. REASON FOR IMPLANTATION: Complete heart block. POSTPROCEDURE DIAGNOSIS: Complete heart block. PROCEDURE PERFORMED: Pro-single chamber pacemaker implantation. Fluoroscopy with interpretation to assess patency. Fluoroscopy was done before the procedure because the patient has dialysis access to make sure the vessel was patent. DEVICE INFORMATION: Implanted device is [employer] Assurity MRI pacemaker 1272, serial #[id number]. RV lead is [employer] Tendril lead, 52 cm, serial number [id number]. Acute thresholds: R-w ave of 4.3 millivolts, lead impedance 150 ohms, threshold 0.75 volts at 0.4 msec. Initial setting is VVI 60. DESCRIPTION OF PROCEDURE: The informed consent was obtained, the patient was brought into the cath l ab in fasting condition. supervised airway and sedation. Left side of the chest was prepped a nd draped in usual sterile fashion, 1% lidocaine was used for local analgesia. Using #3 scalpel, a 3 cm incision was made upper extremity was performed before the incision to assess patency and vein ap peared to be patent. A pocket was created using cautery and blunt dissection. Using modified Seldin anali technique, the subclavian was cannulated and J-wire passed easily. A 6-Nepali sheath was put in. Using a 8-Nepali sheath at the base, RV lead was advanced to RV apex. It was actively fixed inside the apex and some slack was left inside the lead. The sheath was pulled away and the lead was sutur ed to the muscle layer with 2-0 Ethibond sutures. The lead was attached to the generator. Generator was placed in the was placed inside the pocket. Skin was closed with multiple layers of 2-0 V icryl suture. Steri-Strips were placed on top of the incision. The patient tolerated the procedure well. He is to have a chest x-ray to rule out pneumothorax, continuous antibiotics and monitoring. I would like to thank Dr. Huston and Dr. Olivera for referring this patient for my evaluation. Dictated By: PRESTON CONTRERAS MD ML/NTS Conf#: [id number] DID#: [id number] CC: SNOW OLIVERA MD; SNOW HUSTON MD;*End*
[2018-09-25] MEDS ORDERED: CEFAZOLIN 1 GM INJ IM ONE (14:00)
--- NOTE | 2018-09-25 14:06 | PN ---
Date/Time of Note Date/Time of Note DATE: 09/25/18 TIME: 14:02 Assessment/Plan VTE Prophylaxis Risk score (from Nsg)>0 risk: 5 SCD applied (from Nsg): Yes Pharmacological prophylaxis: heparin Lines/Catheters IV Catheter Type (from Nrsg): Peripheral IV Urinary Cath still in place: No Assessment/Plan Hospital Course Assessment and plan #CAD Patient status post PTCA and stent to left circumflex Continue DAPT On statin #Complete heart block Patient status post transvenous pacemaker placement (pulled out by patient). s/p plan for pacemaker placement #Hypertension Continue antihypertensives #Diabetes A1c of 8.1 On insulin regimen #ESRD Follow with supervisor assembling recommendations for HD #Hyperlipidemia Continue statin #Anemia chronic disease Monitor H&H Transfuse blood products as needed #History of hypothyroidism thyroid panel WNL Patient for outpatient follow-up ##Acute encephalopathy Resolved. Reorientation as needed Disposition and plan. s/p pacemaker placement. Monitor on telemetry. PT to follow. d/c planning Discussed POC with Dr. Dumont Result Diagram: 09/25/18 0602 09/25/18 0602 Results 24hrs Laboratory Tests Test 09/24/18 17:09 09/24/18 21:45 09/25/18 06:02 09/25/18 07:48 Bedside Glucose 309 H 288 H 141 White Blood Count 8.3 Red Blood Count 3.55 L Hemoglobin 10.5 L Hematocrit 32.2 L Mean Corpuscular 90.7 Volume Mean Corpuscular 29.6 Hemoglobin Mean Corpuscular 32.6 Hemoglobin Concent Red Cell 13.3 Distribution Width Platelet Count 169 Mean Platelet Volume 10.8 H Immature 0.400 Granulocytes % Neutrophils % 58.6 Lymphocytes % 22.0 Monocytes % 9.7 Eosinophils % 8.6 H Basophils % 0.7 Nucleated Red Blood 0.0 Cells % Immature 0.030 Granulocytes # Neutrophils # 4.9 Lymphocytes # 1.8 Monocytes # 0.8 Eosinophils # 0.7 H Basophils # 0.1 Nucleated Red Blood 0.0 Cells # Sodium Level 136 Potassium Level 5.4 H Chloride Level 99 Carbon Dioxide Level 28 Anion Gap 9 Blood Urea Nitrogen 37 H Creatinine 6.61 H Est Glomerular Filtrat Rate mL/min Glucose Level 136 Calcium Level 9.4 Phosphorus Level 4.7 Magnesium Level 2.3 Test 09/25/18 11:26 Bedside Glucose 209 Subjective 24 Hr Interval Summary Free Text/Dictation patient s/p pacemaker placement. comfortable at present Exam/Review of Systems Exam Vitals Vital Signs Date Temp Pulse Resp B/P (MAP) Pulse Ox O2 O2 Flow FiO2 Time Delivery Rate 09/25/18 98.7 93 18 170/75 95 11:50 (106) 09/25/18 Room Air 11:05 Intake and Output 09/24/18 09/24/18 09/25/18 1515:00 23:00 07:00 IntakeIntake Total 600 ml OutputOutput Total 2600 ml 150 ml BalanceBalance -2600 ml 450 ml Exam Constitutional: alert, oriented Psych: nl mood/affect Head: normocephalic Neck: supple, non-tender Respiratory: clear to auscultation Cardiovascular: other (regular rate ) Gastrointestinal: soft, non-tender Neurological: nl mental status, nl speech Skin: nl turgor Results Results 24hrs Laboratory Tests Test 09/24/18 17:09 09/24/18 21:45 09/25/18 06:02 09/25/18 07:48 Bedside Glucose 309 H 288 H 141 White Blood Count 8.3 Red Blood Count 3.55 L Hemoglobin 10.5 L Hematocrit 32.2 L Mean Corpuscular 90.7 Volume Mean Corpuscular 29.6 Hemoglobin Mean Corpuscular 32.6 Hemoglobin Concent Red Cell 13.3 Distribution Width Platelet Count 169 Mean Platelet Volume 10.8 H Immature 0.400 Granulocytes % Neutrophils % 58.6 Lymphocytes % 22.0 Monocytes % 9.7 Eosinophils % 8.6 H Basophils % 0.7 Nucleated Red Blood 0.0 Cells % Immature 0.030 Granulocytes # Neutrophils # 4.9 Lymphocytes # 1.8 Monocytes # 0.8 Eosinophils # 0.7 H Basophils # 0.1 Nucleated Red Blood 0.0 Cells # Sodium Level 136 Potassium Level 5.4 H Chloride Level 99 Carbon Dioxide Level 28 Anion Gap 9 Blood Urea Nitrogen 37 H Creatinine 6.61 H Est Glomerular Filtrat Rate mL/min Glucose Level 136 Calcium Level 9.4 Phosphorus Level 4.7 Magnesium Level 2.3 Test 09/25/18 11:26 Bedside Glucose 209 Medications Medication Current Medications Aspirin (Halfprin) 81 mg DAILY PO Last administered on 09/25/18at 11:29; Admin Dose 81 MG; Start 09/19/18 at 09:00 Clopidogrel Bisulfate (plaVIX) 75 mg DAILY PO Last administered on 09/25/18 11:28; Admin Dose 75 MG; Start 09/19/18 at 09:00 Acetaminophen (Tylenol Tab) 650 mg Q4H PRN PO PAIN; Start 09/18/18 at 15:00 Oxycodone/ Acetaminophen (Percocet (5/ 325)) 1 tab Q4H PRN PO PAIN Last administered on 09/19/18 15:19; Admin Dose 1 TAB; Start 09/18/18 at 15:00 Al Hydrox/Mg Hydrox/Simethicone (Mag-Al Plus) 30 ml Q4H PRN PO GASTROINTESTINAL UPSET Last administered on 09/21/18 14:43; Admin Dose 30 ML; Start 09/18/18 at 15:00 Ondansetron HCl (Zofran Inj) 4 mg Q4H PRN IV NAUSEA AND/OR VOMITING; Start 09/18/18 at 15:00 Nifedipine (Procardia Xl) 90 mg BID PO Last administered on 09/25/18 11:30; Admin Dose 90 MG; Start 09/18/18 at 21:00 Hydralazine HCl (Apresoline) 10 mg Q4H PRN IV SBP>170 Last administered on 09/20/18 15:30; Admin Dose 10 MG; Start 09/18/18 at 16:00 Insulin Glargine (Lantus) 11 units DAILY@2000 SC Last administered on 09/24/18 21:58; Admin Dose 11 UNITS; Start 09/18/18 at 20:00 Insulin Aspart (Novolog Insulin Pen) NOVOLOG *MILD* ALGORITHM WITH MEALS BEDTIME SC Last administered on 09/25/18 11:35; Admin Dose 2 UNIT; Start 09/18/18 at 17:35 Miscellaneous Information 1 ea NOTE XX ; Start 09/18/18 at 16:30 Glucose (Glutose) 15 gm Q15M PRN PO DECREASED GLUCOSE; Start 09/18/18 at 16:30 Glucose (Glutose) 22.5 gm Q15M PRN PO DECREASED GLUCOSE; Start 09/18/18 at 16:30 Dextrose (D50w Syringe) 25 ml Q15M PRN IV DECREASED GLUCOSE; Start 09/18/18 at 16:30 Dextrose (D50w Syringe) 50 ml Q15M PRN IV DECREASED GLUCOSE; Start 09/18/18 at 16:30 Glucagon (Glucagen) 1 mg Q15M PRN IM DECREASED GLUCOSE; Start 09/18/18 at 16:30 Glucose (Glutose) 15 gm Q15M PRN BUCCAL DECREASED GLUCOSE; Start 09/18/18 at 16:30 Albumin Human 100 ml @ 100 mls/hr WITH DIALYSIS PRN IV SBP <90 DURING DIALYSIS; Start 09/18/18 at 19:30 Famotidine (Pepcid) 20 mg DAILY PO Last administered on 09/25/18 11:29; Admin Dose 20 MG; Start 09/19/18 at 09:00 Atorvastatin Calcium (Lipitor) 20 mg HS PO Last administered on 09/24/18 21:51; Admin Dose 20 MG; Start 09/19/18 at 21:00 Heparin Sodium (Porcine) (Heparin (1000 Units/ml)) 4,500 unit AFTER DIALYSIS CATHETER Last administered on 09/24/18 10:53; Admin Dose 4,500 UNIT; Start 09/19/18 at 12:30 Diphenhydramine HCl (Benadryl) 25 mg Q6H PRN IV itchiness Last administered on 09/22/18 18:26; Admin Dose 25 MG; Start 09/19/18 at 17:30 Lorazepam (Ativan) 1 mg Q4 PRN IV AGITATION Last administered on 09/20/18 02:22; Admin Dose 1 MG; Start 09/20/18 at 02:30 Polyethylene Glycol (Miralax) 17 gm BID PO Last administered on 09/25/18 11:30; Admin Dose 17 GM; Start 09/21/18 at 09:00 Bisacodyl (Dulcolax) 10 mg DAILY PRN PO CONSTIPATION Last administered on 09/21/18 18:03; Admin Dose 10 MG; Start 09/21/18 at 09:00 Hydralazine HCl (Apresoline) 75 mg TID PO Last administered on 09/25/18 13:51; Admin Dose 75 MG; Start 09/23/18 at 13:00 Cefazolin Sodium 50 ml @ 100 mls/hr Q24H IVPB ; Start 09/26/18 at 09:00 Acetaminophen/ Hydrocodone Bitart (Brigantine (5/325)) 1 tab Q6H PRN PO MODERATE PAIN LEVEL 4-6; Start 09/25/18 at 10:30 Morphine Sulfate (morphine) 2 mg Q4H PRN IV SEVERE PAIN LEVEL 7-10; Start 09/25/18 at 10:30 RANDY MCDERMOTT NP Sep 25, 2018 14:06
--- NOTE | 2018-09-25 17:49 | CONS ---
Assessment/Plan Assessment/Plan Assessment/Plan (Daily) 1. Complete heart block- s/p Single chamber pacemaker placement on 09/25/18 2. Obstructive CAD s/p PCI and EDWIN To Circumflex by Dr. Olivera on 09/18/18 3. ESRD on HD MWF 4. H/o HTN 5. h/o HL 6. Anemia of ESRD 7. H/o Atrial fibrillation Plan: s/p HD yesterday 2 L removed, Plan for HD on then after we will continue HD on TTS( his original schedule)- he follows at [facility] HD center - Continue Home BP meds, IV hydralazine prn will follow up Consultation Date/Type/Reason Admit Date/Time Sep 18, 2018 at 14:44 Initial Consult Date 09/18/18 Type of Consult NEPHROLOGY Requesting Provider: JOSE ABAD NP Date/Time of Note DATE: 09/25/18 TIME: 17:49 Exam/Review of Systems Exam Vitals Vital Signs Date Temp Pulse Resp B/P (MAP) Pulse Ox O2 O2 Flow FiO2 Time Delivery Rate 09/25/18 99.2 74 20 167/72 95 15:28 (103) 09/25/18 Room Air 11:05 Intake and Output 09/24/18 09/24/18 09/25/18 1515:00 23:00 07:00 IntakeIntake Total 600 ml OutputOutput Total 2600 ml 150 ml BalanceBalance -2600 ml 450 ml Exam Constitutional: alert , awake Neck: supple, non-tender Respiratory: clear to auscultation, transcutaenous pacer pads on , + right chest permacath in place Cardiovascular: regular rate and rhythm, nl pulses Gastrointestinal: soft, non-tender Musculoskeletal: nl extremities to inspection Neurological: non focal Lymph: nl lymph nodes Results Result Diagram: 09/25/18 1422 09/25/18 1422 Results 24hrs Laboratory Tests Test 09/24/18 21:45 09/25/18 06:02 09/25/18 07:48 09/25/18 11:26 Bedside Glucose 288 H 141 209 White Blood Count 8.3 Red Blood Count 3.55 L Hemoglobin 10.5 L Hematocrit 32.2 L Mean Corpuscular 90.7 Volume Mean Corpuscular 29.6 Hemoglobin Mean Corpuscular 32.6 Hemoglobin Concent Red Cell 13.3 Distribution Width Platelet Count 169 Mean Platelet Volume 10.8 H Immature 0.400 Granulocytes % Neutrophils % 58.6 Lymphocytes % 22.0 Monocytes % 9.7 Eosinophils % 8.6 H Basophils % 0.7 Nucleated Red Blood 0.0 Cells % Immature 0.030 Granulocytes # Neutrophils # 4.9 Lymphocytes # 1.8 Monocytes # 0.8 Eosinophils # 0.7 H Basophils # 0.1 Nucleated Red Blood 0.0 Cells # Sodium Level 136 Potassium Level 5.4 H Chloride Level 99 Carbon Dioxide Level 28 Anion Gap 9 Blood Urea Nitrogen 37 H Creatinine 6.61 H Est Glomerular Filtrat Rate mL/min Glucose Level 136 Calcium Level 9.4 Phosphorus Level 4.7 Magnesium Level 2.3 Test 09/25/18 14:22 09/25/18 17:23 White Blood Count 8.9 Red Blood Count 3.65 L Hemoglobin 10.8 L Hematocrit 33.2 L Mean Corpuscular 91.0 Volume Mean Corpuscular 29.6 Hemoglobin Mean Corpuscular 32.5 Hemoglobin Concent Red Cell 13.6 Distribution Width Platelet Count 163 Mean Platelet Volume 11.1 H Immature 0.700 H Granulocytes % Neutrophils % 71.7 Lymphocytes % 14.3 L Monocytes % 8.7 Eosinophils % 3.8 Basophils % 0.8 Nucleated Red Blood 0.0 Cells % Immature 0.060 H Granulocytes # Neutrophils # 6.4 Lymphocytes # 1.3 Monocytes # 0.8 Eosinophils # 0.3 Basophils # 0.1 Nucleated Red Blood 0.0 Cells # Sodium Level 136 Potassium Level 5.9 H Chloride Level 98 Carbon Dioxide Level 24 Anion Gap 14 H Blood Urea Nitrogen 41 H Creatinine 7.65 H Est Glomerular Filtrat Rate mL/min Glucose Level 176 Calcium Level 9.6 Bedside Glucose 138 Medications Medication Current Medications Aspirin (Halfprin) 81 mg DAILY PO Last administered on 09/25/18at 11:29; Admin Dose 81 MG; Start 09/19/18 at 09:00 Clopidogrel Bisulfate (plaVIX) 75 mg DAILY PO Last administered on 09/25/18at 11:28; Admin Dose 75 MG; Start 09/19/18 at 09:00 Acetaminophen (Tylenol Tab) 650 mg Q4H PRN PO PAIN; Start 09/18/18 at 15:00 Oxycodone/ Acetaminophen (Percocet (5/ 325)) 1 tab Q4H PRN PO PAIN Last administered on 09/19/18 15:19; Admin Dose 1 TAB; Start 09/18/18 at 15:00 Al Hydrox/Mg Hydrox/Simethicone (Mag-Al Plus) 30 ml Q4H PRN PO GASTROINTESTINAL UPSET Last administered on 09/21/18at 14:43; Admin Dose 30 ML; Start 09/18/18 at 15:00 Ondansetron HCl (Zofran Inj) 4 mg Q4H PRN IV NAUSEA AND/OR VOMITING; Start 09/18/18 at 15:00 Nifedipine (Procardia Xl) 90 mg BID PO Last administered on 09/25/18 11:30; Admin Dose 90 MG; Start 09/18/18 at 21:00 Hydralazine HCl (Apresoline) 10 mg Q4H PRN IV SBP>170 Last administered on 09/20/18 15:30; Admin Dose 10 MG; Start 09/18/18 at 16:00 Insulin Glargine (Lantus) 11 units DAILY@2000 SC Last administered on 09/24/18 21:58; Admin Dose 11 UNITS; Start 09/18/18 at 20:00 Insulin Aspart (Novolog Insulin Pen) NOVOLOG *MILD* ALGORITHM WITH MEALS BEDTIME SC Last administered on 09/25/18 11:35; Admin Dose 2 UNIT; Start 09/18/18 at 17:35 Miscellaneous Information 1 ea NOTE XX ; Start 09/18/18 at 16:30 Glucose (Glutose) 15 gm Q15M PRN PO DECREASED GLUCOSE; Start 09/18/18 at 16:30 Glucose (Glutose) 22.5 gm Q15M PRN PO DECREASED GLUCOSE; Start 09/18/18 at 16:30 Dextrose (D50w Syringe) 25 ml Q15M PRN IV DECREASED GLUCOSE; Start 09/18/18 at 16:30 Dextrose (D50w Syringe) 50 ml Q15M PRN IV DECREASED GLUCOSE; Start 09/18/18 at 16:30 Glucagon (Glucagen) 1 mg Q15M PRN IM DECREASED GLUCOSE; Start 09/18/18 at 16:30 Glucose (Glutose) 15 gm Q15M PRN BUCCAL DECREASED GLUCOSE; Start 09/18/18 at 16:30 Albumin Human 100 ml @ 100 mls/hr WITH DIALYSIS PRN IV SBP <90 DURING DIALYSIS; Start 09/18/18 at 19:30 Famotidine (Pepcid) 20 mg DAILY PO Last administered on 09/25/18 11:29; Admin Dose 20 MG; Start 09/19/18 at 09:00 Atorvastatin Calcium (Lipitor) 20 mg HS PO Last administered on 09/24/18 21:51; Admin Dose 20 MG; Start 09/19/18 at 21:00 Heparin Sodium (Porcine) (Heparin (1000 Units/ml)) 4,500 unit AFTER DIALYSIS CATHETER Last administered on 09/24/18 10:53; Admin Dose 4,500 UNIT; Start 09/19/18 at 12:30 Diphenhydramine HCl (Benadryl) 25 mg Q6H PRN IV itchiness Last administered on 09/22/18 18:26; Admin Dose 25 MG; Start 09/19/18 at 17:30 Lorazepam (Ativan) 1 mg Q4 PRN IV AGITATION Last administered on 09/20/18 02:22; Admin Dose 1 MG; Start 09/20/18 at 02:30 Polyethylene Glycol (Miralax) 17 gm BID PO Last administered on 09/25/18 11:30; Admin Dose 17 GM; Start 09/21/18 at 09:00 Bisacodyl (Dulcolax) 10 mg DAILY PRN PO CONSTIPATION Last administered on 09/21/18 18:03; Admin Dose 10 MG; Start 09/21/18 at 09:00 Hydralazine HCl (Apresoline) 75 mg TID PO Last administered on 09/25/18 13:51; Admin Dose 75 MG; Start 09/23/18 at 13:00 Cefazolin Sodium 50 ml @ 100 mls/hr Q24H IVPB ; Start 09/26/18 at 09:00 Acetaminophen/ Hydrocodone Bitart ([place] (5/325)) 1 tab Q6H PRN PO MODERATE PAIN LEVEL 4-6; Start 09/25/18 at 10:30 Morphine Sulfate (morphine) 2 mg Q4H PRN IV SEVERE PAIN LEVEL 7-10; Start 09/25/18 at 10:30 LILLY QUILES MD Sep 25, 2018 17:49
[2018-09-25] MEDS: HYDROCODONE/APAP (5/325) TAB PO PRN (18:05)
[2018-09-25] MEDS: ATORVASTATIN 20 MG TAB PO SCH (21:03)
[2018-09-25] MEDS: INSULIN GLARGINE [LANTus] (100 UNITS/ML) SYG SC SCH (21:10)
[2018-09-26] VITALS (17 sets, daily range): BP systolic 97–178; BP diastolic 65–87; PULSE 72–105; RESP 16–19
--- NOTE | 2018-09-26 08:06 | PAC ---
Date/Time of Note Date/Time of Note DATE: 09/26/18 TIME: 08:06 Post-Anesthesia Notes Post-Anesthesia Note Last documented vital signs Vital Signs Date Temp Pulse Resp B/P (MAP) Pulse Ox O2 O2 Flow FiO2 Time Delivery Rate 09/26/18 98.2 72 18 178/77 97 Room Air 04:24 (110) Activity: WNL Respiratory function: WNL Cardiovascular function: WNL Mental status: Baseline Pain reasonably controlled: Yes Hydration appropriate: Yes Nausea/Vomiting absent: No TEMO CESAR MD Sep 26, 2018 08:06
--- NOTE | 2018-09-26 08:29 | CONS ---
Assessment/Plan Assessment/Plan Assessment/Plan (Daily) 1. Complete heart block- s/p Single chamber pacemaker placement on 09/25/18 2. Obstructive CAD s/p PCI and EDWIN To Circumflex by Dr. Olivera on 09/18/18 3. ESRD on HD MWF 4. H/o HTN 5. h/o HL 6. Anemia of ESRD 7. H/o Atrial fibrillation Plan: HD ordered for - we will continue HD on TTS( his original schedule)- he follows at [facility] HD center - Continue Home BP meds, IV hydralazine prn will follow up Consultation Date/Type/Reason Admit Date/Time Sep 18, 2018 at 14:44 Initial Consult Date 09/18/18 Type of Consult NEPHROLOGY Requesting Provider: JOSE ABAD NP Date/Time of Note DATE: 09/26/18 TIME: 08:29 Exam/Review of Systems Exam Vitals Vital Signs Date Temp Pulse Resp B/P (MAP) Pulse Ox O2 O2 Flow FiO2 Time Delivery Rate 09/26/18 98.3 82 18 159/76 98 Room Air 07:45 (103) Intake and Output 09/25/18 09/25/18 09/26/18 1515:00 23:00 07:00 IntakeIntake Total 240 ml 240 ml OutputOutput Total 100 ml BalanceBalance 140 ml 240 ml Exam Constitutional: alert , awake Neck: supple, non-tender Respiratory: clear to auscultation, transcutaenous pacer pads on , + right chest permacath in place Cardiovascular: regular rate and rhythm, nl pulses Gastrointestinal: soft, non-tender Musculoskeletal: nl extremities to inspection Neurological: non focal Lymph: nl lymph nodes Results Result Diagram: 09/25/18 1422 09/25/18 1422 Results 24hrs Laboratory Tests Test 09/25/18 11:26 09/25/18 14:22 09/25/18 17:23 09/25/18 20:57 Bedside Glucose 209 138 283 H White Blood Count 8.9 Red Blood Count 3.65 L Hemoglobin 10.8 L Hematocrit 33.2 L Mean Corpuscular 91.0 Volume Mean Corpuscular 29.6 Hemoglobin Mean Corpuscular 32.5 Hemoglobin Concent Red Cell 13.6 Distribution Width Platelet Count 163 Mean Platelet Volume 11.1 H Immature 0.700 H Granulocytes % Neutrophils % 71.7 Lymphocytes % 14.3 L Monocytes % 8.7 Eosinophils % 3.8 Basophils % 0.8 Nucleated Red Blood 0.0 Cells % Immature 0.060 H Granulocytes # Neutrophils # 6.4 Lymphocytes # 1.3 Monocytes # 0.8 Eosinophils # 0.3 Basophils # 0.1 Nucleated Red Blood 0.0 Cells # Sodium Level 136 Potassium Level 5.9 H Chloride Level 98 Carbon Dioxide Level 24 Anion Gap 14 H Blood Urea Nitrogen 41 H Creatinine 7.65 H Est Glomerular Filtrat Rate mL/min Glucose Level 176 Calcium Level 9.6 Test 09/26/18 03:38 09/26/18 08:07 Bedside Glucose 161 167 Medications Medication Current Medications Aspirin (Halfprin) 81 mg DAILY PO Last administered on 09/25/18 11:29; Admin Dose 81 MG; Start 09/19/18 at 09:00 Clopidogrel Bisulfate (plaVIX) 75 mg DAILY PO Last administered on 09/25/18 11:28; Admin Dose 75 MG; Start 09/19/18 at 09:00 Acetaminophen (Tylenol Tab) 650 mg Q4H PRN PO PAIN; Start 09/18/18 at 15:00 Oxycodone/ Acetaminophen (Percocet (5/ 325)) 1 tab Q4H PRN PO PAIN Last administered on 09/19/18 15:19; Admin Dose 1 TAB; Start 09/18/18 at 15:00 Al Hydrox/Mg Hydrox/Simethicone (Mag-Al Plus) 30 ml Q4H PRN PO GASTROINTESTINAL UPSET Last administered on 09/21/18 14:43; Admin Dose 30 ML; Start 09/18/18 at 15:00 Ondansetron HCl (Zofran Inj) 4 mg Q4H PRN IV NAUSEA AND/OR VOMITING; Start 09/18/18 at 15:00 Nifedipine (Procardia Xl) 90 mg BID PO Last administered on 09/25/18 21:02; Admin Dose 90 MG; Start 09/18/18 at 21:00 Hydralazine HCl (Apresoline) 10 mg Q4H PRN IV SBP>170 Last administered on 09/20/18 15:30; Admin Dose 10 MG; Start 09/18/18 at 16:00 Insulin Glargine (Lantus) 11 units DAILY@2000 SC Last administered on 09/25/18 21:10; Admin Dose 11 UNITS; Start 09/18/18 at 20:00 Insulin Aspart (Novolog Insulin Pen) NOVOLOG *MILD* ALGORITHM WITH MEALS BEDTIME SC Last administered on 09/25/18 21:10; Admin Dose 3 UNIT; Start 09/18/18 at 17:35 Miscellaneous Information 1 ea NOTE XX ; Start 09/18/18 at 16:30 Glucose (Glutose) 15 gm Q15M PRN PO DECREASED GLUCOSE; Start 09/18/18 at 16:30 Glucose (Glutose) 22.5 gm Q15M PRN PO DECREASED GLUCOSE; Start 09/18/18 at 16:30 Dextrose (D50w Syringe) 25 ml Q15M PRN IV DECREASED GLUCOSE; Start 09/18/18 at 16:30 Dextrose (D50w Syringe) 50 ml Q15M PRN IV DECREASED GLUCOSE; Start 09/18/18 at 16:30 Glucagon (Glucagen) 1 mg Q15M PRN IM DECREASED GLUCOSE; Start 09/18/18 at 16:30 Glucose (Glutose) 15 gm Q15M PRN BUCCAL DECREASED GLUCOSE; Start 09/18/18 at 16:30 Albumin Human 100 ml @ 100 mls/hr WITH DIALYSIS PRN IV SBP <90 DURING DIALYSIS; Start 09/18/18 at 19:30 Famotidine (Pepcid) 20 mg DAILY PO Last administered on 09/25/18 11:29; Admin Dose 20 MG; Start 09/19/18 at 09:00 Atorvastatin Calcium (Lipitor) 20 mg HS PO Last administered on 09/25/18 21:03; Admin Dose 20 MG; Start 09/19/18 at 21:00 Heparin Sodium (Porcine) (Heparin (1000 Units/ml)) 4,500 unit AFTER DIALYSIS C ATHETER Last administered on 09/24/18 10:53; Admin Dose 4,500 UNIT; Start 09/19/18 at 12:30 Diphenhydramine HCl (Benadryl) 25 mg Q6H PRN IV itchiness Last administered on 09/22/18 18:26; Admin Dose 25 MG; Start 09/19/18 at 17:30 Lorazepam (Ativan) 1 mg Q4 PRN IV AGITATION Last administered on 09/20/18 02:22; Admin Dose 1 MG; Start 09/20/18 at 02:30 Polyethylene Glycol (Miralax) 17 gm BID PO Last administered on 09/25/18 21:04; Admin Dose 17 GM; Start 09/21/18 at 09:00 Bisacodyl (Dulcolax) 10 mg DAILY PRN PO CONSTIPATION Last administered on 09/21/18 18:03; Admin Dose 10 MG; Start 09/21/18 at 09:00 Hydralazine HCl (Apresoline) 75 mg TID PO Last administered on 09/25/18 21:02; Admin Dose 75 MG; Start 09/23/18 at 13:00 Cefazolin Sodium 50 ml @ 100 mls/hr Q24H IVPB ; Start 09/26/18 at 09:00 Acetaminophen/ Hydrocodone Bitart ([place] (5/325)) 1 tab Q6H PRN PO MODERATE PAIN LEVEL 4-6 Last administered on 09/25/18 18:05; Admin Dose 1 TAB; Start 09/25/18 at 10:30 Morphine Sulfate (morphine) 2 mg Q4H PRN IV SEVERE PAIN LEVEL 7-10 Last administered on 09/26/18 03:43; Admin Dose 2 MG; Start 09/25/18 at 10:30 LILLY QUILES MD Sep 26, 2018 08:29
[2018-09-26] MEDS: INSULIN ASPART [NOVOLOG] 3 ML PEN SC SCH ×3 (08:48→17:10)
[2018-09-26] MEDS: NIFEdipine (XL) 90 MG TAB PO SCH (09:00)
[2018-09-26] MEDS ORDERED: CEFAZOLIN 1 GM/50 ML (PMX) 50 ML IVPB SCH (09:00)
[2018-09-26] MEDS: ASPIRIN (EC) 81 MG TAB PO SCH (09:02)
[2018-09-26] MEDS: CLOPIDOGREL 75 MG TAB PO SCH (09:02)
[2018-09-26] MEDS: FAMOTIDINE 20 MG TAB PO SCH (09:02)
[2018-09-26] MEDS: POLYETHYLENE GLYCOL 17 GM PACKET PO SCH (09:02)
[2018-09-26] MEDS: HEPARIN 1000 UNITS/ML 10 ML INJ CATHETER SCH (13:14)
[2018-09-26] MEDS: HYDROCODONE/APAP (5/325) TAB PO PRN (14:01)
--- NOTE | 2018-09-26 14:04 | CONS ---
Assessment/Plan Assessment/Plan Hospital Course (Demo Recall) IMP: 1.Post-op s/p stent x 1 to LCX for high grade stenosis. NL EF by echo this admit 2.CHB requiring placement of temp paciine-currently resolved. Patient self d/c'd temp pacing wire 09/20 when confused and was unable to have PPM placed 09/20 due to acute change in MS which is now back to baseline- now post-op s/p PPM implant 3.HTN 4.ESRD on HD 5. Positive troponin-after stenting in setting of esrd. No chest pain. NO sig uptrend. only slow downtrend in the setting of ESRD Recc: -Now on tele -Continue asa/plavix/statin -continue baseline hydralazine and follow BP clsoely -HD for volume removal -Follow rhythm -ok for d/c planning from cardiac standpoint with outpatient f/u in my office an d wound check 7-10 days Consultation Date/Type/Reason Admit Date/Time Sep 18, 2018 at 14:44 Initial Consult Date 09/18/18 Type of Consult Cardiology Reason for Consultation cad/Heart block Requesting Provider: JOSE ABAD NP Date/Time of Note DATE: 09/26/18 TIME: 14:02 Exam/Review of Systems Vital Signs Vitals Vital Signs Date Temp Pulse Resp B/P (MAP) Pulse Ox O2 O2 Flow FiO2 Time Delivery Rate 09/26/18 105 13:05 09/26/18 98.2 19 125/85 98 Room Air 11:05 (98) Intake and Output 09/25/18 09/25/18 09/26/18 1515:00 23:00 07:00 IntakeIntake Total 240 ml 240 ml OutputOutput Total 100 ml BalanceBalance 140 ml 240 ml Exam Exam Review of Systems: CONSTITUTIONAL: No fevers, chills. PULMONARY: No sob CARDIOVASCULAR: No chest pain/palpitations GASTROINTESTINAL: No nausea/vomiting. GENITOURINARY: No hematuria/dysuria. MUSCULOSKELETAL: No myagias/arthalgias. PSYCHIATRIC: The patient denies depression. NEUROLOGIC: somewhat lethargic Constitutional: other (sleeping, arouasable) Psych: no complaints Head: normocephalic ENMT: mucosa pink and moist Neck: supple, jvd (9 cm water) Respiratory: diminished breath sounds Cardiovascular: regular rate and rhythm, other (L upper chest pacer pocket c/d/i) Gastrointestinal: soft, non-tender Musculoskeletal: muscle weakness (generalized) Extremities: pitting pedal edema (trace/B) Neurological: other (No focal deficits) Labs Result Diagram: 09/25/18 1422 09/25/18 1422 Results 24hrs Laboratory Tests Test 09/25/18 14:22 09/25/18 17:23 09/25/18 20:57 09/26/18 03:38 White Blood Count 8.9 Red Blood Count 3.65 L Hemoglobin 10.8 L Hematocrit 33.2 L Mean Corpuscular 91.0 Volume Mean Corpuscular 29.6 Hemoglobin Mean Corpuscular 32.5 Hemoglobin Concent Red Cell 13.6 Distribution Width Platelet Count 163 Mean Platelet Volume 11.1 H Immature 0.700 H Granulocytes % Neutrophils % 71.7 Lymphocytes % 14.3 L Monocytes % 8.7 Eosinophils % 3.8 Basophils % 0.8 Nucleated Red Blood 0.0 Cells % Immature 0.060 H Granulocytes # Neutrophils # 6.4 Lymphocytes # 1.3 Monocytes # 0.8 Eosinophils # 0.3 Basophils # 0.1 Nucleated Red Blood 0.0 Cells # Sodium Level 136 Potassium Level 5.9 H Chloride Level 98 Carbon Dioxide Level 24 Anion Gap 14 H Blood Urea Nitrogen 41 H Creatinine 7.65 H Est Glomerular Filtrat Rate mL/min Glucose Level 176 Calcium Level 9.6 Bedside Glucose 138 283 H 161 Test 09/26/18 08:07 09/26/18 12:10 Bedside Glucose 167 148 Medications Medications Current Medications Aspirin (Halfprin) 81 mg DAILY PO Last administered on 09/26/18at 09:02; Admin Dose 81 MG; Start 09/19/18 at 09:00 Clopidogrel Bisulfate (plaVIX) 75 mg DAILY PO Last administered on 09/26/18at 09:02; Admin Dose 75 MG; Start 09/19/18 at 09:00 Acetaminophen (Tylenol Tab) 650 mg Q4H PRN PO PAIN; Start 09/18/18 at 15:00 Oxycodone/ Acetaminophen (Percocet (5/ 325)) 1 tab Q4H PRN PO PAIN Last administered on 09/19/18at 15:19; Admin Dose 1 TAB; Start 09/18/18 at 15:00 Al Hydrox/Mg Hydrox/Simethicone (Mag-Al Plus) 30 ml Q4H PRN PO GASTROINTESTINAL UPSET Last administered on 09/21/18 14:43; Admin Dose 30 ML; Start 09/18/18 at 15:00 Ondansetron HCl (Zofran Inj) 4 mg Q4H PRN IV NAUSEA AND/OR VOMITING Last administered on 09/26/18 09:02; Admin Dose 4 MG; Start 09/18/18 at 15:00 Nifedipine (Procardia Xl) 90 mg BID PO Last administered on 09/25/18 21:02; Admin Dose 90 MG; Start 09/18/18 at 21:00 Hydralazine HCl (Apresoline) 10 mg Q4H PRN IV SBP>170 Last administered on 09/20/18 15:30; Admin Dose 10 MG; Start 09/18/18 at 16:00 Insulin Glargine (Lantus) 11 units DAILY@2000 SC Last administered on 09/25/18 21:10; Admin Dose 11 UNITS; Start 09/18/18 at 20:00 Insulin Aspart (Novolog Insulin Pen) NOVOLOG *MILD* ALGORITHM WITH MEALS BEDTIME SC Last administered on 09/26/18 12:16; Admin Dose 1 UNIT; Start 09/18/18 at 17:35 Miscellaneous Information 1 ea NOTE XX ; Start 09/18/18 at 16:30 Glucose (Glutose) 15 gm Q15M PRN PO DECREASED GLUCOSE; Start 09/18/18 at 16:30 Glucose (Glutose) 22.5 gm Q15M PRN PO DECREASED GLUCOSE; Start 09/18/18 at 16:30 Dextrose (D50w Syringe) 25 ml Q15M PRN IV DECREASED GLUCOSE; Start 09/18/18 at 16:30 Dextrose (D50w Syringe) 50 ml Q15M PRN IV DECREASED GLUCOSE; Start 09/18/18 at 16:30 Glucagon (Glucagen) 1 mg Q15M PRN IM DECREASED GLUCOSE; Start 09/18/18 at 16:30 Glucose (Glutose) 15 gm Q15M PRN BUCCAL DECREASED GLUCOSE; Start 09/18/18 at 16:30 Albumin Human 100 ml @ 100 mls/hr WITH DIALYSIS PRN IV SBP <90 DURING DIALYSIS; Start 09/18/18 at 19:30 Famotidine (Pepcid) 20 mg DAILY PO Last administered on 09/26/18 09:02; Admin Dose 20 MG; Start 09/19/18 at 09:00 Atorvastatin Calcium (Lipitor) 20 mg HS PO Last administered on 09/25/18 21:03; Admin Dose 20 MG; Start 09/19/18 at 21:00 Heparin Sodium (Porcine) (Heparin (1000 Units/ml)) 4,500 unit AFTER DIALYSIS CATHETER Last administered on 09/26/18 13:14; Admin Dose 4,500 UNIT; Start 09/19/18 at 12:30 Diphenhydramine HCl (Benadryl) 25 mg Q6H PRN IV itchiness Last administered on 09/22/18 18:26; Admin Dose 25 MG; Start 09/19/18 at 17:30 Lorazepam (Ativan) 1 mg Q4 PRN IV AGITATION Last administered on 09/20/18 02:22; Admin Dose 1 MG; Start 09/20/18 at 02:30 Polyethylene Glycol (Miralax) 17 gm BID PO Last administered on 09/26/18 09:02; Admin Dose 17 GM; Start 09/21/18 at 09:00 Bisacodyl (Dulcolax) 10 mg DAILY PRN PO CONSTIPATION Last administered on 09/21/18 18:03; Admin Dose 10 MG; Start 09/21/18 at 09:00 Hydralazine HCl (Apresoline) 75 mg TID PO Last administered on 09/25/18 21:02; Admin Dose 75 MG; Start 09/23/18 at 13:00 Cefazolin Sodium 50 ml @ 100 mls/hr Q24H IVPB Last administered on 09/26/18 09:02; Admin Dose 100 MLS/HR; Start 09/26/18 at 09:00 Acetaminophen/ Hydrocodone Bitart ([place] (5/325)) 1 tab Q6H PRN PO MODERATE PAIN LEVEL 4-6 Last administered on 09/25/18 18:05; Admin Dose 1 TAB; Start 09/25/18 at 10:30 Morphine Sulfate (morphine) 2 mg Q4H PRN IV SEVERE PAIN LEVEL 7-10 Last administered on 09/26/18 03:43; Admin Dose 2 MG; Start 09/25/18 at 10:30 SNOW BECKER Sep 26, 2018 14:04
--- NOTE | 2018-09-26 14:15 | PDOCDIS ---
Discharge Instructions DIAGNOSIS Discharge Diagnosis #CAD #Complete heart block #Hypertension #Diabetes A1c of 8.1 #ESRD #Hyperlipidemia #Anemia chronic disease #History of hypothyroidism #Acute encephalopathy CONDITION [id number] Patient Condition: [id number] Stable HOME CARE INSTRUCTIONS: [id number] Diet Instructions: [id number] Low Fat /Cholesterol Rvipy6Ka Special Diet: Gusxi6n carbohydrate controlled FOLLOW UP/APPOINTMENTS Follow-up Plan 1. Call to make an appointment and Follow up with Dr. Milton Carter and Dr. Travis Olivera in 7 days. Office Address [address] [place] [address] Office 2. Follow up with your dialysis center for your regular scheduled dialysis RANDY MCDERMOTT NP Sep 26, 2018 14:15
--- NOTE | 2018-09-26 17:19 | RADRPT ---
Vent Rate: 76 bpm RR Interval: 788 msec UT Interval: 166 msec QRS Duration: 134 msec QT Interval: 442 msec QTC Interval: 498 msec P-R-T [place]: 33 - -133 - 57 degrees Sinus rhythm...normal P axis, V-rate 50- 99 Right bundle branch block...QRSd>120, terminal axis(90,270) Electronically Signed By: Travis Olivera
--- NOTE | 2018-09-26 17:19 | RADRPT ---
Vent Rate: 93 bpm RR Interval: [address] Interval: 169 msec QRS Duration: 134 msec QT Interval: 422 msec QTC Interval: 526 msec P-R-T [place]: 44 - 110 - 36 degrees Sinus rhythm...normal P axis, V-rate 50- 99 Atrial premature complex...SV complex w/ short R-R interval RBBB and LPFB...QRSd >120mS, axis(90,210) Electronically Signed By: Travis Olivera
--- NOTE | 2018-09-26 21:12 | DS ---
Date/Time of Note Date/Time of Note DATE: 09/26/18 TIME: 21:07 Discharge Summary Admission/Discharge Info Admit Date/Time Sep 18, 2018 at 14:44 Discharge Date/Time Sep 26, 2018 at 18:00 Discharge Diagnosis #CAD #Complete heart block #Hypertension #Diabetes A1c of 8.1 #ESRD #Hyperlipidemia #Anemia chronic disease #History of hypothyroidism #Acute encephalopathy Patient Condition: Stable Hospital Course This is a 73-year-old male with history of diabetes, hypertension, A. fib, hyperlipidemia, hypothyroidism, ESRD with dialysis on Monday//Monday who was brought to the hospital after having normal cardiac stress test. Patient was brought to the hospital for elective left heart catheterization. He underwent left heart cath with placement of stent to left circumflex. During procedure he was noted to have complete heart block with ventricular escape in the 30s. He initially was placed in ICU with transvenous pacemaker. Patient was resumed on dual antiplatelet therapy as well as statin medication. For his complete heart block we did avoid AV mikayla blocking agents. Was plan for pacemaker placement. Patient did undergo implantation of uoe-nbsilm-updlhkh pacemaker. He did tolerate procedure well. He was monitored on telemetry and did have good response. He was otherwise optimized medically. He was resumed on antihypertensives for high blood pressure as well as insulin for his diabetes. He was seen by devulcanizer head and continued on dialysis. He was also resumed on statins for hyperlipidemia. Patient was offered option for transition to long term facility given his comorbidities. After discussion with patient and family they did opt for patient to go back home with home health services. The plan of care was discussed with the patient and family . On the day of discharge patient was in stable condition Discussed POC with Dr. Dumont [facility] Med[facility] Active Scripts Hydrocodone Bit-Acetaminophen (Hydrocodone Bit-APAP) 5-325MG Tablet, 1 TAB PO Q4 PRN for MODERATE PAIN LEVEL 4-6, #30 TAB Prov:RANDY MCDERMOTT NP 09/26/18 Insulin Glargine,Hum.rec.anlog (Basaglar Kwikpen U-100) 100 Unit/1 Ml Insuln.pen, 11 UNIT SC QHS, #1 EA Prov:RANDY MCDERMOTT NP 09/26/18 Aspirin Delayed Release (Aspirin Delayed Release) 81 Mg Tablet.dr 81 MG PO DAILY, #30 TAB Prov:RANDY MCDERMOTT CLINIQUE COUNTER MANAGER 09/26/18 Nifedipine (Procardia Xl) 90 Mg Tab.er.24, 90 MG PO BID, #60 TAB Prov:RANDY MCDERMOTT CLINIQUE COUNTER MANAGER 09/26/18 Clopidogrel Bisulfate (Clopidogrel) 75 Mg Tablet, 75 MG PO DAILY, #60 TAB Prov:RANDY MCDERMOTT CLINIQUE COUNTER MANAGER 09/26/18 Atorvastatin Calcium* (Atorvastatin Calcium*) 20 Mg Tablet, 20 MG PO QHS, #30 TAB Prov:RANDY MCDERMOTT CLINIQUE COUNTER MANAGER 09/26/18 Reported Medications Calcium Acetate* (Calcium Acetate*) 667 Mg Capsule, 1334 MG PO WITH MEALS, #60 CAP 08/31/18 Gabapentin* (Neurontin*) 300 Mg Capsule, 300 MG PO DAILY, #60 CAP 08/31/18 Folic Acid* (Folic Acid*) 1 Mg Tablet, 1 MG PO DAILY, TAB 08/14/18 Discontinued Reported Medications Hydralazine Hcl* (Hydralazine Hcl*) 50 Mg Tab, 50 MG PO BID, #90 TAB LAST FILLED 03/0308/14/18 Apixaban* (Eliquis*) 5 Mg Tablet, 2.5 MG PO BID, TAB PT ISNT COMPLIANT LAST FILLED 03-03 FOR 30 DAYS PT STILL HAS PILLS IN BOTTLE 08/14/18 Carvedilol* (Carvedilol*) 12.5 Mg Tablet, 6.25 MG PO BID, #60 TAB 08/14/18 Nifedipine* (Nifedipine ER*) 90 Mg Tablet.sa, 90 MG PO BID, TAB.SA 08/14/18 Insulin Lispro (Humalog Kwikpen U-100) 100 Unit/1 Ml Insuln.pen, 7 UNIT SQ AC A, EA ADMELOG 08/14/18 Follow-up Plan 1. Call to make an appointment and Follow up with Dr. Milton Carter and Dr. Travis Olivera in 7 days. Office Address [address] [place] [id number] Office 2. Follow up with your dialysis center for your regular scheduled dialysis Primary Care Provider Jefe Millan MD Time spent on discharge: > 30 minutes Pending Labs Laboratory Tests Test 09/26/18 03:38 09/26/18 08:07 09/26/18 12:10 09/26/18 17:08 Bedside 161 167 148 213 Glucose mg/dL (70-220) mg/dL (70-220) mg/dL (70-220) mg/dL (70-220) RANDY MCDERMOTT NP Sep 26, 2018 21:12
== END 2018-09-26 18:00 | disposition home health service (06) | DRG 228 ==
LOC: SDS 09:17 → REC 14:44 → SDS 14:44 → ICU 15:00 → 6WM 09-23 05:39
PROVIDERS: ADMIT Internal Medicine; ATTEND Internal Medicine
PROC: B2111ZZ Fluoroscopy of Multiple Coronary Arteries using Low Osmolar Contrast (ICD-10-PCS; 2018-09-18)
PROC: 02H63NZ Insertion of Intracardiac Pacemaker into Right Atrium, Percutaneous Approach (ICD-10-PCS; principal; 2018-09-18 12:30)
PROC: 027034Z Dilation of Coronary Artery, One Artery with Drug-eluting Intraluminal Device, Percutaneous Approach (ICD-10-PCS; 2018-09-18 12:30)
PROC: 4A023N7 Measurement of Cardiac Sampling and Pressure, Left Heart, Percutaneous Approach (ICD-10-PCS; 2018-09-18 12:30)
PROC: 5A1D70Z Performance of Urinary Filtration, Intermittent, Less than 6 Hours Per Day (ICD-10-PCS; 2018-09-19)
PROC: 0JH604Z Insertion of Pacemaker, Single Chamber into Chest Subcutaneous Tissue and Fascia, Open Approach (ICD-10-PCS; 2018-09-25)
PROC: 02HK3JZ Insertion of Pacemaker Lead into Right Ventricle, Percutaneous Approach (ICD-10-PCS; 2018-09-25)
DX: I44.2 Atrioventricular block, complete (principal); N18.6 End stage renal disease; G92 Toxic encephalopathy; I12.0 Hypertensive chronic kidney disease with stage 5 chronic kidney disease or end stage renal disease; I25.10 Atherosclerotic heart disease of native coronary artery without angina pectoris; E11.22 Type 2 diabetes mellitus with diabetic chronic kidney disease; Z99.2 Dependence on renal dialysis; E78.5 Hyperlipidemia, unspecified; D63.1 Anemia in chronic kidney disease; I48.91 Unspecified atrial fibrillation; Z86.74 Personal history of sudden cardiac arrest; Z86.39 Personal history of other endocrine, nutritional and metabolic disease; R79.89 Other specified abnormal findings of blood chemistry
CPT/HCPCS: 71045; 80048; 80061; 82550; 82553; 82962; 83036; 83735; 84100; 84439; 84443; 84484; 85025; 85610; 85730; 87081; 87340; 90935; 92953; 93005; 93306; 93458; 97162; C1725; C1786; C1874; C1887; C1894; C1898; C9600; J0360; J0461; J0690; J1200; J1265; J1644; J1815; J2060; J2250; J2270; J2405; J3010; J7040; J7120; P9047; Q9967

== ENCOUNTER 2018-10-06 16:55 | Inpatient (IN) | payer OTHER ==
[~2018-10-06] VITALS: Ht 170.2 cm; Wt 82.6 kg
[~2018-10-06 16:55] MED LIST changes: -APIX5TAB PO; -CARV12.579 PO; +DOCU-144 PO; -INSU100I12 SQ; +ISOS20TA19 PO; +METO-448 PO; -NIFE90TA21 PO; +PANT40TA4 PO
[2018-10-06] MEDS ORDERED: NITROGLYCERIN 2% 1 GM OINT PKT TD STA (17:12)
[2018-10-06] MEDS ORDERED: ONDANSETRON 4 MG INJ IV STA (17:12)
[2018-10-06] MEDS ORDERED: ASPIRIN 325 MG TAB PO STA (17:12)
[2018-10-06] MEDS ORDERED: morphine 2 MG INJ IV STA (17:12)
[2018-10-06] MEDS ORDERED: ACETAMINOPHEN 325 MG TAB PO PRN ×2 (19:00→19:30)
[2018-10-06] MEDS ORDERED: ONDANSETRON 4 MG INJ IV PRN ×2 (19:00→19:30)
[2018-10-06] MEDS ORDERED: NACL 0.9% 3 ML SYG IV SCH (19:30)
[2018-10-06] MEDS ORDERED: GLUCOSE GEL 15 GRAM TUBE PO PRN ×2 (20:30)
[2018-10-06] MEDS ORDERED: GLUCAGON 1 MG INJ IM PRN (20:30)
[2018-10-06] MEDS ORDERED: GLUCOSE GEL 15 GRAM TUBE BUCCAL PRN (20:30)
[2018-10-06] MEDS ORDERED: DEXTROSE 50% 50 ML SYRINGE IV PRN ×2 (20:30)
[2018-10-06 21:00] VITALS: BP 207/93; PULSE 90; RESP 18; Ht 170.2 cm; Wt 82.6 kg
[2018-10-06] MEDS: INSULIN ASPART [NOVOLOG] 3 ML PEN SC SCH (21:00)
[2018-10-06] MEDS: NIFEdipine (XL) 90 MG TAB PO SCH (22:25)
[2018-10-06] MEDS: ATORVASTATIN 20 MG TAB PO SCH (22:25)
[2018-10-06 23:47] VITALS: BP 193/91; PULSE 89; RESP 18
[2018-10-07] VITALS (16 sets, daily range): BP systolic 136–193; BP diastolic 67–97; PULSE 64–113; RESP 18–20
[2018-10-07] MEDS: morphine 2 MG INJ IV PRN (00:22)
[2018-10-07] MEDS ORDERED: hydrALAzine 20 MG INJ IV PRN (00:30)
[2018-10-07] MEDS ORDERED: hydrALAzine 20 MG INJ IV ONE (00:30)
[2018-10-07] MEDS ORDERED: NITROGLYCERIN (SL) 0.4 MG TAB SL ONE (01:30)
[2018-10-07] MEDS ORDERED: LABETALOL HCL 20MG INJ IV ONE (01:30)
[2018-10-07] MEDS: HYDROmorphONE 1 MG/ML SYG IV ONE ×2 (01:49→02:19)
[2018-10-07] MEDS: ACCU-CHEK XX SCH (02:00)
[2018-10-07] MEDS: hydrALAzine 20 MG INJ IV PRN ×2 (03:38→21:04)
[2018-10-07] MEDS: PANTOPRAZOLE (EC) 40 MG TAB PO SCH (06:51)
[2018-10-07] MEDS: CALCIUM ACETATE 667 MG CAP PO SCH ×3 (08:27→17:47)
[2018-10-07] MEDS: ASPIRIN (EC) 81 MG TAB PO SCH (08:27)
[2018-10-07] MEDS: CLOPIDOGREL 75 MG TAB PO SCH (08:27)
[2018-10-07] MEDS: FOLIC ACID 1 MG TAB PO SCH (08:27)
[2018-10-07] MEDS: GABAPENTIN 300 MG CAP PO SCH (08:27)
[2018-10-07] MEDS: NIFEdipine (XL) 90 MG TAB PO SCH ×2 (08:27→20:51)
[2018-10-07] MEDS: INSULIN ASPART [NOVOLOG] 3 ML PEN SC SCH ×4 (08:49→21:01)
[2018-10-07] MEDS ORDERED: SODIUM CHLORIDE 0.9% 1L BAG IV PRN (11:00)
[2018-10-07] MEDS ORDERED: ALBUMIN HUMAN 25% 100 ML IV PRN (11:00)
[2018-10-07] MEDS ORDERED: HEPARIN 1000 UNITS/ML 10 ML INJ CATHETER SCH (11:00)
[2018-10-07] MEDS ORDERED: NA POLYST SULFON 15 GM/60 ML BTL PO ONE (11:00)
[2018-10-07] MEDS ORDERED: INSULIN GLARGINE [LANTus] (100 UNITS/ML) SYG SC SCH (20:00)
[2018-10-07] MEDS: ATORVASTATIN 20 MG TAB PO SCH (20:51)
[2018-10-08] VITALS (21 sets, daily range): BP systolic 121–177; BP diastolic 67–85; PULSE 72–91; RESP 18–22
[2018-10-08] MEDS: ACCU-CHEK XX SCH (02:00)
[2018-10-08] MEDS: PANTOPRAZOLE (EC) 40 MG TAB PO SCH (05:48)
[2018-10-08] MEDS: INSULIN ASPART [NOVOLOG] 3 ML PEN SC SCH ×4 (08:27→20:33)
[2018-10-08] MEDS: NIFEdipine (XL) 90 MG TAB PO SCH ×2 (08:28→20:28)
[2018-10-08] MEDS: ASPIRIN (EC) 81 MG TAB PO SCH (08:28)
[2018-10-08] MEDS: FOLIC ACID 1 MG TAB PO SCH (08:28)
[2018-10-08] MEDS: CLOPIDOGREL 75 MG TAB PO SCH (08:28)
[2018-10-08] MEDS: GABAPENTIN 300 MG CAP PO SCH (08:28)
[2018-10-08] MEDS: CALCIUM ACETATE 667 MG CAP PO SCH ×3 (08:28→18:02)
[2018-10-08] MEDS: HEPARIN 1000 UNITS/ML 10 ML INJ CATHETER SCH (12:24)
[2018-10-08] MEDS: ISOSORBIDE DINITRATE 10 MG TAB PO SCH ×2 (12:58→20:28)
[2018-10-08] MEDS: DOCUSATE SODIUM 100 MG CAP PO SCH ×2 (12:59→20:27)
[2018-10-08] MEDS: ATORVASTATIN 20 MG TAB PO SCH (20:28)
[2018-10-08] MEDS: INSULIN GLARGINE [LANTus] (100 UNITS/ML) SYG SC SCH (20:32)
[2018-10-09] VITALS (33 sets, daily range): BP systolic 126–190; BP diastolic 52–99; PULSE 69–95; RESP 11–24
[2018-10-09] MEDS: ACCU-CHEK XX SCH (02:00)
[2018-10-09] MEDS: SOD CHLORIDE 0.45% 1,000 ML IV SCH ×2 (02:04→14:05)
[2018-10-09] MEDS: PANTOPRAZOLE (EC) 40 MG TAB PO SCH (06:00)
[2018-10-09] MEDS: INSULIN ASPART [NOVOLOG] 3 ML PEN SC SCH ×4 (07:29→20:47)
[2018-10-09] MEDS: ASPIRIN (EC) 81 MG TAB PO SCH (08:15)
[2018-10-09] MEDS: CALCIUM ACETATE 667 MG CAP PO SCH ×3 (08:16→17:55)
[2018-10-09] MEDS: DOCUSATE SODIUM 100 MG CAP PO SCH ×2 (08:16→20:47)
[2018-10-09] MEDS: ISOSORBIDE DINITRATE 10 MG TAB PO SCH ×2 (08:16→12:15)
[2018-10-09] MEDS: FOLIC ACID 1 MG TAB PO SCH (08:16)
[2018-10-09] MEDS: NIFEdipine (XL) 90 MG TAB PO SCH (08:16)
[2018-10-09] MEDS: CLOPIDOGREL 75 MG TAB PO SCH (08:16)
[2018-10-09] MEDS: GABAPENTIN 300 MG CAP PO SCH (08:17)
[2018-10-09] MEDS ORDERED: DIPHENHYDRAMINE 50 MG CAP PO ONE (09:00)
[2018-10-09] MEDS ORDERED: DIAZEPAM 5 MG TAB PO ONE (09:00)
[2018-10-09] MEDS ORDERED: LIDOCAINE 1% (MDV) 20 ML INJ ONE (14:40)
[2018-10-09] MEDS ORDERED: HEPARIN 1000 UNITS/ML 10 ML INJ ONE (14:40)
[2018-10-09] MEDS ORDERED: NITROGLYCERIN (IC) 100 MCG/ML INJ ONE (14:41)
[2018-10-09] MEDS ORDERED: MIDAZOLAM 1 MG/ML 2 ML INJ ONE (14:41)
[2018-10-09] MEDS ORDERED: FENTAnyl 50 MCG/ML VIAL ONE (14:41)
[2018-10-09] MEDS ORDERED: VERAPAMIL 5 MG INJ ONE (14:41)
[2018-10-09] MEDS ORDERED: IODIXANOL LOCM 100 ML BTL ONE ×2 (15:15→16:18)
[2018-10-09] MEDS ORDERED: IOHEXOL 350MG/ML 50 ML BTL ONE (15:15)
[2018-10-09] MEDS ORDERED: CLOPIDOGREL 300 MG TAB ONE (15:59)
[2018-10-09] MEDS ORDERED: BIVALIRUDIN 250MG /NS 50 ML 50 ML IVPB ONE (16:19)
[2018-10-09] MEDS ORDERED: OXYCODONE/ACETAMINOPHEN (5/325) TAB PO PRN (16:30)
[2018-10-09] MEDS ORDERED: AL HYDROX/MG HYDROX/SIMETH 30 ML CUP PO PRN (16:30)
[2018-10-09] MEDS ORDERED: morphine 2 MG INJ IV PRN (16:30)
[2018-10-09] MEDS ORDERED: ACETAMINOPHEN 325 MG TAB PO PRN (16:30)
[2018-10-09] MEDS ORDERED: ONDANSETRON 4 MG INJ IV PRN (16:30)
[2018-10-09] MEDS: morphine 2 MG INJ IV PRN (18:54)
[2018-10-09] MEDS: ATORVASTATIN 20 MG TAB PO SCH (20:47)
[2018-10-09] MEDS: INSULIN GLARGINE [LANTus] (100 UNITS/ML) SYG SC SCH (20:52)
[2018-10-10] VITALS (15 sets, daily range): BP systolic 115–170; BP diastolic 49–81; PULSE 72–89; RESP 17–18
[2018-10-10] MEDS: ACCU-CHEK XX SCH (01:37)
[2018-10-10] MEDS: HEPARIN 1000 UNITS/ML 10 ML INJ CATHETER SCH (02:19)
[2018-10-10] MEDS: NIFEdipine (XL) 90 MG TAB PO SCH ×3 (03:33→21:41)
[2018-10-10] MEDS: ISOSORBIDE DINITRATE 10 MG TAB PO SCH ×3 (03:34→12:13)
[2018-10-10] MEDS: SOD CHLORIDE 0.45% 1,000 ML IV SCH ×2 (04:36→17:08)
[2018-10-10] MEDS: PANTOPRAZOLE (EC) 40 MG TAB PO SCH (06:12)
[2018-10-10] MEDS: CLOPIDOGREL 75 MG TAB PO SCH (08:07)
[2018-10-10] MEDS: DOCUSATE SODIUM 100 MG CAP PO SCH ×2 (08:07→21:40)
[2018-10-10] MEDS: CALCIUM ACETATE 667 MG CAP PO SCH ×3 (08:07→17:15)
[2018-10-10] MEDS: GABAPENTIN 300 MG CAP PO SCH (08:08)
[2018-10-10] MEDS: FOLIC ACID 1 MG TAB PO SCH (08:08)
[2018-10-10] MEDS: ASPIRIN (EC) 81 MG TAB PO SCH (08:08)
[2018-10-10] MEDS: INSULIN ASPART [NOVOLOG] 3 ML PEN SC SCH ×5 (08:11→21:49)
[2018-10-10] MEDS ORDERED: BISACODYL (EC) 5 MG TAB PO PRN (11:00)
[2018-10-10] MEDS: HYDROCODONE/APAP (5/325) TAB PO PRN (12:53)
[2018-10-10] MEDS: METOPROLOL 25 MG TAB PO SCH (21:40)
[2018-10-10] MEDS: ISOSORBIDE DINITRATE 20 MG TAB PO SCH (21:41)
[2018-10-10] MEDS: ATORVASTATIN 20 MG TAB PO SCH (21:41)
[2018-10-10] MEDS: INSULIN GLARGINE [LANTus] (100 UNITS/ML) SYG SC SCH (21:49)
[2018-10-11] VITALS (19 sets, daily range): BP systolic 107–184; BP diastolic 71–84; PULSE 63–83; RESP 18–20
[2018-10-11] MEDS: ACCU-CHEK XX SCH (02:00)
[2018-10-11] MEDS: PANTOPRAZOLE (EC) 40 MG TAB PO SCH (05:51)
[2018-10-11] MEDS: ASPIRIN (EC) 81 MG TAB PO SCH (08:38)
[2018-10-11] MEDS: CALCIUM ACETATE 667 MG CAP PO SCH ×3 (08:38→17:03)
[2018-10-11] MEDS: DOCUSATE SODIUM 100 MG CAP PO SCH ×2 (08:39→21:28)
[2018-10-11] MEDS: GABAPENTIN 300 MG CAP PO SCH (08:39)
[2018-10-11] MEDS: METOPROLOL 25 MG TAB PO SCH ×2 (08:39→21:28)
[2018-10-11] MEDS: CLOPIDOGREL 75 MG TAB PO SCH (08:40)
[2018-10-11] MEDS: FOLIC ACID 1 MG TAB PO SCH (08:40)
[2018-10-11] MEDS: ISOSORBIDE DINITRATE 20 MG TAB PO SCH ×3 (08:40→21:27)
[2018-10-11] MEDS: NIFEdipine (XL) 90 MG TAB PO SCH ×2 (08:40→21:28)
[2018-10-11] MEDS: INSULIN ASPART [NOVOLOG] 3 ML PEN SC SCH ×7 (08:42→21:37)
[2018-10-11] MEDS: HEPARIN 1000 UNITS/ML 10 ML INJ CATHETER SCH (13:18)
[2018-10-11] MEDS: hydrALAzine 20 MG INJ IV PRN (17:34)
[2018-10-11] MEDS: ATORVASTATIN 20 MG TAB PO SCH (21:28)
[2018-10-11] MEDS: INSULIN GLARGINE [LANTus] (100 UNITS/ML) SYG SC SCH (21:37)
[2018-10-12] VITALS: BP 148/75; PULSE 66; RESP 19
[2018-10-12] MEDS: ACCU-CHEK XX SCH (02:00)
[2018-10-12 04:20] VITALS: BP 161/75; PULSE 62; RESP 18
[2018-10-12] MEDS: PANTOPRAZOLE (EC) 40 MG TAB PO SCH (05:53)
[2018-10-12] MEDS: HYDROCODONE/APAP (5/325) TAB PO PRN (05:56)
[2018-10-12 07:33] VITALS: BP 149/66; PULSE 61; RESP 18
[2018-10-12] MEDS: CLOPIDOGREL 75 MG TAB PO SCH (08:19)
[2018-10-12] MEDS: CALCIUM ACETATE 667 MG CAP PO SCH (08:20)
[2018-10-12] MEDS: METOPROLOL 25 MG TAB PO SCH (08:24)
[2018-10-12] MEDS: NIFEdipine (XL) 90 MG TAB PO SCH (08:25)
[2018-10-12] MEDS: FOLIC ACID 1 MG TAB PO SCH (08:25)
[2018-10-12] MEDS: ASPIRIN (EC) 81 MG TAB PO SCH (08:25)
[2018-10-12] MEDS: ISOSORBIDE DINITRATE 20 MG TAB PO SCH (08:25)
[2018-10-12] MEDS: GABAPENTIN 300 MG CAP PO SCH (08:25)
[2018-10-12] MEDS: DOCUSATE SODIUM 100 MG CAP PO SCH (08:26)
[2018-10-12] MEDS: INSULIN ASPART [NOVOLOG] 3 ML PEN SC SCH ×4 (08:27→11:12)
[2018-10-12 11:32] VITALS: BP 161/70; PULSE 61; RESP 20
== END 2018-10-12 13:15 | disposition home or self-care (01) | DRG 246 ==
LOC: E/R 16:55 → TEL 20:40 → OBSVTOIN 10-08 23:54 → TEL 10-09 17:45
PROVIDERS: ADMIT Internal Medicine; ATTEND Hospitalist
PROC: 5A1D70Z Performance of Urinary Filtration, Intermittent, Less than 6 Hours Per Day (ICD-10-PCS; 2018-10-08)
PROC: 4A023N7 Measurement of Cardiac Sampling and Pressure, Left Heart, Percutaneous Approach (ICD-10-PCS; 2018-10-09)
PROC: 027034Z Dilation of Coronary Artery, One Artery with Drug-eluting Intraluminal Device, Percutaneous Approach (ICD-10-PCS; principal; 2018-10-09 15:00)
PROC: 5A1D70Z Performance of Urinary Filtration, Intermittent, Less than 6 Hours Per Day (ICD-10-PCS; 2018-10-10)
DX: I25.110 Atherosclerotic heart disease of native coronary artery with unstable angina pectoris (principal); N18.6 End stage renal disease; I12.0 Hypertensive chronic kidney disease with stage 5 chronic kidney disease or end stage renal disease; E11.22 Type 2 diabetes mellitus with diabetic chronic kidney disease; E11.9 Type 2 diabetes mellitus without complications; D63.1 Anemia in chronic kidney disease; E78.5 Hyperlipidemia, unspecified; I10 Essential (primary) hypertension; Z99.2 Dependence on renal dialysis; Z79.4 Long term (current) use of insulin
CPT/HCPCS: 36415; 71045; 80048; 80053; 82550; 82553; 82962; 83036; 83735; 84100; 84443; 84484; 85025; 85610; 85730; 87081; 90935; 93005; 93306; 93454; 96374; 96375; 97116; 97162; 97530; 99217; C1725; C1874; C1887; C9600; G0378; J0360; J0583; J1170; J1644; J1815; J2250; J2270; J2405; J3010; Q9967